=== PATIENT | male | born 1955 | race Caucasian/White ===

== ENCOUNTER 2023-08-22 10:16 | Inpatient (IN) | payer MEDICARE, SELFPAY ==
[2023-08-22] VITALS (42 sets, daily range): BP systolic 65–133; BP diastolic 42–106; PULSE 84–121; RESP 20–43; TEMP 36.6–37; O2SAT 88–96; BMI 51.1; BMI 43.4
--- NOTE | 2023-08-22 10:20 | ECG_ITS ---
APPROVED REPORT Exam: Resting ECG HR:116 bpm ECG Measurements Heart Rate 116 AXES QRSd 113 QRS -85 QT 313 T 76 QTc 382 Conclusion sinus TACHYCARDIA with motion artifact. LOW QRS VOLTAGE IN PRECORDIAL LEADS [QRS DEFLECTION < 1.0 mV IN CHEST LEADS] LEFT ANTERIOR FASCICULAR BLOCK [QRS AXIS <= -45, QR IN I, RS IN II] POSSIBLE ANTERIOR MYOCARDIAL INFARCTION , OF INDETERMINATE AGE [30 ms Q WAVE IN V3/V4, OR R < 0.2 mV IN V4] ABNORMAL ECG Electronically signed by : SHIRLEY GONZALEZ, 08/22/2023 14:46:14
--- NOTE | 2023-08-22 10:22 | XR_ITS ---
FINAL REPORT CLINICAL HISTORY: respiratory distress COMPARISON: None FINDINGS: The heart size is normal. The mediastinum is normal. The lungs are underinflated. There is bibasilar atelectasis. There are small bilateral pleural effusions. There is no pneumothorax. There is no osseous abnormality. IMPRESSION: Bibasilar atelectasis and small bilateral pleural effusions. Reviewed, Interpreted and Dictated by Elliot Strange MD Transcribed by Ann Rogers Authenticated and [facility]
[2023-08-22 10:36] LABS: Alanine Aminotransferase 26 U/L (12-78); Albumin Level 3.3 g/dl (3.5-5.0); Alkaline Phosphatase 63 U/L (38-126); Aspartate Amino Transferase 24 U/L (17-59); Bilirubin,Total 0.8 mg/dl (0.2-1.3); Blood Urea Nitrogen 38 mg/dl (9-20); Calcium 8.6 mg/dl (8.4-10.2); Chloride 80 mmol/L (98-107); Estimated Glomerular Filt Rate 35 ml/min (>60); GFR (African American) 43 ML/MIN (>60); Globulin 3.2 g/dL (1.3-3.2); Glucose 177 mg/dl (74-100); Potassium 3.8 mmoL/L (3.5-5.1); Sodium 132 mmol/L (136-145); Total Protein,Serum 6.5 g/dl (6.3-8.2)
[2023-08-22] MEDS: IPRATROPIUM/ALBUTEROL 3 ML NEB 9 ML IH (10:40)
[2023-08-22 10:41] LABS: C-Reactive Protein 80.2 mg/L (0-4)
[2023-08-22 10:42] LABS: D-Dimer 0.62 ug/mL (0.0-0.5)
[2023-08-22 10:43] LABS: VBG Base Excess 17.8 mmol/L (-2.4-2.3); VBG HCO3 43.6 mmol/L (23-30); VBG Oxygen Saturation 61.8 % (50-70); VBG PH 7.34 mmol/L (7.31-7.41); VBG PO2 35.5 mmol/L (28-40); VBG Total CO2 46.1 mmol/L (23-27)
--- NOTE | 2023-08-22 10:45 | ED_ITS ---
Discharge Plan Disposition Patient Disposition: Admitted Prescriptions Prescriptions: No Action prednisone 10 mg tablet 10 mg PO DAILY Patient Comments: TAKE 1 TABLET BY MOUTH EVERY DAY atorvastatin 20 mg tablet 20 mg PO HS Patient Comments: TAKE 1 TABLET BY MOUTH EVERY DAY AT NIGHT ipratropium-albuterol 0.5 mg-3 mg(2.5 mg base)/3 mL solution for nebulization 3 ml INHALATION Q4HP PRN (Reason: Shortness Of Breath) Patient Comments: INHALE 3 ML EVERY 4 HOURS NEEDED FOR WHEEZE trazodone 50 mg tablet 50 mg PO HSP PRN (Reason: Sleep) Patient Comments: TAKE 1 TABLET BY MOUTH EVERY DAY AT BEDTIME NEEDED FOR SLEEP ondansetron HCl 4 mg tablet 4 mg PO Q6HP PRN (Reason: Nausea And Vomiting) Patient Comments: TAKE 1 TABLET BY MOUTH EVERY 6 HOURS NEEDED FOR NAUSEA metolazone 5 mg tablet 5 mg PO DAILYP PRN (Reason: Swelling) Patient Comments: TAKE 1 TABLET BY MOUTH DAILY NEEDED FOR OTHER (WEIGHT GAIN 5 POUNDS). triamcinolone acetonide 0.1 % cream 1 applic TOPICAL DAILY Patient Comments: APPLY 1 APPLICATION ON THE SKIN DAILY APPLY TO RASH ON CHEST AND BACK furosemide 80 mg tablet 80 mg PO BIDL Patient Comments: TAKE 1 TABLET BY MOUTH TWICE DAILY DIURETIC. levothyroxine 150 mcg tablet 150 mcg PO DAILY Patient Comments: TAKE 1 TABLET BY MOUTH EVERY DAY metoprolol succinate 25 mg tablet extended release 24 hr 25 mg PO BID Patient Comments: TAKE 1 TABLET BY MOUTH TWICE A DAY albuterol sulfate 90 mcg/actuation HFA aerosol inhaler 2 puff INHALATION Q4HP PRN (Reason: Shortness Of Breath Or Wheezing) Patient Comments: INHALE 2 PUFFS BY MOUTH EVERY 4 HOURS NEEDED FOR WHEEZE spironolactone 50 mg tablet 50 mg PO BID Patient Comments: TAKE 1 TABLET BY MOUTH TWICE DAILY DIURETIC. ranolazine 500 mg tablet extended release 12 hr 500 mg PO BID Patient Comments: TAKE 1 TABLET BY MOUTH EVERY 12 HOURS acetylcysteine 600 mg capsule 600 mg PO BID Patient Comments: TAKE 1 CAPSULE BY MOUTH TWICE A DAY potassium chloride 20 mEq tablet extended release 40 meq PO BID Patient Comments: TAKE 2 TABLETS BY MOUTH TWICE A DAY WITH MEALS Trelegy Ellipta 200-62.5-25 mcg blister with device 1 ea INHALATION DAILY Clinical Impressions Clinical Impression: Acute on chronic respiratory failure with hypoxia and hypercapnia, Acute exacerbation of CHF (congestive heart failure), Severe sepsis, Pleural effusion, Leukocytosis, OSMANI (acute kidney injury), AMS (altered mental status) Discharge ED Provider: Savannah Jones General Adult HPI General Chief complaint: Shortness of Breath/Dyspnea Stated complaint: SOA Time Seen by Provider: 08/22/23 10:18 History of Present Illness HPI narrative: This patient is a 68-year-old male with a history of CHF and COPD reported by EMS presenting with concern for respiratory distress. According to EMS, they were called to the patient's home for respiratory difficulties. He has reportedly been sick for a few days. They noted that he was initially hypoxic, tachypneic, and had rales, so they placed him on CPAP. They report that they gave him 5 mg of IV Versed to help tolerate this. He tolerated it well, but then he reportedly broke their CPAP machine. He typically goes to [facility], however since he broke their CPAP machine, they brought him here. Patient arrives critically ill in respiratory distress and does not contribute much to history given acuity of condition. He denies any complaints of pain or otherwise. EMS does not know about his CODE STATUS, and we do not have any contact information to be able to contact family. Given altered mental status and acuity of condition, I do not feel the patient has capacity to make these decisions at this time. Related Data Home Medications Medication Instructions Recorded Confirmed acetylcysteine 600 mg capsule 600 mg PO BID 08/22/23 08/22/23 albuterol sulfate 90 mcg/actuation 2 puff inhalation Q4HP PRN 08/22/23 08/22/23 aerosol inhaler Shortness Of Breath Or Wheezing atorvastatin 20 mg tablet 20 mg PO HS 08/22/23 08/22/23 fluticasone fur. 200 mcg-umeclid 1 ea inhalation DAILY 08/22/23 08/22/23 62.5 mcg-vilant 25 mcg inhalat.powder (Trelegy Ellipta) furosemide 80 mg tablet 80 mg PO BIDL 08/22/23 08/22/23 ipratropium 0.5 mg-albuterol 3 mg 3 ml inhalation Q4HP PRN Shortness 08/22/23 08/22/23 (2.5 mg base)/3 mL nebulization Of Breath soln levothyroxine 150 mcg tablet 150 mcg PO DAILY 08/22/23 08/22/23 metolazone 5 mg tablet 5 mg PO DAILYP PRN Swelling 08/22/23 08/22/23 metoprolol succinate 25 mg 25 mg PO BID 08/22/23 08/22/23 tablet,extended release 24 hr ondansetron HCl 4 mg tablet 4 mg PO Q6HP PRN Nausea And 08/22/23 08/22/23 Vomiting potassium chloride 20 mEq 40 meq PO BID 08/22/23 08/22/23 tablet,extended release prednisone 10 mg tablet 10 mg PO DAILY 08/22/23 08/22/23 ranolazine 500 mg tablet,extended 500 mg PO BID 08/22/23 08/22/23 release,12 hr spironolactone 50 mg tablet 50 mg PO BID 08/22/23 08/22/23 trazodone 50 mg tablet 50 mg PO HSP PRN Sleep 08/22/23 08/22/23 triamcinolone acetonide 0.1 % 1 applic topical DAILY 08/22/23 08/22/23 topical cream Allergies Allergy/AdvReac Type Severity Reaction Status Date / Time No Known Allergies Allergy Verified 08/22/23 10:58 [facility] Disclaimer: The information contained in this section may have been updated after the patient was seen, as this information can be updated by other users. Medical History COPD (chronic obstructive pulmonary disease) Congestive heart failure Social History Smoking Status: Unknown if ever smoked alcohol intake: never current occupational status: retired Travel in the last 8 weeks: None ROS Obtained: Yes unobtainable due to mental status Physical Exam General General appearance: lethargic, in distress and obese Head Head exam: atraumatic and normocephalic Eye Eye exam: Present normal appearance, PERRL and EOMI ENT ENT exam: Present normal oropharynx, mucous membranes dry and normal external ear exam Neck Neck exam: Present normal inspection, full ROM and trachea midline; Absent tenderness Chest Chest inspection: Present normal inspection and symmetric chest wall rise; Absent tenderness Respiratory Respiratory exam: Present respiratory distress, wheezes, accessory muscle use, prolonged expiratory phase and other (Coarse bilateral rhonchi and rales); Absent stridor Cardiovascular Cardiovascular exam: Present normal rhythm and tachycardia Abdominal Exam Abdominal exam: Present soft and distention; Absent tenderness, guarding, rebound or rigidity Extremities Exam Extremities exam: Present full ROM, normal capillary refill and edema (Symmetric bilateral lower extremity edema with chronic skin changes); Absent tenderness Back Exam Back exam: Present normal inspection and full ROM; Absent tenderness Neurological Exam Neurological exam: Present CN II-XII intact; Absent alert, oriented X3 or motor sensory deficit Expanded Neurological Exam Patient oriented to: Present person; Absent place or time Coma scale eye opening: To voice Coma scale motor response: Obeys commands Coma scale verbal response: Confused Coma scale total: 13 Skin Skin exam: Present warm and dry Medical Decision Making Medical Records Medical records reviewed: Yes I reviewed the patient's medical records. Jeremy Inquiry Pt receiving controlled substance: No Vital Signs: 08/22/23 10:16 08/22/23 10:40 08/22/23 10:40 Pulse Rate 120 H 121 H Pulse Rate [Apical] 120 H Respiratory Rate 34 H Blood Pressure Blood Pressure [Left Arm] 118/55 L Blood Pressure Mean [Left Arm] 76 Blood Pressure Source Blood Pressure Source [Left Arm] Automatic Cuff Blood Pressure Position Blood Pressure Position [Left Arm] Sitting 02 Sat by Pulse Oximetry 88 L Oxygen Delivery Method Non-Rebreather Oxygen Flow Rate (LPM) 15 08/22/23 10:54 Pulse Rate 120 H Pulse Rate [Apical] Respiratory Rate 28 H Blood Pressure 120/89 Blood Pressure [Left Arm] Blood Pressure Mean [Left Arm] Blood Pressure Source Automatic Cuff Blood Pressure Source [Left Arm] Blood Pressure Position Sitting Blood Pressure Position [Left Arm] 02 Sat by Pulse Oximetry 95 Oxygen Delivery Method BiPAP Oxygen Flow Rate (LPM) Lab Data Lab results reviewed: Yes I reviewed the patient's lab results. Lab Results 08/22/23 10:18: WBC 54.1 H*, RBC 3.88 L, Hgb 11.0 L, Hct 36.1 L, MCV 93.1, MCH 28.4, MCHC 30.5 L, RDW 15.8, Plt Count 340, MPV 8.7, Neut % (Auto) 93.7 H, Lymph % (Auto) 0.5 L, Sutter % (Auto) 3.2, Eos % (Auto) 0.3, Baso % (Auto) 2.3 H, Neut # (Auto) 50.7 H, Lymph # (Auto) 0.3 L, Sutter # (Auto) 1.7 H, Eos # (Auto) 0.2, Baso # (Auto) 1.3 H, Total Counted 100, Neutrophils % (Manual) 71, Band Neutrophils % 16.0 H, Lymphocytes % (Manual) 2 L, Monocytes % (Manual) 8, Metamyelocytes % 2.0 H, Myelocytes % 1, Platelet Estimate Normal, Hypochromasia 1+, D-Dimer 0.62 H, S odium 132 L, Potassium 3.8, Chloride 80 L, Carbon Dioxide 47 H*, Anion Gap 8.8, BUN 38 H, Creatinine 1.90 H, Estimated GFR 35 L, Est GFR ( Amer) 43 L, G lucose 177 H, Calcium 8.6, Total Bilirubin 0.8, AST 24, ALT 26, Alkaline Phosphatase 63, Troponin I 0.02, C-Reactive Protein 80.2 H, NT-Pro-B Natriuret Pep 1730 H, Total Protein 6.5, Albumin 3.3 L, Globulin 3.2, Albumin/Globulin Ratio 1.0 L, Procalcitonin 6.56 H, TSH 24.40 H, Thyroxine (T4) 2.5 L 08/22/23 10:22: VBG pH 7.34, VBG pCO2 83.0 H, VBG pO2 35.5, VBG HCO3 43.6 H, VBG Total CO2 46.1 H, VBG O2 Saturation 61.8, VBG Base Excess 17.8 H, VBG Lactic Acid 5.2 H 08/22/23 13:24: Specimen Source A-line, O2 % 70% bipap 18/8, ABG pH 7.40, ABG pCO2 61.6 H, ABG pO2 76.4 L, ABG HCO3 37.2 H, ABG Total CO2 39.1 H, ABG O2 Saturation 94, ABG Base Excess 12.4 H, Jamie Test Non applicable, Vent Rate 20 08/22/23 10:18 08/22/23 10:18 Orders (Tests/Meds): ED MEDICATIONS Generic Name Dose Route Start Last Admin Trade Name Freq PRN Reason Stop Dose Admin Heparin Sodium (Porcine) 5,000 unit 08/22/23 14:45 Heparin Sodium 5,000 Unit/Ml Vial SQ 09/21/23 14:44 Q8H KARIN Piperacillin Sod/Tazobactam 50 mls @ 100 mls/hr 08/22/23 11:00 08/22/23 11:41 Sod 3.375 gm/ Sodium Chloride IV 09/01/23 10:59 100 mls/hr Q8H KARIN Administration Norepinephrine/Dextrose 8 mg in 250 mls @ 3.75 mls/hr 08/22/23 12:28 Norepinephrine 8mg/250ml-D5w Premix IV 09/21/23 12:27 .Q24H KARIN Protocol 2 MCG/MIN Azithromycin 500 mg/ Sodium 250 mls @ 250 mls/hr 08/23/23 12:00 Chloride IV 09/02/23 11:59 Q24H KARIN Sodium Chloride 10 ml 08/22/23 14:14 Sodium Chloride 0.9% 10ml Vial IV 09/21/23 14:13 NEEDED PRN to Dilute Lorazepam inj Discontinued Medications Generic Name Dose Route Start Last Admin Trade Name Freq PRN Reason Stop Dose Admin Acetaminophen 1,000 mg 08/22/23 12:02 Acetaminophen 1,000mg/100ml Vial IV 08/22/23 12:03 ONCE ONE Albuterol/Ipratropium 9 ml 08/22/23 10:23 08/22/23 10:40 Ipratropium/Albuterol 3 Ml Neb IH 08/22/23 10:24 9 ml ONCE ONE Administration Azithromycin 500 mg/ Sodium 250 mls @ 250 mls/hr 08/22/23 10:47 08/22/23 12:55 Chloride IV 08/22/23 10:48 250 mls/hr ONCE ONE Administration Vancomycin HCl 2,500 mg/ 250 mls @ 125 mls/hr 08/22/23 11:00 Sodium Chloride IV 08/22/23 12:59 ONCE ONE Lactated Ringer's 500 mls @ 999 mls/hr 08/22/23 11:21 Lactated Ringer's 1000 Ml Bag IV 08/22/23 11:51 .Q31M ONE Lactated Ringer's 1,000 mls @ 999 mls/hr 08/22/23 12:28 08/22/23 12:50 Lactated Ringer's 1000 Ml Bag IV 08/22/23 13:28 999 mls/hr .Q1H1M ONE Administration Lorazepam 1 mg 08/22/23 14:14 08/22/23 14:21 Lorazepam 2mg/Ml Vial IV 08/22/23 14:15 1 mg ONCE ONE Administration Methylprednisolone Sodium Succinate 125 mg 08/22/23 10:53 08/22/23 11:00 Methylprednisolone Sod Succ 125mg Vial IV 08/22/23 10:54 125 mg ONCE ONE Administration Miscellaneous 1 each 08/22/23 11:00 Vancomycin Consult Request NOTAPPLIC 09/21/23 10:59 CONSULT [facility]Y [facility] Morphine Sulfate 2 mg 08/22/23 12:02 08/22/23 12:02 Morphine 2mg/Ml Syringe IV 08/22/23 12:03 2 mg ONCE ONE Administration Morphine Sulfate 2 mg 08/22/23 13:45 08/22/23 13:54 Morphine 4mg/Ml Syringe IV 08/22/23 13:46 2 mg ONCE ONE Administration Ondansetron HCl 4 mg 08/22/23 12:03 Ondansetron 4mg/2ml Vial IV 08/22/23 12:04 ONCE ONE ORDERS Category Date Time Status CT abdomen pelvis wo con Stat Cat Scan 08/22/23 11:[address] chest wo con Stat Cat Scan 08/22/23 11:[address] head/brain wo con Stat Cat Scan 08/22/23 11:54 Completed XR chest portable Stat Exams 08/22/23 10:22 Completed C-Reactive Protein Stat Lab 08/22/23 10:18 Completed Complete Blood Count Auto Diff AMLAB Lab 08/23/23 06:00 Ordered Complete Blood Count Auto Diff Stat Lab 08/22/23 10:18 Completed Comprehensive Metabolic Panel AMLAB Lab 08/23/23 06:00 Ordered Comprehensive Metabolic Panel Stat Lab 08/22/23 10:18 Completed D-Dimer Stat Lab 08/22/23 10:18 Completed Hemoglobin A1C Stat Lab 08/22/23 10:18 Received Lactic Acid Follow Up (RFLX 1) Stat Lab 08/22/23 14:45 Ordered Lipid Panel AMLAB Lab 08/23/23 06:00 Ordered Magnesium AMLAB Lab 08/23/23 06:00 Ordered NT Pro Brain Natriuretic Pep. Stat Lab 08/22/23 10:18 Completed Procalcitonin Stat Lab 08/22/23 10:18 Completed Rapid PCR Covid and Flu A/B Stat Lab 08/22/23 10:22 Ordered T4 (Thyroxine) Stat Lab 08/22/23 10:18 Completed TSH [Thyroid Stimulating Hormone] Stat Lab 08/22/23 10:18 Received Thyroid Stimulating Hormone Stat Lab 08/22/23 10:18 Completed Troponin I Q3H Lab 08/22/23 13:30 Ordered Troponin I Q3H Lab 08/22/23 16:30 Ordered Troponin I Stat Lab 08/22/23 10:18 Completed UA [Urinalysis and Microscopic] Stat Lab 08/22/23 11:17 Ordered Blood Culture Stat Micro 08/22/23 12:43 Received Urine Culture Stat Micro 08/22/23 11:17 Ordered Arterial Blood Gas Stat RT 08/22/23 13:24 Completed Venous Blood Gas Stat RT 08/22/23 10:22 Completed ECG Data Tracing #1: I reviewed this ECG and interpreted as documented below: Sinus tachycardia with a ventricular rate of [address] changes concerning for ischemia. Some motion artifact noted. Left anterior fascicular block noted. ECG initial impression date: 08/22/23 ECG initial impression time: 10:22 Medical Decision Narrative: In summary, this patient is a 68-year-old male presenting to the Emergency Department for evaluation of respiratory distress. Differential diagnoses considered include but are not limited to respiratory failure, COPD exacerbation, CHF exacerbation, pneumonia, sepsis, ACS, PE. Ruling out the most morbid conditions drove assessment. Patient arrives critically ill in respiratory distress with tachypnea and hypoxia on a nonrebreather. He appears grossly volume overloaded with rales and peripheral edema. Patient was placed on BiPAP upon arrival to help with respiratory efforts. He was also given DuoNebs x 3 as well as IV methylprednisolone. At this time based on clinical exam, has concern for infectious etiology versus CHF exacerbation as a cause. His blood pressure is currently normal at 118/89. Workup included CBC, CMP, troponin, TSH, T4, CRP, procalcitonin, VBG, lactic acid, blood cultures, D-dimer, chest x-ray, and EKG. EKG does not demonstrate any acute ischemic change. I independently interpreted x-ray prior to the radiologist read and noted concerns for pulmonary edema with bilateral pleural effusions. Please see their read for final interpretation. Labs were obtained that demonstrated compensated respiratory acidosis, elevated creatinine at 1.9 with unknown baseline elevated BNP at 1730 with unknown baseline, marked leukocytosis, elevated inflammatory markers, elevated lactic acid. Age-adjusted D-dimer is negative. At this time, high concern for sepsis, but sepsis bolus was not administered given the patient appears grossly volume overloaded in the setting of heart failure. He was started on IV vancomycin, Zosyn, and azithromycin. We were able to obtain records from [facility], and patient has history of CHF with an EF of around 55%. He also has a history of atrial fibrillation, CKD with a creatinine around 1.1 at baseline, BPH, prostate cancer, chronic respiratory failure on 2 L nasal cannula at home, BiPAP use at home, hypertension, hyperlipidemia, hypothyroidism, lymphedema, obesity, and chronic medication noncompliance. His last admission which was back in June, he was treated with Diamox for acute decompensated heart failure requiring BiPAP. Patient required frequent reassessments for monitoring of vital signs, as he did become hypotensive during his hospital stay requiring fluid resuscitation with a liter bolus of IV fluids despite his evidence of volume overload. Levophed was ordered but did not require initiation. He also required frequent reassessments for BiPAP monitoring and setting adjustments. He also became more more agitated the more alert that he became after his blood gas and oxygenation started to improve. He was given a total of 4 mg of IV morphine and then later 1 mg of IV Ativan for agitation, as he kept trying to get out of bed and demanding food. I did place an arterial line into the left wrist for hemodynamic monitoring, however there were issues with calibrating the machine. CTs without IV contrast were obtained to further assess the patient's severe septic shock, and patient was found to have a very large pneumonia. Ultimately, I had an interactive discussion with the director clinical applications Dr. Tirado and the hospitalist Dr. Torres. They agreed to admit the patient here for further evaluation and management. He is admitted in stable condition. Procedures Risk/Benefits of Procedure(s) Were Explained: Yes Arterial Line Time Out Performed: Yes Technique Used: direct puncture technique Post-Procedure: line sutured into place and dry sterile dressing placed Patient Tolerated Procedure: well and no complications Complications: none Site: left and radial Critical Care Critical Care Time Critical Care Time: Yes Attestation: On 08/22/23, the high probability of a clinically significant, sudden or life threatening deterioration of the following system(s) required my full and direct attention, intervention and personal management. The time I documented below is in addition to time spent performing reported procedures but includes the following listed in this critical care notation. Total Time Total Critical Care Time: 65
[2023-08-22 10:46] LABS: Lactate Venous 5.2 mmol/L (0.4-2.0)
[2023-08-22 10:48] LABS: NT Pro Brain Natriuretic Pep. 1730 pg/mL (0-125); Troponin I 0.02 ng/ml (0.00-0.034)
--- NOTE | 2023-08-22 10:51 | PC.NURSE ---
MD to defer sepsis bolus d/t pt hx of CHF and pt appearing already fluid overloaded.
--- NOTE | 2023-08-22 10:52 | PC.NURSE ---
RT called during triage of pt for BIPAP and VBG orders. BIPAP placed and pt tolerating well w/ sats in upper 90's.
[2023-08-22 10:53] LABS: T4 (Thyroxine) 2.5 ug/dl (5.53-11.0)
[2023-08-22 11:00] LABS: Anion Gap 8.8 mEq/L (5-15); Basophils # 1.3 K/mm3 (0-0.2); Basophils % 2.3 % (0.1-2.0); Carbon Dioxide 47 mmol/L (22.0-30.0); Eosinophils # 0.2 K/mm3 (0.0-0.4); Eosinophils % 0.3 % (0.1-12.0); Hematocrit 36.1 % (42.0-52.0); Lymphocytes # 0.3 K/mm3 (0.7-4.5); Lymphocytes % 0.5 % (10-50); Mean Corpuscular HGB Conc 30.5 g/dL (31.8-35.4); Mean Corpuscular Hemoglobin 28.4 pg (27.0-31.2); Mean Corpuscular Volume 93.1 fl (80-94); Mean Platelet Volume 8.7 fl (7.4-10.4); Monocytes # 1.7 K/mm3 (0.1-1.0); Monocytes % 3.2 % (1.7-9.3); Neutrophils # 50.7 K/mm3 (1.8-7.8); Neutrophils % 93.7 % (37.0-80.0); Platelet Count 340 K/mm3 (142-424); Red Blood Count 3.88 M/mm3 (4.60-6.20); Red Cell Distribution Width 15.8 % (11.5-17.5)
[2023-08-22] MEDS: METHYLPREDNISOLONE SOD SUCC 125MG VIAL 125 MG IV (11:00)
[2023-08-22 11:01] LABS: White Blood Count 54.1 K/mm3 (4.8-10.8)
[2023-08-22 11:02] LABS: MANUAL DIFFERENTIAL MANUAL DIFFERENTIAL (MANUAL DIFF)
--- NOTE | 2023-08-22 11:08 | PC.NURSE ---
Contacted [facility] for patient records at this time. They are faxing most recent visits. Pt unable to verify allergies, PMH, or medications.
[2023-08-22 11:20] LABS: Procalcitonin 6.56 ng/mL (0.0-2.0)
--- NOTE | 2023-08-22 11:32 | PC.NURSE ---
Pt has been a difficulty stick to obtain blood cultures. Lab notified and will send staff down to attempt.
[2023-08-22] MEDS: PIPERACILLIN/TAZO 3.375 GM in 0.9 % SODIUM CHLORIDE 50 ML IV ×2 (11:41→19:21)
--- NOTE | 2023-08-22 11:54 | CT_ITS ---
FINAL REPORT TECHNIQUE: Axial images through the abdomen and pelvis were performed without contrast. This study was performed with techniques to keep radiation doses as low as reasonably achievable, (ALARA). Individualized dose reduction techniques using automated exposure control or adjustment of mA and/or kV according to the patient's size were employed. CLINICAL HISTORY: AMS, severe sepsis, resp failure COMPARISON: None FINDINGS: Abdomen: The liver parenchyma is homogeneous. The gallbladder is distended. The spleen and pancreas are unremarkable. There is bilateral adrenal hyperplasia. There is a nonobstructing stone in the left collecting system measuring 5 mm. Pelvis: The urinary bladder is decompressed. The appendix is normal. There are multiple radiation seed implants in the prostate. There is no pelvic mass or inflammation. IMPRESSION: Distended gallbladder. Adrenal hyperplasia. Small nonobstructing stone in the left renal collecting system. Reviewed, Interpreted and Dictated by Elliot Strange MD Transcribed by Ann Rogers Authenticated and [facility]
--- NOTE | 2023-08-22 11:54 | CT_ITS ---
FINAL REPORT TECHNIQUE: Axial images were obtained from the lung apex to the mid abdomen by computed tomography. Coronal reformatted images were obtained. This study was performed with techniques to keep radiation doses as low as reasonably achievable, (ALARA). Individualized dose reduction techniques using automated exposure control or adjustment of mA and/or kV according to the patient''s size were employed. CLINICAL HISTORY: AMS, severe sepsis, resp failure COMPARISON: None FINDINGS: There is no axillary adenopathy. There are small scattered mediastinal lymph nodes which are nonspecific and favored to be reactive. Heart size is normal. There is no pericardial or pleural effusion. There is dense consolidation throughout the left lower lobe of the lung. Patchy airspace opacities noted in the right lower lobe of the lung consistent with acute pneumonia or aspiration. IMPRESSION: Acute pneumonia or aspiration right lower lobe of the lung. Dense consolidation left lower lobe. Reviewed, Interpreted and Dictated by Elliot Strange MD Transcribed by Ann Rogers Authenticated and [facility][1]
--- NOTE | 2023-08-22 11:54 | CT_ITS ---
FINAL REPORT TECHNIQUE: Axial CT images were performed through the head. Coronal reformatted images were submitted. This study was performed with techniques to keep radiation doses as low as reasonably achievable (ALARA). Individualized dose reduction techniques using automated exposure control or adjustment of mA and/or kV according to the patient's size were employed. CLINICAL HISTORY: AMS, severe sepsis, resp failure COMPARISON: None FINDINGS: Images are degraded by patient motion. There is moderate atrophy with proportional ventriculomegaly. There is extensive decreased attenuation in the deep white matter bilaterally. There is no evidence of hemorrhage. There is no mass or edema identified. There is no abnormal extra-axial fluid seen. There is abnormal opacity of the mastoid air cells bilaterally consistent with chronic bilateral mastoiditis. There are mild changes of mild bilateral maxillary sinusitis. IMPRESSION: Atrophy and microvascular ischemia. Chronic bilateral mastoiditis and maxillary sinusitis. Reviewed, Interpreted and Dictated by Elliot Strange MD Transcribed by Ann Rogers Authenticated and . [facility]
[2023-08-22] MEDS: MORPHINE 2MG/ML SYRINGE 2 MG IV (12:02)
[2023-08-22 12:19] LABS: Lymphocytes % 2 % (10-50); Monocytes % 8 % (2-9); Myelocytes % 1 (0-1); Neutrophils % 71 % (42-76); Total Cells Counted 100
[2023-08-22 12:34] LABS: Platelet Estimate Normal
[2023-08-22 12:37] LABS: Hypochromasia 1+
[2023-08-22] MEDS: LACTATED RINGERS 1000ML 1,000 ML 999 ML IV (12:50)
[2023-08-22] MEDS: AZITHROMYCIN 500 MG in 0.9 % SODIUM CHLORIDE 250 ML 250 MG IV (12:55)
--- NOTE | 2023-08-22 13:51 | PC.NURSE ---
Pt has an art line so obtaining vitals to get recorded are delayed due to him fighting the CPAP mask due to his breathing
[2023-08-22] MEDS: MORPHINE 4MG/ML SYRINGE 2 MG IV (13:54)
[2023-08-22 14:07] LABS: ABG Base Excess 12.4 mmol/L (-2.4-2.3); ABG HCO3 37.2 mmhg (22.0-26.0); ABG Oxygen Saturation 94 % (90-100); ABG PO2 76.4 mmhg (80-100); ABG TCO2 39.1 mmhg (23-27)
[2023-08-22 14:08] LABS: Oxygen 70% Bipap 18/8 %
[2023-08-22 14:09] LABS: Allen's Test Non Applicable; Vent Rate 20
--- NOTE | 2023-08-22 14:09 | PC.NURSE ---
Pt has been extremely uncooperative with care since arrival to ED. Pt has repeatedly tried removing BIPAP despite multiple attempts to redirect. Pt has requested food and to stand up multiple times despite being told he is NPO and bed rest every time. Difficult to obtain accurate ART reading and IV lines as well which has delayed medications also. MD is aware and orders placed.
[2023-08-22 14:11] LABS: ABG PCO2 61.6 mmhg (35.0-45.0)
[2023-08-22] MEDS: LORazepam 2MG/ML VIAL 1 MG IV (14:21)
--- NOTE | 2023-08-22 14:34 | P.HP_ITS ---
History of Present Illness *Admission Date: 08/22/23 *Reason for visit:: shortness of breath *History of present illness: Mr. Wu is a 68-year-old male who arrived at our ER via EMS. He has a history of CHF and COPD along with chronic respiratory failure on CPAP at home. Presented via EMS to the ER because of respiratory distress. Unable to obtain any history from patient. History from documentation and discussion with significant other (Anamika Bowers). EMS was called to the patient's home because of respiratory difficulties. He reportedly has been sick for a few days. His significant other noted that he was having trouble breathing and was breathing fast. EMS reports that he initially was hypoxic, tachypneic, and had Rales. They placed him on CPAP and gave him Versed to help him tolerate CPAP. He became more confused and broke their CPAP machine. Typically he goes to [facility] but was unable to transport there due to no longer having CPAP for the ride to the hospital. He was therefore brought to [facility] for further management. He arrived in critically ill condition with respiratory distress concerning for severe sepsis. Unable to give any history due to his confusion. Initial presentation concerning for respiratory failure, severe sepsis, pneumonia. Given multiple DuoNebs and IV methylprednisolone. Labs obtained showing normal pH but elevated pCO2. Compensation with metabolic alkalosis on his CMP with bicarb of 47. Elevated BNP. Given his tachypnea, hypoxia, respiratory distress, patient was placed on BiPAP. Pulmonology was consulted to assist with management. White cell count severely elevated at 54,000, initiated on vancomycin, Zosyn, azithromycin. Records were obtained from [facility] show has history of heart failure with preserved ejection fraction, CKD (baseline 1.1), prostate cancer, chronic respiratory failure on 2 to 3 L nasal cannula. BiPAP use at home. Hypertension, hypothyroid, lymphedema, morbid obesity. Patient has history of chronic medication noncompliance. Was admitted 1 month ago and initiated on treatment with Diamox for acute decompensated heart failure requiring BiPAP. It appears from chart review with multiple discussions were had about possible hospice for his heart failure. Unsure of patient's CODE STATUS. Medicine was consulted for admission. I had a conversation with his significant other, girlfriend of 12 years Anamika Bowers. She states he has 4 adult children (3 daughters and 1 son). He is estranged from his family and in the 12 years they have been together she has never met his children and is not aware of him seeing or talking with them. He has a brother whom he has not seen in years. She has no idea of how to contact his family. She has been his surrogate caregiver in the past. She reports that he has previously been DNR at [facility] but we have no documentation at this time. On arrival to the floor, patient's blood pressure became more hypotensive. He was initiated on norepinephrine. Currently tolerating BiPAP. [facility] Disclaimer: The information contained in this section may have been updated after the patient was seen, as this information can be updated by other users. Medical History Pneumonia COPD (chronic obstructive pulmonary disease) Congestive heart failure Social History Smoking Status: Unknown if ever smoked alcohol intake: never current occupational status: retired Travel in the last 8 weeks: None Review of Systems Review of Systems Review of systems:: unable to obtain Meds Home Medications and Allergies Home Medications Medication Instructions Recorded Confirmed Type acetylcysteine 600 mg capsule 600 mg PO BID 08/22/23 08/22/23 History albuterol sulfate 90 mcg/actuation 2 puff inhalation Q4HP PRN 08/22/23 08/22/23 History aerosol inhaler Shortness Of Breath Or Wheezing atorvastatin 20 mg tablet 20 mg PO HS 08/22/23 08/22/23 History fluticasone fur. 200 mcg-umeclid 1 ea inhalation DAILY 08/22/23 08/22/23 History 62.5 mcg-vilant 25 mcg inhalat.powder (Trelegy Ellipta) furosemide 80 mg tablet 80 mg PO BIDL 08/22/23 08/22/23 History ipratropium 0.5 mg-albuterol 3 mg 3 ml inhalation Q4HP PRN Shortness 08/22/23 08/22/23 History (2.5 mg base)/3 mL nebulization Of Breath soln levothyroxine 150 mcg tablet 150 mcg PO DAILY 08/22/23 08/22/23 History metolazone 5 mg tablet 5 mg PO DAILYP PRN Swelling 08/22/23 08/22/23 History metoprolol succinate 25 mg 25 mg PO BID 08/22/23 08/22/23 History tablet,extended release 24 hr ondansetron HCl 4 mg tablet 4 mg PO Q6HP PRN Nausea And 08/22/23 08/22/23 History Vomiting potassium chloride 20 mEq 40 meq PO BID 08/22/23 08/22/23 History tablet,extended release prednisone 10 mg tablet 10 mg PO DAILY 08/22/23 08/22/23 History ranolazine 500 mg tablet,extended 500 mg PO BID 08/22/23 08/22/23 History release,12 hr spironolactone 50 mg tablet 50 mg PO BID 08/22/23 08/22/23 History trazodone 50 mg tablet 50 mg PO HSP PRN Sleep 08/22/23 08/22/23 History triamcinolone acetonide 0.1 % 1 applic topical DAILY 08/22/23 08/22/23 History topical cream New Prescriptions to Start Prescriptions: Allergies Allergy/AdvReac Type Severity Reaction Status Date / Time No Known Allergies Allergy Verified 08/22/23 10:58 Exam Data for Last 24 hours Vital signs and Labs for Last 24 Hours: Pulse Resp BP Pulse Ox O2 Del Method O2 Flow Rate FiO2 120 H 28 H 120/89 95 BiPAP 15 70 08/22/23 10:54 08/22/23 10:54 08/22/23 10:54 08/22/23 10:54 08/22/23 10:54 08/22/23 10:16 08/22/23 12:21 Laboratory Results - last 24 hr 08/22/23 10:18: WBC 54.1 H*, RBC 3.88 L, Hgb 11.0 L, Hct 36.1 L, MCV 93.1, MCH 28.4, MCHC 30.5 L, RDW 15.8, Plt Count 340, MPV 8.7, Neut % (Auto) 93.7 H, Lymph % (Auto) 0.5 L, [place] % (Auto) 3.2, Eos % (Auto) 0.3, Baso % (Auto) 2.3 H, Neut # (Auto) 50.7 H, Lymph # (Auto) 0.3 L, [place] # (Auto) 1.7 H, Eos # (Auto) 0.2, Baso # (Auto) 1.3 H, Total Counted 100, Neutrophils % (Manual) 71, Band Neutrophils % 16.0 H, Lymphocytes % (Manual) 2 L, Monocytes % (Manual) 8, Metamyelocytes % 2.0 H, Myelocytes % 1, Platelet Estimate Normal, Hypochromasia 1+, D-Dimer 0.62 H, Sodium 132 L, Potassium 3.8, Chloride 80 L, Carbon Dioxide 47 H*, Anion Gap 8.8, BUN 38 H, Creatinine 1.90 H, Estimated GFR 35 L, Est GFR ( Amer) 43 L, Glucose 177 H, Calcium 8.6, Total Bilirubin 0.8, AST 24, ALT 26, Alkaline Phosphatase 63, Troponin I 0.02, C-Reactive Protein 80.2 H, NT-Pro-B Natriuret Pep 1730 H, Total Protein 6.5, Albumin 3.3 L, Globulin 3.2, Albumin/Globulin Ratio 1.0 L, Procalcitonin 6.56 H, TSH 24.40 H, Thyroxine (T4) 2.5 L 08/22/23 10:22: VBG pH 7.34, VBG pCO2 83.0 H, VBG pO2 35.5, VBG HCO3 43.6 H, VBG Total CO2 46.1 H, VBG O2 Saturation 61.8, VBG Base Excess 17.8 H, VBG Lactic Acid 5.2 H 08/22/23 13:24: Specimen Source A-line, O2 % 70% bipap 18/8, ABG pH 7.40, ABG pCO2 61.6 H, ABG pO2 76.4 L, ABG HCO3 37.2 H, ABG Total CO2 39.1 H, ABG O2 Saturation 94, ABG Base Excess 12.4 H, Jamie Test Non applicable, Vent Rate 20 I & O for Last 24 hours: Intake & Output 08/19/23 08/20/23 08/21/23 08/22/23 23:59 23:59 23:59 23:59 Weight 152.52 kg Constitutional Constitutional: moderate distress, morbidly obese and chronically ill appearing Comments: GCS 13; E4, V4, M5 *Routine HEENT Exam Head: Present normocephalic, atraumatic and cushingoid faces Eye: Present EOMI ENT: Present mucous membranes moist *Routine Neck Exam Neck: Absent carotid bruit Comments: Significantly enlarged, buffalo hump on back of neck *Routine Respiratory Exam Respiratory: Present accessory muscle use, prolonged expiratory phase, rhonchi, wheezes, crackles, distant breath sounds and diminished air movement *Routine Cardiovascular Exam Cardiovascular: Present tachycardia *Routine Abdominal Exam Abdominal: Present soft and normoactive bowel sounds; Absent distended Comments: Obese *Routine Rectal Exam Rectal:: deferred *Routine Genitalia Exam Genitalia:: normal male Comment:: Excoriations on scrotum *Routine Extremities Exam Extremities: Present edema (2+ edema to thighs, chronic lymphedema in lower extremities with chronic stasis dermatitis.); Absent cyanosis or clubbing *Routine Skin Exam Skin: Present intact *Routine Neurological Exam Neurological: Present altered mental status and moving all extremities Comments: GCS 13, E4, V4, M5 Assessment and Plan *Assessment and plan (1) Septic shock: Status: Acute Category: Medical Code(s): A41.9 - Sepsis, unspecified organism; R65.21 - Severe sepsis with septic shock (2) Acute on chronic respiratory failure with hypoxia and hypercapnia: Status: Acute Category: Medical Code(s): J96.21 - Acute and chronic respiratory failure with hypoxia; J96.22 - Acute and chronic respiratory failure with hypercapnia (3) Pneumonia: Status: Acute Category: Medical Code(s): J18.9 - Pneumonia, unspecified organism (4) Acute exacerbation of CHF (congestive heart failure): Status: Acute Category: Medical Code(s): I50.9 - Heart failure, unspecified (5) OSMANI (acute kidney injury): Status: Acute Category: Medical Code(s): N17.9 - Acute kidney failure, unspecified (6) Acute metabolic encephalopathy: Status: Acute Category: Medical Code(s): G93.41 - Metabolic encephalopathy (7) Pickwickian syndrome: Status: Acute Category: Medical Code(s): E66.2 - Morbid (severe) obesity with alveolar hypoventilation (8) Morbid obesity: Status: Acute Category: Medical Code(s): E66.01 - Morbid (severe) obesity due to excess calories (9) Hypothyroid: Status: Acute Category: Medical Code(s): E03.9 - Hypothyroidism, unspecified (10) Heart failure with preserved ejection fraction: Status: Acute Category: Medical Code(s): I50.30 - Unspecified diastolic (congestive) heart failure Plan Mr. Wu is a morbidly obese 68-year-old male with history of heart failure with preserved ejection fraction, chronic respiratory failure on home BiPAP, chronically on 3 L oxygen, with CKD and recent admission for respiratory failure a month ago to [facility]. He presented via EMS for acute worsening and concern for sepsis with respiratory failure. Workup in the ER concerning for pneumonia, development of septic shock, and respiratory failure. Initiated on BiPAP. Discussed case with ER, request admission for ICU level of care and further management. Medicine agreed to admit. Received broad-spectrum antibiotics in the ER. Cultures obtained. Pulmonology consulted to assist with care including BiPAP management and critical care. Necessitating ICU level of care. Patient's prognosis guarded, critically ill. Problems addressed as follows: Septic shock Acute on chronic hypoxemic respiratory failure with hypercapnia Pickwickian syndrome Pneumonia Mixed respiratory acidosis, metabolic acidosis with concurrent metabolic alkalotic compensation. -Tachypneic on arrival, tachycardic, CT of chest with dense consolidation of the left lower lobe and right lower lobe. Blood gas showing compensated pH with elevated pCO2. -White cell count elevated at 54,000, lactate elevated above 4 -Pulmonology consulted, appreciate their recommendations. Discussed case. Will continue BiPAP therapy for oxygenation. Hold off on intubation given his improvement in blood gas from initial VBG to subsequent ABG. -Continue DuoNebs every 4 hours scheduled. Pulmicort every 12 hours scheduled. -Continue broad-spectrum antibiotics with vancomycin, Zosyn, azithromycin. -Sputum culture pending. Nasal MRSA PCR pending. Respiratory panel negative -Will maintain MAP greater than 65. Initially greater than 60 1:05 liter in the ER. Became hypotensive after arriving to the floor. Initiated on Levophed. Will administer additional 500 cc bolus of IV fluids. -Maintain head of bed elevated between 30 and 45 degrees. -Reported history of chronic steroids, concern for component of adrenal insufficiency. Will continue stress dose hydrocortisone. Received 200 mg IV hydrocortisone x 1, continue 50 mg every 6 hours scheduled -Procalcitonin elevated at 6.6. Will trend daily. -Repeat CBC, CMP, magnesium, Pro-Amish ordered for the morning Hypothyroid: TSH of 24. Will administer 200 mcg IV levothyroxine x 1. Continue 100 mcg daily Diabetes: A1c 6.8. Sliding scale insulin fingersticks every 6 hours given diabetes diagnosis and steroid use as above Heart failure with preserved ejection fraction -Patient's baseline reportedly 55% per documentation reviewed from [facility]. Will repeat echocardiogram. Concern for diastolic dysfunction given obesity and respiratory failure -Holding metoprolol and diuretics in setting of septic shock -Concern for acute exacerbation with BNP of 1700 however in the setting of septic shock and hypotension, will hold on diuresis and instead will administer fluids cautiously Metabolic alkalosis: Continue acetazolamide 250 mg twice daily OSMANI: BUN 38, creatinine 1.9. Baseline appears to be 1.1 per chart review. Repeat CMP ordered for the morning. Monitoring closely, caution with nephrotoxins, renally dosing medications Hypomagnesemia: Magnesium 1.3. Will administer 2 mg IV x 1. Repeat level ordered for the morning. Patient's estrangement from family complicates social situation and decision making. Will attempt to obtain records from [facility] in regard to possible POA, medical surrogate, CODE STATUS. Until family/significant other able to produce documentation otherwise, patient is full code N.p.o. Heparin 5000 units 3 times daily
[2023-08-22 14:45] LABS: Reflex Lactic Add Lactic Reflex
--- NOTE | 2023-08-22 14:51 | [facility]H.PHAINT1 ---
Pharmacy Intervention Comments: MEDICATION RECONCILIATION COMPLETED ON PATIENT USING EXTERNAL FILL HISTORY FROM PHARMACY. -KHARI WOOTEN, LISAD
--- NOTE | 2023-08-22 15:10 | EXP.PULM.CON ---
History of Present Illness History of present illness: 68-year-old male history of COPD, OHS chronic BiPAP therapy and chronic oxygen supplementation at 5 L, combined systolic and diastolic dysfunction, A-fib RVR, chronic noncompliance with his medications leading to multiple readmissions for worsening respiratory distress, recently discharged from [facility] on June 2023 presented to the ER with worsening respiratory distress needing noninvasive ventilator therapy and pulmonary was called for further evaluation and management. [facility] Disclaimer: The information contained in this section may have been updated after the patient was seen, as this information can be updated by other users. Medical History (Updated 08/22/23 @ 15:21 by Lauren Tirado MD) Pneumonia COPD (chronic obstructive pulmonary disease) Congestive heart failure Social History (Updated 08/22/23 @ 14:57 by Savannah Jones DO) Smoking Status: Unknown if ever smoked alcohol intake: never current occupational status: retired Travel in the last 8 weeks: None Review of Systems Review of Systems Review of systems:: unable to obtain Review of systems (narrative): Patient lethargic not responding appropriately to verbal stimuli Pulmonology Exam Inpatient Vital signs and Labs for Last 24 Hours: Temp Pulse Resp BP Pulse Ox O2 Del Method O2 Flow Rate 98.0 F 120 H 28 H 120/89 95 BiPAP 15 08/22/23 14:32 08/22/23 10:54 08/22/23 10:54 08/22/23 10:54 08/22/23 10:54 08/22/23 10:54 08/22/23 10:16 FiO2 70 08/22/23 12:21 Laboratory Results - last 24 hr 08/22/23 10:18: WBC 54.1 H*, RBC 3.88 L, Hgb 11.0 L, Hct 36.1 L, MCV 93.1, MCH 28.4, MCHC 30.5 L, RDW 15.8, Plt Count 340, MPV 8.7, Neut % (Auto) 93.7 H, Lymph % (Auto) 0.5 L, [place] % (Auto) 3.2, Eos % (Auto) 0.3, Baso % (Auto) 2.3 H, Neut # (Auto) 50.7 H, Lymph # (Auto) 0.3 L, [place] # (Auto) 1.7 H, Eos # (Auto) 0.2, Baso # (Auto) 1.3 H, Total Counted 100, Neutrophils % (Manual) 71, Band Neutrophils % 16.0 H, Lymphocytes % (Manual) 2 L, Monocytes % (Manual) 8, Metamyelocytes % 2.0 H, Myelocytes % 1, Platelet Estimate Normal, Hypochromasia 1+, D-Dimer 0.62 H, Sodium 132 L, Potassium 3.8, Chloride 80 L, Carbon Dioxide 47 H*, Anion Gap 8.8, BUN 38 H, Creatinine 1.90 H, Estimated GFR 35 L, Est GFR ( Amer) 43 L, Glucose 177 H, Calcium 8.6, Total Bilirubin 0.8, AST 24, ALT 26, Alkaline Phosphatase 63, Troponin I 0.02, C-Reactive Protein 80.2 H, NT-Pro-B Natriuret Pep 1730 H, Total Protein 6.5, Albumin 3.3 L, Globulin 3.2, Albumin/Globulin Ratio 1.0 L, Procalcitonin 6.56 H, TSH 24.40 H, Thyroxine (T4) 2.5 L 08/22/23 10:22: VBG pH 7.34, VBG pCO2 83.0 H, VBG pO2 35.5, VBG HCO3 43.6 H, VBG Total CO2 46.1 H, VBG O2 Saturation 61.8, VBG Base Excess 17.8 H, VBG Lactic Acid 5.2 H 08/22/23 13:24: Specimen Source A-line, O2 % 70% bipap 18/8, ABG pH 7.40, ABG pCO2 61.6 H, ABG pO2 76.4 L, ABG HCO3 37.2 H, ABG Total CO2 39.1 H, ABG O2 Saturation 94, ABG Base Excess 12.4 H, Jamie Test Non applicable, Vent Rate 20 I & O for Labs for Last 24 Hours: Intake & Output 08/19/23 08/20/23 08/21/23 08/22/23 23:59 23:59 23:59 23:59 Weight 336 lb 4 oz Constitutional: Present severe distress Head: Present normocephalic and atraumatic ENT: Present normal exam, normal oropharynx and mucous membranes moist Neck: Present normal inspection and full ROM Respiratory: Present prolonged expiratory phase, respiratory distress, rhonchi, wheezes, crackles and diminished air movement; Absent able to speak in complete sentences Cardiac: Present S1/S2 and Tachycardia; Absent Regular Rhythm GI: Present soft and distention; Absent tenderness or guarding Skin: Present intact; Absent cyanosis or jaundice Neuro: Absent alert, awake or oriented x 3 Extremities: Present normal inspection; Absent clubbing or cyanosis Psychiatric: Present normal affect and cooperative Meds Home Medications and Allergies Home Medications Medication Instructions Recorded Confirmed Type acetylcysteine 600 mg capsule 600 mg PO BID 08/22/23 08/22/23 History albuterol sulfate 90 mcg/actuation 2 puff inhalation Q4HP PRN 08/22/23 08/22/23 History aerosol inhaler Shortness Of Breath Or Wheezing atorvastatin 20 mg tablet 20 mg PO HS 08/22/23 08/22/23 History fluticasone fur. 200 mcg-umeclid 1 ea inhalation DAILY 08/22/23 08/22/23 History 62.5 mcg-vilant 25 mcg inhalat.powder (Trelegy Ellipta) furosemide 80 mg tablet 80 mg PO BIDL 08/22/23 08/22/23 History ipratropium 0.5 mg-albuterol 3 mg 3 ml inhalation Q4HP PRN Shortness 08/22/23 08/22/23 History (2.5 mg base)/3 mL nebulization Of Breath soln levothyroxine 150 mcg tablet 150 mcg PO DAILY 08/22/23 08/22/23 History metolazone 5 mg tablet 5 mg PO DAILYP PRN Swelling 08/22/23 08/22/23 History metoprolol succinate 25 mg 25 mg PO BID 08/22/23 08/22/23 History tablet,extended release 24 hr ondansetron HCl 4 mg tablet 4 mg PO Q6HP PRN Nausea And 08/22/23 08/22/23 History Vomiting potassium chloride 20 mEq 40 meq PO BID 08/22/23 08/22/23 History tablet,extended release prednisone 10 mg tablet 10 mg PO DAILY 08/22/23 08/22/23 History ranolazine 500 mg tablet,extended 500 mg PO BID 08/22/23 08/22/23 History release,12 hr spironolactone 50 mg tablet 50 mg PO BID 08/22/23 08/22/23 History trazodone 50 mg tablet 50 mg PO HSP PRN Sleep 08/22/23 08/22/23 History triamcinolone acetonide 0.1 % 1 applic topical DAILY 08/22/23 08/22/23 History topical cream New Prescriptions to Start Prescriptions: Allergies Allergy/AdvReac Type Severity Reaction Status Date / Time No Known Allergies Allergy Verified 08/22/23 10:58 Results Laboratory Findings 08/22/23 10:18 08/22/23 10:18 ABG ABG pH 7.40 mmol/L (7.35-7.45) 08/22/23 13:24 ABG pCO2 61.6 mmhg (35.0-45.0) H 08/22/23 13:24 ABG pO2 76.4 mmhg (80-100) L 08/22/23 13:24 ABG O2 Saturation 94 % (90-100) 08/22/23 13:24 PT/INR, D-dimer D-Dimer 0.62 ug/mL (0.0-0.5) H 08/22/23 10:18 Abnormal lab findings: Abnormal Labs 08/22/23 08/22/23 08/22/23 10:18 10:22 13:24 WBC 54.1 H* RBC 3.88 L Hgb 11.0 L Hct 36.1 L MCHC 30.5 L Neut % (Auto) 93.7 H Lymph % (Auto) 0.5 L Baso % (Auto) 2.3 H Neut # (Auto) 50.7 H Lymph # (Auto) 0.3 L Simpson # (Auto) 1.7 H Baso # (Auto) 1.3 H Band Neutrophils % 16.0 H Lymphocytes % (Manual) 2 L Metamyelocytes % 2.0 H D-Dimer 0.62 H ABG pCO2 61.6 H ABG pO2 76.4 L ABG HCO3 37.2 H ABG Total CO2 39.1 H ABG Base Excess 12.4 H VBG pCO2 83.0 H VBG HCO3 43.6 H VBG Total CO2 46.1 H VBG Base Excess 17.8 H VBG Lactic Acid 5.2 H Sodium 132 L Chloride 80 L Carbon Dioxide 47 H* BUN 38 H Creatinine 1.90 H Estimated GFR 35 L Est GFR ( Amer) 43 L Glucose 177 H C-Reactive Protein 80.2 H NT-Pro-B Natriuret Pep 1730 H Albumin 3.3 L Albumin/Globulin Ratio 1.0 L Procalcitonin 6.56 H TSH 24.40 H Thyroxine (T4) 2.5 L Assessment and Plan *Assessment and plan (1) Pleural effusion: Status: Acute Category: Medical Code(s): J90 - Pleural effusion, not elsewhere classified (2) Acute on chronic respiratory failure with hypoxia and hypercapnia: Status: Acute Category: Medical Code(s): J96.21 - Acute and chronic respiratory failure with hypoxia; J96.22 - Acute and chronic respiratory failure with hypercapnia (3) Pneumonia: Status: Acute Category: Medical Code(s): J18.9 - Pneumonia, unspecified organism Plan Patient lethargic not cooperative not responding to verbal commands appropriately. Much of the history is obtained from chart review. 68-year-old male history of COPD, OHS chronic BiPAP therapy and chronic oxygen supplementation at 5 L, combined systolic and diastolic dysfunction, A-fib RVR, chronic noncompliance with his medications leading to multiple readmissions for worsening respiratory distress, recently discharged from [facility] on June 2023 presented to the ER with worsening respiratory distress needing noninvasive ventilator therapy and pulmonary was called for further evaluation and management. He was also treated for influenza pneumonia in April 2023. Afebrile. Significant neutrophilic predominant leukocytosis upon admission hemodynamically unstable needing 1 L LR bolus with improving pressors. It also. Patient has been on long-term prednisone therapy that was discontinued recently in June 2023. CT chest upon admission dense consolidative changes in the left lower lung bruce. Underlying mass cannot be completely ruled out. No significant effusions noted. VBG upon admission showed hypercarbic respiratory failure with normal pH, repeat ABG showed chronic hypercarbia with normal pH. CT head chronic microvascular ischemia chronic sinusitis and mastoiditis. Other significant lab abnormalities including OSMANI and hyponatremia Plan: Continue BiPAP therapy for oxygenation, we will hold off on intubation given improvement in blood gas. Will closely monitor patient's mentation DuoNebs every 4 hours scheduled along with Pulmicort every 12 scheduled Vancomycin and Zosyn pending blood and sputum culture results, nasal MRSA PCR and respiratory viral PCR panel Hydrocortisone 50 every 6 hours MAP at greater than 65 after receiving 1 L LR bolus. Will closely monitor. A-line in place placed by ER physician. Will moitor Recommend elevate head of the bed at 30 to 45 degrees # Thank you for involving pulmonary in this patient care. Will continue to follow.
[2023-08-22 15:31] LABS: Hemoglobin A1C 6.8 % (4.0-6.0)
[2023-08-22] MEDS: HEPARIN SODIUM 5,000 UNIT/ML VIAL 5000 UNIT SQ ×2 (16:10→22:22)
[2023-08-22] MEDS: VANCOMYCIN HCL 2,500 MG in 0.9 % SODIUM CHLORIDE 250 ML 125 MG IV (16:11)
--- NOTE | 2023-08-22 16:45 | PC.NURSE ---
Pt arrived to the floor at this time via stretcher
[2023-08-22 16:53] LABS: Coronavirus 19, PCR Not Detected (NotDetected); Influenza A, PCR Not Detected (NotDetected); Influenza B, PCR Not Detected (NotDetected)
[2023-08-22 17:21] LABS: Troponin I 0.02 ng/ml (0.00-0.034)
[2023-08-22] MEDS: HYDROCORTISONE SOD SUCCINATE 100MG VIAL 200 MG IV (17:23)
[2023-08-22] MEDS: NOREPINEPHRINE BITARTRATE/D5W 8 MG/250 ML PLAST..BAG 15 MG IV (17:32)
[2023-08-22] MEDS: LEVOTHYROXINE SODIUM 100 MCG VIAL 200 MCG IV (18:06)
[2023-08-22] MEDS: IPRATROPIUM/ALBUTEROL 3 ML NEB IH ×2 (18:26→21:20)
[2023-08-22] MEDS: BUDESONIDE 0.5MG/2ML NEB 0.5 MG IH (18:27)
[2023-08-22 19:37] LABS: Reflex Lactic (2 hrs) Add Lactic Reflex
[2023-08-22 19:37] LABS: Adenovirus,PCR Not Detected (NotDetected); Coronavirus 19, PCR Not Detected (NotDetected); Coronavirus 229E Not Detected (NotDetected); Coronavirus NL63 Not Detected (NotDetected); Coronavirus OC43 Not Detected (NotDetected); Coronovirus HKU1,PCR Not Detected (NotDetected); Human Metapneumovirus Not Detected (NotDetected); Influenza A, PCR Not Detected (NotDetected); Influenza AH1, 2009 Not Detected (NotDetected); Influenza AH1, PCR Not Detected (NotDetected); Influenza AH3,PCR Not Detected (NotDetected); Influenza B, PCR Not Detected (NotDetected); Parainfluenza 1, PCR Not Detected (NotDetected); Parainfluenza 2, PCR Not Detected (NotDetected); Parainfluenza 3, PCR Not Detected (NotDetected); Parainfluenza 4, PCR Not Detected (NotDetected); Respiratory Syncytial Virus Not Detected (NotDetected); Rhinovirus/Enterovirus Not Detected (NotDetected)
[2023-08-22 20:24] LABS: Lactic Acid Follow up (RFLX 2) 3.1 mmol/L (0.7-2.1)
[2023-08-22 20:45] LABS: Microscopic, Urine URINE MICROSCOPIC (MICROSCOPIC)
[2023-08-22 20:52] LABS: Appearance,Urine CLEAR (Clear); Bilirubin,Urine Negative (Negative); Blood, Urine 1+ (Negative); Color,Urine YELLOW (Yellow); Glucose,Urine (UA) 1+ (Negative); Ketones,Urine Negative (Negative); Leukocyte Esterase,Urine Negative (Negative); Nitrate,Urine Negative (Negative); PH,Urine 5.5 (5.0-8.5); Protein,Urine 2+ (Negative); Urobilinogen,Urine 0.2 EU/dl (0.2)
--- NOTE | 2023-08-22 21:13 | PC.WOUNDNOTE ---
Scrotal and perineal areas
[2023-08-22] MEDS: LACTATED RINGERS 1000ML 1,000 ML 500 ML IV (21:17)
[2023-08-22 21:18] LABS: Bacteria,Urine Trace /lpf; WBC,Urine Occasional #/hpf (0-3)
[2023-08-22 21:20] LABS: Magnesium 1.3 mg/dl (1.6-2.3)
[2023-08-22] MEDS: MAGNESIUM SULFATE IN WATER 2 GM/50 ML PIGGYBACK IV (21:34)
[2023-08-22] MEDS: HYDROCORTISONE SOD SUCCINATE 100MG VIAL 50 MG IV (22:22)
--- NOTE | 2023-08-22 22:52 | EXP.SEPSISRE ---
[facility] Tissue Perfusion Eval Sepsis Re-Evaluation Performed: Yes Date Performed: 08/22/23 Time Performed: 17:35
--- NOTE | 2023-08-22 23:34 | PC.NURSE ---
Night ENGINEERING PROJECT MANAGER notified that patient's allergies had not been updated. Documenting RN updated per outside records and noted that patient has Penicillin allergy and has Zosyn on JUN. No new orders.
[2023-08-22] MEDS: humaLOG 100 UNITS/ML 3ML VIAL (SSI) SQ (23:40)
[2023-08-23] VITALS (37 sets, daily range): BP systolic 83–120; BP diastolic 44–70; PULSE 62–103; RESP 20–28; TEMP 36.4–36.8; O2SAT 91–100; BMI 43.4; BMI 43.2
[2023-08-23] MEDS: NOREPINEPHRINE BITARTRATE/D5W 8 MG/250 ML PLAST..BAG 26.25 MG IV (00:55)
[2023-08-23 01:04] LABS: POC Glucose,Bedside 222 (70-110)
[2023-08-23] MEDS: PIPERACILLIN/TAZO 3.375 GM in 0.9 % SODIUM CHLORIDE 50 ML IV (02:04)
[2023-08-23] MEDS: IPRATROPIUM/ALBUTEROL 3 ML NEB IH ×6 (02:22→21:37)
[2023-08-23] MEDS: humaLOG 100 UNITS/ML 3ML VIAL (SSI) SQ ×3 (04:19→22:48)
[2023-08-23] MEDS: HYDROCORTISONE SOD SUCCINATE 100MG VIAL 50 MG IV ×4 (04:20→22:47)
[2023-08-23 04:22] LABS: POC Glucose,Bedside 169 (70-110)
[2023-08-23 04:55] LABS: Chloride 84 mmol/L (98-107); Potassium 4.1 mmoL/L (3.5-5.1); Sodium 136 mmol/L (136-145)
[2023-08-23 04:57] LABS: Alanine Aminotransferase 22 U/L (12-78); Alkaline Phosphatase 65 U/L (38-126); Aspartate Amino Transferase 26 U/L (17-59); Bilirubin,Total 0.6 mg/dl (0.2-1.3); Blood Urea Nitrogen 48 mg/dl (9-20); Creatinine Clearance Estimated 36 mL/min (50-200); Estimated Glomerular Filt Rate 31 ml/min (>60); GFR (African American) 38 ML/MIN (>60)
[2023-08-23 04:58] LABS: Albumin Level 3.3 g/dl (3.5-5.0); Albumin/Globulin Ratio 0.9 (1.1-1.8); Calcium 8.5 mg/dl (8.4-10.2); Chol/HDL Ratio 2.5 (1-3.5); Cholesterol 75 mg/dl (140-200); Globulin 3.6 g/dL (1.3-3.2); Glucose 168 mg/dl (74-100); HDL Cholesterol 30 mg/dl (40-60); Magnesium 2.1 mg/dl (1.6-2.3); Total Protein,Serum 6.9 g/dl (6.3-8.2); Triglycerides 114 mg/dl (30-150); VLDL Cholesterol 23 mg/dL (0-40)
[2023-08-23 05:02] LABS: Basophils # 1.1 K/mm3 (0-0.2); Basophils % 1.7 % (0.1-2.0); Eosinophils # 0.1 K/mm3 (0.0-0.4); Eosinophils % 0.2 % (0.1-12.0); Hematocrit 35.8 % (42.0-52.0); Hemoglobin 11.2 g/dL (14.1-18.0); Mean Corpuscular HGB Conc 31.3 g/dL (31.8-35.4); Mean Corpuscular Hemoglobin 28.8 pg (27.0-31.2); Mean Corpuscular Volume 91.8 fl (80-94); Mean Platelet Volume 8.4 fl (7.4-10.4); Monocytes # 1.5 K/mm3 (0.1-1.0); Monocytes % 2.2 % (1.7-9.3); Platelet Count 390 K/mm3 (142-424); Red Cell Distribution Width 15.8 % (11.5-17.5)
[2023-08-23 05:05] LABS: Anion Gap 12.1 mEq/L (5-15); Carbon Dioxide 44 mmol/L (22.0-30.0)
[2023-08-23 05:07] LABS: White Blood Count 67.7 K/mm3 (4.8-10.8)
[2023-08-23 05:09] LABS: MANUAL DIFFERENTIAL MANUAL DIFFERENTIAL (MANUAL DIFF)
[2023-08-23 05:10] LABS: Direct LDL Cholesterol < 30.00 mg/dL (100-129)
[2023-08-23 05:18] LABS: Hypochromasia 1+; Lymphocytes % 3 % (10-50); Monocytes % 3 % (2-9); Myelocytes % 1 (0-1); Neutrophils % 92 % (42-76); Platelet Estimate Normal; Total Cells Counted 100
--- NOTE | 2023-08-23 05:40 | PC.NURSE ---
Care assumed by documenting RN at shift change. Patient with Levophed per titration record, but became hypotensive and titrated per protocol for systolic >90. Attending notified that patient titrated to max per policy and verbal orders obtained for additional fluids-- see MAR. Patient slowly became normotensive and Levophed titrated down per protocol. Patient remained somnolent for most of the shift and remained on stable settings per BiPAP at 18/8, RR 20, FiO2 70%. RN spoke to Digital Associate who advised to keep BiPAP settings the same until his evaluation this AM. See wound care pictures for excoriation and open wounds assessed at the scrotum and perineal areas. 16 fr temp sensing acuña placed for acurate i/o, open wounds, and incontinence. Patient awoke around 0445 requesting to get up to his recliner. He was more awake and coherent with EMV 15. Patient assist x2 to recliner. Remains on his BiPAP, all monitoring devices, and Levophed per MAR. VSS, NAD.
[2023-08-23] MEDS: BUDESONIDE 0.5MG/2ML NEB 0.5 MG IH ×2 (05:43→18:04)
--- NOTE | 2023-08-23 05:57 | PC.NURSE ---
GENERATOR OPERATOR Amy states she changed patient's FiO2 from 70% to 50%. All over settings left the same at 18/8, RR 20
--- NOTE | 2023-08-23 06:00 | CA_ITS ---
APPROVED REPORT EXAM: Comprehensive 2D, Doppler, and color-flow Echocardiogram Clinic Lead: Ayana Lund RDCS Ht: 120 ft 1 in Wt: 329lbs BSA: 23.11 BP: 120/89 mmHg Indications: CHF,RESP FAILURE,COPD,SOA,MORBIB OBESITY LIMITED EXAM M-Mode Dimensions RVDd 3.16 cm (0.9-2.6) LA Diam 4.04 cm (1.9-4.0) LVDd 6.07 cm (3.5-5.7) LVDs 4.44 cm (3.5-5.7) IVSd 1.18 cm (0.6-1.1) PWd 0.94 cm (0.6-1.1) EF (Teich) 51.50% FS 26.90% EDV (Teich) 184.80 mL ESV (Teich) 89.60 mL Left Ventricle The left ventricle is normal size. The left ventricular systolic function is normal. The left ventricular ejection fraction is within the normal range. There is normal left ventricular wall thickness. There is normal LV segmental wall motion. The left ventricular diastolic function is normal. LVEF is 55%. Right Ventricle Right ventricle is mildly dilated. Right ventricle is mildly hypokinetic. Atria The left atrium size is normal. The right atrium size is normal. There is no Doppler evidence of interatrial shunt. Aortic Valve The aortic valve is mildly thickened. There is no aortic valvular stenosis. Trace aortic regurgitation. Mitral Valve The mitral valve is normal in structure. No evidence of mitral valve stenosis. There is no mitral valve regurgitation noted. Tricuspid Valve The tricuspid valve leaflets are thin and pliable. Trace tricuspid regurgitation. There is insufficient TR jet to estimate RVSP. Pulmonic Valve The pulmonary valve is normal in structure. Trace pulmonic regurgitation. Great Vessels The aortic root is normal in size. The ascending aorta is normal in size. IVC is normal in size and collapses >50% with inspiration. Pericardium There is no pericardial effusion. Other Information Study Quality: Fair Conclusion Normal LV systolic function. Mildly dilated RV with mild reduction in RV function. No significant valvular stenosis or regurgitation. Electronically signed by : Tegan Mccallum MD 08/23/2023 09:49:03
[2023-08-23] MEDS: LEVOTHYROXINE SODIUM 100 MCG VIAL IV (06:24)
[2023-08-23] MEDS: HEPARIN SODIUM 5,000 UNIT/ML VIAL 5000 UNIT SQ ×3 (06:24→22:47)
--- NOTE | 2023-08-23 09:05 | EXP.PULM.PN ---
Subjective *Date: 08/23/23 *Time: 10:15 Interval history: No acute respiratory events overnight. Pulmonology Exam Inpatient Vital signs and Labs for Last 24 Hours: Temp Pulse Resp BP Pulse Ox O2 Del Method O2 Flow Rate 97.9 F 82 22 101/55 L 99 BiPAP 15 08/23/23 06:00 08/23/23 06:35 08/23/23 06:35 08/23/23 06:35 08/23/23 06:35 08/23/23 06:35 08/22/23 10:16 FiO2 50 08/23/23 06:35 Laboratory Results - last 24 hr 08/22/23 10:18: WBC 54.1 H*, RBC 3.88 L, Hgb 11.0 L, Hct 36.1 L, MCV 93.1, MCH 28.4, MCHC 30.5 L, RDW 15.8, Plt Count 340, MPV 8.7, Neut % (Auto) 93.7 H, Lymph % (Auto) 0.5 L, [place] % (Auto) 3.2, Eos % (Auto) 0.3, Baso % (Auto) 2.3 H, Neut # (Auto) 50.7 H, Lymph # (Auto) 0.3 L, [place] # (Auto) 1.7 H, Eos # (Auto) 0.2, Baso # (Auto) 1.3 H, Total Counted 100, Neutrophils % (Manual) 71, Band Neutrophils % 16.0 H, Lymphocytes % (Manual) 2 L, Monocytes % (Manual) 8, Metamyelocytes % 2.0 H, Myelocytes % 1, Platelet Estimate Normal, Hypochromasia 1+, D-Dimer 0.62 H, Sodium 132 L, Potassium 3.8, Chloride 80 L, Carbon Dioxide 47 H*, Anion Gap 8.8, BUN 38 H, Creatinine 1.90 H, Estimated GFR 35 L, Est GFR ( Amer) 43 L, Glucose 177 H, Hemoglobin A1c 6.8 H, Calcium 8.6, Total Bilirubin 0.8, AST 24, ALT 26, Alkaline Phosphatase 63, Troponin I 0.02, C-Reactive Protein 80.2 H, NT-Pro-B Natriuret Pep 1730 H, Total Protein 6.5, Albumin 3.3 L, Globulin 3.2, Albumin/Globulin Ratio 1.0 L, Procalcitonin 6.56 H, TSH 24.40 H 08/22/23 10:18: TSH 25.70 H, Thyroxine (T4) 2.5 L 08/22/23 10:22: VBG pH 7.34, VBG pCO2 83.0 H, VBG pO2 35.5, VBG HCO3 43.6 H, VBG Total CO2 46.1 H, VBG O2 Saturation 61.8, VBG Base Excess 17.8 H, VBG Lactic Acid 5.2 H 08/22/23 13:24: Specimen Source A-line, O2 % 70% bipap 18/8, ABG pH 7.40, ABG pCO2 61.6 H, ABG pO2 76.4 L, ABG HCO3 37.2 H, ABG Total CO2 39.1 H, ABG O2 Saturation 94, ABG Base Excess 12.4 H, Jamie Test Non applicable, Vent Rate 20 08/22/23 16:37: Chlamy pneumoniae PCR TNP, Adenovirus (PCR) Not detected, B. pertussis DNA (PCR) TNP, Coronavirus OC43 (PCR) Not detected, Coronavirus HKU1 (PCR) Not detected, Coronavirus 229E (PCR) Not detected, SARS-CoV-2 (PCR) Not detected 08/22/23 16:37: SARS-CoV-2 (PCR) Not detected, Coronavirus NL63 (PCR) Not detected, Human Metapneumovir PCR Not detected, Influenza A (H1) PCR Not detected, Influ A (H1N1/09) PCR Not detected, Influenza A (H3) PCR Not detected, Influenza Type A (PCR) Not detected, Influenza A Untype (PCR) Not detected, Influenza Type B (PCR) Not detected 08/22/23 16:37: Influenza Type B (PCR) Not detected, M. pneumoniae (PCR) TNP, Parainfluenza 1 (PCR) Not detected, Parainfluenza 2 (PCR) Not detected, Parainfluenza 3 (PCR) Not detected, Parainfluenza 4 (PCR) Not detected, RSV (PCR) Not detected, Entero/Rhino (PCR) Not detected 08/22/23 16:38: Troponin I 0.02 08/22/23 17:25: Lactate 4.0 H, Magnesium 1.3 L 08/22/23 19:54: Lactate 3.1 H 08/22/23 20:35: Urine Color Yellow, Urine Appearance Clear, Urine pH 5.5, Ur Specific [place] 1.020, Urine Protein 2+, Urine Glucose (UA) 1+, Urine Ketones Negative, Urine Blood 1+, Urine Nitrate Negative, Urine Bilirubin Negative, Urine Urobilinogen 0.2, Ur Leukocyte Esterase Negative, Urine RBC 5-10, Urine WBC Occasional, Ur Squamous Epith Cells 3-5, Urine Bacteria Trace 08/22/23 21:57: POC Glucose 222 H 08/23/23 04:15: POC Glucose 169 H 08/23/23 04:40: WBC 67.7 H* D, RBC 3.90 L, Hgb 11.2 L, Hct 35.8 L, MCV 91.8, MCH 28.8, MCHC 31.3 L, RDW 15.8, Plt Count 390, MPV 8.4, Neut % (Auto) 96.0 H, Lymph % (Auto) 0.0 L, [place] % (Auto) 2.2, Eos % (Auto) 0.2, Baso % (Auto) 1.7, Neut # (Auto) 65.0 H, Lymph # (Auto) 0.0 L, [place] # (Auto) 1.5 H, Eos # (Auto) 0.1, Baso # (Auto) 1.1 H, Total Counted 100, Neutrophils % (Manual) 92 H, Lymphocytes % (Manual) 3 L, Monocytes % (Manual) 3, Metamyelocytes % 1.0, Myelocytes % 1, Platelet Estimate Normal, Hypochromasia 1+, Sodium 136, Potassium 4.1, Chloride 84 L, Carbon Dioxide 44 H*, Anion Gap 12.1, BUN 48 H D, Creatinine 2.10 H, Estimated Creat Clear 36, Estimated GFR 31 L, Est GFR ( Amer) 38 L, Glucose 168 H, Calcium 8.5, Magnesium 2.1 D, Total Bilirubin 0.6, AST 26, ALT 22, Alkaline Phosphatase 65, Total Protein 6.9, Albumin 3.3 L, Globulin 3.6 H, Albumin/Globulin Ratio 0.9 L, Triglycerides 114, Cholesterol 75 L, LDL Cholesterol Direct < 30.00 L, VLDL Cholesterol 23, HDL Cholesterol 30 L, Cholesterol/HDL Ratio 2.5, Procalcitonin 19.0 H Temp Pulse Resp BP Pulse Ox O2 Del Method O2 Flow Rate 98.0 F 120 H 28 H 120/89 95 BiPAP 15 08/22/23 14:32 08/22/23 10:54 08/22/23 10:54 08/22/23 10:54 08/22/23 10:54 08/22/23 10:54 08/22/23 10:16 FiO2 70 08/22/23 12:21 Laboratory Results - last 24 hr 08/22/23 10:18: WBC 54.1 H*, RBC 3.88 L, Hgb 11.0 L, Hct 36.1 L, MCV 93.1, MCH 28.4, MCHC 30.5 L, RDW 15.8, Plt Count 340, MPV 8.7, Neut % (Auto) 93.7 H, Lymph % (Auto) 0.5 L, [place] % (Auto) 3.2, Eos % (Auto) 0.3, Baso % (Auto) 2.3 H, Neut # (Auto) 50.7 H, Lymph # (Auto) 0.3 L, [place] # (Auto) 1.7 H, Eos # (Auto) 0.2, Baso # (Auto) 1.3 H, Total Counted 100, Neutrophils % (Manual) 71, Band Neutrophils % 16.0 H, Lymphocytes % (Manual) 2 L, Monocytes % (Manual) 8, Metamyelocytes % 2.0 H, Myelocytes % 1, Platelet Estimate Normal, Hypochromasia 1+, D-Dimer 0.62 H, Sodium 132 L, Potassium 3.8, Chloride 80 L, Carbon Dioxide 47 H*, Anion Gap 8.8, BUN 38 H, Creatinine 1.90 H, Estimated GFR 35 L, Est GFR ( Amer) 43 L, Glucose 177 H, Calcium 8.6, Total Bilirubin 0.8, AST 24, ALT 26, Alkaline Phosphatase 63, Troponin I 0.02, C-Reactive Protein 80.2 H, NT-Pro-B Natriuret Pep 1730 H, Total Protein 6.5, Albumin 3.3 L, Globulin 3.2, Albumin/Globulin Ratio 1.0 L, Procalcitonin 6.56 H, TSH 24.40 H, Thyroxine (T4) 2.5 L 08/22/23 10:22: VBG pH 7.34, VBG pCO2 83.0 H, VBG pO2 35.5, VBG HCO3 43.6 H, VBG Total CO2 46.1 H, VBG O2 Saturation 61.8, VBG Base Excess 17.8 H, VBG Lactic Acid 5.2 H 08/22/23 13:24: Specimen Source A-line, O2 % 70% bipap 18/8, ABG pH 7.40, ABG pCO2 61.6 H, ABG pO2 76.4 L, ABG HCO3 37.2 H, ABG Total CO2 39.1 H, ABG O2 Saturation 94, ABG Base Excess 12.4 H, Jamie Test Non applicable, Vent Rate 20 I & O for Labs for Last 24 Hours: Intake & Output 08/20/23 08/21/23 08/22/23 08/23/23 23:59 23:59 23:59 23:59 Intake Total 3279.563 / 3319.563 444.938 / 444.938 Output Total 375 / 575 885 / 885 Balance 2904.563 / 2744.563 -440.062 / -440.062 Weight 329 lb 6 oz 328 lb 0.06 oz Intake & Output 08/19/23 08/20/23 08/21/23 08/22/23 23:59 23:59 23:59 23:59 Weight 336 lb 4 oz Constitutional: Present moderate distress Head: Present normocephalic and atraumatic ENT: Present normal exam, normal oropharynx and mucous membranes moist Neck: Present normal inspection and full ROM Respiratory: Present prolonged expiratory phase, respiratory distress, rhonchi, wheezes, crackles, diminished air movement and able to speak in complete sentences Cardiac: Present S1/S2 and Tachycardia; Absent Regular Rhythm GI: Present soft and distention; Absent tenderness or guarding Skin: Present intact; Absent cyanosis or jaundice Neuro: Present alert, awake and oriented x 3 Extremities: Present normal inspection; Absent clubbing or cyanosis Psychiatric: Present normal affect and cooperative Assessment and Plan *Assessment and plan (1) Pleural effusion: Status: Acute Category: Medical Code(s): J90 - Pleural effusion, not elsewhere classified (2) Acute on chronic respiratory failure with hypoxia and hypercapnia: Status: Acute Category: Medical Code(s): J96.21 - Acute and chronic respiratory failure with hypoxia; J96.22 - Acute and chronic respiratory failure with hypercapnia (3) Pneumonia: Status: Acute Category: Medical Code(s): J18.9 - Pneumonia, unspecified organism Plan 68-year-old male history of COPD, OHS chronic BiPAP therapy and chronic oxygen supplementation at 5 L, combined systolic and diastolic dysfunction, A-fib RVR, chronic noncompliance with his medications leading to multiple readmissions for worsening respiratory distress, recently discharged from [facility] on June 2023 presented to the ER with worsening respiratory distress needing noninvasive ventilator therapy and pulmonary was called for further evaluation and management. He was also treated for influenza pneumonia in April 2023. Afebrile. Significant neutrophilic predominant leukocytosis upon admission hemodynamically unstable needing 1 L LR bolus with improving pressors. It also. Patient has been on long-term prednisone therapy that was discontinued recently in June 2023. CT chest upon admission dense consolidative changes in the left lower lung bruce. Underlying mass cannot be completely ruled out. No significant effusions noted. VBG upon admission showed hypercarbic respiratory failure with normal pH, repeat ABG showed chronic hypercarbia with normal pH. CT head chronic microvascular ischemia chronic sinusitis and mastoiditis. Other significant lab abnormalities including OSMANI and hyponatremia. Interval update: Patient respiratory status sounds are significant improved overnight. He was weaned to nasal cannula this morning tolerating well. Alert and oriented x 3. Continue to receive vancomycin. Allergic to penicillins. Will add meropenem and discontinue ofloxacin. Worsening leukocytosis with absolute visit count at 0. Given worsening leukocytosis with septic shock will add micafungin pending blood culture results Continue to receive vancomycin and cefepime. Receiving stress dose steroids. Worsening leukocytosis white count normal at 67.7, neutrophil predominant. Cultures pending. Also on IV levothyroxine. Comprehensive respiratory viral PCR panel negative Plan: Wean to nasal cannula to maintain O2 saturation goal of 90 to 95%. Follow-up with VBG in 4 hours. Continue NIV therapy at night/while asleep. DuoNebs every 4 hours scheduled along with Pulmicort every 12 scheduled Vancomycin and meropenem along with micafungin pending blood and sputum culture results, nasal MRSA PCR. Hydrocortisone 50 every 6 hours Continue pressor support to maintain a MAP goal of greater than 65. Recommend elevate head of the bed at 30 to 45 degrees # Thank you for involving pulmonary in this patient care. Will continue to follow.
--- NOTE | 2023-08-23 09:07 | XR_ITS ---
FINAL REPORT CLINICAL HISTORY: Hypoxia COMPARISON: CT chest dated 08/22/2023 FINDINGS: A single view of the chest was obtained. The heart is normal in size. The mediastinum is unremarkable. There is consolidation in the left lower lung silhouetting the left hemidiaphragm. There are mild patchy airspace opacities in the medial right lung base. Findings are similar to the previous CT. There is no pleural effusion. There is no pneumothorax. There is no acute osseous abnormality. IMPRESSION: No significant change compared to CT dated 08/22/2023. Reviewed, Interpreted and Dictated by Elliot Strange MD Transcribed by Ashley León Authenticated and [facility]
--- NOTE | 2023-08-23 09:39 | EXP.PHA.CONS ---
Pharmacy Consult Date: 08/23/23 Time: 09:39 Referring provider: DR SHABAZZ Reason for Consult:: VANCOMYCIN DOSING CONSULT Allergies Allergy/AdvReac Type Severity Reaction Status Date / Time penciclovir Allergy Difficulty Verified 08/22/23 23:13 Breathing Penicillins Allergy Hives Verified 08/22/23 23:13 tramadol AdvReac Diarrhea Verified 08/22/23 23:13 Home Medications Medication Instructions Recorded Confirmed Type acetylcysteine 600 mg capsule 600 mg PO BID 08/22/23 08/22/23 History albuterol sulfate 90 mcg/actuation 2 puff inhalation Q4HP PRN 08/22/23 08/22/23 History aerosol inhaler Shortness Of Breath Or Wheezing atorvastatin 20 mg tablet 20 mg PO HS 08/22/23 08/22/23 History fluticasone fur. 200 mcg-umeclid 1 ea inhalation DAILY 08/22/23 08/22/23 History 62.5 mcg-vilant 25 mcg inhalat.powder (Trelegy Ellipta) furosemide 80 mg tablet 80 mg PO BIDL 08/22/23 08/22/23 History ipratropium 0.5 mg-albuterol 3 mg 3 ml inhalation Q4HP PRN Shortness 08/22/23 08/22/23 History (2.5 mg base)/3 mL nebulization Of Breath soln levothyroxine 150 mcg tablet 150 mcg PO DAILY 08/22/23 08/22/23 History metolazone 5 mg tablet 5 mg PO DAILYP PRN Swelling 08/22/23 08/22/23 History metoprolol succinate 25 mg 25 mg PO BID 08/22/23 08/22/23 History tablet,extended release 24 hr ondansetron HCl 4 mg tablet 4 mg PO Q6HP PRN Nausea And 08/22/23 08/22/23 History Vomiting potassium chloride 20 mEq 40 meq PO BID 08/22/23 08/22/23 History tablet,extended release prednisone 10 mg tablet 10 mg PO DAILY 08/22/23 08/22/23 History ranolazine 500 mg tablet,extended 500 mg PO BID 08/22/23 08/22/23 History release,12 hr spironolactone 50 mg tablet 50 mg PO BID 08/22/23 08/22/23 History trazodone 50 mg tablet 50 mg PO HSP PRN Sleep 08/22/23 08/22/23 History triamcinolone acetonide 0.1 % 1 applic topical DAILY 08/22/23 08/22/23 History topical cream New Prescriptions to Start Prescriptions: Height: 1.85 m Weight: 148.78 kg Laboratory Results:: Laboratory Results - last 24 hr 08/22/23 10:18: WBC 54.1 H*, RBC 3.88 L, Hgb 11.0 L, Hct 36.1 L, MCV 93.1, MCH 28.4, MCHC 30.5 L, RDW 15.8, Plt Count 340, MPV 8.7, Neut % (Auto) 93.7 H, Lymph % (Auto) 0.5 L, [place] % (Auto) 3.2, Eos % (Auto) 0.3, Baso % (Auto) 2.3 H, Neut # (Auto) 50.7 H, Lymph # (Auto) 0.3 L, [place] # (Auto) 1.7 H, Eos # (Auto) 0.2, Baso # (Auto) 1.3 H, Total Counted 100, Neutrophils % (Manual) 71, Band Neutrophils % 16.0 H, Lymphocytes % (Manual) 2 L, Monocytes % (Manual) 8, Metamyelocytes % 2.0 H, Myelocytes % 1, Platelet Estimate Normal, Hypochromasia 1+, D-Dimer 0.62 H, Sodium 132 L, Potassium 3.8, Chloride 80 L, Carbon Dioxide 47 H*, Anion Gap 8.8, BUN 38 H, Creatinine 1.90 H, Estimated GFR 35 L, Est GFR ( Amer) 43 L, Glucose 177 H, Hemoglobin A1c 6.8 H, Calcium 8.6, Total Bilirubin 0.8, AST 24, ALT 26, Alkaline Phosphatase 63, Troponin I 0.02, C-Reactive Protein 80.2 H, NT-Pro-B Natriuret Pep 1730 H, Total Protein 6.5, Albumin 3.3 L, Globulin 3.2, Albumin/Globulin Ratio 1.0 L, Procalcitonin 6.56 H, TSH 24.40 H 08/22/23 10:18: TSH 25.70 H, Thyroxine (T4) 2.5 L 08/22/23 10:22: VBG pH 7.34, VBG pCO2 83.0 H, VBG pO2 35.5, VBG HCO3 43.6 H, VBG Total CO2 46.1 H, VBG O2 Saturation 61.8, VBG Base Excess 17.8 H, VBG Lactic Acid 5.2 H 08/22/23 13:24: Specimen Source A-line, O2 % 70% bipap 18/8, ABG pH 7.40, ABG pCO2 61.6 H, ABG pO2 76.4 L, ABG HCO3 37.2 H, ABG Total CO2 39.1 H, ABG O2 Saturation 94, ABG Base Excess 12.4 H, Jamie Test Non applicable, Vent Rate 20 08/22/23 16:37: Chlamy pneumoniae PCR TNP, Adenovirus (PCR) Not detected, B. pertussis DNA (PCR) TNP, Coronavirus OC43 (PCR) Not detected, Coronavirus HKU1 (PCR) Not detected, Coronavirus 229E (PCR) Not detected, SARS-CoV-2 (PCR) Not detected 08/22/23 16:37: SARS-CoV-2 (PCR) Not detected, Coronavirus NL63 (PCR) Not detected, Human Metapneumovir PCR Not detected, Influenza A (H1) PCR Not detected, Influ A (H1N1/09) PCR Not detected, Influenza A (H3) PCR Not detected, Influenza Type A (PCR) Not detected, Influenza A Untype (PCR) Not detected, Influenza Type B (PCR) Not detected 08/22/23 16:37: Influenza Type B (PCR) Not detected, M. pneumoniae (PCR) TNP, Parainfluenza 1 (PCR) Not detected, Parainfluenza 2 (PCR) Not detected, Parainfluenza 3 (PCR) Not detected, Parainfluenza 4 (PCR) Not detected, RSV (PCR) Not detected, Entero/Rhino (PCR) Not detected 08/22/23 16:38: Troponin I 0.02 08/22/23 17:25: Lactate 4.0 H, Magnesium 1.3 L 08/22/23 19:54: Lactate 3.1 H 08/22/23 20:35: Urine Color Yellow, Urine Appearance Clear, Urine pH 5.5, Ur Specific [place] 1.020, Urine Protein 2+, Urine Glucose (UA) 1+, Urine Ketones Negative, Urine Blood 1+, Urine Nitrate Negative, Urine Bilirubin Negative, Urine Urobilinogen 0.2, Ur Leukocyte Esterase Negative, Urine RBC 5-10, Urine WBC Occasional, Ur Squamous Epith Cells 3-5, Urine Bacteria Trace 08/22/23 21:57: POC Glucose 222 H 08/23/23 04:15: POC Glucose 169 H 08/23/23 04:40: WBC 67.7 H* D, RBC 3.90 L, Hgb 11.2 L, Hct 35.8 L, MCV 91.8, MCH 28.8, MCHC 31.3 L, RDW 15.8, Plt Count 390, MPV 8.4, Neut % (Auto) 96.0 H, Lymph % (Auto) 0.0 L, [place] % (Auto) 2.2, Eos % (Auto) 0.2, Baso % (Auto) 1.7, Neut # (Auto) 65.0 H, Lymph # (Auto) 0.0 L, [place] # (Auto) 1.5 H, Eos # (Auto) 0.1, Baso # (Auto) 1.1 H, Total Counted 100, Neutrophils % (Manual) 92 H, Lymphocytes % (Manual) 3 L, Monocytes % (Manual) 3, Metamyelocytes % 1.0, Myelocytes % 1, Platelet Estimate Normal, Hypochromasia 1+, Sodium 136, Potassium 4.1, Chloride 84 L, Carbon Dioxide 44 H*, Anion Gap 12.1, BUN 48 H D, Creatinine 2.10 H, Estimated Creat Clear 36, Estimated GFR 31 L, Est GFR ( Amer) 38 L, Glucose 168 H, Calcium 8.5, Magnesium 2.1 D, Total Bilirubin 0.6, AST 26, ALT 22, Alkaline Phosphatase 65, Total Protein 6.9, Albumin 3.3 L, Globulin 3.6 H, Albumin/Globulin Ratio 0.9 L, Triglycerides 114, Cholesterol 75 L, LDL Cholesterol Direct < 30.00 L, VLDL Cholesterol 23, HDL Cholesterol 30 L, Cholesterol/HDL Ratio 2.5, Procalcitonin 19.0 H Medical History: Medical History (Updated 08/22/23 @ 23:24 by Kenan Guevara RN) DEMETRIA (obstructive sleep apnea) On home oxygen therapy Tortuous aorta Aortic calcification Reduced ejection fraction concurrent with and due to acute on chronic heart failure History of gastrectomy Cataract (lens) fragments in eye following cataract surgery, bilateral Lymphedema Hyperlipidemia Hiatal hernia Chronic respiratory failure with hypoxia Prostate cancer BPH (benign prostatic hyperplasia) Cor pulmonale HTN (hypertension) Diabetes mellitus Atrial fibrillation CKD stage 3 secondary to diabetes Pneumonia COPD (chronic obstructive pulmonary disease) Congestive heart failure Assessment and Plan Assessment and plan all Dx Assessment and Plan for all problems:: Pharmacokinetic dosing service Objective: Age: 68 yo Serum creatinine: 2.1 mg/dL Height: 72.8 Inches Weight (kg): 148.78 Diagnosis: PNEUMONIA Assessment: IBW (kg): 79.44 Dosing wt(kg): 148.78 Estimated Creatinine clearance (ml/min): 50.3 CRCL method: Cockcroft and Gault using adjusted body weight Drug selected: Vancomycin Vd (liters): 104.1 (factor used: 0.7 L/kg) Petr (hr-1): 0.046 Half life (hrs): 15.07 CLvanco=?? 4.789 L/hr Recommended dose: 2500 mg Interval: 24 hrs Infusion time (hrs): 2.0 Predicted peak (mcg/mL): 34.3 Predicted trough (mcg/mL): 12.47 Total body weight is being used for vancomycin dosing. Recommendations: Give Vancomycin 2500 mg q 24 hrs with an expected Cpeak of 34.3 mcg/ml and an expected Ctrough of 12.47 mcg/ml AUC 0-24 /JAMIN Data: JAMIN 0.5 mcg/mL:?? AUC/JAMIN:? 1044.1 JAMIN 1.0 mcg/mL:?? AUC/JAMIN:? 522.0 --------- JAMIN 1.5 mcg/mL:?? AUC/JAMIN:? 348.0 JAMIN 2.0 mcg/mL:?? AUC/JAMIN:? 261.0 Thank you for the consult
[2023-08-23] MEDS: MEROPENEM 1 GM in 0.9 % SODIUM CHLORIDE 100 ML IV ×2 (10:55→21:02)
[2023-08-23] MEDS: acetaZOLAMIDE 250 MG TABLET PO ×2 (10:55→21:02)
[2023-08-23] MEDS: NOREPINEPHRINE BITARTRATE/D5W 8 MG/250 ML PLAST..BAG 18.75 MG IV (11:20)
[2023-08-23] MEDS: MICAFUNGIN SODIUM 100 MG in 0.9 % SODIUM CHLORIDE 100 ML IV (12:01)
[2023-08-23 12:13] LABS: Lactate Venous 2.9 mmol/L (0.4-2.0); VBG Base Excess 17.2 mmol/L (-2.4-2.3); VBG HCO3 42.3 mmol/L (23-30); VBG PCO2 72.4 mmol/L (35-51); VBG PH 7.38 mmol/L (7.31-7.41); VBG PO2 52.3 mmol/L (28-40); VBG Total CO2 44.5 mmol/L (23-27)
--- NOTE | 2023-08-23 12:19 | PC.NURSE ---
[address] Torres to readdress pt code status as he is a/o x 4 at this time. conversation witnessed with Kathy morin RN. pt, pt grand daughter and pt s/o Anamika Desai present in room at this time as well. pt and family indicated to both RN's that he DOES want CPR, Defibrillation, intubation and ventilation. pt states that he does not want to remain on ventilator intermediate frame tender.
[2023-08-23 12:40] LABS: POC Glucose,Bedside 144 (70-110)
--- NOTE | 2023-08-23 13:58 | HMH.PTEV ---
Physical Therapy Evaluation Rehab PT IP Evaluation Start: 08/23/23 12:56 Freq: ONCE Status: Active Protocol: Document 08/23/23 13:40 [facility] (Rec: 08/23/23 13:58 PHOCIRA [id number]) Subjective/History History History This is the initial evlaution Rohan Wu, 68 yowm, who presents to [facility] from home with SOA. The patient was brought via EMS with complaints of respiratory distress and is on CPAP at home. He wears 2-3 L of Nasal Cannula at home. The patient's PMH is significant for Pneumonia COPD (chronic obstructive pulmonary disease) Congestive heart failure Subjective Subjective The patient is up in the chair upon arrival with family present. He reports that he lives in a house with his girlfriend. He is fully independent with all ADLs, showering and dressing. He also reports that he typically uses a walker for ambulation. New diagnosis of cancer in past 12 No months? Rehab PT IP Eval Objective Appearance Patient Behavior Appropriate,Patient Baseline Patient Orientation Person,Place,Time,Birthday Difficulty following instructions none Speech Pattern Clear,Patient Baseline Ambulation Patient Able to Ambulate No Balance Ability to Arise Able, uses arms to help Sitting Balance Steady, safe Standing Balance Unsteady Dynamic Sitting Balance Ability Fair Dynamic Standing Balance Ability Poor Transfers Sit to Stand Bed Transfer Ability Maximum x 2 (75% assist) Rehab PT IP prob,goals,plan Problems Date of Evaluation: 08/23/23 PT IP Problems Bed Mobility,Transfers,Gait, Balance,Self care,Safety Rehab Potential Rehab Potential Fair Equipment Needs Assistive Devices Rolling / Wheeled Walker Plan PT Intervention Plan Bed Mobility,Transfers,Gait, Balance,Self care,Safety, Therapeutic Exercise PT Plan Frequency Daily Duration LOS Discharge Goals Bed Transfer Ability Moderate x 1 (50% assist) Sit to Stand Chair Transfer Ability Moderate x 1 (50% assist) Ambulation Assistive Device Rolling Walker Ambulation Distance (feet) 10 Discharge Plan PT Discharge Plan Patient presents for initial evaluation and presents below baseline for functional mobility and transfers. Skilled PT is indicated during the patient's stay to promote a return to his prior level of function. The patient is most appropriate for placement for further rehab, upon discharge from the hospital. Eval Complexity Eval Charge Codes 05044 - High Complexity PHYSICIAN CERTIFICATION: I certify the specified therapy services for Rohan Bryce are required, authorized, and reviewed every 30 days.
--- NOTE | 2023-08-23 13:59 | HMH.OTEV ---
OT Inpatient Evaluation Rehab OT IP Evaluation Start: 08/23/23 12:56 Freq: ONCE Status: Active Protocol: Document 08/23/23 13:52 [facility] (Rec: 08/23/23 13:58 [facility] [id number]) Rehab OT IP Assessment Subjective History Pt oriented x 3 on arrival. Pt agreeable to engage in therapy evaluation. Pt admitted on 08/22/23 due to SOA . History and Physical: Mr. Wu is a 68-year-old male who arrived at our ER via EMS. He has a history of CHF and COPD along with chronic respiratory failure on CPAP at home. Presented via EMS to the ER because of respiratory distress. Unable to obtain any history from patient. History from documentation and discussion with significant other (Anamika Bowers). EMS was called to the patient's home because of respiratory difficulties. He reportedly has been sick for a few days. His significant other noted that he was having trouble breathing and was breathing fast. EMS reports that he initially was hypoxic, tachypneic, and had Rales. They placed him on CPAP and gave him Versed to help him tolerate CPAP. He became more confused and broke their CPAP machine. Typically he goes to [facility] but was unable to transport there due to no longer having CPAP for the ride to the hospital. He was therefore brought to [facility] for further management. He arrived in critically ill condition with respiratory distress concerning for severe sepsis. Unable to give any history due to his confusion. Subjective I lived with my girlfriend. Prior to being in the hosptial , pt lived at home with his girlfriend. Pt claims normally he is independent with all ADLs. He does use a walker at times during functional transfers. He is dependent on family for completion of all IADLs. He also has oxygen at home. Objective Patient Orientation Person,Place,Birthday Right Upper Extremity Gross ROM Min Limitation <25% Left Upper Extremity Gross ROM Min Limitation <25% Shoulder ROM Limitations Muscle Weakness Elbow ROM Limitations Muscle Weakness Wrist Limitations of Range of Motion Muscle Weakness Transfer Training Sit/Stand Transfer Assist Level Maximum x 2 (75% assist) Rehab OT IP prob,goals,plan Problems Date of Evaluation: 08/23/23 OT IP Problems Bed Mobility,Transfers,Balance ,Self care,Safety Rehab Potential Rehab Potential Good Equipment Needs Assistive Devices Rolling / Wheeled Walker Plan OT intervention Plan Bed Mobility,Transfers,Balance ,Self care,Safety,Therapeutic Exercise OT Plan Frequency Daily Duration LOS Discharge Goals Bed Mobility Ability Assistance x1 Sit to Stand Chair Transfer Ability Moderate x 2 (50% assist), Maximum x 1 (75% assist) Chair Transfer Ability Moderate x 2 (50% assist), Maximum x 1 (75% assist) Chair Transfer Technique Sit to/from Ambulatory Chair Transfer Assistive Devices Rolling Walker Feeding Ability Assist with Tray Set Up Lower Body Dressing Ability Maximum Assistance Upper Body Dressing Ability Minimal Assistance Bathing Ability Maximum Assistance Performing Toilet Hygiene Ability Maximum Assistance Overall Commode/Toilet Transfer Ability Moderate Assistance Commode/Toilet Transfer Technique Sit to/from Ambulatory Commode/Toilet Transfer Assistive Grab Bars Devices Oral Care Assist Standby Assistance Decrease in Endurance Yes Discharge Plan OT Discharge Plan Pt will continue to be seen for OT services while at [facility]. Pt would benefit most from short term rehab at SNF following hospital stay. Continued skilled therapy is important in order for patient to improve strength, safety, endurance, ADL independence, and functional transfers to reach PLOF. Eval Complexity Eval Charge Codes 20114 - Moderate Complexity PHYSICIAN CERTIFICATION: I certify the specified therapy services for Rohan Wu are required, authorized, and reviewed every 30 days.
--- NOTE | 2023-08-23 14:46 | SW/DCPLANNER ---
Addendum entered by [facility] 09/03/23 13:53: Per Marielos w/ [facility] this patient has been approved and will admit to their facility over the weekend. Addendum entered by Arti Blair RN 08/29/23 07:42: Per [facility], patient actually does not have [place] benefits for SNF. Apparently he lives in [place], but gave a [place] address because he is there most of the time over the last couple of years. He and his S/O decided that he would just return home as he is apparently at baseline. Patient discharged home. Addendum entered by Arti Blair RN 08/28/23 12:33: Patient has an auth for [facility] and plan is for discharge to there today. P # to call report is [phone] and F # to send clinical is [phone]. Addendum entered by [facility] 08/27/23 14:50: Britt w/ [facility] is able to accept this patient and is willing to start precert. will update patient and his significant other. Addendum entered by [facility] 08/27/23 13:18: Patient information has also been faxed to [facility]. Addendum entered by [facility] 08/27/23 12:46: Per patient's insurance he has been denied acute rehab level of care: Dr Torres to complete peer to peer. Addendum entered by [facility] 08/27/23 11:14: CHONG has been left w/ Annmarie at [facility] regarding precert: [phone]. Addendum entered by [facility] 08/26/23 09:51: Annmarie / [facility] will start precert on this patient this AM. Patient is agreeable to placement at [facility]. Addendum entered by [facility] 08/26/23 07:25: [facility] is interested in patient and would like updates faxed this AM. I will continue to follow up w/ MD luigi and [facility]. Discharge date is unknown at this time. Addendum entered by [facility] 08/23/23 15:28: Patient information has also been faxed to [facility]. VM has been left w/ the following facilities [facility], [facility] and [facility]. [facility] is unable to accept and [facility] is not in network w/ patient's insurance. Original Note: I spoke w/ this patient and his significant other regarding plans once medically stable for discharge. PT/OT evaluated patient and recommended SNF level of care. Patient requested that information be faxed to [facility] OR [facility] (no preference). Patient information has been faxed to the following facilities: [facility], [facility] ([facility]), [facility] ([facility]), [facility] ([facility]) and [facility] ([facility]). I will continue to follow up w/ facilities, MD and patient. Discharge date is unknown at this time.
--- NOTE | 2023-08-23 16:05 | ECG_ITS ---
APPROVED REPORT Exam: Resting ECG HR:88 bpm ECG Measurements Heart Rate 88 AXES AR 147 P -48 QRSd 109 QRS -61 QT 348 T 87 QTc 394 Conclusion SINUS RHYTHM WITH OCCASIONAL VENTRICULAR PREMATURE COMPLEXES LOW QRS VOLTAGE [QRS DEFLECTION < 0.5/1.0 mV IN LIMB/CHEST LEADS] POSSIBLE ANTERIOR MYOCARDIAL INFARCTION , PROBABLY OLD [30 ms Q WAVE IN V3/V4, OR R < 0.2 mV IN V4] INFERIOR MYOCARDIAL INFARCTION , OF INDETERMINATE AGE [40+ ms Q WAVE AND/OR ST/T ABNORMALITY IN II/aVF] ABNORMAL ECG UNCONFIRMED REPORT Electronically signed by : SANDI MATTA, 08/25/2023 01:15:35
[2023-08-23 16:13] LABS: Reflex Lactic Add Lactic Reflex
[2023-08-23] MEDS: NITROGLYCERIN 0.4MG SL TABLET 0.400000000000000022 MG SL (16:30)
[2023-08-23] MEDS: VANCOMYCIN HCL 2,500 MG in 0.9 % SODIUM CHLORIDE 250 ML 125 MG IV (16:37)
[2023-08-23 16:52] LABS: POC Glucose,Bedside 211 (70-110)
[2023-08-23 16:53] LABS: Troponin I 0.01 ng/ml (0.00-0.034)
--- NOTE | 2023-08-23 16:57 | EXP.ACUTE.PN ---
Subjective *Date: 08/23/23 *Time: 18:14 Interval history: Improved overnight. Able to converse with patient today. Alert and oriented x 3. Family at bedside. Discussed case and goals of care. Denies nausea or vomiting. Wanting to eat. Had episode of chest pain later in the morning. No bowel movement yet. Family states he is looking better than when he came in yesterday but is not quite back to baseline. Medical Exam Vital signs and Labs for Last 24 Hours: Vital Signs Temp Pulse Pulse Resp BP BP Pulse Ox 08/23/23 16:00 90 08/23/23 15:00 08/23/23 15:00 96 H 20 98/52 L 94 L 08/23/23 14:00 96 H 20 96/53 L 99 08/23/23 13:45 94 H 08/23/23 13:45 90 08/23/23 13:39 08/23/23 13:00 88 22 86/49 L 92 L 08/23/23 12:36 86 96 08/23/23 12:00 95 H 08/23/23 12:00 97.7 F 08/23/23 12:00 90 22 101/60 L 94 L 08/23/23 11:36 08/23/23 11:00 85 22 99/58 L 97 08/23/23 10:14 73 08/23/23 10:14 75 08/23/23 09:55 95 H 20 104/56 L 100 08/23/23 09:44 08/23/23 09:00 97.7 F 83 22 83/44 L 97 08/23/23 08:10 86 96 08/23/23 08:00 82 22 86/51 L 97 08/23/23 08:00 97.7 F 08/23/23 08:00 90 08/23/23 06:35 82 22 101/55 L 99 08/23/23 06:10 73 22 93/57 L 98 08/23/23 06:00 97.9 F 73 22 86/47 L 98 08/23/23 05:43 101 H 08/23/23 05:43 103 H 08/23/23 05:43 08/23/23 05:00 97.5 F L 80 24 100/62 L 98 08/23/23 04:00 90 08/23/23 04:00 83 20 102/60 L 100 08/23/23 03:52 78 100 08/23/23 03:00 81 24 95/67 L 96 08/23/23 02:22 85 08/23/23 02:22 08/23/23 02:00 08/23/23 02:00 97.9 F 87 20 111/70 100 08/23/23 01:00 80 20 95/64 L 100 08/23/23 01:00 08/23/23 00:00 80 08/23/23 00:00 79 08/23/23 00:00 87 24 110/67 94 L 08/22/23 23:00 08/22/23 23:00 98.2 F 87 22 120/67 90 L 08/22/23 22:25 08/22/23 22:00 88 20 110/66 94 L 08/22/23 21:45 93 H 23 107/62 L 91 L 08/22/23 21:30 98.6 F 94 H 22 114/61 93 L 08/22/23 21:20 90 08/22/23 21:15 89 26 H 133/60 90 L 08/22/23 21:00 08/22/23 21:00 94 H 22 101/69 L 95 08/22/23 20:35 91 H 22 132/70 96 08/22/23 20:00 100 H 08/22/23 19:58 120 H 26 H 124/58 L 92 L 08/22/23 19:51 96 H 23 88/60 L 94 L 08/22/23 19:38 90 24 88/56 L 88 L 08/22/23 19:35 84 08/22/23 19:33 86 22 87/62 L 88 L 08/22/23 19:30 91 H 24 76/54 L 89 L 08/22/23 19:24 90 22 83/58 L 93 L 08/22/23 19:15 91 H 22 83/52 L 92 L 08/22/23 19:00 97.8 F 91 H 24 100/46 L 95 08/22/23 18:48 92 H 24 108/51 L 95 08/22/23 18:46 08/22/23 18:45 93 H 08/22/23 18:30 91 H 08/22/23 18:29 08/22/23 18:00 93 H 26 H 84/49 L 95 08/22/23 17:12 98.4 F 08/22/23 17:00 08/22/23 17:00 08/22/23 17:00 99 H 36 H 100/57 L 94 L 08/22/23 17:00 O2 Del Method O2 Flow Rate FiO2 08/23/23 16:00 08/23/23 15:00 Nasal Cannula 4 08/23/23 15:00 Nasal Cannula 4 08/23/23 14:00 Nasal Cannula 4 08/23/23 13:45 08/23/23 13:45 08/23/23 13:39 Nasal Cannula 4 08/23/23 13:00 Nasal Cannula 4 08/23/23 12:36 Nasal Cannula 4 08/23/23 12:00 08/23/23 12:00 08/23/23 12:00 Nasal Cannula 4 08/23/23 11:36 Nasal Cannula 4 08/23/23 11:00 Nasal Cannula 5 08/23/23 10:14 08/23/23 10:14 08/23/23 09:55 Nasal Cannula 5 08/23/23 09:44 Nasal Cannula 5 08/23/23 09:00 BiPAP 50 08/23/23 08:10 BiPAP 50 08/23/23 08:00 BiPAP 50 08/23/23 08:00 08/23/23 08:00 08/23/23 06:35 BiPAP 50 08/23/23 06:10 BiPAP 50 08/23/23 06:00 BiPAP 50 08/23/23 05:43 08/23/23 05:43 08/23/23 05:43 50 08/23/23 05:00 BiPAP 70 08/23/23 04:00 08/23/23 04:00 BiPAP 70 08/23/23 03:52 BiPAP 70 08/23/23 03:00 BiPAP 70 08/23/23 02:22 08/23/23 02:22 70 08/23/23 02:00 BiPAP 08/23/23 02:00 BiPAP 70 08/23/23 01:00 BiPAP 70 08/23/23 01:00 BiPAP 08/23/23 00:00 08/23/23 00:00 BiPAP 70 08/23/23 00:00 BiPAP 40 08/22/23 23:00 BiPAP 08/22/23 23:00 BiPAP 70 08/22/23 22:25 70 08/22/23 22:00 BiPAP 70 08/22/23 21:45 BiPAP 70 08/22/23 21:30 BiPAP 70 08/22/23 21:20 08/22/23 21:15 BiPAP 70 08/22/23 21:00 BiPAP 08/22/23 21:00 BiPAP 70 08/22/23 20:35 BiPAP 70 08/22/23 20:00 08/22/23 19:58 BiPAP 70 08/22/23 19:51 BiPAP 80 08/22/23 19:38 BiPAP 80 08/22/23 19:35 BiPAP 70 08/22/23 19:33 BiPAP 80 08/22/23 19:30 BiPAP 70 08/22/23 19:24 BiPAP 70 08/22/23 19:15 BiPAP 70 08/22/23 19:00 BiPAP 70 08/22/23 18:48 BiPAP 70 08/22/23 18:46 BiPAP 08/22/23 18:45 08/22/23 18:30 08/22/23 18:29 70 08/22/23 18:00 BiPAP 08/22/23 17:12 08/22/23 17:00 BiPAP 70 08/22/23 17:00 BiPAP 08/22/23 17:00 BiPAP 08/22/23 17:00 BiPAP Intake and Output 08/23/23 08/23/23 08/23/23 07:59 15:59 23:59 Intake Total 444.938 / 1333.438 888.500 / 1333.438 Output Total 885 / 1285 400 / 1285 Balance -440.062 / 48.438 488.500 / 48.438 Intake: Intake, Oral Amount 100 / 635 535 / 635 Intake, Total IV Amount 344.938 / 698.438 353.500 / 698.438 Meropenem 1 gm In 0.9 % Sodium 100 / 100 Chloride 100 ml @ 100 mls/hr IV Q12H [facility] Rx#:[id number] Micafungin Sodium 100 mg In 0.9 100 / 100 % Sodium Chloride 100 ml @ 100 mls/hr IV Q24H [facility] Rx#: [id number] Norepinephrine Bitartrate/D5w 8 164 / 164 mg In 250 ml @ 2 MCG/MIN 3.75 mls/hr IV .Q24H [facility] Rx#: [id number] Piperacillin/Tazo 3.375 gm In 0 50 / 50 .9 % Sodium Chloride 50 ml @ 100 mls/hr IV Q8H [facility] Rx#: [id number] Output: Output, Urine Amount 400 / 400 Output, Urine Amount (Catheter) 885 / 885 [place] 885 / 885 Other: Number of Voids 0 Number of Unmeasured Voids 0 Weight 148.78 kg 148 kg Patient Weight 08/23/23 23:59 Weight 148 kg Laboratory Results - last 24 hr 08/22/23 16:37: Chlamy pneumoniae PCR TNP, Adenovirus (PCR) Not detected, B. pertussis DNA (PCR) TNP, Coronavirus OC43 (PCR) Not detected, Coronavirus HKU1 (PCR) Not detected, Coronavirus 229E (PCR) Not detected, SARS-CoV-2 (PCR) Not detected 08/22/23 16:37: SARS-CoV-2 (PCR) Not detected, Coronavirus NL63 (PCR) Not detected, Human Metapneumovir PCR Not detected, Influenza A (H1) PCR Not detected, Influ A (H1N1/09) PCR Not detected, Influenza A (H3) PCR Not detected, Influenza Type A (PCR) Not detected, Influenza A Untype (PCR) Not detected, Influenza Type B (PCR) Not detected 08/22/23 16:37: Influenza Type B (PCR) Not detected, M. pneumoniae (PCR) TNP, Parainfluenza 1 (PCR) Not detected, Parainfluenza 2 (PCR) Not detected, Parainfluenza 3 (PCR) Not detected, Parainfluenza 4 (PCR) Not detected, RSV (PCR) Not detected, Entero/Rhino (PCR) Not detected 08/22/23 16:38: Troponin I 0.02 08/22/23 17:25: Lactate 4.0 H, Magnesium 1.3 L 08/22/23 19:54: Lactate 3.1 H 08/22/23 20:35: Urine Color Yellow, Urine Appearance Clear, Urine pH 5.5, Ur Specific [place] 1.020, Urine Protein 2+, Urine Glucose (UA) 1+, Urine Ketones Negative, Urine Blood 1+, Urine Nitrate Negative, Urine Bilirubin Negative, Urine Urobilinogen 0.2, Ur Leukocyte Esterase Negative, Urine RBC 5-10, Urine WBC Occasional, Ur Squamous Epith Cells 3-5, Urine Bacteria Trace 08/22/23 21:57: POC Glucose 222 H 08/23/23 04:15: POC Glucose 169 H 08/23/23 04:40: WBC 67.7 H* D, RBC 3.90 L, Hgb 11.2 L, Hct 35.8 L, MCV 91.8, MCH 28.8, MCHC 31.3 L, RDW 15.8, Plt Count 390, MPV 8.4, Neut % (Auto) 96.0 H, Lymph % (Auto) 0.0 L, [place] % (Auto) 2.2, Eos % (Auto) 0.2, Baso % (Auto) 1.7, Neut # (Auto) 65.0 H, Lymph # (Auto) 0.0 L, [place] # (Auto) 1.5 H, Eos # (Auto) 0.1, Baso # (Auto) 1.1 H, Total Counted 100, Neutrophils % (Manual) 92 H, Lymphocytes % (Manual) 3 L, Monocytes % (Manual) 3, Metamyelocytes % 1.0, Myelocytes % 1, Platelet Estimate Normal, Hypochromasia 1+, Sodium 136, Potassium 4.1, Chloride 84 L, Carbon Dioxide 44 H*, Anion Gap 12.1, BUN 48 H D, Creatinine 2.10 H, Estimated Creat Clear 36, Estimated GFR 31 L, Est GFR ( Amer) 38 L, Glucose 168 H, Calcium 8.5, Magnesium 2.1 D, Total Bilirubin 0.6, AST 26, ALT 22, Alkaline Phosphatase 65, Total Protein 6.9, Albumin 3.3 L, Globulin 3.6 H, Albumin/Globulin Ratio 0.9 L, Triglycerides 114, Cholesterol 75 L, LDL Cholesterol Direct < 30.00 L, VLDL Cholesterol 23, HDL Cholesterol 30 L, Cholesterol/HDL Ratio 2.5, Procalcitonin 19.0 H 08/23/23 11:43: VBG pH 7.38, VBG pCO2 72.4 H, VBG pO2 52.3 H, VBG HCO3 42.3 H, VBG Total CO2 44.5 H, VBG O2 Saturation 86.0 H, VBG Base Excess 17.2 H, VBG Lactic Acid 2.9 H 08/23/23 12:27: POC Glucose 144 H 08/23/23 16:15: Troponin I 0.01 08/23/23 16:42: POC Glucose 211 H I & O for Labs for Last 24 Hours: Intake & Output 08/20/23 08/21/23 08/22/23 08/23/23 23:59 23:59 23:59 23:59 Intake Total 3279.563 / 3319.563 1333.438 / 1333.438 Output Total 375 / 575 1285 / 1285 Balance 2904.563 / 2744.563 48.438 / 48.438 Weight 149.402 kg 148 kg Constitutional: Present mild distress, morbidly obese, chronically ill appearing and cooperative Head: Present atraumatic and normocephalic ENT: Present normal exam Comment:: Cushingoid face, buffalo hump, prominent neck Comment:: No lymphadenopathy, prominent neck. Unable to assess landmarks due to obesity Respiratory: Present accessory muscle use, prolonged expiratory phase, rhonchi, crackles, distant breath sounds and diminished air movement; Absent wheezes Cardiac: Present Reg Rate and Rhythm GI: Present soft and normal bowel sounds; Absent distention or tenderness Extremities: Present normal inspection and full ROM; Absent tenderness Comment:: Chronic lymphedema, chronic stasis dermatitis Skin: Present intact; Absent erythema Neuro: Present Grossly Intact, alert, awake, oriented x 3 and moves all extremities Assessment and Plan *Assessment and plan (1) Septic shock: Status: Acute Category: Medical Code(s): A41.9 - Sepsis, unspecified organism; R65.21 - Severe sepsis with septic shock (2) Acute on chronic respiratory failure with hypoxia and hypercapnia: Status: Acute Category: Medical Code(s): J96.21 - Acute and chronic respiratory failure with hypoxia; J96.22 - Acute and chronic respiratory failure with hypercapnia (3) Pneumonia: Status: Acute Category: Medical Code(s): J18.9 - Pneumonia, unspecified organism (4) Acute exacerbation of CHF (congestive heart failure): Status: Acute Category: Medical Code(s): I50.9 - Heart failure, unspecified (5) OSMANI (acute kidney injury): Status: Acute Category: Medical Code(s): N17.9 - Acute kidney failure, unspecified (6) Acute metabolic encephalopathy: Status: Acute Category: Medical Code(s): G93.41 - Metabolic encephalopathy (7) Pickwickian syndrome: Status: Acute Category: Medical Code(s): E66.2 - Morbid (severe) obesity with alveolar hypoventilation (8) Morbid obesity: Status: Acute Category: Medical Code(s): E66.01 - Morbid (severe) obesity due to excess calories (9) Hypothyroid: Status: Acute Category: Medical Code(s): E03.9 - Hypothyroidism, unspecified (10) Heart failure with preserved ejection fraction: Status: Acute Category: Medical Code(s): I50.30 - Unspecified diastolic (congestive) heart failure Plan Mr. Wu is a morbidly obese 68-year-old male with history of heart failure with preserved ejection fraction, chronic respiratory failure on home BiPAP, chronically on 3 L oxygen, with CKD and recent admission for respiratory failure a month ago to [facility]. He presented via EMS for acute worsening and concern for sepsis with respiratory failure. Workup in the ER concerning for pneumonia, development of septic shock, and respiratory failure. Initiated on BiPAP. Discussed case with ER, request admission for ICU level of care and further management. Medicine agreed to admit. Received broad-spectrum antibiotics in the ER. Cultures obtained. Pulmonology consulted to assist with care including BiPAP management and critical care. Showing improvement overnight. Weaned to room air this morning. De-escalate to stepdown level of care. More alert and oriented. Family at bedside. Long discussion about goals of care, condition, treatment plan. Continues to require inpatient management. Problems addressed as follows: Septic shock Acute on chronic hypoxemic respiratory failure with hypercapnia Pickwickian syndrome Pneumonia Mixed respiratory acidosis, metabolic acidosis with concurrent metabolic alkalotic compensation. -Discussed case with pulmonology this morning. Will continue to wean oxygen. Currently on nasal cannula, goal sats 90 to 95%. Will continue BiPAP therapy at night and while asleep. -White cell count increased to 67,000. Lactate is normalized. Repeat CBC ordered for the morning -Peripheral smear pending. HIV ordered given lymphopenia -Continue DuoNebs every 4 hours scheduled. Pulmicort every 12 hours scheduled. -Continue broad-spectrum antibiotics with vancomycin, transition to meropenem given penicillin allergy. Will add micafungin in the setting of lymphopenia and possible immune deficiency. -Sputum culture pending. Nasal MRSA PCR pending. Respiratory panel negative -Will maintain MAP greater than 65. Continues to require Levophed. Weaning as tolerated. -Maintain head of bed elevated between 30 and 45 degrees. -Reported history of chronic steroids, concern for component of adrenal insufficiency. Will continue stress dose hydrocortisone 50 mg every 6 hours scheduled -Procalcitonin elevated at 6.6 on admission. Increased to 19 this morning. Repeat level ordered for the morning. OSMANI Electrolytes stable with potassium 4.1, magnesium 2.1. Bump in creatinine with OSMANI, BUN 48, creatinine 2.1. Baseline appears to be 1.1. Repeat BMP ordered for the evening. CBC ordered for the morning. Magnesium ordered for the morning. Hypothyroid: TSH of 24. IV levothyroxine 100 mcg daily Diabetes: A1c 6.8. Sliding scale insulin fingersticks every 6 hours given diabetes diagnosis and steroid use as above Heart failure with preserved ejection fraction -Patient's baseline reportedly 55% per documentation reviewed from [facility]. -Echocardiogram obtained showing preserved ejection fraction, shows diastolic dysfunction. EKG shows old ND's. Had some chest pain today. Serial troponins remain normal, EKG compared to admission EKG stable. Responding to nitroglycerin. Continue sublingual nitroglycerin as needed. Will consult cardiology if develops bump in troponins. -Holding metoprolol and diuretics in setting of septic shock -Concern for acute exacerbation with BNP of 1700 however in the setting of septic shock and hypotension, will hold on diuresis and instead will administer fluids cautiously Metabolic alkalosis: Continue acetazolamide 250 mg twice daily OSMANI: BUN 38, creatinine 1.9. Baseline appears to be 1.1 per chart review. Repeat CMP ordered for the morning. Monitoring closely, caution with nephrotoxins, renally dosing medications Medical surrogate is his significant other Anamika Bowers. Patient provided advanced directives/living will. Goals of care discussion today, patient is full code. He would be a very difficult intubation as well as would need transfer for likely tracheostomy and would have low likelihood of coming off of a vent if necessitated intubation. Discussed this with patient. He still wants to be full code. States he has got a lot of fight left in him Full code Diabetic diet Heparin 5000 units 3 times daily Working with therapy, recommend placement
[2023-08-23 17:06] LABS: Lactic Acid Follow Up (RFLX 1) 1.4 mmol/L (0.7-2.1)
--- NOTE | 2023-08-23 17:31 | PC.NURSE ---
during the first part of the shift pt appeared very disgruntled and disagreeable with staff. pt was unable to retain information as to why he was on bipap, why he was unable to have food and drink. pt was able to be transitioned off of bipap to 5lpm. pt tolerated well. after [id number] pt was able to have diet order and eat. after being able to eat, pt was no long disagreeable/upset with staff. pt has been up to the chair this shift. pt was able to be weaned to 3 lpm nc and is tolerating. pt has acuña cath in place r/t stage 2-3 wounds in perineal area. acuña is draining clear yellow urine, some sediment is noted. pt is a/o x 4.
--- NOTE | 2023-08-23 18:35 | PC.NURSE ---
1630 pt received nitroglycerin tablet for pain 12/06 1640 pt reports pain is now /10
[2023-08-23 18:38] LABS: Chloride 82 mmol/L (98-107); Sodium 135 mmol/L (136-145)
[2023-08-23 18:39] LABS: Potassium 3.5 mmoL/L (3.5-5.1)
[2023-08-23 18:42] LABS: Blood Urea Nitrogen 49 mg/dl (9-20); Calcium 8.4 mg/dl (8.4-10.2); Creatinine Clearance Estimated 36 mL/min (50-200); Estimated Glomerular Filt Rate 31 ml/min (>60); GFR (African American) 38 ML/MIN (>60); Glucose 189 mg/dl (74-100)
[2023-08-23 18:58] LABS: Anion Gap 13.5 mEq/L (5-15); Carbon Dioxide 43 mmol/L (22.0-30.0)
[2023-08-23 20:00] LABS: Troponin I < 0.01 ng/ml (0.00-0.034)
[2023-08-23 23:44] LABS: POC Glucose,Bedside 168 (70-110)
[2023-08-24] VITALS (39 sets, daily range): BP systolic 92–130; BP diastolic 50–83; PULSE 70–113; RESP 18–24; TEMP 36.2–36.6; O2SAT 90–100; BMI 43.2
[2023-08-24] MEDS: NOREPINEPHRINE BITARTRATE/D5W 8 MG/250 ML PLAST..BAG 15 MG IV (00:31)
[2023-08-24] MEDS: IPRATROPIUM/ALBUTEROL 3 ML NEB IH ×6 (01:57→23:17)
--- NOTE | 2023-08-24 05:09 | PC.NURSE ---
Patient has had a decent night. Patient has been up in the chair all night, refused to lay in the bed. Patient complained all night of burning in his groin due to his excoriation. Patient was readjusted multiple times in the chair, powder was applied, cream was applied. Finally a Vaseline gauze was applied and the patient has not complained since. Patient has worn the bipap off and on tonight, but has been awake most of the night. Patient has had a very thick congested cough. Patient was given a yonker to help with the excretions and that has helped tremendously he stated. Patient remains AxO and is still on a Levo drip. See MAR for titration through the night. No other issue were noted. Patient did get a partial bath. Patient front side was washed, but patient refused to have his backside washed.
[2023-08-24] MEDS: BUDESONIDE 0.5MG/2ML NEB 0.5 MG IH ×2 (05:24→18:17)
[2023-08-24 05:43] LABS: POC Glucose,Bedside 143 (70-110)
[2023-08-24] MEDS: HYDROCORTISONE SOD SUCCINATE 100MG VIAL 50 MG IV ×4 (05:57→22:12)
[2023-08-24] MEDS: LEVOTHYROXINE SODIUM 100 MCG VIAL IV (06:00)
[2023-08-24] MEDS: HEPARIN SODIUM 5,000 UNIT/ML VIAL 5000 UNIT SQ ×3 (06:19→22:11)
[2023-08-24 07:11] LABS: MANUAL DIFFERENTIAL MANUAL DIFFERENTIAL (MANUAL DIFF)
[2023-08-24 07:15] LABS: Basophils % 0.1 % (0.1-2.0); Hematocrit 33.5 % (42.0-52.0); Hemoglobin 10.2 g/dL (14.1-18.0); Lymphocytes # 1.1 K/mm3 (0.7-4.5); Lymphocytes % 2.8 % (10-50); Mean Corpuscular HGB Conc 30.4 g/dL (31.8-35.4); Mean Corpuscular Hemoglobin 28.3 pg (27.0-31.2); Mean Corpuscular Volume 93.3 fl (80-94); Mean Platelet Volume 8.8 fl (7.4-10.4); Monocytes # 0.8 K/mm3 (0.1-1.0); Neutrophils # 36.1 K/mm3 (1.8-7.8); Neutrophils % 95.1 % (37.0-80.0); Platelet Count 314 K/mm3 (142-424); Red Blood Count 3.59 M/mm3 (4.60-6.20); Red Cell Distribution Width 15.8 % (11.5-17.5)
[2023-08-24 07:18] LABS: Chloride 83 mmol/L (98-107); Sodium 133 mmol/L (136-145)
[2023-08-24 07:19] LABS: Potassium 3.4 mmoL/L (3.5-5.1)
[2023-08-24 07:21] LABS: Blood Urea Nitrogen 45 mg/dl (9-20); Creatinine Clearance Estimated 43 mL/min (50-200); Estimated Glomerular Filt Rate 38 ml/min (>60); GFR (African American) 45 ML/MIN (>60)
[2023-08-24 07:22] LABS: Calcium 8.6 mg/dl (8.4-10.2); Glucose 181 mg/dl (74-100)
[2023-08-24 07:31] LABS: Anion Gap 7.4 mEq/L (5-15); Carbon Dioxide 46 mmol/L (22.0-30.0)
[2023-08-24 07:38] LABS: Magnesium 2.4 mg/dl (1.6-2.3)
[2023-08-24 07:41] LABS: HIV Screen 4th Generation wRfx Non Reactive (Non Reactive)
--- NOTE | 2023-08-24 08:07 | P.PN_ITS ---
Subjective *Date: 08/24/23 *Time: 12:54 Interval history: Showing some clinical permit today. Tolerated BiPAP overnight. On 3 L nasal cannula this morning. Afebrile overnight. Tolerating weaning of Levophed. No nausea or vomiting. No chest pain. Medical Exam Vital signs and Labs for Last 24 Hours: Vital Signs Temp Pulse Pulse Resp BP Pulse Ox O2 Del Method 08/24/23 07:33 97.9 F 08/24/23 07:27 93 L Nasal Cannula 08/24/23 06:00 75 23 118/83 93 L Nasal Cannula 08/24/23 05:25 77 08/24/23 05:25 86 08/24/23 05:25 100 Nasal Cannula 08/24/23 05:00 79 21 100/54 L 98 Nasal Cannula 08/24/23 05:00 Nasal Cannula 08/24/23 04:00 80 08/24/23 04:00 97.6 F 83 24 120/63 93 L Nasal Cannula 08/24/23 04:00 Nasal Cannula 08/24/23 03:00 87 22 118/65 92 L Nasal Cannula 08/24/23 03:00 Nasal Cannula 08/24/23 02:00 81 24 102/59 L 100 BiPAP 08/24/23 01:57 72 08/24/23 01:55 08/24/23 01:00 87 24 114/63 93 L BiPAP 08/24/23 01:00 BiPAP 08/24/23 00:00 70 08/24/23 00:00 BiPAP 08/24/23 00:00 97.1 F L 71 24 111/62 93 L BiPAP 08/23/23 23:00 97.9 F 82 24 120/64 91 L Nasal Cannula 08/23/23 23:00 Nasal Cannula 08/23/23 22:00 82 24 114/63 99 Nasal Cannula 08/23/23 21:50 08/23/23 21:37 83 08/23/23 21:00 91 H 24 99/48 L 95 Nasal Cannula 08/23/23 21:00 Nasal Cannula 08/23/23 20:00 90 08/23/23 20:00 98.2 F 88 24 104/49 L 96 Nasal Cannula 08/23/23 20:00 BiPAP 08/23/23 19:00 86 20 105/54 L 94 L Nasal Cannula 08/23/23 18:50 BiPAP 08/23/23 18:31 BiPAP 08/23/23 18:25 08/23/23 18:20 70 20 114/58 L 98 Nasal Cannula 08/23/23 18:05 96 Nasal Cannula 08/23/23 18:04 88 08/23/23 17:00 89 20 101/52 L 98 Nasal Cannula 08/23/23 17:00 Nasal Cannula 08/23/23 16:00 97.8 F 08/23/23 16:00 93 H 96 Nasal Cannula 08/23/23 16:00 62 20 103/63 L 96 Nasal Cannula 08/23/23 16:00 90 08/23/23 15:00 Nasal Cannula 08/23/23 15:00 96 H 20 98/52 L 94 L Nasal Cannula 08/23/23 14:00 96 H 20 96/53 L 99 Nasal Cannula 08/23/23 13:45 94 H 08/23/23 13:45 90 08/23/23 13:39 Nasal Cannula 08/23/23 13:00 88 22 86/49 L 92 L Nasal Cannula 08/23/23 12:36 86 96 Nasal Cannula 08/23/23 12:00 95 H 08/23/23 12:00 97.7 F 08/23/23 12:00 90 22 101/60 L 94 L Nasal Cannula 08/23/23 11:36 Nasal Cannula 08/23/23 11:00 85 22 99/58 L 97 Nasal Cannula 08/23/23 10:14 73 08/23/23 10:14 75 08/23/23 09:55 95 H 20 104/56 L 100 Nasal Cannula 08/23/23 09:44 Nasal Cannula 08/23/23 09:00 97.7 F 83 22 83/44 L 97 BiPAP 08/23/23 08:10 86 96 BiPAP O2 Flow Rate FiO2 08/24/23 07:33 08/24/23 07:27 3 08/24/23 06:00 3 08/24/23 05:25 08/24/23 05:25 08/24/23 05:25 4 08/24/23 05:00 4 08/24/23 05:00 4 08/24/23 04:00 08/24/23 04:00 4 08/24/23 04:00 4 08/24/23 03:00 3 08/24/23 03:00 3 08/24/23 02:00 50 08/24/23 01:57 08/24/23 01:55 50 08/24/23 01:00 08/24/23 01:00 08/24/23 00:00 08/24/23 00:00 50 08/24/23 00:00 08/23/23 23:00 3 08/23/23 23:00 3 08/23/23 22:00 3 08/23/23 21:50 50 08/23/23 21:37 08/23/23 21:00 3 08/23/23 21:00 3 08/23/23 20:00 08/23/23 20:00 3 08/23/23 20:00 08/23/23 19:00 3 08/23/23 18:50 08/23/23 18:31 50 08/23/23 18:25 50 08/23/23 18:20 4 08/23/23 18:05 3 08/23/23 18:04 08/23/23 17:00 3 08/23/23 17:00 3 08/23/23 16:00 08/23/23 16:00 3 08/23/23 16:00 3 08/23/23 16:00 08/23/23 15:00 4 08/23/23 15:00 4 08/23/23 14:00 4 08/23/23 13:45 08/23/23 13:45 08/23/23 13:39 4 08/23/23 13:00 4 08/23/23 12:36 4 08/23/23 12:00 08/23/23 12:00 08/23/23 12:00 4 08/23/23 11:36 4 08/23/23 11:00 5 08/23/23 10:14 08/23/23 10:14 08/23/23 09:55 5 08/23/23 09:44 5 08/23/23 09:00 50 08/23/23 08:10 50 Intake and Output 08/23/23 08/24/23 08/24/23 23:59 07:59 15:59 Intake Total 1455.287 / 2788.725 931.764 / 931.764 Output Total 1825 / 3110 750 / 750 Balance -369.713 / -321.275 181.764 / 181.764 Intake: Intake, Oral Amount 920 / 1555 840 / 840 Intake, Total IV Amount 535.287 / 1233.725 91.764 / 91.764 Meropenem 1 gm In 0.9 % Sodium 100 / 200 Chloride 100 ml @ 100 mls/hr IV Q12H KARIN Rx#:[id number] Vancomycin HCl 2,500 mg In 0.9 273 / 273 % Sodium Chloride 250 ml @ 125 mls/hr IV Q24H KARIN Rx#:[id number] Output: Output, Urine Amount 425 / 825 0 / 0 Output, Urine Amount (Catheter) 1400 / 2285 750 / 750 Kennedy 1400 / 2285 750 / 750 Other: Number of Unmeasured Voids 0 0 Weight 148 kg Patient Weight 08/24/23 23:59 Weight 148 kg Laboratory Results - last 24 hr 08/23/23 04:40: HIV 1&2 Ag/Ab, 4th Gen Non reactive 08/23/23 11:43: VBG pH 7.38, VBG pCO2 72.4 H, VBG pO2 52.3 H, VBG HCO3 42.3 H, VBG Total CO2 44.5 H, VBG O2 Saturation 86.0 H, VBG Base Excess 17.2 H, VBG Lactic Acid 2.9 H 08/23/23 12:27: POC Glucose 144 H 08/23/23 16:15: Sodium 135 L, Potassium 3.5, Chloride 82 L, Carbon Dioxide 43 H* , Anion Gap 13.5, BUN 49 H, Creatinine 2.10 H, Estimated Creat Clear 36, Estimated GFR 31 L, Est GFR ( Amer) 38 L, Glucose 189 H, Calcium 8.4, Troponin I 0.01 08/23/23 16:42: POC Glucose 211 H 08/23/23 16:50: Lactate 1.4 08/23/23 19:30: Troponin I < 0.01 08/23/23 22:45: POC Glucose 168 H 08/24/23 05:36: POC Glucose 143 H 08/24/23 06:34: WBC 38.0 H* D, RBC 3.59 L, Hgb 10.2 L, Hct 33.5 L, MCV 93.3, MCH 28.3, MCHC 30.4 L, RDW 15.8, Plt Count 314, MPV 8.8, Neut % (Auto) 95.1 H, Lymph % (Auto) 2.8 L, [place] % (Auto) 2.0, Eos % (Auto) 0.0 L, Baso % (Auto) 0.1, Neut # (Auto) 36.1 H, Lymph # (Auto) 1.1, [place] # (Auto) 0.8, Eos # (Auto) 0.0, Baso # (Auto) 0.0, Sodium 133 L, Potassium 3.4 L, Chloride 83 L, Carbon Dioxide 46 H*, Anion Gap 7.4, BUN 45 H, Creatinine 1.80 H, Estimated Creat Clear 43, Estimated GFR 38 L, Est GFR ( Amer) 45 L, Glucose 181 H, Calcium 8.6, Magnesium 2.4 H D I & O for Labs for Last 24 Hours: Intake & Output 08/21/23 08/22/23 08/23/23 08/24/23 23:59 23:59 23:59 23:59 Intake Total 3279.563 / 3319.563 2788.725 / 2788.725 931.764 / 931.764 Output Total 375 / 575 3110 / 3110 750 / 750 Balance 2904.563 / 2744.563 -321.275 / -321.275 181.764 / 181.764 Weight 149.402 kg 148 kg 148 kg Constitutional: Present mild distress, morbidly obese, chronically ill appearing and cooperative Head: Present atraumatic and normocephalic ENT: Present normal exam Comment:: Cushingoid face, buffalo hump, prominent neck Comment:: No lymphadenopathy, prominent neck. Unable to assess landmarks due to obesity Respiratory: Present accessory muscle use, prolonged expiratory phase, rhonchi, crackles, distant breath sounds and diminished air movement; Absent wheezes Cardiac: Present Reg Rate and Rhythm GI: Present soft and normal bowel sounds; Absent distention or tenderness Extremities: Present normal inspection, full ROM and edema (2+ tense edema in lower extremities); Absent tenderness Comment:: Chronic lymphedema, chronic stasis dermatitis Skin: Present intact; Absent erythema Neuro: Present Grossly Intact, alert, awake, oriented x 3 and moves all extremities Assessment and Plan *Assessment and plan (1) Septic shock: Status: Acute Category: Medical Code(s): A41.9 - Sepsis, unspecified organism; R65.21 - Severe sepsis with septic shock (2) Acute on chronic respiratory failure with hypoxia and hypercapnia: Status: Acute Category: Medical Code(s): J96.21 - Acute and chronic respiratory failure with hypoxia; J96.22 - Acute and chronic respiratory failure with hypercapnia (3) Pneumonia: Status: Acute Category: Medical Code(s): J18.9 - Pneumonia, unspecified organism (4) Acute exacerbation of CHF (congestive heart failure): Status: Acute Category: Medical Code(s): I50.9 - Heart failure, unspecified (5) OMSANI (acute kidney injury): Status: Acute Category: Medical Code(s): N17.9 - Acute kidney failure, unspecified (6) Acute metabolic encephalopathy: Status: Acute Category: Medical Code(s): G93.41 - Metabolic encephalopathy (7) Pickwickian syndrome: Status: Acute Category: Medical Code(s): E66.2 - Morbid (severe) obesity with alveolar hypoventilation (8) Morbid obesity: Status: Acute Category: Medical Code(s): E66.01 - Morbid (severe) obesity due to excess calories (9) Hypothyroid: Status: Acute Category: Medical Code(s): E03.9 - Hypothyroidism, unspecified (10) Heart failure with preserved ejection fraction: Status: Acute Category: Medical Code(s): I50.30 - Unspecified diastolic (congestive) heart failure Plan Mr. Wu is a morbidly obese 68-year-old male with history of heart failure with preserved ejection fraction, chronic respiratory failure on home BiPAP, chronically on 3 L oxygen, with CKD and recent admission for respiratory failure a month ago to [place]. He presented via EMS for acute worsening and concern for sepsis with respiratory failure. Workup in the ER concerning for pneumonia, development of septic shock, and respiratory failure. Initiated on BiPAP. Discussed case with ER, request admission for ICU level of care and further management. Medicine agreed to admit. Received broad-spectrum antibiotics in the ER. Cultures obtained. Pulmonology consulted to assist with care including BiPAP management and critical care. Continues to show gradual improvement daily. Tolerating 3 L nasal cannula during the day. BiPAP at night. White cell count coming down, 38,000 today. Continues to require stepdown level of care. Problems addressed as follows: Septic shock Acute on chronic hypoxemic respiratory failure with hypercapnia Pickwickian syndrome Pneumonia Mixed respiratory acidosis, metabolic acidosis with concurrent metabolic al kalotic compensation. -Discussed case with pulmonology this morning. Will continue to wean oxygen. Currently on nasal cannula, goal sats 90 to 95%. Will continue BiPAP therapy at night and while asleep. -White cell count decreased to 38,000. Repeat CBC, CMP, magnesium ordered for the morning. -HIV negative -Peripheral smear pending -Continue DuoNebs every 4 hours scheduled. Pulmicort every 12 hours scheduled. -Continue broad-spectrum antibiotics with vancomycin, meropenem, micafungin in the setting of lymphopenia -Sputum culture pending. Nasal MRSA PCR pending. Respiratory panel negative -Will maintain MAP greater than 65. Continues to require Levophed. Weaning as tolerated. Anticipate weaning off today. -Maintain head of bed elevated between 30 and 45 degrees. -Reported history of chronic steroids, concern for component of adrenal insufficiency. Will continue stress dose hydrocortisone 50 mg every 6 hours scheduled -Procalcitonin elevated at 6.6 on admission. Increased to 19, repeat level ordered for the morning. OSMANI Potassium 3.4, magnesium 2.4. Replace potassium orally today. Kidney function improving, BUN 45, creatinine 1.8. Baseline 1.1 from chart review. Hypothyroid: TSH of 24 on admission. IV levothyroxine 100 mcg daily, will consider transitioning to oral in the next day or 2 Diabetes: A1c 6.8. Sliding scale insulin fingersticks every 6 hours given diabetes diagnosis and steroid use as above Heart failure with preserved ejection fraction -Patient's baseline reportedly 55% per documentation reviewed from [place]. -Echocardiogram obtained showing preserved ejection fraction, shows diastolic dysfunction. EKG shows old W[place]'s. Had some chest pain today. Serial troponins remain normal, EKG compared to admission EKG stable. Responding to nitroglycerin. Continue sublingual nitroglycerin as needed. Will consult cardiology if develops bump in troponins. -Holding metoprolol and diuretics in setting of septic shock -Concern for acute exacerbation with BNP of 1700 however in the setting of septic shock and hypotension, will hold on diuresis and instead will administer fluids cautiously Metabolic alkalosis: Continue acetazolamide 250 mg twice daily Medical surrogate is his significant other Anamika Bowers. Patient provided advanced directives/living will. Goals of care discussion today, patient is full code. He would be a very difficult intubation as well as would need transfer for likely tracheostomy and would have low likelihood of coming off of a vent if necessitated intubation. Discussed this with patient. He still wants to be full code. States he has got a lot of fight left in him Full code Diabetic diet Heparin 5000 units 3 times daily Working with therapy, recommend placement
[2023-08-24] MEDS: POTASSIUM CHLORIDE 20MEQ TAB 20 MEQ PO ×2 (08:23→20:35)
[2023-08-24] MEDS: acetaZOLAMIDE 250 MG TABLET PO ×2 (08:23→20:35)
[2023-08-24 09:09] LABS: Lymphocytes % 4 % (10-50); Monocytes % 5 % (2-9); Neutrophils % 90 % (42-76); Total Cells Counted 100
[2023-08-24 09:10] LABS: Hypochromasia 1+; Platelet Estimate Normal
[2023-08-24] MEDS: MEROPENEM 1 GM in 0.9 % SODIUM CHLORIDE 100 ML IV ×2 (11:19→22:10)
[2023-08-24] MEDS: POLYETHYLENE GLYCOL 3350 17 GM PACKET PO (11:20)
[2023-08-24] MEDS: humaLOG 100 UNITS/ML 3ML VIAL (SSI) SQ ×3 (11:35→22:17)
[2023-08-24 11:55] LABS: POC Glucose,Bedside 248 (70-110)
[2023-08-24] MEDS: MICAFUNGIN SODIUM 100 MG in 0.9 % SODIUM CHLORIDE 100 ML IV (13:06)
[2023-08-24] MEDS: VANCOMYCIN HCL 2,500 MG in 0.9 % SODIUM CHLORIDE 250 ML 125 MG IV (16:04)
[2023-08-24] MEDS: METFORMIN 500MG TABLET 500 MG PO (16:58)
[2023-08-24 17:26] LABS: POC Glucose,Bedside 182 (70-110)
--- NOTE | 2023-08-24 18:09 | PC.NURSE ---
1755 pt notified RN of chest pain 10/10 sharp and intermittent. pt bp 116/68 no change noted on tele monitor. pt has nitro sublingual tablet on and order entered for ekg per protocol. [address] torres. states to admin nitro and obtain ekg. no additional orders per 1800 bp112/70 1800 while obtaining nitro from [facility], pt was able to go to sleep. upon reentering room and waking pt up, pt states that his pain has eased up. (2/10 pain) pt advised he had a nitro tablet that was to be administered. pt stated that he did not want the nitro at this time. notified Dr Torres pt refuses nitro. states ok to hold nitro but still obtain ekg.
--- NOTE | 2023-08-24 18:13 | ECG_ITS ---
APPROVED REPORT Exam: Resting ECG HR:66 bpm ECG Measurements Heart Rate 66 AXES PA 164 P 113 QRSd 142 QRS -61 QT 446 T 56 QTc 459 Conclusion SINUS RHYTHM WITH MARKED SINUS ARRHYTHMIA LEFT AXIS DEVIATION [QRS AXIS < -30] LEFT BUNDLE BRANCH BLOCK [120+ ms QRS DURATION, 80+ ms Q/S IN V1/V2, 85+ ms R IN I/aVL/V5/V6] ABNORMAL ECG UNCONFIRMED REPORT Electronically signed by : Francisco Baptiste MD 08/25/2023 08:06:40
[2023-08-24] MEDS: SENNOSIDES 8.6MG/DOCUSATE 50MG TABLET 1 TAB PO (20:35)
[2023-08-24] MEDS: TAMSULOSIN 0.4MG CAPSULE 0.400000000000000022 MG PO (20:35)
[2023-08-24 22:26] LABS: POC Glucose,Bedside 197 (70-110)
[2023-08-25] VITALS (25 sets, daily range): BP systolic 80–105; BP diastolic 35–74; PULSE 64–85; RESP 16–24; TEMP 36.5–36.9; O2SAT 92–100; BMI 43.2
[2023-08-25] MEDS: IPRATROPIUM/ALBUTEROL 3 ML NEB IH ×6 (01:35→21:40)
[2023-08-25] MEDS: PANTOPRAZOLE 40MG TABLET 40 MG PO ×2 (02:22→20:26)
[2023-08-25] MEDS: CALCIUM CARBONATE 500MG CHEWTAB 1000 MG PO (02:22)
--- NOTE | 2023-08-25 05:09 | PC.NURSE ---
Patient has had a decent night. Patient has been able to sleep more tonight than previous shifts. Patient was able to do a full shower and patient was very happy to be able to do that. Patient did complain once of chest pain. extension work director was notified see provider notification for that. See orders. Patient said the pain is now more in the stomach region. Patient did state it had been a week since his last BM. Patient is still passing gas but abdomen is distended and firm. Patient stated he drinks tomato juice at home to help him go. Patient did drink a V8 to see if that would help so far patient has been unable to have a BM but did get top the bedside to try. Patient states that is where he thinks his chest pain is coming from that it is not Cardiac related. EKG was done and placed in the chart. No changes noted on EKG. PAtient has tolerated the bipap off and on through the night and will wear it when he sleeps and takes it off himself when he is awake.
[2023-08-25] MEDS: humaLOG 100 UNITS/ML 3ML VIAL (SSI) SQ ×3 (05:53→20:26)
[2023-08-25] MEDS: HYDROCORTISONE SOD SUCCINATE 100MG VIAL 50 MG IV ×4 (05:53→22:02)
[2023-08-25] MEDS: HEPARIN SODIUM 5,000 UNIT/ML VIAL 5000 UNIT SQ ×3 (05:53→21:58)
[2023-08-25 05:55] LABS: POC Glucose,Bedside 170 (70-110)
[2023-08-25] MEDS: BUDESONIDE 0.5MG/2ML NEB 0.5 MG IH ×2 (06:35→18:07)
[2023-08-25] MEDS: LEVOTHYROXINE SODIUM 100 MCG VIAL IV (06:38)
[2023-08-25] MEDS: METFORMIN 500MG TABLET 500 MG PO ×2 (06:38→16:51)
--- NOTE | 2023-08-25 07:50 | P.PN_ITS ---
Subjective *Date: 08/25/23 *Time: 11:36 Interval history: Patient continues to have copious thick sputum. Afebrile overnight. Tolerating BiPAP. On 3 L nasal cannula during the day. In bedside chair. Tolerating p.o. intake. Got a shower and states he feels better. No nausea or vomiting. Denies significant chest pain. Did have a brief episode yesterday afternoon and the day before that resolved spontaneously. No changes on telemetry or elevation in troponins. Family at bedside and updated of plan. Medical Exam Vital signs and Labs for Last 24 Hours: Vital Signs Temp Pulse Pulse Resp BP Pulse Ox O2 Del Method 08/25/23 07:40 97.7 F 08/25/23 07:31 95 Nasal Cannula 08/25/23 06:57 Nasal Cannula 08/25/23 06:36 85 08/25/23 06:36 80 08/25/23 06:36 96 Nasal Cannula 08/25/23 06:00 79 24 101/68 L 94 L Nasal Cannula 08/25/23 05:00 BiPAP 08/25/23 04:00 80 08/25/23 04:00 81 20 99/64 L 96 Nasal Cannula 08/25/23 03:55 Nasal Cannula 08/25/23 03:00 Nasal Cannula 08/25/23 02:03 83 08/25/23 02:02 83 08/25/23 02:00 78 24 95/67 L 99 BiPAP 08/25/23 01:00 Nasal Cannula 08/25/23 00:00 80 08/25/23 00:00 75 24 85/59 L 98 BiPAP 08/24/23 23:18 80 08/24/23 23:17 87 08/24/23 23:00 BiPAP 08/24/23 22:00 70 21 92/58 L 100 BiPAP 08/24/23 21:00 Nasal Cannula 08/24/23 20:00 70 08/24/23 20:00 Nasal Cannula 08/24/23 20:00 78 21 102/61 L 94 L Nasal Cannula 08/24/23 19:57 08/24/23 19:56 70 08/24/23 19:56 83 08/24/23 19:00 BiPAP 08/24/23 18:00 80 22 112/70 100 BiPAP 08/24/23 17:54 71 20 116/68 99 BiPAP 08/24/23 17:51 97 BiPAP 08/24/23 17:30 72 20 130/67 97 BiPAP 08/24/23 17:10 Nasal Cannula 08/24/23 16:40 79 99 BiPAP 08/24/23 16:00 81 08/24/23 16:00 97.5 F L 08/24/23 15:00 BiPAP 08/24/23 15:00 82 18 125/75 100 BiPAP 08/24/23 14:30 97.3 F L 81 20 114/61 98 BiPAP 08/24/23 14:21 08/24/23 14:21 90 L Nasal Cannula 08/24/23 14:05 85 20 08/24/23 14:01 85 08/24/23 14:01 74 08/24/23 14:01 90 L Nasal Cannula 08/24/23 14:00 75 19 103/50 L 98 Nasal Cannula 08/24/23 13:17 Nasal Cannula 08/24/23 13:00 80 20 104/64 L 96 Nasal Cannula 08/24/23 12:27 81 97 Nasal Cannula 08/24/23 12:00 80 08/24/23 12:00 97.5 F L 08/24/23 12:00 86 20 120/66 96 Nasal Cannula 08/24/23 11:42 Nasal Cannula 08/24/23 11:00 83 20 106/64 L 95 Nasal Cannula 08/24/23 10:15 78 08/24/23 10:15 82 08/24/23 10:15 99 Nasal Cannula 08/24/23 10:00 78 21 94/59 L 97 Nasal Cannula 08/24/23 09:25 83 24 99/60 L 93 L Nasal Cannula 08/24/23 09:17 Nasal Cannula 08/24/23 08:15 85 95 Nasal Cannula 08/24/23 08:00 113 H 08/24/23 08:00 78 20 113/58 L 96 Nasal Cannula O2 Flow Rate FiO2 08/25/23 07:40 08/25/23 07:31 3 08/25/23 06:57 3 08/25/23 06:36 08/25/23 06:36 08/25/23 06:36 3 08/25/23 06:00 3 08/25/23 05:00 08/25/23 04:00 08/25/23 04:00 3 08/25/23 03:55 3 08/25/23 03:00 3 08/25/23 02:03 08/25/23 02:02 08/25/23 02:00 08/25/23 01:00 3 08/25/23 00:00 08/25/23 00:00 50 08/24/23 23:18 08/24/23 23:17 08/24/23 23:00 08/24/23 22:00 08/24/23 21:00 3 08/24/23 20:00 08/24/23 20:00 3 08/24/23 20:00 3 08/24/23 19:57 50 08/24/23 19:56 08/24/23 19:56 08/24/23 19:00 08/24/23 18:00 50 08/24/23 17:54 50 08/24/23 17:51 50 08/24/23 17:30 50 08/24/23 17:10 3 08/24/23 16:40 50 08/24/23 16:00 08/24/23 16:00 08/24/23 15:00 08/24/23 15:00 50 08/24/23 14:30 50 08/24/23 14:21 50 08/24/23 14:21 3 08/24/23 14:05 08/24/23 14:01 08/24/23 14:01 08/24/23 14:01 3 08/24/23 14:00 3 08/24/23 13:17 3 08/24/23 13:00 3 08/24/23 12:27 4 08/24/23 12:00 08/24/23 12:00 08/24/23 12:00 3 08/24/23 11:42 3 08/24/23 11:00 3 08/24/23 10:15 08/24/23 10:15 08/24/23 10:15 3 08/24/23 10:00 3 08/24/23 09:25 3 08/24/23 09:17 3 08/24/23 08:15 3 08/24/23 08:00 08/24/23 08:00 3 Intake and Output 08/24/23 08/24/23 08/25/23 15:59 23:59 07:59 Intake Total 976.750 / 2839.514 831 / 2839.514 940 / 940 Output Total 1000 / 2750 600 / 2750 1045 / 1045 Balance -23.250 / 89.514 231 / 89.514 -105 / -105 Intake: Intake, Oral Amount 775 / 2255 640 / 2255 840 / 840 Intake, Total IV Amount 201.750 / 584.514 191 / 584.514 100 / 100 Meropenem 1 gm In 0.9 % Sodium 94 / 194 100 / 100 Chloride 100 ml @ 100 mls/hr IV Q12H [facility] Rx#:[id number] Micafungin Sodium 100 mg In 0.9 68 / 87 19 / 87 % Sodium Chloride 100 ml @ 100 mls/hr IV Q24H [facility] Rx#: [id number] Vancomycin HCl 2,500 mg In 0.9 172 / 172 % Sodium Chloride 250 ml @ 125 mls/hr IV Q24H [facility] Rx#:[id number] Output: Output, Urine Amount 1000 / 1200 200 / 1200 0 / 0 Output, Urine Amount (Catheter) 400 / 1550 1045 / 1045 Kennedy 400 / 1550 1045 / 1045 Other: Number of Unmeasured Voids 0 0 0 Weight 148 kg Patient Weight 08/25/23 23:59 Weight 148 kg Laboratory Results - last 24 hr 08/24/23 06:34: Total Counted 100, Neutrophils % (Manual) 90 H, Band Neutrophils % 1.0, Lymphocytes % (Manual) 4 L, Monocytes % (Manual) 5, Platelet Estimate Normal, Hypochromasia 1+ 08/24/23 11:21: POC Glucose 248 H 08/24/23 16:54: POC Glucose 182 H 08/24/23 22:03: POC Glucose 197 H 08/25/23 05:48: POC Glucose 170 H I & O for Labs for Last 24 Hours: Intake & Output 08/22/23 08/23/23 08/24/23 08/25/23 23:59 23:59 23:59 23:59 Intake Total 3279.563 / 3319.563 2788.725 / 2788.725 2739.514 / 2839.514 940 / 940 Output Total 375 / 575 3110 / 3110 2350 / 2750 1045 / 1045 Balance 2904.563 / 2744.563 -321.275 / -321.275 389.514 / 89.514 -105 / -105 Weight 149.402 kg 148 kg 148 kg 148 kg Microbiology Reports for the Last 24 Hours: Microbiology 08/22/23 12:43 Blood Blood Culture - Preliminary 08/22/23 12:40 Blood Blood Culture - Preliminary 08/22/23 18:40 Nose - Nasal MRSA Culture - Final Constitutional: Present mild distress, morbidly obese, chronically ill appearing and cooperative Head: Present atraumatic and normocephalic ENT: Present normal exam Comment:: Cushingoid face, buffalo hump, prominent neck Comment:: prominent neck. Unable to assess landmarks due to obesity Respiratory: Present accessory muscle use, prolonged expiratory phase, rhonchi, crackles (Left lung field throughout), distant breath sounds and diminished air movement; Absent wheezes Cardiac: Present Reg Rate and Rhythm GI: Present soft and normal bowel sounds; Absent distention or tenderness Extremities: Present normal inspection, full ROM and edema (2+ tense edema in lower extremities); Absent tenderness Comment:: Chronic lymphedema, chronic stasis dermatitis Skin: Present intact; Absent erythema Neuro: Present Grossly Intact, alert, awake, oriented x 3 and moves all extremities Assessment and Plan *Assessment and plan (1) Septic shock: Status: Acute Category: Medical Code(s): A41.9 - Sepsis, unspecified organism; R65.21 - Severe sepsis with septic shock (2) Acute on chronic respiratory failure with hypoxia and hypercapnia: Status: Acute Category: Medical Code(s): J96.21 - Acute and chronic respiratory failure with hypoxia; J96.22 - Acute and chronic respiratory failure with hypercapnia (3) Pneumonia: Status: Acute Category: Medical Code(s): J18.9 - Pneumonia, unspecified organism (4) Acute exacerbation of CHF (congestive heart failure): Status: Acute Category: Medical Code(s): I50.9 - Heart failure, unspecified (5) OSMANI (acute kidney injury): Status: Acute Category: Medical Code(s): N17.9 - Acute kidney failure, unspecified (6) Acute metabolic encephalopathy: Status: Acute Category: Medical Code(s): G93.41 - Metabolic encephalopathy (7) Pickwickian syndrome: Status: Acute Category: Medical Code(s): E66.2 - Morbid (severe) obesity with alveolar hypoventilation (8) Morbid obesity: Status: Acute Category: Medical Code(s): E66.01 - Morbid (severe) obesity due to excess calories (9) Hypothyroid: Status: Acute Category: Medical Code(s): E03.9 - Hypothyroidism, unspecified (10) Heart failure with preserved ejection fraction: Status: Acute Category: Medical Code(s): I50.30 - Unspecified diastolic (congestive) heart failure Plan Mr. Wu is a morbidly obese 68-year-old male with history of heart failure with preserved ejection fraction, chronic respiratory failure on home BiPAP, chronically on 3 L oxygen, with CKD and recent admission for respiratory failure a month ago to [facility]. He presented via EMS for acute worsening and concern for sepsis with respiratory failure. Workup in the ER concerning for pneumonia, development of septic shock, and respiratory failure. Initiated on BiPAP. Discussed case with ER, request admission for ICU level of care and further management. Medicine agreed to admit. Received broad-spectrum antibiotics in the ER. Cultures obtained. Pulmonology consulted to assist with care including BiPAP management and critical care. Continues to show gradual improvement daily. Tolerating 3 L nasal cannula during the day. BiPAP at night. White cell count coming down, 21,000 today. Continues to require inpatient management. Problems addressed as follows: Septic shock, resolved Acute on chronic hypoxemic respiratory failure with hypercapnia Pickwickian syndrome Pneumonia Mixed respiratory acidosis, metabolic acidosis with concurrent metabolic alkalotic compensation. -continue to wean oxygen. Currently on nasal cannula, goal sats 90 to 95%. Will continue BiPAP therapy at night and while asleep. -White cell count decreased to 21k, Repeat CBC, CMP, magnesium ordered for the morning. -HIV negative; Peripheral smear pending -Continue DuoNebs every 4 hours scheduled. Pulmicort every 12 hours scheduled. -Continue broad-spectrum antibiotics with vancomycin, meropenem, micafungin in the setting of lymphopenia -MRSA swab positive. Sputum culture pending. -Off Levophed in the past 24 hours. -Reported history of chronic steroids, concern for component of adrenal insu fficiency. Will continue stress dose hydrocortisone 50 mg every 6 hours scheduled -Procalcitonin elevated at 6.6 on admission, increased to 19 yesterday, down to 5 today. Suggestive of response of infection to antibiotics. OSMANI Potassium 3.8, magnesium 2.6. Continue potassium repletion 20 mEq twice daily Kidney function improving, BUN 43, creatinine 1.5. baseline 1.1 from chart review. Hypothyroid: TSH of 24 on admission. Transition to oral levothyroxine today, 175 mcg daily Diabetes: A1c 6.8. Sliding scale insulin fingersticks every 6 hours given diabetes diagnosis and steroid use as above Heart failure with preserved ejection fraction -Patient's baseline reportedly 55% per documentation reviewed from [facility]. -Echocardiogram obtained showing preserved ejection fraction, shows diastolic dysfunction. EKG shows old MO's -Intermittent chest pain. Troponins remain negative. Differential includes ACS, pleuritic pain, GERD. Given self resolution and normal troponins, will hold on further cardiac workup at this time. Would benefit from outpatient cardiology follow-up. -Holding metoprolol and diuretics in setting of septic shock -Concern for acute exacerbation with BNP of 1700 however in the setting of septic shock and hypotension, will hold on diuresis until blood pressure consistently stable for 36 to 48 hours. Metabolic alkalosis: Continue acetazolamide 250 mg twice daily Medical surrogate is his significant other Anamika Bowers. Full code Diabetic diet Heparin 5000 units 3 times daily Working with therapy
[2023-08-25 07:56] LABS: MANUAL DIFFERENTIAL MANUAL DIFFERENTIAL (MANUAL DIFF)
[2023-08-25 08:01] LABS: Basophils % 0.1 % (0.1-2.0); Hematocrit 34.5 % (42.0-52.0); Hemoglobin 10.4 g/dL (14.1-18.0); Lymphocytes # 1.2 K/mm3 (0.7-4.5); Lymphocytes % 5.7 % (10-50); Mean Corpuscular HGB Conc 30.1 g/dL (31.8-35.4); Mean Corpuscular Hemoglobin 28.1 pg (27.0-31.2); Mean Corpuscular Volume 93.3 fl (80-94); Mean Platelet Volume 9.4 fl (7.4-10.4); Monocytes # 0.7 K/mm3 (0.1-1.0); Monocytes % 3.1 % (1.7-9.3); Neutrophils # 19.8 K/mm3 (1.8-7.8); Neutrophils % 91.1 % (37.0-80.0); Platelet Count 305 K/mm3 (142-424); Red Blood Count 3.69 M/mm3 (4.60-6.20); Red Cell Distribution Width 15.8 % (11.5-17.5); White Blood Count 21.7 K/mm3 (4.8-10.8)
[2023-08-25 08:05] LABS: Chloride 91 mmol/L (98-107); Potassium 3.8 mmoL/L (3.5-5.1); Sodium 137 mmol/L (136-145)
[2023-08-25 08:08] LABS: Alanine Aminotransferase 21 U/L (12-78); Albumin Level 3.1 g/dl (3.5-5.0); Albumin/Globulin Ratio 0.9 (1.1-1.8); Alkaline Phosphatase 76 U/L (38-126); Aspartate Amino Transferase 24 U/L (17-59); Bilirubin,Total 0.3 mg/dl (0.2-1.3); Blood Urea Nitrogen 43 mg/dl (9-20); Calcium 9.1 mg/dl (8.4-10.2); Creatinine Clearance Estimated 51 mL/min (50-200); Estimated Glomerular Filt Rate 46 ml/min (>60); GFR (African American) 56 ML/MIN (>60); Globulin 3.6 g/dL (1.3-3.2); Glucose 145 mg/dl (74-100); Total Protein,Serum 6.7 g/dl (6.3-8.2)
[2023-08-25 08:09] LABS: Magnesium 2.6 mg/dl (1.6-2.3)
[2023-08-25 08:17] LABS: Anion Gap 7.8 mEq/L (5-15); Carbon Dioxide 42 mmol/L (22.0-30.0)
[2023-08-25 08:32] LABS: Procalcitonin 5.06 ng/mL (0.0-2.0)
[2023-08-25] MEDS: POTASSIUM CHLORIDE 20MEQ TAB 20 MEQ PO ×2 (09:10→20:26)
[2023-08-25] MEDS: MEROPENEM 1 GM in 0.9 % SODIUM CHLORIDE 100 ML IV ×2 (09:10→21:58)
[2023-08-25] MEDS: SENNOSIDES 8.6MG/DOCUSATE 50MG TABLET 1 TAB PO ×2 (09:10→20:26)
[2023-08-25] MEDS: acetaZOLAMIDE 250 MG TABLET PO ×2 (09:10→20:25)
[2023-08-25 09:47] LABS: Hypochromasia 1+; Lymphocytes % 4 % (10-50); Monocytes % 1 % (2-9); Neutrophils % 95 % (42-76); Platelet Estimate Normal; Total Cells Counted 100
[2023-08-25 12:03] LABS: POC Glucose,Bedside 143 (70-110)
[2023-08-25] MEDS: MICAFUNGIN SODIUM 100 MG in 0.9 % SODIUM CHLORIDE 100 ML IV (13:15)
[2023-08-25] MEDS: CALCIUM CARBONATE 500MG CHEWTAB 500 MG PO (14:06)
[2023-08-25 14:20] LABS: Peripheral Smear Review Scanned Result
--- NOTE | 2023-08-25 14:33 | PC.NURSE ---
pt back on bipap at this time per pt request.
[2023-08-25 16:02] LABS: Vancomycin,Trough 17.2 ug/mL (5.0-10.0)
--- NOTE | 2023-08-25 16:02 | PC.NURSE ---
Addendum entered by Shante Patrick RN 08/25/23 17:12: pt was able to void per urinal and had a period of incontinence as well. pt has been difficult to understand r/t slurred speech that pt states he has had since he had his stroke several years ago. Original Note: pt has been up to the chair the enitre shift thus far. pt is a/o x 4, pt is noted to periodically speak roughly to staff throughout the weekend. pt will ask to have bipap in place periodically throughout the day if he feels he may take a nap. pt is compliant with bipap usage. pt lungs are dimnished t/o with expiratory rhonchi noted and occasional wheezes. pt bowel sounds are active in all quads. pt states his last bm was approx wed. pt has received medications to assist with BM. pt has open areas to backs of thighs near perineal area. pt has had barrier cream and powder applied to area, pt will ask staff to help him stand periodcially to alleviate pain in buttock. pt has pillow placed under bottom as well. pt is currently on bipap, but when awake he is stable on 3lpm. pt acuña catheter was removed at approx 1040. pt has not voided at this time. will bladder scan and notify md if pt has not voided by approx 1800.
[2023-08-25] MEDS: PHA TO NURSING INSTRUCTION 1 EACH NOTAPPLIC (16:20)
[2023-08-25] MEDS: VANCOMYCIN HCL 2,500 MG in 0.9 % SODIUM CHLORIDE 250 ML 125 MG IV (16:50)
[2023-08-25 17:14] LABS: POC Glucose,Bedside 214 (70-110)
[2023-08-25] MEDS: TAMSULOSIN 0.4MG CAPSULE 0.400000000000000022 MG PO (20:25)
[2023-08-25 20:35] LABS: POC Glucose,Bedside 210 (70-110)
[2023-08-25 22:16] LABS: Vancomycin,Peak 37.5 ug/ml (11-39)
[2023-08-26] VITALS (10 sets, daily range): BP systolic 103–145; BP diastolic 62–84; PULSE 70–88; RESP 18–29; TEMP 36.4–37.1; O2SAT 92–99; BMI 43.2
[2023-08-26] MEDS: IPRATROPIUM/ALBUTEROL 3 ML NEB IH ×3 (01:30→09:12)
--- NOTE | 2023-08-26 05:20 | PC.NURSE ---
The patient did not have a good night this shift. Patient was extremely aggravated and restless. Patient has expressed multiple times that he needs to have a BM but when encouraged to get up to the bedside the patient stated he just wants to think about it. RN has encouraged prune juice to help, but patient stated that doesnt help only tomato juice. Patient did get another shower tonight. Patient has a large incontinent void once and got cleaned up. Patient remains on 3LNC when off the Bipap. Patient wounds (see photos), were very painful this shift. Patient expressed concern that they were bleeding so much. RN dressed the wounds with Vaseline gauze and a Meplex was applied to protect the area and hopefully decrease the burning sensation and bleeding.
[2023-08-26] MEDS: HEPARIN SODIUM 5,000 UNIT/ML VIAL 5000 UNIT SQ ×3 (05:46→21:46)
[2023-08-26] MEDS: humaLOG 100 UNITS/ML 3ML VIAL (SSI) SQ ×3 (05:46→16:39)
[2023-08-26] MEDS: HYDROCORTISONE SOD SUCCINATE 100MG VIAL 50 MG IV ×2 (05:46→10:37)
[2023-08-26 06:03] LABS: POC Glucose,Bedside 153 (70-110)
[2023-08-26 06:09] LABS: MANUAL DIFFERENTIAL MANUAL DIFFERENTIAL (MANUAL DIFF)
[2023-08-26] MEDS: METFORMIN 500MG TABLET 500 MG PO ×2 (06:30→17:22)
[2023-08-26] MEDS: LEVOTHYROXINE 175MCG (0.175MG) TAB 175 MCG PO (06:30)
[2023-08-26] MEDS: BUDESONIDE 0.5MG/2ML NEB 0.5 MG IH (06:34)
[2023-08-26 06:41] LABS: Basophils % 0.2 % (0.1-2.0); Eosinophils # 0.1 K/mm3 (0.0-0.4); Eosinophils % 0.3 % (0.1-12.0); Hematocrit 34.9 % (42.0-52.0); Hemoglobin 10.4 g/dL (14.1-18.0); Lymphocytes # 1.5 K/mm3 (0.7-4.5); Lymphocytes % 8.9 % (10-50); Mean Corpuscular HGB Conc 29.7 g/dL (31.8-35.4); Mean Corpuscular Hemoglobin 27.5 pg (27.0-31.2); Mean Corpuscular Volume 92.8 fl (80-94); Mean Platelet Volume 8.5 fl (7.4-10.4); Monocytes # 0.5 K/mm3 (0.1-1.0); Monocytes % 3.2 % (1.7-9.3); Neutrophils # 14.7 K/mm3 (1.8-7.8); Neutrophils % 87.4 % (37.0-80.0); Platelet Count 272 K/mm3 (142-424); Red Blood Count 3.76 M/mm3 (4.60-6.20); Red Cell Distribution Width 16.1 % (11.5-17.5); White Blood Count 16.8 K/mm3 (4.8-10.8)
[2023-08-26 06:44] LABS: Chloride 96 mmol/L (98-107); Potassium 4.2 mmoL/L (3.5-5.1); Sodium 137 mmol/L (136-145)
[2023-08-26 06:46] LABS: Alanine Aminotransferase 21 U/L (12-78); Aspartate Amino Transferase 25 U/L (17-59); Blood Urea Nitrogen 36 mg/dl (9-20); Creatinine Clearance Estimated 59 mL/min (50-200); Estimated Glomerular Filt Rate 55 ml/min (>60); GFR (African American) 66 ML/MIN (>60)
[2023-08-26 06:47] LABS: Albumin Level 3.1 g/dl (3.5-5.0); Albumin/Globulin Ratio 0.9 (1.1-1.8); Alkaline Phosphatase 74 U/L (38-126); Bilirubin,Total 0.3 mg/dl (0.2-1.3); Calcium 9.4 mg/dl (8.4-10.2); Globulin 3.5 g/dL (1.3-3.2); Glucose 153 mg/dl (74-100); Magnesium 2.3 mg/dl (1.6-2.3); Total Protein,Serum 6.6 g/dl (6.3-8.2)
[2023-08-26 06:53] LABS: Anion Gap 7.2 mEq/L (5-15); Carbon Dioxide 38 mmol/L (22.0-30.0)
[2023-08-26 07:33] LABS: Lymphocytes % 11 % (10-50); Monocytes % 1 % (2-9); Neutrophils % 82 % (42-76); Total Cells Counted 100
[2023-08-26 07:38] LABS: Anisocytosis 1+; Basophilic Stippling 1+; Platelet Estimate Normal
[2023-08-26 07:41] LABS: Hypochromasia 1+; Target Cells 1+
[2023-08-26 07:42] LABS: Macrocytosis 1+; Poikilocytosis 1+
[2023-08-26 07:45] LABS: Spherocytes 1+
--- NOTE | 2023-08-26 08:10 | EXP.PHA.PN ---
Subjective *Date: 08/26/23 *Time: 08:10 Medical Exam Vital signs and Labs for Last 24 Hours: Vital Signs Temp Pulse Pulse Resp BP Pulse Ox O2 Del Method 08/26/23 06:50 Nasal Cannula 08/26/23 06:30 88 08/26/23 06:30 76 08/26/23 06:30 08/26/23 05:00 BiPAP 08/26/23 04:00 75 08/26/23 04:00 97.7 F 83 18 109/80 L 92 L Nasal Cannula 08/26/23 03:00 Nasal Cannula 08/26/23 02:15 75 08/26/23 02:14 76 08/26/23 01:00 Nasal Cannula 08/26/23 00:00 98 BiPAP 08/26/23 00:00 76 08/26/23 00:00 97.5 F L 76 22 103/69 L 98 BiPAP 08/25/23 23:55 08/25/23 23:00 BiPAP 08/25/23 22:15 75 08/25/23 22:00 77 08/25/23 21:00 Nasal Cannula 08/25/23 20:00 Nasal Cannula 08/25/23 20:00 81 08/25/23 20:00 98.5 F 84 16 103/72 L 100 Nasal Cannula 08/25/23 19:18 77 08/25/23 19:18 75 08/25/23 19:17 Nasal Cannula, CPAP 08/25/23 18:44 Nasal Cannula 08/25/23 17:16 Nasal Cannula 08/25/23 16:00 64 08/25/23 16:00 100 BiPAP 08/25/23 15:46 98.3 F 85 20 94/74 L 98 BiPAP 08/25/23 15:35 BiPAP 08/25/23 14:19 76 08/25/23 14:19 72 08/25/23 14:19 97 Nasal Cannula 08/25/23 13:04 Nasal Cannula 08/25/23 12:09 82 08/25/23 11:34 Nasal Cannula 08/25/23 11:17 98.3 F 08/25/23 11:00 79 18 105/70 L 96 Nasal Cannula 08/25/23 10:22 71 08/25/23 10:22 72 08/25/23 10:22 95 Nasal Cannula 08/25/23 10:00 78 20 95/65 L 92 L Nasal Cannula 08/25/23 09:20 Nasal Cannula 08/25/23 09:06 76 20 96/35 L 97 Nasal Cannula O2 Flow Rate FiO2 08/26/23 06:50 3 08/26/23 06:30 08/26/23 06:30 08/26/23 06:30 50 08/26/23 05:00 08/26/23 04:00 08/26/23 04:00 08/26/23 03:00 3 08/26/23 02:15 08/26/23 02:14 08/26/23 01:00 3 08/26/23 00:00 50 08/26/23 00:00 08/26/23 00:00 08/25/23 23:55 50 08/25/23 23:00 08/25/23 22:15 08/25/23 22:00 08/25/23 21:00 3 08/25/23 20:00 3 08/25/23 20:00 08/25/23 20:00 3 08/25/23 19:18 08/25/23 19:18 08/25/23 19:17 3 08/25/23 18:44 3 08/25/23 17:16 3 08/25/23 16:00 08/25/23 16:00 50 08/25/23 15:46 08/25/23 15:35 08/25/23 14:19 08/25/23 14:19 08/25/23 14:19 3 08/25/23 13:04 3 08/25/23 12:09 08/25/23 11:34 3 08/25/23 11:17 08/25/23 11:00 3 08/25/23 10:22 08/25/23 10:22 08/25/23 10:22 3 08/25/23 10:00 3 08/25/23 09:20 3 08/25/23 09:06 3 Intake and Output 08/25/23 08/26/23 08/26/23 23:59 07:59 15:59 Intake Total 360 / 2310 450 / 450 Output Total 150 / 1745 350 / 350 Balance 210 / 565 100 / 100 Intake: Intake, Oral Amount 360 / 1660 100 / 100 Intake, Total IV Amount 350 / 350 Meropenem 1 gm In 0.9 % Sodium 100 / 100 Chloride 100 ml @ 100 mls/hr IV Q12H [facility] Rx#:[id number] Vancomycin HCl 2,500 mg In 0.9 250 / 250 % Sodium Chloride 250 ml @ 125 mls/hr IV Q24H [facility] Rx#:[id number] Output: Output, Urine Amount 150 / 700 350 / 350 Other: Number of Unmeasured Voids 0 1 Weight 148 kg Patient Weight 08/26/23 23:59 Weight 148 kg Laboratory Results - last 24 hr 08/25/23 07:30: WBC 21.7 H* D, RBC 3.69 L, Hgb 10.4 L, Hct 34.5 L, MCV 93.3, MCH 28.1, MCHC 30.1 L, RDW 15.8, Plt Count 305, MPV 9.4, Neut % (Auto) 91.1 H, Lymph % (Auto) 5.7 L, [place] % (Auto) 3.1, Eos % (Auto) 0.0 L, Baso % (Auto) 0.1, Neut # (Auto) 19.8 H, Lymph # (Auto) 1.2, [place] # (Auto) 0.7, Eos # (Auto) 0.0, Baso # (Auto) 0.0, Total Counted 100, Neutrophils % (Manual) 95 H, Lymphocytes % (Manual) 4 L, Monocytes % (Manual) 1 L, Platelet Estimate Normal, Hypochromasia 1+, Sodium 137, Potassium 3.8, Chloride 91 L, Carbon Dioxide 42 H*, Anion Gap 7.8, BUN 43 H, Creatinine 1.50 H, Estimated Creat Clear 51, Estimated GFR 46 L, Est GFR ( Amer) 56 L D, Glucose 145 H, Calcium 9.1, Magnesium 2.6 H, Total Bilirubin 0.3, AST 24, ALT 21, Alkaline Phosphatase 76, Total Protein 6.7, Albumin 3.1 L, Globulin 3.6 H, Albumin/Globulin Ratio 0.9 L, Procalcitonin 5.06 H 08/25/23 11:55: POC Glucose 143 H 08/25/23 15:08: Vancomycin Trough 17.2 H 08/25/23 16:48: POC Glucose 214 H 08/25/23 20:20: POC Glucose 210 H 08/25/23 21:20: Vancomycin Peak 37.5 04/29/24 05:44: POC Glucose 153 H 08/26/23 05:45: WBC 16.8 H, RBC 3.76 L, Hgb 10.4 L, Hct 34.9 L, MCV 92.8, MCH 27.5, MCHC 29.7 L, RDW 16.1, Plt Count 272, MPV 8.5, Neut % (Auto) 87.4 H, Lymph % (Auto) 8.9 L, [place] % (Auto) 3.2, Eos % (Auto) 0.3, Baso % (Auto) 0.2, Neut # (Auto) 14.7 H, Lymph # (Auto) 1.5, [place] # (Auto) 0.5, Eos # (Auto) 0.1, Baso # (Auto) 0.0, Total Counted 100, Neutrophils % (Manual) 82 H, Band Neutrophils % 6.0, Lymphocytes % (Manual) 11, Monocytes % (Manual) 1 L, Platelet Estimate Normal, Hypochromasia 1+, Poikilocytosis 1+, Basophilic Stippling 1+, Anisocytosis 1+, Macrocytosis 1+, Spherocytes 1+, Target Cells 1+, Sodium 137, Potassium 4.2, Chloride 96 L, Carbon Dioxide 38 H, Anion Gap 7.2, BUN 36 H, Creatinine 1.30 H, Estimated Creat Clear 59, Estimated GFR 55 L, Est GFR ( Amer) 66, Glucose 153 H, Calcium 9.4, Magnesium 2.3 D, Total Bilirubin 0.3, AST 25, ALT 21, Alkaline Phosphatase 74, Total Protein 6.6, Albumin 3.1 L, Globulin 3.5 H, Albumin/Globulin Ratio 0.9 L I & O for Labs for Last 24 Hours: Intake & Output 08/23/23 08/24/23 08/25/23 08/26/23 23:59 23:59 23:59 23:59 Intake Total 2788.725 / 2788.725 2739.514 / 2839.514 1860 / 2310 450 / 450 Output Total 3110 / 3110 2350 / 2750 1745 / 1745 350 / 350 Balance -321.275 / -321.275 389.514 / 89.514 115 / 565 100 / 100 Weight 148 kg 148 kg 148 kg 148 kg Microbiology Reports for the Last 24 Hours: Microbiology 08/22/23 20:35 Urine,Catheterized Urine Culture - Final 08/22/23 12:43 Blood Blood Culture - Preliminary 08/22/23 12:40 Blood Blood Culture - Preliminary 08/22/23 18:40 Nose - Nasal MRSA Culture - Final The patient's infection will respond to the chosen ABx?: Yes (SPUTUM CX PENDING, URINE/BLOOD CX NO GROWTH, AFEBRILE OVER 24 HR) Is the patient receiving the right drug, dose, and route?: Yes Could a more targeted ABx be ordered?: No
--- NOTE | 2023-08-26 08:51 | EXP.PHA.CONS ---
Pharmacy Consult Date: 08/26/23 Time: 08:52 Referring provider: DR. DRAPER Reason for Consult:: VANCOMYCIN LEVELS Allergies Allergy/AdvReac Type Severity Reaction Status Date / Time penciclovir Allergy Difficulty Verified 08/22/23 23:13 Breathing Penicillins Allergy Hives Verified 08/22/23 23:13 tramadol AdvReac Diarrhea Verified 08/22/23 23:13 Home Medications Medication Instructions Recorded Confirmed Type acetylcysteine 600 mg capsule 600 mg PO BID 08/22/23 08/22/23 History albuterol sulfate 90 mcg/actuation 2 puff inhalation Q4HP PRN 08/22/23 08/22/23 History aerosol inhaler Shortness Of Breath Or Wheezing atorvastatin 20 mg tablet 20 mg PO HS 08/22/23 08/22/23 History fluticasone fur. 200 mcg-umeclid 1 ea inhalation DAILY 08/22/23 08/22/23 History 62.5 mcg-vilant 25 mcg inhalat.powder (Trelegy Ellipta) furosemide 80 mg tablet 80 mg PO BIDL 08/22/23 08/22/23 History ipratropium 0.5 mg-albuterol 3 mg 3 ml inhalation Q4HP PRN Shortness 08/22/23 08/22/23 History (2.5 mg base)/3 mL nebulization Of Breath soln levothyroxine 150 mcg tablet 150 mcg PO DAILY 08/22/23 08/22/23 History metolazone 5 mg tablet 5 mg PO DAILYP PRN Swelling 08/22/23 08/22/23 History metoprolol succinate 25 mg 25 mg PO BID 08/22/23 08/22/23 History tablet,extended release 24 hr ondansetron HCl 4 mg tablet 4 mg PO Q6HP PRN Nausea And 08/22/23 08/22/23 History Vomiting potassium chloride 20 mEq 40 meq PO BID 08/22/23 08/22/23 History tablet,extended release prednisone 10 mg tablet 10 mg PO DAILY 08/22/23 08/22/23 History ranolazine 500 mg tablet,extended 500 mg PO BID 08/22/23 08/22/23 History release,12 hr spironolactone 50 mg tablet 50 mg PO BID 08/22/23 08/22/23 History trazodone 50 mg tablet 50 mg PO HSP PRN Sleep 08/22/23 08/22/23 History triamcinolone acetonide 0.1 % 1 applic topical DAILY 08/22/23 08/22/23 History topical cream New Prescriptions to Start Prescriptions: Height: 1.85 m Weight: 148 kg Laboratory Results:: Laboratory Results - last 24 hr 08/25/23 07:30: Total Counted 100, Neutrophils % (Manual) 95 H, Lymphocytes % (Manual) 4 L, Monocytes % (Manual) 1 L, Platelet Estimate Normal, Hypochromasia 1+ 08/25/23 11:55: POC Glucose 143 H 08/25/23 15:08: Vancomycin Trough 17.2 H 08/25/23 16:48: POC Glucose 214 H 08/25/23 20:20: POC Glucose 210 H 08/25/23 21:20: Vancomycin Peak 37.5 08/26/23 05:44: POC Glucose 153 H 08/26/23 05:45: WBC 16.8 H, RBC 3.76 L, Hgb 10.4 L, Hct 34.9 L, MCV 92.8, MCH 27.5, MCHC 29.7 L, RDW 16.1, Plt Count 272, MPV 8.5, Neut % (Auto) 87.4 H, Lymph % (Auto) 8.9 L, [place] % (Auto) 3.2, Eos % (Auto) 0.3, Baso % (Auto) 0.2, Neut # (Auto) 14.7 H, Lymph # (Auto) 1.5, [place] # (Auto) 0.5, Eos # (Auto) 0.1, Baso # (Auto) 0.0, Total Counted 100, Neutrophils % (Manual) 82 H, Band Neutrophils % 6.0, Lymphocytes % (Manual) 11, Monocytes % (Manual) 1 L, Platelet Estimate Normal, Hypochromasia 1+, Poikilocytosis 1+, Basophilic Stippling 1+, Anisocytosis 1+, Macrocytosis 1+, Spherocytes 1+, Target Cells 1+, Sodium 137, Potassium 4.2, Chloride 96 L, Carbon Dioxide 38 H, Anion Gap 7.2, BUN 36 H, Creatinine 1.30 H, Estimated Creat Clear 59, Estimated GFR 55 L, Est GFR ( Amer) 66, Glucose 153 H, Calcium 9.4, Magnesium 2.3 D, Total Bilirubin 0.3, AST 25, ALT 21, Alkaline Phosphatase 74, Total Protein 6.6, Albumin 3.1 L, Globulin 3.5 H, Albumin/Globulin Ratio 0.9 L Medical History: Medical History (Updated 08/22/23 @ 23:24 by Kenan Guevara RN) DEMETRIA (obstructive sleep apnea) On home oxygen therapy Tortuous aorta Aortic calcification Reduced ejection fraction concurrent with and due to acute on chronic heart failure History of gastrectomy Cataract (lens) fragments in eye following cataract surgery, bilateral Lymphedema Hyperlipidemia Hiatal hernia Chronic respiratory failure with hypoxia Prostate cancer BPH (benign prostatic hyperplasia) Cor pulmonale HTN (hypertension) Diabetes mellitus Atrial fibrillation CKD stage 3 secondary to diabetes Pneumonia COPD (chronic obstructive pulmonary disease) Congestive heart failure Assessment and Plan Assessment and plan all Dx Assessment and Plan for all problems:: PATIENT'S VANCOMYCIN PEAK AND TROUGH LEVELS WERE 37.5 MCG/ML AND 17.2 MCG/ML, RESPECTIVELY. RECOMMEND CONTINUING WITH VANCOMYCIN 2500 MG Q24H AT THIS TIME.
[2023-08-26] MEDS: acetaZOLAMIDE 250 MG TABLET PO ×2 (08:59→20:38)
[2023-08-26] MEDS: POTASSIUM CHLORIDE 20MEQ TAB 20 MEQ PO ×2 (08:59→20:38)
[2023-08-26] MEDS: SENNOSIDES 8.6MG/DOCUSATE 50MG TABLET 1 TAB PO ×2 (08:59→20:37)
[2023-08-26] MEDS: MEROPENEM 1 GM in 0.9 % SODIUM CHLORIDE 100 ML IV ×2 (08:59→21:45)
--- NOTE | 2023-08-26 09:25 | P.PN_ITS ---
Subjective *Date: 08/26/23 *Time: 13:27 Interval history: No acute respiratory events overnight. Patient denies any new complaints. Concerned that his new NIV is not working. Will follow with a compliance report. Pulmonology Exam Inpatient Vital signs and Labs for Last 24 Hours: Temp Pulse Resp BP Pulse Ox O2 Del Method O2 Flow Rate 97.8 F 86 20 94/56 L 94 L Nasal Cannula 3 08/26/23 08:00 08/26/23 09:13 08/26/23 08:00 08/26/23 08:00 08/26/23 08:00 08/26/23 08:00 08/26/23 06:50 FiO2 50 08/26/23 06:30 Laboratory Results - last 24 hr 08/25/23 07:30: Total Counted 100, Neutrophils % (Manual) 95 H, Lymphocytes % (Manual) 4 L, Monocytes % (Manual) 1 L, Platelet Estimate Normal, Hypochromasia 1+ 08/25/23 11:55: POC Glucose 143 H 08/25/23 15:08: Vancomycin Trough 17.2 H 08/25/23 16:48: POC Glucose 214 H 08/25/23 20:20: POC Glucose 210 H 08/25/23 21:20: Vancomycin Peak 37.5 08/26/23 05:44: POC Glucose 153 H 08/26/23 05:45: WBC 16.8 H, RBC 3.76 L, Hgb 10.4 L, Hct 34.9 L, MCV 92.8, MCH 27.5, MCHC 29.7 L, RDW 16.1, Plt Count 272, MPV 8.5, Neut % (Auto) 87.4 H, Lymph % (Auto) 8.9 L, [place] % (Auto) 3.2, Eos % (Auto) 0.3, Baso % (Auto) 0.2, Neut # (Auto) 14.7 H, Lymph # (Auto) 1.5, [place] # (Auto) 0.5, Eos # (Auto) 0.1, Baso # (Auto) 0.0, Total Counted 100, Neutrophils % (Manual) 82 H, Band Neutrophils % 6.0, Lymphocytes % (Manual) 11, Monocytes % (Manual) 1 L, Platelet Estimate Normal, Hypochromasia 1+, Poikilocytosis 1+, Basophilic Stippling 1+, Anisocytosis 1+, Macrocytosis 1+, Spherocytes 1+, Target Cells 1+, Sodium 137, Potassium 4.2, Chloride 96 L, Carbon Dioxide 38 H, Anion Gap 7.2, BUN 36 H, Creatinine 1.30 H, Estimated Creat Clear 59, Estimated GFR 55 L, Est GFR ( Amer) 66, Glucose 153 H, Calcium 9.4, Magnesium 2.3 D, Total Bilirubin 0.3, AST 25, ALT 21, Alkaline Phosphatase 74, Total Protein 6.6, Albumin 3.1 L, Globulin 3.5 H, Albumin/Globulin Ratio 0.9 L Temp Pulse Resp BP Pulse Ox O2 Del Method O2 Flow Rate 98.0 F 120 H 28 H 120/89 95 BiPAP 15 08/22/23 14:32 08/22/23 10:54 08/22/23 10:54 08/22/23 10:54 08/22/23 10:54 08/22/23 10:54 08/22/23 10:16 FiO2 70 08/22/23 12:21 Laboratory Results - last 24 hr 08/22/23 10:18: WBC 54.1 H*, RBC 3.88 L, Hgb 11.0 L, Hct 36.1 L, MCV 93.1, MCH 28.4, MCHC 30.5 L, RDW 15.8, Plt Count 340, MPV 8.7, Neut % (Auto) 93.7 H, Lymph % (Auto) 0.5 L, [place] % (Auto) 3.2, Eos % (Auto) 0.3, Baso % (Auto) 2.3 H, Neut # (Auto) 50.7 H, Lymph # (Auto) 0.3 L, [place] # (Auto) 1.7 H, Eos # (Auto) 0.2, Baso # (Auto) 1.3 H, Total Counted 100, Neutrophils % (Manual) 71, Band Neutrophils % 16.0 H, Lymphocytes % (Manual) 2 L, Monocytes % (Manual) 8, Metamyelocytes % 2.0 H, Myelocytes % 1, Platelet Estimate Normal, Hypochromasia 1+, D-Dimer 0.62 H, Sodium 132 L, Potassium 3.8, Chloride 80 L, Carbon Dioxide 47 H*, Anion Gap 8.8, BUN 38 H, Creatinine 1.90 H, Estimated GFR 35 L, Est GFR ( Amer) 43 L, Glucose 177 H, Calcium 8.6, Total Bilirubin 0.8, AST 24, ALT 26, Alkaline Phosphatase 63, Troponin I 0.02, C-Reactive Protein 80.2 H, NT-Pro-B Natriuret Pep 1730 H, Total Protein 6.5, Albumin 3.3 L, Globulin 3.2, Albumin/Globulin Ratio 1.0 L, Procalcitonin 6.56 H, TSH 24.40 H, Thyroxine (T4) 2.5 L 08/22/23 10:22: VBG pH 7.34, VBG pCO2 83.0 H, VBG pO2 35.5, VBG HCO3 43.6 H, VBG Total CO2 46.1 H, VBG O2 Saturation 61.8, VBG Base Excess 17.8 H, VBG Lactic Acid 5.2 H 08/22/23 13:24: Specimen Source A-line, O2 % 70% bipap 18/8, ABG pH 7.40, ABG pCO2 61.6 H, ABG pO2 76.4 L, ABG HCO3 37.2 H, ABG Total CO2 39.1 H, ABG O2 Saturation 94, ABG Base Excess 12.4 H, Jamie Test Non applicable, Vent Rate 20 I & O for Labs for Last 24 Hours: Intake & Output 08/23/23 08/24/23 08/25/23 08/26/23 23:59 23:59 23:59 23:59 Intake Total 2788.725 / 2788.725 2739.514 / 2839.514 1860 / 2310 810 / 810 Output Total 3110 / 3110 2350 / 2750 1745 / 1745 350 / 350 Balance -321.275 / -321.275 389.514 / 89.514 115 / 565 460 / 460 Weight 326 lb 4.546 oz 326 lb 4.546 oz 326 lb 4.546 oz 326 lb 4.546 oz Intake & Output 08/19/23 08/20/23 08/21/23 08/22/23 23:59 23:59 23:59 23:59 Weight 336 lb 4 oz Microbiology Reports for the Last 24 Hours: Microbiology 08/22/23 20:35 Urine,Catheterized Urine Culture - Final 08/22/23 12:43 Blood Blood Culture - Preliminary 08/22/23 12:40 Blood Blood Culture - Preliminary 08/22/23 18:40 Nose - Nasal MRSA Culture - Final Constitutional: Present moderate distress Head: Present normocephalic and atraumatic ENT: Present normal exam, normal oropharynx and mucous membranes moist Neck: Present normal inspection and full ROM Respiratory: Present prolonged expiratory phase, respiratory distress, rhonchi, diminished air movement and able to speak in complete sentences; Absent wheezes Cardiac: Present S1/S2 and Tachycardia; Absent Regular Rhythm GI: Present soft and distention; Absent tenderness or guarding Skin: Present intact; Absent cyanosis or jaundice Neuro: Present alert, awake and oriented x 3 Extremities: Present normal inspection; Absent clubbing or cyanosis Psychiatric: Present normal affect and cooperative Assessment and Plan *Assessment and plan (1) Pleural effusion: Status: Acute Category: Medical Code(s): J90 - Pleural effusion, not elsewhere classified (2) Acute on chronic respiratory failure with hypoxia and hypercapnia: Status: Acute Category: Medical Code(s): J96.21 - Acute and chronic respiratory failure with hypoxia; J96.22 - Acute and chronic respiratory failure with hypercapnia (3) Pneumonia: Status: Acute Category: Medical Code(s): J18.9 - Pneumonia, unspecified organism Plan 68-year-old male history of COPD, OHS chronic BiPAP therapy and chronic oxygen supplementation at 5 L, combined systolic and diastolic dysfunction, A-fib RVR, chronic noncompliance with his medications leading to multiple readmissions for worsening respiratory distress, recently discharged from [facility] on June 2023 presented to the ER with worsening respiratory distress needing noninvasive ventilator therapy and pulmonary was called for further evaluation and management. He was also treated for influenza pneumonia in April 2023. Afebrile. Significant neutrophilic predominant leukocytosis upon admission hemodynamically unstable needing 1 L LR bolus with improving pressors. It also. Patient has been on long-term prednisone therapy that was discontinued recently in June 2023. CT chest upon admission dense consolidative changes in the left lower lung bruce. Underlying mass cannot be completely ruled out. No significant effusions noted. VBG upon admission showed hypercarbic respiratory failure with normal pH, repeat ABG showed chronic hypercarbia with normal pH. CT head chronic microvascular ischemia chronic sinusitis and mastoiditis. Other significant lab abnormalities including OSMANI and hyponatremia. Comprehensive respiratory viral PCR panel negative Interval update: No acute respiratory events over the weekend. Tolerating nasal cannula during the daytime and noninvasive ventilator therapy at night. Continue to receive vancomycin meropenem and micafungin pending culture results. Improving leukocytosis. Preliminary blood cultures no growth 24 hours. Sputum cultures pending. Nasal MRSA PCR positive Off pressors. Chest x-ray from this morning concerning worsening right airspace disease. No significant change in left airspace disease Plan: Flutter valve and incentive spirometry. Continue nasal cannula to maintain O2 saturation goal of 90 to 95%. Continue NIV therapy at current settings while asleep and at night. Recommend obtaining his NIV compliance report from [employer] from [place]. Trelegy 100 inhaler along with DuoNebs every 6 hours on as-needed basis Discontinue micafungin. Continue vancomycin and meropenem pending sputum culture results Discontinue hydrocortisone # Thank you for involving pulmonary in this patient care. Will continue to follow.
--- NOTE | 2023-08-26 09:26 | XR_ITS ---
FINAL REPORT CLINICAL HISTORY: PNM COMPARISON: 08/23/2023 FINDINGS: There is a worsening density in the right lung base suspicious for pneumonia with pleural effusion. There is partial improvement in the left lower lobe opacity. There is no evidence of pneumothorax. Mediastinum is unremarkable. Heart size is mildly enlarged. IMPRESSION: Worsening right lung disease. Improved left lower lobe density. Reviewed, Interpreted and Dictated by Dewayne Oscar MD Transcribed by Ann Rogers Authenticated and [facility]
[2023-08-26] MEDS: POLYETHYLENE GLYCOL 3350 17 GM PACKET PO (10:38)
[2023-08-26 11:03] LABS: POC Glucose,Bedside 157 (70-110)
[2023-08-26] MEDS: MICAFUNGIN SODIUM 100 MG in 0.9 % SODIUM CHLORIDE 100 ML IV (11:12)
--- NOTE | 2023-08-26 13:23 | PC.NURSE ---
Spoke with [facility]ae [phone] about obtaining information from pt's CPAP machine. They stated that pt did not register the machine so it will be more difficult to obtain information. They will fax [facility] the info.
[2023-08-26] MEDS: VANCOMYCIN HCL 2,500 MG in 0.9 % SODIUM CHLORIDE 250 ML 125 MG IV (15:28)
[2023-08-26 16:28] LABS: POC Glucose,Bedside 166 (70-110)
--- NOTE | 2023-08-26 17:18 | EXP.PN ---
Subjective *Date: 08/26/23 *Time: 17:18 Interval history: patient is seen at [facility], he is sitting in chair, he says he is feeling better today, denied SOB, CP Exam Data for Last 24 hours Vital signs and Labs for Last 24 Hours: Temp Pulse Resp BP Pulse Ox O2 Del Method O2 Flow Rate 98.0 F 80 20 107/84 L 97 BiPAP 3 08/26/23 16:00 08/26/23 16:00 08/26/23 16:00 08/26/23 16:00 08/26/23 16:00 08/26/23 16:00 08/26/23 14:41 FiO2 50 08/26/23 06:30 Laboratory Results - last 24 hr 08/25/23 20:20: POC Glucose 210 H 08/25/23 21:20: Vancomycin Peak 37.5 08/26/23 05:44: POC Glucose 153 H 08/26/23 05:45: WBC 16.8 H, RBC 3.76 L, Hgb 10.4 L, Hct 34.9 L, MCV 92.8, MCH 27.5, MCHC 29.7 L, RDW 16.1, Plt Count 272, MPV 8.5, Neut % (Auto) 87.4 H, Lymph % (Auto) 8.9 L, [place] % (Auto) 3.2, Eos % (Auto) 0.3, Baso % (Auto) 0.2, Neut # (Auto) 14.7 H, Lymph # (Auto) 1.5, [place] # (Auto) 0.5, Eos # (Auto) 0.1, Baso # (Auto) 0.0, Total Counted 100, Neutrophils % (Manual) 82 H, Band Neutrophils % 6.0, Lymphocytes % (Manual) 11, Monocytes % (Manual) 1 L, Platelet Estimate Normal, Hypochromasia 1+, Poikilocytosis 1+, Basophilic Stippling 1+, Anisocytosis 1+, Macrocytosis 1+, Spherocytes 1+, Target Cells 1+, Sodium 137, Potassium 4.2, Chloride 96 L, Carbon Dioxide 38 H, Anion Gap 7.2, BUN 36 H, Creatinine 1.30 H, Estimated Creat Clear 59, Estimated GFR 55 L, Est GFR ( Amer) 66, Glucose 153 H, Calcium 9.4, Magnesium 2.3 D, Total Bilirubin 0.3, AST 25, ALT 21, Alkaline Phosphatase 74, Total Protein 6.6, Albumin 3.1 L, Globulin 3.5 H, Albumin/Globulin Ratio 0.9 L 08/26/23 10:56: POC Glucose 157 H 08/26/23 16:21: POC Glucose 166 H I & O for Last 24 hours: Intake & Output 08/23/23 08/24/23 08/25/23 08/26/23 23:59 23:59 23:59 23:59 Intake Total 2788.725 / 2788.725 2739.514 / 2839.514 1860 / 2310 1170 / 1170 Output Total 3110 / 3110 2350 / 2750 1745 / 1745 1025 / 1025 Balance -321.275 / -321.275 389.514 / 89.514 115 / 565 145 / 145 Weight 148 kg 148 kg 148 kg 148 kg Microbiology Reports for the Last 24 Hours: Microbiology 08/24/23 14:00 Sputum - Expectorated Sputum Gram Stain - Final 08/22/23 12:43 Blood Blood Culture - Preliminary 08/22/23 12:40 Blood Blood Culture - Preliminary Constitutional Constitutional: no acute distress *Routine HEENT Exam Head: Present normocephalic Eye: Present EOMI and PERRL ENT: Present mucous membranes moist *Routine Neck Exam Neck: Present supple; Absent lymphadenopathy *Routine Respiratory Exam Respiratory: Present decreased breath sounds and distant breath sounds *Routine Cardiovascular Exam Cardiovascular: Present RRR *Routine Abdominal Exam Abdominal: Present soft and normoactive bowel sounds; Absent tenderness *Routine Extremities Exam Extremities: Absent cyanosis, clubbing or edema *Routine Skin Exam Skin: Present warm; Absent rash *Routine Neurological Exam Neurological: Present alert and oriented X3 Assessment and Plan *Assessment and plan (1) Septic shock: Status: Acute Category: Medical Code(s): A41.9 - Sepsis, unspecified organism; R65.21 - Severe sepsis with septic shock (2) Acute on chronic respiratory failure with hypoxia and hypercapnia: Status: Acute Category: Medical Code(s): J96.21 - Acute and chronic respiratory failure with hypoxia; J96.22 - Acute and chronic respiratory failure with hypercapnia (3) Pneumonia: Status: Acute Category: Medical Code(s): J18.9 - Pneumonia, unspecified organism (4) Acute exacerbation of CHF (congestive heart failure): Status: Acute Category: Medical Code(s): I50.9 - Heart failure, unspecified (5) OSMANI (acute kidney injury): Status: Acute Category: Medical Code(s): N17.9 - Acute kidney failure, unspecified (6) Acute metabolic encephalopathy: Status: Acute Category: Medical Code(s): G93.41 - Metabolic encephalopathy (7) Pickwickian syndrome: Status: Acute Category: Medical Code(s): E66.2 - Morbid (severe) obesity with alveolar hypoventilation (8) Morbid obesity: Status: Acute Category: Medical Code(s): E66.01 - Morbid (severe) obesity due to excess calories (9) Hypothyroid: Status: Acute Category: Medical Code(s): E03.9 - Hypothyroidism, unspecified (10) Heart failure with preserved ejection fraction: Status: Acute Category: Medical Code(s): I50.30 - Unspecified diastolic (congestive) heart failure Plan Mr. Wu is a morbidly obese 68-year-old male with history of heart failure with preserved ejection fraction, chronic respiratory failure on home BiPAP, chronically on 3 L oxygen, with CKD and recent admission for respiratory failure a month ago to [place]. He presented via EMS for acute worsening and concern for sepsis with respiratory failure. Workup in the ER concerning for pneumonia, development of septic shock, and respiratory failure. Initiated on BiPAP. Discussed case with ER, request admission for ICU level of care and further management. Medicine agreed to admit. Received broad-spectrum antibiotics in the ER. Cultures obtained. Pulmonology consulted to assist with care including BiPAP management and critical care. Continues to show gradual improvement daily. Tolerating 3 L nasal cannula during the day. BiPAP at night. White cell count coming down, 21,000 today. Continues to require inpatient management. Problems addressed as follows: Septic shock, resolved Acute on chronic hypoxemic respiratory failure with hypercapnia - improving Pickwickian syndrome Pneumonia Mixed respiratory acidosis, metabolic acidosis with concurrent metabolic alkalotic compensation. -continue to wean oxygen. - Currently on nasal cannula, goal sats 90 to 95%. - Will continue BiPAP therapy at night and while asleep. -White cell count decreased to 21k, Repeat CBC, CMP, magnesium ordered for the morning. -HIV negative; Peripheral smear pending -Continue DuoNebs every 4 hours scheduled. Pulmicort every 12 hours scheduled. -Continue broad-spectrum antibiotics with vancomycin, meropenem only, DC steroids per pulmonology -MRSA swab positive. -Sputum culture pending. -Off Levophed in the past 24 hours. -Reported history of chronic steroids, concern for component of adrenal insufficiency. -Will continue stress dose hydrocortisone 50 mg every 6 hours scheduled OSMANI - Cr has improved, monitor, down to 1.3 today Hypothyroid: TSH of 24 on admission. Transition to oral levothyroxine today, 175 mcg daily Diabetes: A1c 6.8. Sliding scale insulin fingersticks every 6 hours given diabetes diagnosis and steroid use as above Heart failure with preserved ejection fraction -Patient's baseline reportedly 55% per documentation reviewed from [place]. -Echocardiogram obtained showing preserved ejection fraction, shows diastolic dysfunction. EKG shows old NM's -Intermittent chest pain. Troponins remain negative. Differential includes ACS, pleuritic pain, GERD. Given self resolution and normal troponins, will hold on further cardiac workup at this time. Would benefit from outpatient cardiology follow-up. -Holding metoprolol and diuretics in setting of septic shock -Concern for acute exacerbation with BNP of 1700 however in the setting of septic shock and hypotension, will hold on diuresis until blood pressure consistently stable for 36 to 48 hours. Metabolic alkalosis: Continue acetazolamide 250 mg twice daily Medical surrogate is his significant other Anamika Bowers. Full code Diabetic diet Heparin 5000 units 3 times daily Working with therapy, likely [facility] 1-2 days, await final pulmonary recommendations for BIPAP settings at [facility]
--- NOTE | 2023-08-26 17:57 | PC.NURSE ---
Patient A&OX4 during shift. Perianal wounds draining blood and covered with abd pads. Wound consult entered per Dr Mejia. Patient on 3L NC when not on bipap. Patient continued to stay agitated throughout the shift. Patient was requested to wear home CPAP tonight per Dr Tirado and ABGs be drawn in the AM. Patient agreed to drink Miralax this AM, though still no BM.
[2023-08-26] MEDS: PANTOPRAZOLE 40MG TABLET 40 MG PO (20:38)
[2023-08-26] MEDS: TAMSULOSIN 0.4MG CAPSULE 0.400000000000000022 MG PO (20:38)
[2023-08-26 20:42] LABS: POC Glucose,Bedside 125 (70-110)
[2023-08-27] VITALS (12 sets, daily range): BP systolic 95–117; BP diastolic 57–64; PULSE 67–83; RESP 18–36; TEMP 36.7–37.1; O2SAT 89–99; BMI 43.4
[2023-08-27 01:13] LABS: ABG Base Excess 7.4 mmol/L (-2.4-2.3); ABG HCO3 33.7 mmhg (22.0-26.0); ABG Oxygen Saturation 97 % (90-100); ABG PH 7.31 mmol/L (7.35-7.45); ABG PO2 99.1 mmhg (80-100); ABG TCO2 35.8 mmhg (23-27)
[2023-08-27 01:18] LABS: ABG PCO2 69.1 mmhg (35.0-45.0); Allen's Test Y; Source Right Radial
[2023-08-27 05:28] LABS: POC Glucose,Bedside 112 (70-110)
--- NOTE | 2023-08-27 05:43 | PC.NURSE ---
Once the patient was switched to our bipap machine the patient had a much better night. The patient did not tolerate his home bipap at all. Patient stated he couldn't breath and that it was not working. Patient was restless and agitated that it wasn't working. RN encouraged the patient to wear it but ultimately it was decided to switch to our bipap machine after an ABG was draw. Patient has tolerated our bipap machine a lot better and has been able to rest more. Patient did lay in the bed some and patient slept well. Patient did refuse a shower last night stated he didnt want too. Patient has remained AxO.
[2023-08-27] MEDS: FLUTICASONE/UMECLIDIN/VILANTER 100/62.5/25MCG INHALER 1 PUFF IH (06:21)
[2023-08-27 06:23] LABS: Basophils # 0.1 K/mm3 (0-0.2); Basophils % 0.4 % (0.1-2.0); Eosinophils # 0.2 K/mm3 (0.0-0.4); Eosinophils % 1.2 % (0.1-12.0); Hematocrit 35.8 % (42.0-52.0); Hemoglobin 10.7 g/dL (14.1-18.0); Lymphocytes # 1.6 K/mm3 (0.7-4.5); Lymphocytes % 10.8 % (10-50); Mean Corpuscular HGB Conc 29.9 g/dL (31.8-35.4); Mean Corpuscular Hemoglobin 27.7 pg (27.0-31.2); Mean Corpuscular Volume 92.7 fl (80-94); Mean Platelet Volume 9.1 fl (7.4-10.4); Monocytes % 6.7 % (1.7-9.3); Neutrophils # 12.1 K/mm3 (1.8-7.8); Platelet Count 288 K/mm3 (142-424); Red Blood Count 3.86 M/mm3 (4.60-6.20)
[2023-08-27] MEDS: IPRATROPIUM/ALBUTEROL 3 ML NEB IH ×2 (06:23→11:23)
[2023-08-27 06:25] LABS: MANUAL DIFFERENTIAL MANUAL DIFFERENTIAL (MANUAL DIFF)
[2023-08-27] MEDS: HEPARIN SODIUM 5,000 UNIT/ML VIAL 5000 UNIT SQ ×3 (06:30→22:06)
[2023-08-27] MEDS: METFORMIN 500MG TABLET 500 MG PO (06:30)
[2023-08-27] MEDS: LEVOTHYROXINE 175MCG (0.175MG) TAB 175 MCG PO (06:30)
[2023-08-27 06:32] LABS: Chloride 97 mmol/L (98-107)
[2023-08-27 06:33] LABS: Sodium 138 mmol/L (136-145)
[2023-08-27 06:35] LABS: Alanine Aminotransferase 17 U/L (12-78); Alkaline Phosphatase 72 U/L (38-126); Aspartate Amino Transferase 20 U/L (17-59); Bilirubin,Total 0.3 mg/dl (0.2-1.3); Blood Urea Nitrogen 28 mg/dl (9-20); Creatinine Clearance Estimated 64 mL/min (50-200); Estimated Glomerular Filt Rate 60 ml/min (>60); GFR (African American) 73 ML/MIN (>60)
[2023-08-27 06:36] LABS: Albumin/Globulin Ratio 0.9 (1.1-1.8); Calcium 9.6 mg/dl (8.4-10.2); Globulin 3.3 g/dL (1.3-3.2); Glucose 114 mg/dl (74-100); Total Protein,Serum 6.3 g/dl (6.3-8.2)
[2023-08-27 06:42] LABS: Carbon Dioxide 38 mmol/L (22.0-30.0)
[2023-08-27 07:33] LABS: Eosinophils % 3 % (0-3); Lymphocytes % 15 % (10-50); Monocytes % 2 % (2-9); Neutrophils % 80 % (42-76); Platelet Estimate Normal; RBC Morphology Normal; Total Cells Counted 100
[2023-08-27] MEDS: acetaZOLAMIDE 250 MG TABLET PO ×2 (08:44→22:08)
[2023-08-27] MEDS: SODIUM PHOS/BIPHOSPHATE FLEET 133ML ENEMA 133 ML RC (08:44)
[2023-08-27] MEDS: FUROSEMIDE 40MG/4ML VIAL 80 MG IV (08:44)
[2023-08-27] MEDS: SENNOSIDES 8.6MG/DOCUSATE 50MG TABLET 1 TAB PO ×2 (08:45→22:08)
[2023-08-27] MEDS: POTASSIUM CHLORIDE 20MEQ TAB 20 MEQ PO ×2 (08:45→22:08)
[2023-08-27] MEDS: HYDROCORTISONE 2.5% CREAM 28GM TUBE 30 GM TP (09:55)
[2023-08-27] MEDS: LIDOCAINE/PRILOCAINE 5GM TUBE 5 GM TP (09:56)
[2023-08-27] MEDS: MUPIROCIN 2% OINTMENT 22GM TUBE 22 GM TP (09:56)
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
--- NOTE | 2023-08-27 10:36 | HMH.PTWOUND ---
Rehab Inpt Wound Evaluation Rehab IP Wound Evaluation Start: 08/26/23 14:57 Freq: ONCE Status: Active Protocol: Document 08/27/23 10:30 MARINA (Rec: 08/27/23 10:36 PHOCIRA [id number]) Rehab PT Wound Assessment Subjective Subjective This is the initial evlaution Rohan Wu, 68 yowm, who presents to [facility] from home with SOA. The patient was brought via EMS with complaints of respiratory distress and is on CPAP at home. He wears 2-3 L of Nasal Cannula at home. The patient's PMH is significant for Pneumonia COPD (chronic obstructive pulmonary disease) Congestive heart failure He presents with wounds to his srotum and inner thigh upon admission. Wound Left Medial Groin Wound Type Likely MASD Is This a Chronic Wound Yes Wound Length (cm) 5.0 Wound Width (cm) 3.5 Wound Depth (cm) 0.1 Wound Bed Appearance Beefy Red Percentage Granulated (%) 100 Wound Margins Description Well Defined Surrounding Tissue Appearance [place] Wound Drainage Description Sanguineous Drainage Amount Small Comment petroleum based barrier cream and ABD pad Dressing Change Patient Tolerance Tolerated Well Plan/Recommendation Comment Wounds appear healthy and are made worse by pt skin sticking to the bed sheets and chucks with sanguineous drainage. No particular dressing is best preactice at this point, but attempting to mainatain a moist environment without dressing being too attached to his skin is likely to aid healing. Pharmacy is planning to compound a topical cream medication that should aid healing. Eval Complexity Eval Charge Codes 61995 - High Complexity PHYSICIAN CERTIFICATION: I certify the specified therapy services for Rohan Wu are required, authorized, and reviewed every 30 days.
[2023-08-27] MEDS: MEROPENEM 1 GM in 0.9 % SODIUM CHLORIDE 100 ML IV ×2 (10:47→22:08)
[2023-08-27 11:02] LABS: POC Glucose,Bedside 125 (70-110)
[2023-08-27] MEDS: LINEZOLID 600 MG/300 ML IV.SOLN 300 MG IV ×2 (11:59→23:31)
--- NOTE | 2023-08-27 12:47 | P.PN_ITS ---
Subjective *Date: 08/27/23 *Time: 15:56 Interval history: Tried to wear his home BiPAP last night. Wore it off and on for 5 hours but was intolerant of it. Does not feel it gives him the same pressure or volume as the inpatient device. On 3 L nasal cannula when not on the BiPAP. Seeing improvement in labs. Tolerating p.o. intake. Still has not had a bowel movement. Discussed at length the need for an enema today, patient is agreeable. Denies chest pain, fever, nausea or vomiting. Cough still productive. Medical Exam Vital signs and Labs for Last 24 Hours: Vital Signs Temp Pulse Pulse Resp BP Pulse Ox O2 Del Method 08/27/23 12:00 98.8 F 78 20 95/64 L 99 Nasal Cannula 08/27/23 11:20 74 08/27/23 11:20 75 08/27/23 11:20 98 Nasal Cannula 08/27/23 11:00 Nasal Cannula 08/27/23 08:00 BiPAP 08/27/23 08:00 70 08/27/23 08:00 98.0 F 78 24 98/62 L 98 Nasal Cannula 08/27/23 07:25 Nasal Cannula 08/27/23 07:23 Nasal Cannula 08/27/23 06:56 BiPAP 08/27/23 06:21 78 08/27/23 06:21 67 08/27/23 05:00 BiPAP 08/27/23 04:00 98.6 F 72 28 H 98/62 L 96 BiPAP 08/27/23 04:00 76 08/27/23 03:00 BiPAP 08/27/23 01:55 08/27/23 01:00 BiPAP 08/27/23 00:00 98.6 F 79 36 H 98/62 L 95 BiPAP 08/26/23 23:00 BiPAP 08/26/23 21:00 BiPAP 08/26/23 20:00 80 08/26/23 20:00 BiPAP 08/26/23 20:00 98.7 F 82 24 145/69 H 99 BiPAP 08/26/23 18:38 BiPAP 08/26/23 17:00 Nasal Cannula 08/26/23 16:00 70 08/26/23 16:00 98.0 F 80 20 107/84 L 97 BiPAP 08/26/23 14:41 Nasal Cannula 08/26/23 12:53 Nasal Cannula O2 Flow Rate FiO2 08/27/23 12:00 5 08/27/23 11:20 08/27/23 11:20 08/27/23 11:20 4 08/27/23 11:00 3 08/27/23 08:00 08/27/23 08:00 08/27/23 08:00 3 08/27/23 07:25 3 08/27/23 07:23 3 08/27/23 06:56 08/27/23 06:21 08/27/23 06:21 08/27/23 05:00 08/27/23 04:00 08/27/23 04:00 08/27/23 03:00 08/27/23 01:55 50 08/27/23 01:00 08/27/23 00:00 08/26/23 23:00 08/26/23 21:00 08/26/23 20:00 08/26/23 20:00 08/26/23 20:00 08/26/23 18:38 08/26/23 17:00 3 08/26/23 16:00 08/26/23 16:00 08/26/23 14:41 3 08/26/23 12:53 3 Intake and Output 08/26/23 08/27/23 08/27/23 23:59 07:59 15:59 Intake Total 900 / 2320 250 / 520 270 / 520 Output Total 450 / 1825 350 / 2225 1875 / 2225 Balance 450 / 495 -100 / -1705 -1605 / -1705 Intake: Intake, Oral Amount 900 / 1870 150 / 420 270 / 420 Intake, Total IV Amount 100 / 100 Meropenem 1 gm In 0.9 % Sodium 100 / 100 Chloride 100 ml @ 100 mls/hr IV Q12H [facility] Rx#:[id number] Output: Output, Urine Amount 450 / 1825 350 / 2225 1875 / 2225 Other: Number of Voids 1 Number of Unmeasured Voids 1 0 Weight 148.6 kg Patient Weight 08/27/23 23:59 Weight 148.6 kg Laboratory Results - last 24 hr 08/26/23 16:21: POC Glucose 166 H 08/26/23 20:33: POC Glucose 125 H 08/27/23 00:51: Specimen Source Right radial, O2 % Home bipap, ABG pH 7.31 L, ABG pCO2 69.1 H, ABG pO2 99.1, ABG HCO3 33.7 H, ABG Total CO2 35.8 H, ABG O2 Saturation 97, ABG Base Excess 7.4 H, Jamie Test Y 08/27/23 05:21: WBC 15.0 H, RBC 3.86 L, Hgb 10.7 L, Hct 35.8 L, MCV 92.7, MCH 27.7, MCHC 29.9 L, RDW 16.0, Plt Count 288, MPV 9.1, Neut % (Auto) 81.0 H, Lymph % (Auto) 10.8, [place] % (Auto) 6.7, Eos % (Auto) 1.2, Baso % (Auto) 0.4, Neut # (Auto) 12.1 H, Lymph # (Auto) 1.6, [place] # (Auto) 1.0, Eos # (Auto) 0.2, Baso # (Auto) 0.1, Total Counted 100, Neutrophils % (Manual) 80 H, Lymphocytes % (Manual) 15, Monocytes % (Manual) 2, Eosinophils % (Manual) 3, Platelet Estimate Normal, RBC Morphology Normal, Sodium 138, Potassium 4.0, Chloride 97 L, Carbon Dioxide 38 H, Anion Gap 7.0, BUN 28 H, Creatinine 1.20, Estimated Creat Clear 64, Estimated GFR 60, Est GFR ( Amer) 73, Glucose 114 H D, POC Glucose 112 H, Calcium 9.6, Magnesium 2.0 D, Total Bilirubin 0.3, AST 20, ALT 17, Alkaline Phosphatase 72, Total Protein 6.3, Albumin 3.0 L, Globulin 3.3 H, Albumin/Globulin Ratio 0.9 L 08/27/23 10:50: POC Glucose 125 H I & O for Labs for Last 24 Hours: Intake & Output 08/24/23 08/25/23 08/26/23 08/27/23 23:59 23:59 23:59 23:59 Intake Total 2739.514 / 2839.514 1860 / 2310 2070 / 2320 520 / 520 Output Total 2350 / 2750 1745 / 1745 1475 / 1825 2225 / 2225 Balance 389.514 / 89.514 115 / 565 595 / 495 -1705 / -1705 Weight 148 kg 148 kg 148 kg 148.6 kg Microbiology Reports for the Last 24 Hours: Microbiology 08/24/23 14:00 Sputum - Expectorated Sputum Gram Stain - Final 08/24/23 14:00 Sputum - Expectorated Sputum Sputum Culture - Preliminary 08/22/23 12:43 Blood Blood Culture - Preliminary 08/22/23 12:40 Blood Blood Culture - Preliminary Constitutional: Present no acute distress, morbidly obese, chronically ill guera earing and cooperative Head: Present atraumatic and normocephalic ENT: Present normal exam Comment:: Cushingoid face, buffalo hump, prominent neck Comment:: prominent neck. Unable to assess landmarks due to obesity Respiratory: Present prolonged expiratory phase, rhonchi, crackles (Left lung field, intervally improving), distant breath sounds and diminished air movement; Absent wheezes Cardiac: Present Reg Rate and Rhythm GI: Present soft, distention and normal bowel sounds; Absent tenderness Extremities: Present normal inspection, full ROM and edema (2+ tense edema in lower extremities to thighs); Absent tenderness Comment:: Chronic lymphedema, chronic stasis dermatitis Skin: Present intact; Absent erythema Neuro: Present Grossly Intact, alert, awake, oriented x 3 and moves all extremities Assessment and Plan *Assessment and plan (1) Acute on chronic respiratory failure with hypoxia and hypercapnia: Status: Acute Category: Medical Code(s): J96.21 - Acute and chronic respiratory failure with hypoxia; J96.22 - Acute and chronic respiratory failure with hypercapnia (2) Pneumonia: Status: Acute Category: Medical Code(s): J18.9 - Pneumonia, unspecified organism (3) Septic shock: Status: Acute Category: Medical Code(s): A41.9 - Sepsis, unspecified organism; R65.21 - Severe sepsis with septic shock (4) Acute exacerbation of CHF (congestive heart failure): Status: Acute Category: Medical Code(s): I50.9 - Heart failure, unspecified (5) OSMANI (acute kidney injury): Status: Acute Category: Medical Code(s): N17.9 - Acute kidney failure, unspecified (6) Acute metabolic encephalopathy: Status: Acute Category: Medical Code(s): G93.41 - Metabolic encephalopathy (7) Pickwickian syndrome: Status: Acute Category: Medical Code(s): E66.2 - Morbid (severe) obesity with alveolar hypoventilation (8) Morbid obesity: Status: Acute Category: Medical Code(s): E66.01 - Morbid (severe) obesity due to excess calories (9) Hypothyroid: Status: Acute Category: Medical Code(s): E03.9 - Hypothyroidism, unspecified (10) Heart failure with preserved ejection fraction: Status: Acute Category: Medical Code(s): I50.30 - Unspecified diastolic (congestive) heart failure Plan Mr. Wu is a morbidly obese 68-year-old male with history of heart failure with preserved ejection fraction, chronic respiratory failure on home BiPAP, chronically on 3 L oxygen, with CKD and recent admission for respiratory failure a month ago to [facility]. He presented via EMS for acute worsening and concern for sepsis with respiratory failure. Workup in the ER concerning for pneumonia, development of septic shock, and respiratory failure. Initiated on BiPAP. Discussed case with ER, request admission for ICU level of care and further management. Medicine agreed to admit. Received broad-spectrum antibiotics in the ER. Cultures obtained. Pulmonology consulted to assist with care including BiPAP management and critical care. Continues to show gradual improvement daily. Tolerating 3 L nasal cannula during the day. BiPAP at night. White cell count 15 K today. Awaiting placement for rehab. Continues to require inpatient management. Problems addressed as follows: Septic shock, resolved Acute on chronic hypoxemic respiratory failure with hypercapnia - improving Pickwickian syndrome Pneumonia Mixed respiratory acidosis, metabolic acidosis with concurrent metabolic alkalotic compensation. -continue to wean oxygen. Goal saturation greater 90%. Currently on 3 L. -Discussed case with pulmonology. Making adjustments to BiPAP. Still significant residual AHI on compliance report from home use. Increasing settings to 10-24 for his bilevel support. -Continue bilevel support at night or while asleep. -White cell count decreased to 15k, Repeat CBC, CMP, magnesium ordered for the morning. -Continue DuoNebs every 4 hours scheduled. Pulmicort every 12 hours scheduled. -Continue broad-spectrum antibiotics with vancomycin x 10 days, meropenem x7d -MRSA swab positive. -Sputum culture pending. -Will continue stress dose hydrocortisone 50 mg every 6 hours scheduled OSMANI -resolved. Creatinine appears at baseline. BUN 28, creatinine 1.2. Hypothyroid: TSH of 24 on admission. Continue oral levothyroxine at increased dose of 175 mcg daily Diabetes: A1c 6.8. Sliding scale insulin fingersticks every 6 hours given diabetes diagnosis and steroid use as above Heart failure with preserved ejection fraction -Patient's baseline reportedly 55% per documentation reviewed from [facility]. -Echocardiogram obtained showing preserved ejection fraction, shows diastolic dysfunction. EKG shows old HI's - Would benefit from outpatient cardiology follow-up. -Holding metoprolol in setting of septic shock -Resume diuretic today, Lasix 40 mg IV daily. -Concern for acute exacerbation with BNP of 1700 Metabolic alkalosis: Continue acetazolamide 250 mg twice daily Medical surrogate is his significant other Anamika Bowers. Full code Diabetic diet Heparin 5000 units 3 times daily Working with therapy, likely DC 1-2 days, await final pulmonary recommendations for BIPAP settings at DC
[2023-08-27] MEDS: POLYETHYLENE GLYCOL 3350 17 GM PACKET PO (14:40)
[2023-08-27 16:31] LABS: POC Glucose,Bedside 120 (70-110)
[2023-08-27] MEDS: ONDANSETRON 4MG/2ML VIAL 4 MG IV (17:00)
--- NOTE | 2023-08-27 17:09 | PC.NURSE ---
PT IS SITTING UP IN THE CHAIR. ALERT AND ORIENTED X4. EATING AND DRINKING WELL. PT HAS BEEN REQUESTED TO WEAR BIPAP FREQUENTLY T/O THE SHIFT. PT REFUSED TO WAIT A COUPLE OF HOURS AFTER EATING AND DRINKING TO WEAR BIPAP B/C HE STATES I CAN'T BREATH W/O IT . PT HAS BEEN EDUCATED ON THE RISK OF ASPIRATION. BEFORE DINNER PT COMPLAINED OF NAUSEA. NOTIFIED . NIKKI ORDERED. AFTER NIKKI PT STATED HE DID NOT WANT TO EAT DINNER HE JUST WANTED TO PUT THE BIPAP BACK ON AND GO BACK TO SLEEP. THIS MORNING PT WAS COMPLAINING THAT THE OPEN AREAS ON HIS BOTTOM WERE BURNING. STAFF WAS ABLE TO PERSUADE PT TO GET IN BED TO LET US HELP WITH REPOSITIONING. PT TOLERATED LAYING IN BED FOR SEVERAL HOURS THIS MORNING AND TOLERATED FLEETS ENEMA. PT WAS POSITIONED WITH PILLOWS PLACED BETWEEN LEGS AND MOISTURE BARRIER AND ABD PADS HAVE BEEN APPLIED TO WOUNDS. LUNG SOUNDS DIMINISHED WITH SCATTERED RHONCHI. ABDOMEN SOFT/NON TENDER WITH ACTIVE BOWEL SOUNDS. PASSING FLATUS. 2 + PITTING EDEMA NOTED TO BLE. VOIDED WELL. NEW IV ACCESS NOTED TO RIGHT WRIST. VSS. WHEN PT IS NOT WEARING BIPAP O2 SATURATION HAS MAINTAINED 91-95% ON 3 L NC. WILL CONTINUE TO MONITOR.
[2023-08-27] MEDS: MELATONIN 5MG TABLET 10 MG PO (22:07)
[2023-08-27] MEDS: TAMSULOSIN 0.4MG CAPSULE 0.400000000000000022 MG PO (22:08)
[2023-08-27] MEDS: PANTOPRAZOLE 40MG TABLET 40 MG PO (22:08)
[2023-08-27] MEDS: ATORVASTATIN 20MG TABLET 20 MG PO (22:08)
[2023-08-27 23:13] LABS: POC Glucose,Bedside 142 (70-110)
[2023-08-28] VITALS (7 sets, daily range): BP systolic 103–118; BP diastolic 49–78; PULSE 62–80; RESP 19–26; TEMP 36.2–36.9; O2SAT 95–98; BMI 46.2
--- NOTE | 2023-08-28 00:34 | PC.NURSE ---
VERY DIFFICULT PATIENT. POOR ATTITUDE . A/O X 4. MUMBLING SPEECH. LUNGS DIMINISHED WITH SOME EXPIRATORY WHEEZES. HR DISTANT IRREGULAR. WAS UP IN CHAIR WITH 02 AT 3LNC UNTIL 2300 WHEN ASSISTED TO BED AND BIPAP ON. WILL NOT LEAVE TELEMETRY LEADS ON. 2 PLUS EDEMA BLEs. CONTACT PRECAUTIONS + MRSA.
--- NOTE | 2023-08-28 01:09 | PC.NURSE ---
PATIENT REPORTS HE CANT BREATH. GOT UP OOB TO CHAIR AND HAD TAKEN HIS BIPAP OFF. INSTRUCTED PATIENT TO LEAVE HIS OXYGEN ON WEATHER IT BE BIPAP OR NASAL CANULA OR HIS SATURATION WOULD DROP AND HIS SOA WOULD RETURN. PATIENT REPLIED , I'M NOT GOING TO ARGUE WITH YOU.
[2023-08-28] MEDS: IPRATROPIUM/ALBUTEROL 3 ML NEB IH ×2 (01:27→06:17)
[2023-08-28] MEDS: LORazepam 2MG/ML VIAL 1 MG IV (01:35)
--- NOTE | 2023-08-28 01:48 | PC.NURSE ---
PATIENT C/O SOA AND ANXIETY. 02 SAT 98% ON BIPAP. R.T. NOTIFIED AND GAVE NEB TREATMENT. MIAH Kendall NP NOTIFIED RE PATIENTS REQUEST FOR SOMETHING FOR ANXIETY. LORAZEPAM 1 MG IV ORDERED AND ADMINISTERED AT 0135. ASSISTED BACK TO BED 2 ASSIST. ONCE IN BED TOOK 3 ASSIST TO MOVE HIM UP.
--- NOTE | 2023-08-28 02:19 | PC.NURSE ---
RESTING QUIETLY AT THIS TIME. BIPAP IN USE. HOB ELEVATED 40 DEGREES.
--- NOTE | 2023-08-28 04:34 | PC.NURSE ---
RECEIVED VERBAL REPORT FROM CARLOS MATAMOROS AT [id number] 08/27/23.
[2023-08-28 06:05] LABS: POC Glucose,Bedside 119 (70-110)
[2023-08-28] MEDS: FLUTICASONE/UMECLIDIN/VILANTER 100/62.5/25MCG INHALER 1 PUFF IH (06:17)
[2023-08-28] MEDS: LEVOTHYROXINE 175MCG (0.175MG) TAB 175 MCG PO (06:38)
[2023-08-28] MEDS: HEPARIN SODIUM 5,000 UNIT/ML VIAL 5000 UNIT SQ (06:38)
[2023-08-28 06:39] LABS: Basophils # 0.1 K/mm3 (0-0.2); Basophils % 0.5 % (0.1-2.0); Eosinophils # 0.4 K/mm3 (0.0-0.4); Eosinophils % 2.2 % (0.1-12.0); Hematocrit 33.4 % (42.0-52.0); Hemoglobin 10.1 g/dL (14.1-18.0); Mean Corpuscular HGB Conc 30.1 g/dL (31.8-35.4); Mean Corpuscular Hemoglobin 27.9 pg (27.0-31.2); Mean Corpuscular Volume 92.6 fl (80-94); Mean Platelet Volume 9.5 fl (7.4-10.4); Monocytes # 1.1 K/mm3 (0.1-1.0); Monocytes % 6.5 % (1.7-9.3); Neutrophils # 12.8 K/mm3 (1.8-7.8); Neutrophils % 78.7 % (37.0-80.0); Platelet Count 286 K/mm3 (142-424); Red Blood Count 3.61 M/mm3 (4.60-6.20); Red Cell Distribution Width 16.4 % (11.5-17.5); White Blood Count 16.3 K/mm3 (4.8-10.8)
[2023-08-28 06:41] LABS: Alanine Aminotransferase 14 U/L (12-78); Albumin Level 2.8 g/dl (3.5-5.0); Albumin/Globulin Ratio 0.9 (1.1-1.8); Alkaline Phosphatase 67 U/L (38-126); Aspartate Amino Transferase 18 U/L (17-59); Bilirubin,Total 0.3 mg/dl (0.2-1.3); Blood Urea Nitrogen 25 mg/dl (9-20); Chloride 98 mmol/L (98-107); Creatinine Clearance Estimated 70 mL/min (50-200); Estimated Glomerular Filt Rate 66 ml/min (>60); GFR (African American) 80 ML/MIN (>60); Globulin 3.1 g/dL (1.3-3.2); Glucose 112 mg/dl (74-100); Magnesium 1.9 mg/dl (1.6-2.3); Potassium 3.9 mmoL/L (3.5-5.1); Sodium 138 mmol/L (136-145); Total Protein,Serum 5.9 g/dl (6.3-8.2)
[2023-08-28 06:43] LABS: MANUAL DIFFERENTIAL MANUAL DIFFERENTIAL (MANUAL DIFF)
[2023-08-28 06:49] LABS: Anion Gap 7.9 mEq/L (5-15); Carbon Dioxide 36 mmol/L (22.0-30.0)
[2023-08-28 09:30] LABS: Eosinophils % 2 % (0-3); Lymphocytes % 9 % (10-50); Monocytes % 16 % (2-9); Myelocytes % 1 (0-1); Neutrophils % 72 % (42-76); Nucleated Red Blood Cells 1; Total Cells Counted 100
--- NOTE | 2023-08-28 09:30 | XR_ITS ---
PROCEDURE INFORMATION: Exam: XR Chest Exam date and time: 08/28/2023 10:51 AM Age: 68 years old Clinical indication: Cough and shortness of breath; Additional info: Pnm TECHNIQUE: Imaging protocol: Radiologic exam of the chest. Views: 1 view. COMPARISON: CR XR CHEST PORTABLE 08/26/2023 11:22 AM FINDINGS: Lungs: Bibasilar consolidations are unchanged. Pleural spaces: Bilateral pleural effusions are unchanged. Heart/Mediastinum: No abnormalities. No cardiomegaly. No pulmonary vascular congestion. Bones/joints: No fractures or bone lesions. IMPRESSION: No change in bilateral pleural effusions and bibasilar consolidations.
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
[2023-08-28 09:38] LABS: Anisocytosis 1+; Macrocytosis 1+; Platelet Estimate Normal; Polychromasia 1+
[2023-08-28 09:46] LABS: Spherocytes 1+
[2023-08-28] MEDS: MEROPENEM 1 GM in 0.9 % SODIUM CHLORIDE 100 ML IV (09:58)
[2023-08-28] MEDS: acetaZOLAMIDE 250 MG TABLET PO (09:59)
[2023-08-28] MEDS: POTASSIUM CHLORIDE 20MEQ TAB 20 MEQ PO (09:59)
[2023-08-28] MEDS: METFORMIN 500MG TABLET 500 MG PO (09:59)
[2023-08-28] MEDS: SENNOSIDES 8.6MG/DOCUSATE 50MG TABLET 1 TAB PO (09:59)
[2023-08-28 10:11] LABS: Lactate Venous 1.1 mmol/L (0.4-2.0); VBG Base Excess 12.9 mmol/L (-2.4-2.3); VBG HCO3 37.6 mmol/L (23-30); VBG Oxygen Saturation 96.8 % (50-70); VBG PCO2 61.1 mmol/L (35-51); VBG PH 7.41 mmol/L (7.31-7.41); VBG Total CO2 39.5 mmol/L (23-27)
[2023-08-28 11:18] LABS: POC Glucose,Bedside 128 (70-110)
[2023-08-28] MEDS: LINEZOLID 600 MG/300 ML IV.SOLN 300 MG IV (11:21)
--- NOTE | 2023-08-28 14:55 | PC.NURSE ---
pt has decided that he wants to be discharged home and significant other is in the room and is okay with pt going home. pt states they have some extra help at home and pt feels he can continue to rehab himself at home. pt has portable oxygen to transport home and significant other stated her son is at home and will be able to help get pt out of the vehicle. pt had a total bath and clean dressings applied to open wounds before discharge.
--- NOTE | 2023-08-28 15:00 | PC.NURSE ---
Pt discharge disposition was changed from long-term to home. Script for Zyvox was sent to [facility]. [facility] contacted and script was cancelled. [facility] [place]. zyvox 600mg po q12h x 7 days
[2023-08-28] MEDS: LINEZOLID 600 MG TABLET PO (15:38)
--- NOTE | 2023-08-28 15:55 | EXP.DC.SUM ---
General Admission date:: 08/22/23 Discharge date: 08/28/23 HPI HPI HPI: Mr. Wu is a 68-year-old male who arrived at our ER via EMS. He has a history of CHF and COPD along with chronic respiratory failure on CPAP at home. Presented via EMS to the ER because of respiratory distress. Unable to obtain any history from patient. History from documentation and discussion with significant other (Anamika Bowers). EMS was called to the patient's home because of respiratory difficulties. He reportedly has been sick for a few days. His significant other noted that he was having trouble breathing and was breathing fast. EMS reports that he initially was hypoxic, tachypneic, and had Rales. They placed him on CPAP and gave him Versed to help him tolerate CPAP. He became more confused and broke their CPAP machine. Typically he goes to [facility] but was unable to transport there due to no longer having CPAP for the ride to the hospital. He was therefore brought to [facility] for further management. He arrived in critically ill condition with respiratory distress concerning for severe sepsis. Unable to give any history due to his confusion. Initial presentation concerning for respiratory failure, severe sepsis, pneumonia. Given multiple DuoNebs and IV methylprednisolone. Labs obtained showing normal pH but elevated pCO2. Compensation with metabolic alkalosis on his CMP with bicarb of 47. Elevated BNP. Given his tachypnea, hypoxia, respiratory distress, patient was placed on BiPAP. Pulmonology was consulted to assist with management. White cell count severely elevated at 54,000, initiated on vancomycin, Zosyn, azithromycin. Records were obtained from [facility] show has history of heart failure with preserved ejection fraction, CKD (baseline 1.1), prostate cancer, chronic respiratory failure on 2 to 3 L nasal cannula. BiPAP use at home. Hypertension, hypothyroid, lymphedema, morbid obesity. Patient has history of chronic medication noncompliance. Was admitted 1 month ago and initiated on treatment with Diamox for acute decompensated heart failure requiring BiPAP. It appears from chart review with multiple discussions were had about possible hospice for his heart failure. Unsure of patient's CODE STATUS. Medicine was consulted for admission. I had a conversation with his significant other, girlfriend of 12 years Anamika Bowers. She states he has 4 adult children (3 daughters and 1 son). He is estranged from his family and in the 12 years they have been together she has never met his children and is not aware of him seeing or talking with them. He has a brother whom he has not seen in years. She has no idea of how to contact his family. She has been his surrogate caregiver in the past. She reports that he has previously been DNR at [facility] but we have no documentation at this time. On arrival to the floor, patient's blood pressure became more hypotensive. He was initiated on norepinephrine. Currently tolerating BiPAP. Hospital Course Hospital Course Hospital Course: Mr. Wu is a morbidly obese 68-year-old male with history of heart failure with preserved ejection fraction, chronic respiratory failure on home BiPAP, chronically on 3 L oxygen, with CKD and recent admission for respiratory failure a month ago to [facility]. He presented via EMS for acute worsening and concern for sepsis with respiratory failure. Workup in the ER concerning for pneumonia, development of septic shock, and respiratory failure. Initiated on BiPAP. Discussed case with ER, request admission for ICU level of care and further management. Medicine agreed to admit. Received broad-spectrum antibiotics in the ER. Cultures obtained. Pulmonology consulted to assist with care including BiPAP management and critical care. Continues to show gradual improvement daily. Tolerating 3 L nasal cannula during the day. BiPAP at night. White cell count 15 K today. Awaiting placement for rehab. Continues to require inpatient management. Problems addressed as follows: Septic shock, resolved Acute on chronic hypoxemic respiratory failure with hypercapnia - improving Pickwickian syndrome Pneumonia Mixed respiratory acidosis, metabolic acidosis with concurrent metabolic alkalotic compensation. DC on Zyvox for 10days course, and follow up with pulmonary, patient declined to go to NH, he says he is not interested in NH placement, he has Home BIPAP setup and would use it, f/u with pulmonary as OP, pulmonary ok to dc OSMANI -resolved. Patient was seen and evaluated at the bedside on the day of discharge. Patient wishes to be discharged. All patient questions were answered and patient was given time to ask questions. Patient was discharged in stable condition. Patient understands that she can return to ER in case of any sudden changes in health. Total time spent on DC - 38 mins Exam Data for Last 24 hours Vital signs and Labs for Last 24 Hours: Temp Pulse Resp BP Pulse Ox O2 Del Method O2 Flow Rate 97.9 F 74 26 H 111/66 95 Nasal Cannula 3 08/28/23 12:00 08/28/23 12:00 08/28/23 12:00 08/28/23 12:00 08/28/23 12:00 08/28/23 15:00 08/28/23 15:00 FiO2 35 08/28/23 06:17 Laboratory Results - last 24 hr 08/27/23 16:20: POC Glucose 120 H 08/27/23 21:59: POC Glucose 142 H 08/28/23 05:43: WBC 16.3 H, RBC 3.61 L, Hgb 10.1 L, Hct 33.4 L, MCV 92.6, MCH 27.9, MCHC 30.1 L, RDW 16.4, Plt Count 286, MPV 9.5, Neut % (Auto) 78.7, Lymph % (Auto) 12.0, [place] % (Auto) 6.5, Eos % (Auto) 2.2, Baso % (Auto) 0.5, Neut # (Auto) 12.8 H, Lymph # (Auto) 2.0, [place] # (Auto) 1.1 H, Eos # (Auto) 0.4, Baso # (Auto) 0.1, Total Counted 100, Neutrophils % (Manual) 72, Lymphocytes % (Manual) 9 L, Monocytes % (Manual) 16 H, Eosinophils % (Manual) 2, Myelocytes % 1, Nucleated RBCs 1, Platelet Estimate Normal, Polychromasia 1+, Anisocytosis 1+, Macrocytosis 1+, Spherocytes 1+, Sodium 138, Potassium 3.9, Chloride 98, Carbon Dioxide 36 H, Anion Gap 7.9, BUN 25 H, Creatinine 1.10, Estimated Creat Clear 70, Estimated GFR 66, Est GFR ( Amer) 80, Glucose 112 H, Calcium 9.0, Magnesium 1.9, Total Bilirubin 0.3, AST 18, ALT 14, Alkaline Phosphatase 67, Total Protein 5.9 L, Albumin 2.8 L, Globulin 3.1, Albumin/Globulin Ratio 0.9 L 08/28/23 05:58: POC Glucose 119 H 08/28/23 09:52: VBG pH 7.41, VBG pCO2 61.1 H, VBG pO2 88.0 H, VBG HCO3 37.6 H, VBG Total CO2 39.5 H, VBG O2 Saturation 96.8 H, VBG Base Excess 12.9 H, VBG Lactic Acid 1.1 08/28/23 11:11: POC Glucose 128 H I & O for Last 24 hours: Intake & Output 08/25/23 08/26/23 08/27/23 08/28/23 23:59 23:59 23:59 23:59 Intake Total 1860 / 2310 2070 / 2320 1270 / 1670 1120 / 1120 Output Total 1745 / 1745 1475 / 1825 3175 / 3325 800 / 800 Balance 115 / 565 595 / 495 -1905 / -1655 320 / 320 Weight 148 kg 148 kg 148.6 kg 158.168 kg Microbiology Reports for the Last 24 Hours: Microbiology 08/24/23 14:00 Sputum - Expectorated Sputum Gram Stain - Final 08/24/23 14:00 Sputum - Expectorated Sputum Sputum Culture - Final Constitutional Constitutional: no acute distress *Routine HEENT Exam Head: Present normocephalic Eye: Present EOMI and PERRL ENT: Present mucous membranes moist *Routine Neck Exam Neck: Present supple; Absent lymphadenopathy *Routine Respiratory Exam Respiratory: Present distant breath sounds *Routine Cardiovascular Exam Cardiovascular: Present RRR *Routine Abdominal Exam Abdominal: Present soft and normoactive bowel sounds; Absent tenderness *Routine Extremities Exam Extremities: Absent cyanosis, clubbing or edema *Routine Skin Exam Skin: Present warm; Absent rash *Routine Neurological Exam Neurological: Present alert and oriented X3 Results Data Completed and Pending Labs on day of discharge: Labs from last 24 hours 08/28/23 08/28/23 08/28/23 11:11 09:52 05:58 WBC RBC Hgb Hct MCV MCH MCHC RDW Plt Count MPV Neut % (Auto) Lymph % (Auto) [place] % (Auto) Eos % (Auto) Baso % (Auto) Neut # (Auto) Lymph # (Auto) [place] # (Auto) Eos # (Auto) Baso # (Auto) Total Counted Neutrophils % (Manual) Lymphocytes % (Manual) Monocytes % (Manual) Eosinophils % (Manual) Myelocytes % Nucleated RBCs Platelet Estimate Polychromasia Anisocytosis Macrocytosis Spherocytes VBG pH 7.41 VBG pCO2 61.1 H VBG pO2 88.0 H VBG HCO3 37.6 H VBG Total CO2 39.5 H VBG O2 Saturation 96.8 H VBG Base Excess 12.9 H VBG Lactic Acid 1.1 Sodium Potassium Chloride Carbon Dioxide Anion Gap BUN Creatinine Estimated Creat Clear Estimated GFR Est GFR ( Amer) Glucose POC Glucose 128 H 119 H Calcium Magnesium Total Bilirubin AST ALT Alkaline Phosphatase Total Protein Albumin Globulin Albumin/Globulin Ratio 08/28/23 08/27/23 08/27/23 05:43 21:59 16:20 WBC 16.3 H RBC 3.61 L Hgb 10.1 L Hct 33.4 L MCV 92.6 MCH 27.9 MCHC 30.1 L RDW 16.4 Plt Count 286 MPV 9.5 Neut % (Auto) 78.7 Lymph % (Auto) 12.0 [place] % (Auto) 6.5 Eos % (Auto) 2.2 Baso % (Auto) 0.5 Neut # (Auto) 12.8 H Lymph # (Auto) 2.0 [place] # (Auto) 1.1 H Eos # (Auto) 0.4 Baso # (Auto) 0.1 Total Counted 100 Neutrophils % (Manual) 72 Lymphocytes % (Manual) 9 L Monocytes % (Manual) 16 H Eosinophils % (Manual) 2 Myelocytes % 1 Nucleated RBCs 1 Platelet Estimate Normal Polychromasia 1+ Anisocytosis 1+ Macrocytosis 1+ Spherocytes 1+ VBG pH VBG pCO2 VBG pO2 VBG HCO3 VBG Total CO2 VBG O2 Saturation VBG Base Excess VBG Lactic Acid Sodium 138 Potassium 3.9 Chloride 98 Carbon Dioxide 36 H Anion Gap 7.9 BUN 25 H Creatinine 1.10 Estimated Creat Clear 70 Estimated GFR 66 Est GFR ( Amer) 80 Glucose 112 H POC Glucose 142 H 120 H Calcium 9.0 Magnesium 1.9 Total Bilirubin 0.3 AST 18 ALT 14 Alkaline Phosphatase 67 Total Protein 5.9 L Albumin 2.8 L Globulin 3.1 Albumin/Globulin Ratio 0.9 L Preliminary micro results at discharge 08/22/23 12:43 Blood Culture - Preliminary Blood 08/22/23 12:40 Blood Culture - Preliminary Blood DS: Diagnosis Discharge Diagnosis (1) Pleural effusion: Status: Acute Code(s): J90 - Pleural effusion, not elsewhere classified (2) Acute on chronic respiratory failure with hypoxia and hypercapnia: Status: Acute Code(s): J96.21 - Acute and chronic respiratory failure with hypoxia; J96.22 - Acute and chronic respiratory failure with hypercapnia (3) Pneumonia: Status: Acute Code(s): J18.9 - Pneumonia, unspecified organism Meds Home Medications and Allergies Home Medications Medication Instructions Recorded Confirmed Type acetylcysteine 600 mg capsule 600 mg PO BID 08/22/23 08/22/23 History albuterol sulfate 90 mcg/actuation 2 puff inhalation Q4HP PRN 08/22/23 08/22/23 History aerosol inhaler Shortness Of Breath Or Wheezing atorvastatin 20 mg tablet 20 mg PO HS 08/22/23 08/22/23 History fluticasone fur. 200 mcg-umeclid 1 ea inhalation DAILY 08/22/23 08/22/23 History 62.5 mcg-vilant 25 mcg inhalat.powder (Trelegy Ellipta) furosemide 80 mg tablet 80 mg PO BIDL 08/22/23 08/22/23 History ipratropium 0.5 mg-albuterol 3 mg 3 ml inhalation Q4HP PRN Shortness 08/22/23 08/22/23 History (2.5 mg base)/3 mL nebulization Of Breath soln levothyroxine 150 mcg tablet 150 mcg PO DAILY 08/22/23 08/22/23 History metolazone 5 mg tablet 5 mg PO DAILYP PRN Swelling 08/22/23 08/22/23 History metoprolol succinate 25 mg 25 mg PO BID 08/22/23 08/22/23 History tablet,extended release 24 hr ondansetron HCl 4 mg tablet 4 mg PO Q6HP PRN Nausea And 08/22/23 08/22/23 History Vomiting potassium chloride 20 mEq 40 meq PO BID 08/22/23 08/22/23 History tablet,extended release prednisone 10 mg tablet 10 mg PO DAILY 08/22/23 08/22/23 History ranolazine 500 mg tablet,extended 500 mg PO BID 08/22/23 08/22/23 History release,12 hr spironolactone 50 mg tablet 50 mg PO BID 08/22/23 08/22/23 History trazodone 50 mg tablet 50 mg PO HSP PRN Sleep 08/22/23 08/22/23 History triamcinolone acetonide 0.1 % 1 applic topical DAILY 08/22/23 08/22/23 History topical cream linezolid 600 mg tablet (Zyvox) 600 mg PO Q12H 10 days #20 tabs 08/28/23 Rx linezolid 600 mg tablet (Zyvox) 600 mg PO Q12H 7 days #14 tabs 08/28/23 Rx New Prescriptions to Start Prescriptions: meryzolid [Zyvox] Kadeem Mejia linezolid [Zyvox] Kadeem Mejia Allergies Allergy/AdvReac Type Severity Reaction Status Date / Time penciclovir Allergy Difficulty Verified 08/22/23 23:13 Breathing Penicillins Allergy Hives Verified 08/22/23 23:13 tramadol AdvReac Diarrhea Verified 08/22/23 23:13 Discharge Plan Disposition Patient Disposition: Home, Self-Care Condition: Good Discharge Order Discharge Orders: Discharge Order (Routine); Ordered 08/28/23 Ordered By: Kadeem Mejia Follow up Plan Follow up with: Lauren Tirado MD [Physician] - 09/05/23 1:00 pm Prescriptions/Medication Reconciliation: New linezolid [Zyvox] 600 mg tablet 600 mg PO Q12H 7 Days Qty: 14 0RF linezolid [Zyvox] 600 mg tablet 600 mg PO Q12H 10 Days Qty: 20 0RF Continued prednisone 10 mg tablet 10 mg PO DAILY Patient Comments: TAKE 1 TABLET BY MOUTH EVERY DAY atorvastatin 20 mg tablet 20 mg PO HS Patient Comments: TAKE 1 TABLET BY MOUTH EVERY DAY AT NIGHT ipratropium-albuterol 0.5 mg-3 mg(2.5 mg base)/3 mL solution for nebulization 3 ml INHALATION Q4HP PRN (Reason: Shortness Of Breath) Patient Comments: INHALE 3 ML EVERY 4 HOURS NEEDED FOR WHEEZE trazodone 50 mg tablet 50 mg PO HSP PRN (Reason: Sleep) Patient Comments: TAKE 1 TABLET BY MOUTH EVERY DAY AT BEDTIME NEEDED FOR SLEEP ondansetron HCl 4 mg tablet 4 mg PO Q6HP PRN (Reason: Nausea And Vomiting) Patient Comments: TAKE 1 TABLET BY MOUTH EVERY 6 HOURS NEEDED FOR NAUSEA metolazone 5 mg tablet 5 mg PO DAILYP PRN (Reason: Swelling) Patient Comments: TAKE 1 TABLET BY MOUTH DAILY NEEDED FOR OTHER (WEIGHT GAIN 5 POUNDS). triamcinolone acetonide 0.1 % cream 1 applic TOPICAL DAILY Patient Comments: APPLY 1 APPLICATION ON THE SKIN DAILY APPLY TO RASH ON CHEST AND BACK furosemide 80 mg tablet 80 mg PO BIDL Patient Comments: TAKE 1 TABLET BY MOUTH TWICE DAILY DIURETIC. levothyroxine 150 mcg tablet 150 mcg PO DAILY Patient Comments: TAKE 1 TABLET BY MOUTH EVERY DAY metoprolol succinate 25 mg tablet extended release 24 hr 25 mg PO BID Patient Comments: TAKE 1 TABLET BY MOUTH TWICE A DAY albuterol sulfate 90 mcg/actuation HFA aerosol inhaler 2 puff INHALATION Q4HP PRN (Reason: Shortness Of Breath Or Wheezing) Patient Comments: INHALE 2 PUFFS BY MOUTH EVERY 4 HOURS NEEDED FOR WHEEZE spironolactone 50 mg tablet 50 mg PO BID Patient Comments: TAKE 1 TABLET BY MOUTH TWICE DAILY DIURETIC. ranolazine 500 mg tablet extended release 12 hr 500 mg PO BID Patient Comments: TAKE 1 TABLET BY MOUTH EVERY 12 HOURS acetylcysteine 600 mg capsule 600 mg PO BID Patient Comments: TAKE 1 CAPSULE BY MOUTH TWICE A DAY potassium chloride 20 mEq tablet extended release 40 meq PO BID Patient Comments: TAKE 2 TABLETS BY MOUTH TWICE A DAY WITH MEALS Trelegy Ellipta 200-62.5-25 mcg blister with device 1 ea INHALATION DAILY Problem Reconciliation Problems Reviewed?: Yes Patient Discharge Instructions ACTIVITY: Ambulate as tolerated DIET: continue same diet Patient Instructions: Getting to the Heart of a Healthy Diet: Protein-Rich Foods, Methicillin-Resistant Staph Infection, Carbohydrate-Counting Diet, DI for Heart Failure, DI for Chronic Obstructive Pulmonary Disease, DI for Methicillin-Resistant Staph Infection (MRSA), Catheter-associated Urinary Tract Infection Providers Primary Care Provider: Provider,Referral Admit Provider: Danielito Torres Attending Provider: Danielito Torres
--- NOTE | 2023-08-30 09:49 | CARE MANAGER ---
Unable to reach patient via phone to discuss recent discharge. Call attempted X 2 and no VM available.
== END 2023-08-28 15:58 | disposition home or self-care (01) | DRG 871 ==
LOC: ER 14:42 → 2ND 16:09
PROVIDERS: Internal Medicine Pulmonary Disease; Admitting Provider Internal Medicine Adolescent Medicine; Emergency Provider Emergency Medicine; Visit Provider Internal Medicine Adolescent Medicine
DX: A41.9 Sepsis, unspecified organism (principal); G93.41 Metabolic encephalopathy; J18.9 Pneumonia, unspecified organism; J96.21 Acute and chronic respiratory failure with hypoxia; J96.22 Acute and chronic respiratory failure with hypercapnia; R65.21 Severe sepsis with septic shock; J90 Pleural effusion, not elsewhere classified; E66.2 Morbid (severe) obesity with alveolar hypoventilation; Z68.42 Body mass index [BMI] 45.0-49.9, adult; E87.29 Other acidosis; N17.9 Acute kidney failure, unspecified; I50.32 Chronic diastolic (congestive) heart failure; I13.0 Hypertensive heart and chronic kidney disease with heart failure and stage 1 through stage 4 chronic kidney disease, or unspecified chronic kidney disease; Z99.81 Dependence on supplemental oxygen; N18.9 Chronic kidney disease, unspecified; Z91.148 Patient's other noncompliance with medication regimen for other reason; I48.91 Unspecified atrial fibrillation
CPT/HCPCS: 36415; 70450; 71045; 71250; 74176; 80048; 80053; 80061; 80202; 81001; 82803; 82962; 83036; 83605; 83735; 83880; 84145; 84436; 84443; 84484; 85007; 85014; 85018; 85025; 85048; 85049; 85378; 86140; 86703; 87040; 87070; 87081; 87086; 87205; 87632; 87635; 87636; 93005; 93306; 94640; 94660; 94667; 94761; 97110; 97163; 97166; 97530; 99291; G0432; J0456; J2020; J2185; J2405; J2543; J3370; J3475

== ENCOUNTER 2023-09-19 08:37 | Emergency (ER) | payer MEDICARE, SELFPAY ==
[2023-09-19] VITALS (15 sets, daily range): BP systolic 87–116; BP diastolic 46–67; PULSE 68–91; RESP 12–26; TEMP 36.7–36.8; O2SAT 91–100; BMI 42.2
--- NOTE | 2023-09-19 08:42 | ECG_ITS ---
APPROVED REPORT Exam: Resting ECG HR:88 bpm ECG Measurements Heart Rate 88 AXES WI 171 P 105 QRSd 141 QRS -71 QT 399 T 69 QTc 445 Conclusion SINUS RHYTHM WITH left axis deviation Left bundle branch block Electronically signed by : DENISE DYER, 09/19/2023 15:48:37
--- NOTE | 2023-09-19 08:47 | XR_ITS ---
FINAL REPORT TECHNIQUE: Single view chest CLINICAL HISTORY: soa, productive cough, R insp wheexing FINDINGS: A single view of the chest was obtained. The heart is mildly enlarged. There are patchy bibasilar airspace infiltrates, right greater than left with small to moderate pleural effusions. There is no pneumothorax. Osseous structures are unremarkable. IMPRESSION: Findings consistent with acute pneumonia. Reviewed, Interpreted and Dictated by Elliot Strange MD Transcribed by Mera Grossman Authenticated and [facility]
--- NOTE | 2023-09-19 08:54 | PC.NURSE ---
RT notified of VBG order
[2023-09-19 09:00] LABS: Lactate Venous 2.7 mmol/L (0.4-2.0); VBG HCO3 54.7 mmol/L (23-30); VBG Oxygen Saturation 84.4 % (50-70); VBG PH 7.46 mmol/L (7.31-7.41); VBG PO2 45.1 mmol/L (28-40); VBG Total CO2 57.1 mmol/L (23-27)
[2023-09-19 09:00] LABS: Basophils # 0.1 K/mm3 (0-0.2); Eosinophils # 0.4 K/mm3 (0.0-0.4); Eosinophils % 4.3 % (0.1-12.0); Hematocrit 32.3 % (42.0-52.0); Lymphocytes # 0.7 K/mm3 (0.7-4.5); Lymphocytes % 7.9 % (10-50); Mean Corpuscular Hemoglobin 27.4 pg (27.0-31.2); Mean Corpuscular Volume 88.2 fl (80-94); Mean Platelet Volume 8.7 fl (7.4-10.4); Monocytes # 0.4 K/mm3 (0.1-1.0); Monocytes % 4.8 % (1.7-9.3); Neutrophils # 7.4 K/mm3 (1.8-7.8); Neutrophils % 82.1 % (37.0-80.0); Platelet Count 295 K/mm3 (142-424); Red Blood Count 3.67 M/mm3 (4.60-6.20); Red Cell Distribution Width 16.9 % (11.5-17.5)
--- NOTE | 2023-09-19 09:00 | ED_ITS ---
Discharge Plan Disposition Patient Disposition: Xfer Short-Term Hosp Chief Complaint: Shortness of Breath/Dyspnea Prescriptions Prescriptions: No Action prednisone 10 mg tablet 10 mg PO DAILY Patient Comments: TAKE 1 TABLET BY MOUTH EVERY DAY atorvastatin 20 mg tablet 20 mg PO HS Patient Comments: TAKE 1 TABLET BY MOUTH EVERY DAY AT NIGHT ipratropium-albuterol 0.5 mg-3 mg(2.5 mg base)/3 mL solution for nebulization 3 ml INHALATION Q4HP PRN (Reason: Shortness Of Breath) Patient Comments: INHALE 3 ML EVERY 4 HOURS NEEDED FOR WHEEZE trazodone 50 mg tablet 50 mg PO HSP PRN (Reason: Sleep) Patient Comments: TAKE 1 TABLET BY MOUTH EVERY DAY AT BEDTIME NEEDED FOR SLEEP ondansetron HCl 4 mg tablet 4 mg PO Q6HP PRN (Reason: Nausea And Vomiting) Patient Comments: TAKE 1 TABLET BY MOUTH EVERY 6 HOURS NEEDED FOR NAUSEA metolazone 5 mg tablet 5 mg PO DAILYP PRN (Reason: Swelling) Patient Comments: TAKE 1 TABLET BY MOUTH DAILY NEEDED FOR OTHER (WEIGHT GAIN 5 POUNDS). triamcinolone acetonide 0.1 % cream 1 applic TOPICAL DAILY Patient Comments: APPLY 1 APPLICATION ON THE SKIN DAILY APPLY TO RASH ON CHEST AND BACK furosemide 80 mg tablet 80 mg PO BIDL Patient Comments: TAKE 1 TABLET BY MOUTH TWICE DAILY DIURETIC. levothyroxine 150 mcg tablet 150 mcg PO DAILY Patient Comments: TAKE 1 TABLET BY MOUTH EVERY DAY metoprolol succinate 25 mg tablet extended release 24 hr 25 mg PO BID Patient Comments: TAKE 1 TABLET BY MOUTH TWICE A DAY albuterol sulfate 90 mcg/actuation HFA aerosol inhaler 2 puff INHALATION Q4HP PRN (Reason: Shortness Of Breath Or Wheezing) Patient Comments: INHALE 2 PUFFS BY MOUTH EVERY 4 HOURS NEEDED FOR WHEEZE spironolactone 50 mg tablet 50 mg PO BID Patient Comments: TAKE 1 TABLET BY MOUTH TWICE DAILY DIURETIC. ranolazine 500 mg tablet extended release 12 hr 500 mg PO BID Patient Comments: TAKE 1 TABLET BY MOUTH EVERY 12 HOURS acetylcysteine 600 mg capsule 600 mg PO BID Patient Comments: TAKE 1 CAPSULE BY MOUTH TWICE A DAY potassium chloride 20 mEq tablet extended release 40 meq PO BID Patient Comments: TAKE 2 TABLETS BY MOUTH TWICE A DAY WITH MEALS Trelegy Ellipta 200-62.5-25 mcg blister with device 1 ea INHALATION DAILY linezolid [Zyvox] 600 mg tablet 600 mg PO Q12H 7 Days Qty: 14 0RF linezolid [Zyvox] 600 mg tablet 600 mg PO Q12H 10 Days Qty: 20 0RF Referrals Follow up/Referrals: Provider,Referral, MD [Primary Care Provider] - See instructions Clinical Impressions Clinical Impression: Pneumonia, Acute on chronic respiratory failure with hypoxia and hypercapnia, Metabolic alkalosis, Acute on chronic respiratory acidosis, Acute exacerbation of chronic obstructive pulmonary disease Discharge ED Provider: Abisai Bojorquez HPI General Chief Complaint: Shortness of Breath/Dyspnea Stated Complaint: SOA Time Seen by Provider: 09/19/23 08:46 History of Present Illness HPI narrative: Please note that above description of symptoms, in this electronic medical record under categorization of recalled from ER triage doctor by RN are reflective of an initial nursing assessment, however, is not reflective of my full history and physical exam that was personally taken and clarified. Consequentially, this preceding description of symptoms, which may include the patient's categorized chief complaint in the EMR, do not reflect my personal clinical impression, and the ultimate description of history of present illness and patient stated complaints should be deferred to this section of the note. Unless stated otherwise or congruent with this section of the note, additional signs, symptoms, or incongruence should be interpreted as inaccurate with my clinical impression. Related Data Home Medications Medication Instructions Recorded Confirmed acetylcysteine 600 mg capsule 600 mg PO BID 08/22/23 08/22/23 albuterol sulfate 90 mcg/actuation 2 puff inhalation Q4HP PRN 08/22/23 08/22/23 aerosol inhaler Shortness Of Breath Or Wheezing atorvastatin 20 mg tablet 20 mg PO HS 08/22/23 08/22/23 fluticasone fur. 200 mcg-umeclid 1 ea inhalation DAILY 08/22/23 08/22/23 62.5 mcg-vilant 25 mcg inhalat.powder (Trelegy Ellipta) furosemide 80 mg tablet 80 mg PO BIDL 08/22/23 08/22/23 ipratropium 0.5 mg-albuterol 3 mg 3 ml inhalation Q4HP PRN Shortness 08/22/23 08/22/23 (2.5 mg base)/3 mL nebulization Of Breath soln levothyroxine 150 mcg tablet 150 mcg PO DAILY 08/22/23 08/22/23 metolazone 5 mg tablet 5 mg PO DAILYP PRN Swelling 08/22/23 08/22/23 metoprolol succinate 25 mg 25 mg PO BID 08/22/23 08/22/23 tablet,extended release 24 hr ondansetron HCl 4 mg tablet 4 mg PO Q6HP PRN Nausea And 08/22/23 08/22/23 Vomiting potassium chloride 20 mEq 40 meq PO BID 08/22/23 08/22/23 tablet,extended release prednisone 10 mg tablet 10 mg PO DAILY 08/22/23 08/22/23 ranolazine 500 mg tablet,extended 500 mg PO BID 08/22/23 08/22/23 release,12 hr spironolactone 50 mg tablet 50 mg PO BID 08/22/23 08/22/23 trazodone 50 mg tablet 50 mg PO HSP PRN Sleep 08/22/23 08/22/23 triamcinolone acetonide 0.1 % 1 applic topical DAILY 08/22/23 08/22/23 topical cream Previous Rx's Medication Instructions Recorded linezolid 600 mg tablet (Zyvox) 600 mg PO Q12H 10 days #20 tabs 08/28/23 linezolid 600 mg tablet (Zyvox) 600 mg PO Q12H 7 days #14 tabs 08/28/23 Allergies Allergy/AdvReac Type Severity Reaction Status Date / Time penciclovir Allergy Difficulty Verified 08/22/23 23:13 Breathing Penicillins Allergy Hives Verified 08/22/23 23:13 tramadol AdvReac Diarrhea Verified 08/22/23 23:13 [facility] PFS Disclaimer: The information contained in this section may have been updated after the patient was seen, as this information can be updated by other users. Medical History (Updated 09/19/23 @ 11:22 by Abisai Bojorquez MD) DEMETRIA (obstructive sleep apnea) On home oxygen therapy Tortuous aorta Aortic calcification Reduced ejection fraction concurrent with and due to acute on chronic heart failure History of gastrectomy Cataract (lens) fragments in eye following cataract surgery, bilateral Lymphedema Hyperlipidemia Hiatal hernia Chronic respiratory failure with hypoxia Prostate cancer BPH (benign prostatic hyperplasia) Cor pulmonale HTN (hypertension) Diabetes mellitus Atrial fibrillation CKD stage 3 secondary to diabetes Pneumonia COPD (chronic obstructive pulmonary disease) Congestive heart failure Surgical History (Updated 08/22/23 @ 23:20 by Kenan Guevara RN) Hx of tonsillectomy H/O hernia repair Family History (Updated 08/22/23 @ 23:21 by Kenan Guevara RN) Other Family history of arthritis Family history of cancer Family history of diabetes mellitus type II Family history of heart disease Family history of hypertension Social History (Updated 08/22/23 @ 23:22 by Kenan Guevara RN) Smoking Status: Never smoker alcohol intake: never current occupational status: retired and disabled Travel in the last 8 weeks: None household members: significant other ROS Obtained: Yes All systems reviewed & no additional complaints except as documented Physical Exam General General appearance: alert, in no apparent distress, anxious and obese Neck Neck exam: Present trachea midline and other (No obvious JVD) Chest Chest inspection: Present normal inspection and symmetric chest wall rise Respiratory Respiratory exam: Present wheezes (Bilateral expiratory wheezes, anterior right greater than anywhere else); Absent normal lung sounds bilaterally, respiratory distress, stridor, accessory muscle use or prolonged expiratory phase Cardiovascular Cardiovascular exam: Present regular rate and normal rhythm Extremities Exam Extremities exam: Present edema (Bilateral lower extremity, minimal pitting, but chronic skin changes) Neurological Exam Neurological exam: Present alert, oriented X3 and CN II-XII intact Skin Skin exam: Present warm and dry; Absent cyanosis, diaphoresis or pallor HEART Score HEART Score HEART Score assessment performed?: Yes HEART Score: 4 Procedures Limited Ultrasound Indication:: Limited EFAST ultrasound Indication: Shortness of breath Views: Limited cardiac, limited thoracic Interpretation: Bilateral thoracic cavities: No effusion, bilateral lung sliding, no B-lines Limited cardiac: Subxiphoid and apical 4, no evidence of effusion, right heart strain Impression: No evidence of CHF or pneumothorax. No obvious right heart strain. Images were saved to permanent archive The study was technically adequate CPT 10939-42 (limited cardiac) 39697-11 (chest) This study was performed by me, and I personally interpreted all images/videos. Based on my clinical judgement, these images were adequate and did not necessitate further imaging. Critical Care Critical Care Time Critical Care Time: Yes (resp) Attestation: On 09/19/23, the high probability of a clinically significant, sudden or life threatening deterioration of the following system(s) required my full and direct attention, intervention and personal management. The time I documented below is in addition to time spent performing reported procedures but includes the following listed in this critical care notation. Total Time Total Critical Care Time: 120 Medical Decision Making Medical Records Medical records reviewed: Yes I reviewed the patient's medical records. Jeremy Inquiry Pt receiving controlled substance: No Jeremy was queried for this patient: No Vital Signs Vital Signs: 09/19/23 08:47 09/19/23 08:49 09/19/23 08:56 Temperature 98.3 F Temperature Source Oral Pulse Rate 87 87 Pulse Rate [Left Radial] 91 H Respiratory Rate 20 20 25 H Blood Pressure 87/67 L 101/46 L Blood Pressure [Right Arm] 101/46 L Blood Pressure Mean 71 64 Blood Pressure Mean [Right Arm] 64 02 Sat by Pulse Oximetry 99 99 92 L Oxygen Delivery Method Nasal Cannula Oxygen Flow Rate (LPM) 5 09/19/23 09:00 09/19/23 09:31 09/19/23 10:00 Temperature Temperature Source Pulse Rate 87 78 83 Pulse Rate [Left Radial] Respiratory Rate 20 20 20 Blood Pressure 113/58 L 91/57 L 101/50 L Blood Pressure [Right Arm] Blood Pressure Mean 65 72 67 Blood Pressure Mean [Right Arm] 02 Sat by Pulse Oximetry 99 91 L 91 L Oxygen Delivery Method Oxygen Flow Rate (LPM) 09/19/23 10:30 Temperature Temperature Source Pulse Rate 83 Pulse Rate [Left Radial] Respiratory Rate 17 Blood Pressure 113/62 Blood Pressure [Right Arm] Blood Pressure Mean 70 Blood Pressure Mean [Right Arm] 02 Sat by Pulse Oximetry 91 L Oxygen Delivery Method Oxygen Flow Rate (LPM) Lab Data Labs: Lab Results 09/19/23 08:45: WBC 9.0, RBC 3.67 L, Hgb 10.0 L, Hct 32.3 L, MCV 88.2, MCH 27.4, MCHC 31.0 L, RDW 16.9, Plt Count 295, MPV 8.7, Neut % (Auto) 82.1 H, Lymph % (Auto) 7.9 L, [place] % (Auto) 4.8, Eos % (Auto) 4.3, Baso % (Auto) 1.0, Neut # (Auto) 7.4, Lymph # (Auto) 0.7, [place] # (Auto) 0.4, Eos # (Auto) 0.4, Baso # (Auto) 0.1, Sodium 129 L, Potassium 2.9 L*, Chloride 67 L, Carbon Dioxide 58 H*, Anion Gap 6.9, BUN 22 H, Creatinine 1.00, Estimated GFR 74, Est GFR ( Amer) 90, Glucose 140 H, Lactate 1.5, Calcium 9.5, Total Bilirubin 0.6, AST 25, ALT 17, Alkaline Phosphatase 75, Troponin I 0.01, NT-Pro-B Natriuret Pep 762 H, Total Protein 6.7, Albumin 3.4 L, Globulin 3.3 H, Albumin/Globulin Ratio 1.0 L, Procalcitonin 0.265 09/19/23 08:54: VBG pH 7.46 H, VBG pCO2 78.0 H, VBG pO2 45.1 H, VBG HCO3 54.7 H, VBG Total CO2 57.1 H, VBG O2 Saturation 84.4 H, VBG Base Excess 31.0 H, VBG Lactic Acid 2.7 H 09/19/23 08:59: SARS-CoV-2 (PCR) Not detected, Influenza A Untype (PCR) Not detected, Influenza Type B (PCR) Not detected 09/19/23 08:45 09/19/23 08:45 Response Orders (Tests/Meds): ED MEDICATIONS Generic Name Dose Route Start Last Admin Trade Name Freq PRN Reason Stop Dose Admin Potassium Chloride/Water 100 mls @ 50 mls/hr 09/19/23 09:40 09/19/23 09:51 Potassium Chloride 20meq/100ml Ivpb IV 09/19/23 13:39 50 mls/hr Q2H KARIN Administration Sodium Chloride 2,400 mls @ 1,200 mls/hr 09/19/23 10:05 09/19/23 10:10 Sod Chlor 0.9% 1000ml Bag 30 ml/kg infuse over 2 hr (2400 ml) 09/19/23 12:04 1,200 mls/hr IV Administration .Q2H ONE Discontinued Medications Generic Name Dose Route Start Last Admin Trade Name Freq PRN Reason Stop Dose Admin Albuterol/Ipratropium 6 ml 09/19/23 08:47 09/19/23 09:01 Ipratropium/Albuterol 3 Ml Neb IH 09/19/23 08:48 6 ml ONCE ONE Administration Ceftriaxone Sodium 2 gm/ 100 mls @ 200 mls/hr 09/19/23 09:07 09/19/23 09:21 Sodium Chloride IV 09/19/23 09:36 200 mls/hr ONCE ONE Administration Azithromycin 500 mg/ Sodium 250 mls @ 250 mls/hr 09/19/23 09:18 09/19/23 09:52 Chloride IV 09/19/23 09:19 250 mls/hr ONCE ONE Administration Ondansetron HCl 4 mg 09/19/23 10:04 09/19/23 10:08 Ondansetron 4mg/2ml Vial IV 09/19/23 10:05 4 mg ONCE ONE Administration ORDERS Category Date Time Status POCUS Point of Care (ER Only) Stat Exams 09/19/23 08:47 Completed XR chest portable Stat Exams 09/19/23 08:47 Taken Complete Blood Count Auto Diff Stat Lab 09/19/23 08:45 Completed Comprehensive Metabolic Panel Stat Lab 09/19/23 08:45 Completed Lactic Acid Stat Lab 09/19/23 08:45 Completed NT Pro Brain Natriuretic Pep. Stat Lab 09/19/23 08:45 Completed Procalcitonin Stat Lab 09/19/23 08:45 Completed Rapid PCR Covid and Flu A/B Stat Lab 09/19/23 08:59 Completed Troponin I Q3H Lab 09/19/23 12:00 Ordered Troponin I Q3H Lab 09/19/23 15:00 Ordered Troponin I Stat Lab 09/19/23 08:45 Completed VBG [Venous Blood Gas] Stat RT 09/19/23 08:54 Completed MDM Narrative Medical Decision Narrative: 68-year-old male history of hypertension, hyperlipidemia, COPD 2 L nasal cannula at home, A-fib CKD with baseline creatinine 1.1, hypothyroidism, atrial fibrillation presenting with shortness of breath. Patient states that his shortness of breath started 3 to 4 days prior to this visit. Has been progressively worsening. Patient states that he developed a cough 2 or 3 days prior, initially clear, now green and copious sputum. No fevers or chills, nausea or vomiting. Having more difficulty sleeping due to shortness of breath, but sleeps in a recliner, so unable to comment on PND or orthopnea. EMS was contacted today. On arrival, patient in the 70s on 2 L nasal cannula, placed on nonrebreather, given 2 DuoNebs, 125/Medrol, brought to the emergency department. On arrival, patient states he feels terrible, but a little better than he did when EMS arrived. Denies chest pain, worsening lower extremity swelling, decreased urine output, abdominal pain, sick contacts, or any other concerns. History was obtained via conversation with patient and EMS. On arrival, patient hemodynamically stable, alert, oriented x4, appropriate, GCS 15, moving all extremities spontaneously, pupils equal and reactive to light. Full physical exam performed and significant for not in any acute distress as compared to report from EMS. Patient is on nonrebreather on arrival saturating about 98%. Patient has inspiratory wheezes bilaterally, anterior/inferior right-sided breath sounds with more significant wheezes and rales. Patient afebrile 93, but other vital signs concerning for systolic blood pressure 101, diastolic 46, pulse 91, respiratory rate 25. 92% on room air with worsening tachypnea, patient placed on 6 L nasal cannula respiratory rate 25. BiPAP ordered after bedside ultrasound performed. Differential includes COPD exacerbation, CHF exacerbation, pneumonia, pneumothorax, PE, medication noncompliance, acute fluid retention, among others Patient was given DuoNeb x 2 for symptomatic management and correction of underlying abnormalities. Solu-Medrol given in route, 125 mg. Also given azithromycin and ceftriaxone. Workup independently interpreted and significant for no leukocytosis, but neutrophilic predominance. Patient appears to have mixed metabolic alkalosis and respiratory acidosis on VBG with pH 7.46, CO2 elevated at 78, HCO3 54.7, lactic acid 2.7. Patient's CMP with hyponatremia 129, hypokalemia 2.9, hypochloremia 67, no anion gap with normal kidney function. LFTs within normal limits. Troponin negative, BNP only mildly elevated at 760. Procalcitonin negative at 0.2 ng/mL. COVID/flu negative. Chest x-ray with concern for right lower lobe developing airspace disease with small pleural effusion. Read pending at time of transfer. Independent interpretation of EKG shows sinus rhythm 88 beats a minute with no ST or T wave changes concerning for acute ischemia. Appears to be significant respiratory variation versus sinus arrhythmia. Left axis deviation with left bundle branch block. Patient placed on continuous cardiac monitoring and continuous pulse ox with initial blood pressure 87/67, heart rate 98 beats a minute, saturation 90% on room air, but breathing 30 times a minute. Placed on 6 L nasal cannula prior to BiPAP with improvement in respiratory rate to 25. Heart score 4. On reevaluation, patient resting comfortably on BiPAP without complaints. Hospital medicine here was contacted and case was discussed at length. Given patient's history of clinical decompensation needing intubation, ventilation, and pulmonary/critical care, and our folder hand not currently available, transfer was requested. [facility] was contacted and case was discussed at length, graciously excepted transfer for acute on chronic hypoxemic and hypercapnic respiratory failure, pneumonia, metabolic alkalosis with respiratory acidosis. Because patient high risk for clinical decompensation if discharged, deemed appropriate for transfer and inpatient admission. Results were relayed to patient who voiced understanding and patient was agreeable to transfer, inpatient admission, and management. Patient was graciously accepted and transferred to [facility] for further definitive management, under Dr. Guiod. [employer] Project Manager disclaimer Much of this encounter note is an electronic bead stringer spoken language to printed text. Electronic bead stringer of the spoken language may permit errors. Although I have reviewed the note, some errors may still exist.
[2023-09-19] MEDS: IPRATROPIUM/ALBUTEROL 3 ML NEB 6 ML IH (09:01)
[2023-09-19 09:04] LABS: Coronavirus 19, PCR Not Detected (NotDetected); Influenza A, PCR Not Detected (NotDetected); Influenza B, PCR Not Detected (NotDetected)
[2023-09-19 09:07] LABS: Alanine Aminotransferase 17 U/L (12-78); Albumin Level 3.4 g/dl (3.5-5.0); Alkaline Phosphatase 75 U/L (38-126); Aspartate Amino Transferase 25 U/L (17-59); Bilirubin,Total 0.6 mg/dl (0.2-1.3); Blood Urea Nitrogen 22 mg/dl (9-20); Calcium 9.5 mg/dl (8.4-10.2); Estimated Glomerular Filt Rate 74 ml/min (>60); GFR (African American) 90 ML/MIN (>60); Globulin 3.3 g/dL (1.3-3.2); Glucose 140 mg/dl (74-100); Sodium 129 mmol/L (136-145); Total Protein,Serum 6.7 g/dl (6.3-8.2)
[2023-09-19 09:08] LABS: Lactic Acid 1.5 mmol/L (0.7-2.1)
[2023-09-19 09:12] LABS: Potassium 2.9 mmoL/L (3.5-5.1)
--- NOTE | 2023-09-19 09:12 | PC.NURSE ---
critical K+ 2.9 received from bertram in lab. pt name and r/v, dr peguero notified
--- NOTE | 2023-09-19 09:14 | PC.NURSE ---
RESPIRATORY, SHANE NOTIFIED OF BI-PAP ORDER
[2023-09-19 09:15] LABS: Chloride 67 mmol/L (98-107)
--- NOTE | 2023-09-19 09:15 | PC.NURSE ---
CRITICAL CHLORIDE 67, RECEIVED FROM KIESHA IN LAB. PT NAME AND , R/V. DR DYER NOTIFIED
[2023-09-19 09:19] LABS: NT Pro Brain Natriuretic Pep. 762 pg/mL (0-125)
--- NOTE | 2023-09-19 09:20 | PC.NURSE ---
RESPIRATORY AT BEDSIDE, PT PLACED ON BI-PAP
[2023-09-19] MEDS: CEFTRIAXONE SODIUM 2 GM in 0.9 % SODIUM CHLORIDE 100 ML IV (09:21)
[2023-09-19 09:24] LABS: Procalcitonin 0.265 ng/mL (0.0-2.0)
[2023-09-19] MEDS: KCl 20mEq/100ml 100 ML 50 MEQ IV ×2 (09:51→12:13)
[2023-09-19] MEDS: AZITHROMYCIN 500 MG in 0.9 % SODIUM CHLORIDE 250 ML 250 MG IV (09:52)
[2023-09-19 09:57] LABS: Troponin I 0.01 ng/ml (0.00-0.034)
[2023-09-19 10:00] LABS: Anion Gap 6.9 mEq/L (5-15); Carbon Dioxide 58 mmol/L (22.0-30.0)
--- NOTE | 2023-09-19 10:00 | PC.NURSE ---
CRITICAL CO2 58 RECEIVED FROM KIESHA IN LAB. PT NAME AND R/V
[2023-09-19] MEDS: ONDANSETRON 4MG/2ML VIAL 4 MG IV (10:08)
[2023-09-19] MEDS: 0.9 % SODIUM CHLORIDE 1000ML 2,400 ML 1200 ML IV (10:10)
--- NOTE | 2023-09-19 10:24 | PC.NURSE ---
DR DYER SPEAKING WITH DR DRAPER FOR ADMISSION. DR DRAPER WILL CALL BACK
--- NOTE | 2023-09-19 10:33 | PC.NURSE ---
DR DYER SPEAKING WITH DR DRAPER FOR ADMISSION
--- NOTE | 2023-09-19 10:41 | PC.NURSE ---
hospitalist declined admission r/t absent pulmonary coverage. pt to be transferred
--- NOTE | 2023-09-19 10:47 | PC.NURSE ---
Called [facility] for Dr Bojorquez about this pt to see about getting them transferred for Hypoxic Resp Failure, Metabolic Alkalosis, and Resp Acidosis.. [facility] advised they would call back because they didnt have any immediate beds.
--- NOTE | 2023-09-19 11:00 | PC.NURSE ---
face sheet faxed to [facility]
--- NOTE | 2023-09-19 11:04 | PC.NURSE ---
Dr. Bojorquez speaking with Dr. Ramsay at [facility] about possible transfer
--- NOTE | 2023-09-19 11:11 | PC.NURSE ---
Pt accepted by Dr. Guido at [facility]. Waiting for call back about bed assignment
[2023-09-19] MEDS: diazePAM 10MG/2ML SYRINGE IV (11:20)
--- NOTE | 2023-09-19 11:39 | PC.NURSE ---
DR DYER AT BEDSIDE TO UPDATE PT
--- NOTE | 2023-09-19 11:55 | PC.NURSE ---
PT ASSISTED TO RECLINER FOR COMFORT, CALL LIGHT WITHIN REACH
--- NOTE | 2023-09-19 11:59 | SW/DCPLANNER ---
I called and spoke w/ Christel at [facility]: patient discharged from Hospice services this AM.
[2023-09-19 13:01] LABS: Reflex Lactic Add Lactic Reflex
[2023-09-19 13:38] LABS: Lactic Acid Follow Up (RFLX 1) 0.9 mmol/L (0.7-2.1)
--- NOTE | 2023-09-19 14:38 | PC.NURSE ---
Called [facility] to advise the that this pt was ready to be transferred
== END 2023-09-19 15:18 | disposition short-term general hospital (02) ==
PROVIDERS: Emergency Provider Emergency Medicine
DX: J96.21 Acute and chronic respiratory failure with hypoxia (principal); J96.02 Acute respiratory failure with hypercapnia; E87.29 Other acidosis; J18.9 Pneumonia, unspecified organism; J44.1 Chronic obstructive pulmonary disease with (acute) exacerbation; E87.6 Hypokalemia; E87.1 Hypo-osmolality and hyponatremia; I44.7 Left bundle-branch block, unspecified; E11.22 Type 2 diabetes mellitus with diabetic chronic kidney disease; N18.30 Chronic kidney disease, stage 3 unspecified; E78.5 Hyperlipidemia, unspecified; I11.0 Hypertensive heart disease with heart failure; I50.33 Acute on chronic diastolic (congestive) heart failure; E03.9 Hypothyroidism, unspecified
CPT/HCPCS: 36415; 71045; 80053; 82803; 83605; 83880; 84145; 84484; 85025; 87636; 93005; 96365; 96366; 96367; 96375; 99291; J0456; J0696; J2405

== ENCOUNTER 2024-01-12 22:14 | Inpatient (IN) | payer MEDICARE, SELFPAY ==
[2024-01-12 22:14] VITALS: BP 126/78; PULSE 87; RESP 22; TEMP 37.1; O2SAT 95; BMI 46.7; BMI 46.9
--- NOTE | 2024-01-12 22:17 | ED_ITS ---
Discharge Plan Disposition Patient Disposition: Admitted Clinical Impressions Clinical Impression: Morbid obesity, Leukocytosis, Volume overload, Bleeding per rectum Heart failure Qualifiers: Heart failure chronicity: acute on chronic Discharge ED Provider: Michoacano Ortiz HPI <QING Coronel - Last Filed: 01/12/24 23:16> General Chief Complaint: Shortness of Breath/Dyspnea Stated Complaint: SOA Time Seen by Provider: 01/12/24 22:16 History of Present Illness HPI narrative: Patient presenting for evaluation of initially swelling . Patient has a history of morbid obesity with a BMI of 46, history of CHF, history of oxygen dependent COPD, pickwickian syndrome, hypothyroidism, history of pleural effusions. Patient reports that he was initially placed in hospice by his primary care physician approximately 6 months ago however patient refused that and since then has been rehab in myself . He gets visits from a home care agency although I am unsure as to what level services a provide. Patient however states that he has been having significant swelling and shortness of breath over the last week particularly in his scrotum and penis. Patient reports that he is up 50 pounds from his reported dry weight of 301. He denies fever chills hemoptysis hematochezia melena nausea vomiting diarrhea. Patient states that he gets up walks cooks for himself normally and has been for the last 6 months. Related Data Home Medications ?Medication ?Instructions ?Recorded ?Confirmed acetylcysteine 600 mg capsule 600 mg PO BID 08/22/23 08/22/23 albuterol sulfate 90 mcg/actuation 2 puff inhalation Q4HP PRN 08/22/23 08/22/23 aerosol inhaler Shortness Of Breath Or Wheezing atorvastatin 20 mg tablet 20 mg PO HS 08/22/23 08/22/23 fluticasone fur. 200 mcg-umeclid 1 ea inhalation DAILY 08/22/23 08/22/23 62.5 mcg-vilant 25 mcg inhalat.powder (Trelegy Ellipta) furosemide 80 mg tablet 80 mg PO BIDL 08/22/23 08/22/23 ipratropium 0.5 mg-albuterol 3 mg 3 ml inhalation Q4HP PRN Shortness 08/22/23 08/22/23 (2.5 mg base)/3 mL nebulization Of Breath soln levothyroxine 150 mcg tablet 150 mcg PO DAILY 08/22/23 08/22/23 metolazone 5 mg tablet 5 mg PO DAILYP PRN Swelling 08/22/23 08/22/23 metoprolol succinate 25 mg 25 mg PO BID 08/22/23 08/22/23 tablet,extended release 24 hr ondansetron HCl 4 mg tablet 4 mg PO Q6HP PRN Nausea And 08/22/23 08/22/23 Vomiting potassium chloride 20 mEq 40 meq PO BID 08/22/23 08/22/23 tablet,extended release prednisone 10 mg tablet 10 mg PO DAILY 08/22/23 08/22/23 ranolazine 500 mg tablet,extended 500 mg PO BID 08/22/23 08/22/23 release,12 hr spironolactone 50 mg tablet 50 mg PO BID 08/22/23 08/22/23 trazodone 50 mg tablet 50 mg PO HSP PRN Sleep 08/22/23 08/22/23 triamcinolone acetonide 0.1 % 1 applic topical DAILY 08/22/23 08/22/23 topical cream Previous Rx's ?Medication ?Instructions ?Recorded linezolid 600 mg tablet (Zyvox) 600 mg PO Q12H 10 days #20 tabs 08/28/23 linezolid 600 mg tablet (Zyvox) 600 mg PO Q12H 7 days #14 tabs 08/28/23 Allergies Allergy/AdvReac Type Severity Reaction Status Date / Time penciclovir Allergy Difficulty Verified 08/22/23 23:13 Breathing Penicillins Allergy Hives Verified 08/22/23 23:13 tramadol AdvReac Diarrhea Verified 08/22/23 23:13 [facility] <QING Coronel - Last Filed: 01/12/24 23:16> [facility] Disclaimer: The information contained in this section may have been updated after the patient was seen, as this information can be updated by other users. Medical History (Updated 01/13/24 @ 00:48 by Michoacano Ortiz MD) DEMETRIA (obstructive sleep apnea) On home oxygen therapy Tortuous aorta Aortic calcification Reduced ejection fraction concurrent with and due to acute on chronic heart failure History of gastrectomy Cataract (lens) fragments in eye following cataract surgery, bilateral Lymphedema Hyperlipidemia Hiatal hernia Chronic respiratory failure with hypoxia Prostate cancer BPH (benign prostatic hyperplasia) Cor pulmonale HTN (hypertension) Diabetes mellitus Atrial fibrillation CKD stage 3 secondary to diabetes Pneumonia COPD (chronic obstructive pulmonary disease) Congestive heart failure Surgical History (Updated 08/22/23 @ 23:20 by Kenan Guevara, RN) Hx of tonsillectomy H/O hernia repair Family History (Updated 08/22/23 @ 23:21 by Kenan Guevara, RN) Other Family history of arthritis Family history of cancer Family history of diabetes mellitus type II Family history of heart disease Family history of hypertension Social History (Updated 08/22/23 @ 23:22 by Kenan Guevara, RN) Smoking Status: Current some day smoker alcohol intake: never current occupational status: retired and disabled Travel in the last 8 weeks: None household members: significant other <QING Coronel - Last Filed: 01/12/24 23:16> ROS Obtained: Yes Systems reviewed as appropriate & no additional complaints except as documented Physical Exam <QING Coronel - Last Filed: 01/12/24 23:16> General General appearance: alert and in no apparent distress Respiratory Respiratory exam: Present normal lung sounds bilaterally and accessory muscle use Cardiovascular Cardiovascular exam: Present regular rate Neurological Exam Neurological exam: Present alert and oriented X3 HEART Score <QING Coronel - Last Filed: 01/12/24 23:16> HEART Score HEART Score assessment performed?: No Critical Care <QING Coronel - Last Filed: 01/12/24 23:16> Critical Care Time Critical Care Time: No <Michoacano Ortiz MD - Last Filed: 01/13/24 01:55> Critical Care Time Critical Care Time: Yes Attestation: On 01/12/24, the high probability of a clinically significant, sudden or life threatening deterioration of the following system(s) cardiac, pulmonary required my full and direct attention, intervention and personal management. The time I documented below is in addition to time spent performing reported procedures but includes the following listed in this critical care notation. Total Time Total Critical Care Time: 35 Medical Decision Making <QING Coronel - Last Filed: 01/12/24 23:16> Medical Records Medical records reviewed: Yes I reviewed the patient's medical records. Jeremy Inquiry Pt receiving controlled substance: No Vital Signs Vital Signs: 01/12/24 22:14 01/12/24 22:20 01/12/24 23:20 Temperature 98.8 F Temperature Source Oral Pulse Rate 88 86 Pulse Rate [Right] 87 Respiratory Rate 22 Blood Pressure Blood Pressure [Right Arm] 126/78 Blood Pressure Mean [Right Arm] 94 Blood Pressure Source [Right Arm] Automatic Cuff 02 Sat by Pulse Oximetry 95 Oxygen Delivery Method Nasal Cannula Oxygen Flow Rate (LPM) 5 01/13/24 01:05 Temperature 98.4 F Temperature Source Axillary Pulse Rate 97 H Pulse Rate [Right] Respiratory Rate 22 Blood Pressure 143/61 H Blood Pressure [Right Arm] Blood Pressure Mean [Right Arm] Blood Pressure Source [Right Arm] 02 Sat by Pulse Oximetry Oxygen Delivery Method CPAP Oxygen Flow Rate (LPM) Lab Data Lab results reviewed: Yes I reviewed the patient's lab results. Labs: Lab Results 01/12/24 22:26: VBG pH 7.37, VBG pCO2 74.7 H, VBG pO2 31.5, VBG HCO3 42.5 H, VBG Total CO2 44.8 H, VBG O2 Saturation 57.9, VBG Base Excess 17.3 H, VBG Lactic Acid 3.3 H 01/12/24 23:36: WBC 28.4 H*, RBC 4.21 L, Hgb 10.2 L, Hct 35.5 L, MCV 84.4, MCH 24.1 L, MCHC 28.6 L, RDW 17.2, Plt Count 274, MPV 8.6, Neut % (Auto) 91.0 H, L ymph % (Auto) 3.4 L, [place] % (Auto) 4.7, Eos % (Auto) 0.6, Baso % (Auto) 0.3, N eut # (Auto) 25.9 H, Lymph # (Auto) 1.0, [place] # (Auto) 1.4 H, Eos # (Auto) 0.2, Baso # (Auto) 0.1, Total Counted 100, Neutrophils % (Manual) 87 H, Lymphocytes % (Manual) 8 L, Monocytes % (Manual) 5, Platelet Estimate Normal, Hypochromasia 2+, Stomatocytes 2+, Sodium 132 L, Potassium 3.4 L, Chloride 85 L, Carbon Dioxide 44 H*, Anion Gap 10.4, BUN 22 H, Creatinine 1.10, Estimated Creat Clear 70, Estimated GFR 66, Est GFR ( Amer) 80, Glucose 135 H, Calcium 8.1 L, Magnesium 1.8, Total Bilirubin 0.6, AST 18, ALT 17, Alkaline Phosphatase 85, N T-Pro-B Natriuret Pep 1260 H, Total Protein 6.5, Albumin 3.3 L, Globulin 3.2, A lbumin/Globulin Ratio 1.0 L 01/12/24 23:36 01/12/24 23:36 Response Orders (Tests/Meds): ED MEDICATIONS Generic Name Dose Route Start Last Admin Trade Name Freq PRN Reason Stop Dose Admin Acetaminophen 650 mg 01/13/24 01:21 01/13/24 01:53 Acetaminophen 325mg Tab PO 02/12/24 01:20 650 mg Q4HP PRN Administration Fever or Mild Pain (1-3) Albuterol/Ipratropium 3 ml 01/13/24 06:00 Ipratropium/Albuterol 3 Ml Neb IH 02/12/24 05:59 Q6RT KARIN Heparin Sodium (Porcine) 5,000 unit 01/13/24 01:45 Heparin Sodium 5,000 Unit/Ml Vial SQ 02/12/24 01:44 BID KARIN Bumetanide 10 mg/ Sodium 100 mls @ 5 mls/hr 01/12/24 22:46 01/12/24 23:01 Chloride IV 02/11/24 22:45 5 mls/hr .Q20H KARIN Administration Sodium Chloride 1,000 mls @ 50 mls/hr 01/13/24 01:30 Sod Chlor 0.9% 1000ml Bag IV 02/12/24 01:29 .Q20H KARIN Ceftriaxone Sodium 2 gm/ 100 mls @ 200 mls/hr 01/13/24 01:30 Sodium Chloride IV 01/23/24 01:29 Q24H KARIN Azithromycin 500 mg/ Sodium 250 mls @ 250 mls/hr 01/13/24 01:30 Chloride IV 01/23/24 01:29 Q24H KARIN Ibuprofen 400 mg 01/13/24 01:21 Ibuprofen 400 Mg Tablet PO 02/12/24 01:20 Q6HP PRN Mild Pain (1-3) Ondansetron HCl 4 mg 01/13/24 01:21 Ondansetron 4mg/2ml Vial IV 02/12/24 01:20 Q8HP PRN Nausea Pantoprazole Sodium 40 mg 01/13/24 09:00 Pantoprazole 40mg Tablet PO 02/12/24 08:59 DAILY [facility] Potassium Chloride 20 meq 01/13/24 01:45 Potassium Chloride 20meq Tab PO 02/12/24 01:44 BID [facility] Sodium Chloride 3 ml 01/12/24 22:30 Sodium Chloride 3% 15ml [facility] 02/11/24 22:29 ONCE PRN INDUCE SPUTUM [employer]LECTION Sodium Chloride 10 ml 01/13/24 01:21 Sodium Chloride 0.9% 10ml Flush Syringe IV 02/12/24 01:20 NEEDED PRN Maintain IV Site Discontinued Medications Generic Name Dose Route Start Last Admin Trade Name Freq PRN Reason Stop Dose Admin Albuterol/Ipratropium 3 ml 01/12/24 22:25 01/12/24 23:09 Ipratropium/Albuterol 3 Ml [facility] 01/12/24 22:26 3 ml ONCE ONE Administration Bumetanide 2 mg 01/12/24 23:38 01/12/24 23:53 Bumetanide 1mg/4ml Vial IV 01/12/24 23:39 2 mg ONCE ONE Administration Enoxaparin Sodium 40 mg 01/13/24 09:00 Enoxaparin 40mg/0.4ml Syringe SQ 02/12/24 08:59 DAILY [facility] ORDERS Category Date Time Status XR chest portable Stat Exams 01/12/24 22:30 Completed BNP [NT Pro Brain Natriuretic Pep.] Stat Lab 01/12/24 23:36 Completed CBC w/Auto Diff [Complete Blood Count Auto Diff] Stat Lab 01/12/24 23:36 Completed CMP [Comprehensive Metabolic Panel] Stat Lab 01/12/24 23:36 Completed Magnesium Stat Lab 01/12/24 23:36 Completed Sputum Culture & Gram Stain Stat Micro 01/12/24 22:50 Results VBG [Venous Blood Gas] Stat RT 01/12/24 22:26 Completed MDM Narrative Medical Decision Narrative: In summary patient is a 68-year-old male who presents to the emergency department for evaluation of swelling and shortness of breath patient is hemodynamically stable upon arrival, afebrile. Physical exam is remarkable for morbid obesity especially around the central abdomen, taut tense lymphedema in the bilateral lower extremities, lymphedema of the scrotum and penis, coarse wet cough with diminished breath sounds at the bases however patient has normal sinus rhythm on the monitor and is satting above 90% on 2 L by nasal cannula.. Differential diagnosis includes CHF exacerbation versus pneumonia versus electrolyte abnormality etc. Initial workup will be conducted with hematologic labs plain film chest x-ray twelve-lead EKG. Initial interventions include Bumex drip. Initial workup pending at the time of handoff to Dr. Ortiz at 2300 hrs. <Michoacano Ortiz MD - Last Filed: 01/13/24 01:55> Vital Signs Vital Signs: 01/12/24 22:14 01/12/24 22:20 01/12/24 23:20 Temperature 98.8 F Temperature Source Oral Pulse Rate 88 86 Pulse Rate [Right] 87 Respiratory Rate 22 Blood Pressure Blood Pressure [Right Arm] 126/78 Blood Pressure Mean [Right Arm] 94 Blood Pressure Source [Right Arm] Automatic Cuff 02 Sat by Pulse Oximetry 95 Oxygen Delivery Method Nasal Cannula Oxygen Flow Rate (LPM) 5 01/13/24 01:05 Temperature 98.4 F Temperature Source Axillary Pulse Rate 97 H Pulse Rate [Right] Respiratory Rate 22 Blood Pressure 143/61 H Blood Pressure [Right Arm] Blood Pressure Mean [Right Arm] Blood Pressure Source [Right Arm] 02 Sat by Pulse Oximetry Oxygen Delivery Method CPAP Oxygen Flow Rate (LPM) Lab Data Labs: Lab Results 01/12/24 22:26: VBG pH 7.37, VBG pCO2 74.7 H, VBG pO2 31.5, VBG HCO3 42.5 H, VBG Total CO2 44.8 H, VBG O2 Saturation 57.9, VBG Base Excess 17.3 H, VBG Lactic Acid 3.3 H 01/12/24 23:36: WBC 28.4 H*, RBC 4.21 L, Hgb 10.2 L, Hct 35.5 L, MCV 84.4, MCH 24.1 L, MCHC 28.6 L, RDW 17.2, Plt Count 274, MPV 8.6, Neut % (Auto) 91.0 H, L ymph % (Auto) 3.4 L, [place] % (Auto) 4.7, Eos % (Auto) 0.6, Baso % (Auto) 0.3, N eut # (Auto) 25.9 H, Lymph # (Auto) 1.0, [place] # (Auto) 1.4 H, Eos # (Auto) 0.2, Baso # (Auto) 0.1, Total Counted 100, Neutrophils % (Manual) 87 H, Lymphocytes % (Manual) 8 L, Monocytes % (Manual) 5, Platelet Estimate Normal, Hypochromasia 2+, Stomatocytes 2+, Sodium 132 L, Potassium 3.4 L, Chloride 85 L, Carbon Dioxide 44 H*, Anion Gap 10.4, BUN 22 H, Creatinine 1.10, Estimated Creat Clear 70, Estimated GFR 66, Est GFR ( Amer) 80, Glucose 135 H, Calcium 8.1 L, Magnesium 1.8, Total Bilirubin 0.6, AST 18, ALT 17, Alkaline Phosphatase 85, N T-Pro-B Natriuret Pep 1260 H, Total Protein 6.5, Albumin 3.3 L, Globulin 3.2, A lbumin/Globulin Ratio 1.0 L Response Orders (Tests/Meds): ED MEDICATIONS Generic Name Dose Route Start Last Admin Trade Name Freq PRN Reason Stop Dose Admin Acetaminophen 650 mg 01/13/24 01:21 01/13/24 01:53 Acetaminophen 325mg Tab PO 02/12/24 01:20 650 mg Q4HP PRN Administration Fever or Mild Pain (1-3) Albuterol/Ipratropium 3 ml 01/13/24 06:00 Ipratropium/Albuterol 3 Ml Neb IH 02/12/24 05:59 Q6RT KARIN Heparin Sodium (Porcine) 5,000 unit 01/13/24 01:45 Heparin Sodium 5,000 Unit/Ml Vial SQ 02/12/24 01:44 BID KARIN Bumetanide 10 mg/ Sodium 100 mls @ 5 mls/hr 01/12/24 22:46 01/12/24 23:01 Chloride IV 02/11/24 22:45 5 mls/hr .Q20H KARIN Administration Sodium Chloride 1,000 mls @ 50 mls/hr 01/13/24 01:30 Sod Chlor 0.9% 1000ml Bag IV 02/12/24 01:29 .Q20H KARIN Ceftriaxone Sodium 2 gm/ 100 mls @ 200 mls/hr 01/13/24 01:30 Sodium Chloride IV 01/23/24 01:29 Q24H KARIN Azithromycin 500 mg/ Sodium 250 mls @ 250 mls/hr 01/13/24 01:30 Chloride IV 01/23/24 01:29 Q24H KARIN Ibuprofen 400 mg 01/13/24 01:21 Ibuprofen 400 Mg Tablet PO 02/12/24 01:20 Q6HP PRN Mild Pain (1-3) Ondansetron HCl 4 mg 01/13/24 01:21 Ondansetron 4mg/2ml Vial IV 02/12/24 01:20 Q8HP PRN Nausea Pantoprazole Sodium 40 mg 01/13/24 09:00 Pantoprazole 40mg Tablet PO 02/12/24 08:59 DAILY [facility] Potassium Chloride 20 meq 01/13/24 01:45 Potassium Chloride 20meq Tab PO 02/12/24 01:44 BID [facility] Sodium Chloride 3 ml 01/12/24 22:30 Sodium Chloride 3% 15ml [facility] 02/11/24 22:29 ONCE PRN INDUCE SPUTUM COLLECTION Sodium Chloride 10 ml 01/13/24 01:21 Sodium Chloride 0.9% 10ml Flush Syringe IV 02/12/24 01:20 NEEDED PRN Maintain IV Site Discontinued Medications Generic Name Dose Route Start Last Admin Trade Name Freq PRN Reason Stop Dose Admin Albuterol/Ipratropium 3 ml 01/12/24 22:25 01/12/24 23:09 Ipratropium/Albuterol 3 Ml [facility] 01/12/24 22:26 3 ml ONCE ONE Administration Bumetanide 2 mg 01/12/24 23:38 01/12/24 23:53 Bumetanide 1mg/4ml Vial IV 01/12/24 23:39 2 mg ONCE ONE Administration Enoxaparin Sodium 40 mg 01/13/24 09:00 Enoxaparin 40mg/0.4ml Syringe SQ 02/12/24 08:59 DAILY [facility] ORDERS Category Date Time Status XR chest portable Stat Exams 01/12/24 22:30 Completed BNP [NT Pro Brain Natriuretic Pep.] Stat Lab 01/12/24 23:36 Completed CBC w/Auto Diff [Complete Blood Count Auto Diff] Stat Lab 01/12/24 23:36 Completed CMP [Comprehensive Metabolic Panel] Stat Lab 01/12/24 23:36 Completed Magnesium Stat Lab 01/12/24 23:36 Completed Sputum Culture & Gram Stain Stat Micro 01/12/24 22:50 Results VBG [Venous Blood Gas] Stat RT 01/12/24 22:26 Completed MDM Narrative Medical Decision Narrative: In summary patient is a 68-year-old male who presents to the emergency department for evaluation of swelling and shortness of breath patient is hemodynamically stable upon arrival, afebrile. Physical exam is remarkable for morbid obesity especially around the central abdomen, taut tense lymphedema in the bilateral lower extremities, lymphedema of the scrotum and penis, coarse wet cough with diminished breath sounds at the bases however patient has normal sinus rhythm on the monitor and is satting above 90% on 2 L by nasal cannula.. Differential diagnosis includes CHF exacerbation versus pneumonia versus electrolyte abnormality etc. Initial workup will be conducted with hematologic labs plain film chest x-ray twelve-lead EKG. Initial interventions include Bumex drip. Initial workup pending at the time of handoff to Dr. Ortiz at 2300 hrs. Angel LEMOS: I assumed care of the patient at the time of handoff from the prior provider. On reassessment patient remains hemodynamically stable. I also performed a physical exam because the patient reported chronic blood per rectum. On exam he does have a small amount of dark red blood from the rectum. Placed on home CPAP. He was given a 2 mg Bumex bolus in addition to the Bumex drip. Patient is SIRS positive. However, there is no obvious infectious source and patient is markedly volume overloaded. Given this, no IV fluids were given. Laboratory results interpreted by me, significant for chronic CO2 retention, mild electrolyte derangements, mildly elevated BUN, significantly elevated leukocytosis with white count of 28.4. Hemoglobin stable from prior. On chart review, patient has had marked elevations of white blood cell counts in the past, earlier this year had a WBC of 67. Imaging interpreted by me and shows low lung volumes with small to moderate bilateral pleural effusions. Interactive discussion was had with the hospitalist on-call for admission for heart failure and volume overload. I was consulted by the VINNIE, and we discussed the complexity of the problems being addressed. I approved the treatment and management plan for this patient?s care in the Emergency Department, thus performing a substantive portion of the medical decision making. Michoacano Ortiz MD
[2024-01-12 22:20] VITALS: PULSE 88
--- NOTE | 2024-01-12 22:30 | XR_ITS ---
PROCEDURE INFORMATION: Exam: XR Chest Exam date and time: 01/12/2024 10:50 PM Age: 68 years old Clinical indication: Shortness of breath; Additional info: Swelling, shortness of breath TECHNIQUE: Imaging protocol: Radiologic exam of the chest. Views: 1 view. COMPARISON: CR XR CHEST PORTABLE 09/19/2023 8:51 AM FINDINGS: Lungs: There is central pulmonary vascular congestion. There is mild prominence of the perihilar lung markings which could be related to crowding. Pleural spaces: There are moderate bilateral pleural effusions. Heart/Mediastinum: Stable cardiac and mediastinal contours. Bones/joints: No evidence of acute osseous abnormalities within the visualized portions of the thoracic spine and ribs. Osseous structures appear appropriate for patient age. Other findings: The examination is limited by under penetration. There is a low level of inspiration. IMPRESSION: 1. There are moderate bilateral pleural effusions. 2. There is central pulmonary vascular congestion.
[2024-01-12] MEDS: BUMETANIDE 10 MG in 0.9 % SODIUM CHLORIDE 60 ML 5 MG IV (23:01)
[2024-01-12] MEDS: IPRATROPIUM/ALBUTEROL 3 ML NEB IH (23:09)
[2024-01-12 23:20] VITALS: PULSE 86
[2024-01-12 23:49] LABS: VBG Base Excess 17.3 mmol/L (-2.4-2.3); VBG HCO3 42.5 mmol/L (23-30); VBG Oxygen Saturation 57.9 % (50-70); VBG PCO2 74.7 mmol/L (35-51); VBG PH 7.37 mmol/L (7.31-7.41); VBG PO2 31.5 mmol/L (28-40); VBG Total CO2 44.8 mmol/L (23-27)
[2024-01-12] MEDS: BUMETANIDE 1MG/4ML VIAL 2 MG IV (23:53)
[2024-01-13] VITALS (18 sets, daily range): BP systolic 71–147; BP diastolic 48–77; PULSE 63–128; RESP 18–31; TEMP 36.6–38.1; O2SAT 91–99; BMI 47.0
[2024-01-13] LABS: Albumin Level 3.3 g/dl (3.5-5.0); Chloride 85 mmol/L (98-107)
[2024-01-13 00:01] LABS: Basophils # 0.1 K/mm3 (0-0.2); Basophils % 0.3 % (0.1-2.0); Eosinophils # 0.2 K/mm3 (0.0-0.4); Eosinophils % 0.6 % (0.1-12.0); Hematocrit 35.5 % (42.0-52.0); Hemoglobin 10.2 g/dL (14.1-18.0); Lymphocytes % 3.4 % (10-50); Mean Corpuscular HGB Conc 28.6 g/dL (31.8-35.4); Mean Corpuscular Hemoglobin 24.1 pg (27.0-31.2); Mean Corpuscular Volume 84.4 fl (80-94); Mean Platelet Volume 8.6 fl (7.4-10.4); Monocytes # 1.4 K/mm3 (0.1-1.0); Monocytes % 4.7 % (1.7-9.3); Neutrophils # 25.9 K/mm3 (1.8-7.8); Platelet Count 274 K/mm3 (142-424); Potassium 3.4 mmoL/L (3.5-5.1); Red Blood Count 4.21 M/mm3 (4.60-6.20); Red Cell Distribution Width 17.2 % (11.5-17.5); Sodium 132 mmol/L (136-145); White Blood Count 28.4 K/mm3 (4.8-10.8)
[2024-01-13 00:03] LABS: Alanine Aminotransferase 17 U/L (12-78); Alkaline Phosphatase 85 U/L (38-126); Aspartate Amino Transferase 18 U/L (17-59); Bilirubin,Total 0.6 mg/dl (0.2-1.3); Blood Urea Nitrogen 22 mg/dl (9-20); Creatinine Clearance Estimated 70 mL/min (50-200); Estimated Glomerular Filt Rate 66 ml/min (>60); GFR (African American) 80 ML/MIN (>60); MANUAL DIFFERENTIAL MANUAL DIFFERENTIAL (MANUAL DIFF)
[2024-01-13 00:04] LABS: Calcium 8.1 mg/dl (8.4-10.2); Globulin 3.2 g/dL (1.3-3.2); Glucose 135 mg/dl (74-100); Magnesium 1.8 mg/dl (1.6-2.3); Total Protein,Serum 6.5 g/dl (6.3-8.2)
[2024-01-13 00:05] LABS: Anion Gap 10.4 mEq/L (5-15)
[2024-01-13 00:08] LABS: Lactate Venous 3.3 mmol/L (0.4-2.0)
[2024-01-13 00:19] LABS: NT Pro Brain Natriuretic Pep. 1260 pg/mL (0-125)
[2024-01-13 00:54] LABS: Carbon Dioxide 44 mmol/L (22.0-30.0)
[2024-01-13 01:27] LABS: Lymphocytes % 8 % (10-50); Monocytes % 5 % (2-9); Neutrophils % 87 % (42-76); Total Cells Counted 100
[2024-01-13 01:31] LABS: Hypochromasia 2+; Platelet Estimate Normal; Stomatocytes 2+
--- NOTE | 2024-01-13 01:31 | PC.NURSE ---
Patient arrived to floor via stretcher from ED at 01:23.
--- NOTE | 2024-01-13 01:39 | EXP.HP ---
History of Present Illness *Admission Date: 01/13/24 *Reason for visit:: 50 pound weight gain morbid obesity, edema, shortness of, *History of present illness: Mr. Wu is a 68-year-old male who arrived at our ER via EMS. He has a history of HFpEF and COPD along with chronic respiratory failure on CPAP at home, pickwickian syndrome, morbid obesity. Presented via EMS to the ER because of respiratory distress. Reports concern for swelling. Patient reports having been referred to hospice 6 months ago by his primary care however he has refused and states he has been doing well and stayed at the hospital for the past 6 m he has been having increased swelling and shortness of breath over the past week. States his legs have gotten more swollen and he said swelling up into his groin and lower abdomen. He is up approximately 50 pounds from his dry weight of 300 pounds. [place] any fever, chill, chest pain. Does report a productive cough for the past week. No vomiting or diarrhea. Does report he has been having some blood in his stool however and this is chronic for him. Able to perform basic ADLs at home. Medicine consulted for admission due to increased oxygen requirement and concern for CHF exacerbation along with volume overload. Chest imaging showing significant edema and effusions. White count elevated at 29,000. Elevated bicarb of 47 showing chronic CO2 retention. On evaluation, patient is frustrated with goals of care discussion. Does not want to talk about intubation. States he does not want to be on a ventilator however. Tolerating 5 L nasal cannula oxygen. Initiated on Bumex drip. [facility] Disclaimer: The information contained in this section may have been updated after the patient was seen, as this information can be updated by other users. Medical History (Updated 01/13/24 @ 13:33 by Amy Beckham APRN) Lower extremity edema Shortness of Breath Acute heart failure with preserved ejection fraction (HFpEF) DEMETRIA (obstructive sleep apnea) On home oxygen therapy Tortuous aorta Aortic calcification Reduced ejection fraction concurrent with and due to acute on chronic heart failure History of gastrectomy Cataract (lens) fragments in eye following cataract surgery, bilateral Lymphedema Hyperlipidemia Hiatal hernia Chronic respiratory failure with hypoxia Prostate cancer BPH (benign prostatic hyperplasia) Cor pulmonale HTN (hypertension) Diabetes mellitus Atrial fibrillation CKD stage 3 secondary to diabetes Pneumonia COPD (chronic obstructive pulmonary disease) Congestive heart failure Surgical History Hx of tonsillectomy H/O hernia repair Family History Other Family history of arthritis Family history of cancer Family history of diabetes mellitus type II Family history of heart disease Family history of hypertension Social History Smoking Status: Current some day smoker alcohol intake: never current occupational status: retired and disabled Travel in the last 8 weeks: None household members: significant other Review of Systems Review of Systems Review of systems:: pertinent systems reviewed and negative unless documented below Review of systems (narrative): Patient is alert oriented talks well examined him on a stretcher bariatric bed in ER room 5 Constitutional Constitutional: Reports as per HPI, Reports lethargy and Reports weight gain Comments: Patient gave a history that he has gained about 50 pounds.. Hard to follow with some of the history but he states he thinks the home health nurse cut back his diuretic. He was admitted in August of this year for similar circumstance. It was suggested that he think about hospice, but declined that and just wanted to rehab at home. States he still lives with his . That he is a smoker but has only been consuming 2 cigarettes a day. While in the emergency room he told me he is beginning to feel cold asking for new or extra blankets. Patient is on CPAP at this time Eyes Eyes: Reports as per HPI ENT Ears, Nose, Mouth, and Throat: Reports as per HPI *Cardiovascular Cardiovascular: Reports as per HPI Comments: Denies chest pain *Respiratory Comments: Patient reports his breathing is about normal for him no significant changes *Gastrointestinal Gastrointestinal: Reports as per HPI Comments: Patient noted that he had blood in his stool for an extended period of time. This was noted and H&H is stable on labs this was checked by the ER physician there was some black tarry stool Patient states though that he has been constipated, that he has not had a decent bowel movement in quite some time *Genitourinary Genitourinary: Reports as per HPI Comments: On exam found the patient with a Kennedy catheter and it was because his perineal area is so edematous he would be unable to use a urinal *Musculoskeletal Musculoskeletal: Reports as per HPI Comments: Did not stand the patient does move his legs and arms well, he reported no problems or injuries to his limbs Integumentary/Breasts Skin/Breast: Reports as per HPI *Neurologic Neurologic: Reports as per HPI Psychiatric Psychiatric: Reports as per HPI Endocrine Endocrine: Reports as per HPI Comments: Stated he felt cold. Extra blanket was given Hematologic/Lymphatic Hematologic/Lymphatic: Reports as per HPI Allergic/Immunologic Allergic/Immunologic: Reports as per HPI Meds Home Medications and Allergies Home Medications ?Medication ?Instructions ?Recorded ?Confirmed ?Type albuterol sulfate 90 mcg/actuation 2 puff inhalation Q4HP PRN 08/22/23 01/13/24 History aerosol inhaler Shortness Of Breath Or Wheezing atorvastatin 20 mg tablet 20 mg PO HS 08/22/23 01/13/24 History fluticasone fur. 200 mcg-umeclid 1 ea inhalation DAILY 08/22/23 01/13/24 History 62.5 mcg-vilant 25 mcg inhalat.powder (Trelegy Ellipta) furosemide 80 mg tablet 80 mg PO BIDL 08/22/23 01/13/24 History ipratropium 0.5 mg-albuterol 3 mg 3 ml inhalation QID 08/22/23 01/13/24 History (2.5 mg base)/3 mL nebulization soln levothyroxine 150 mcg tablet 150 mcg PO DAILY 08/22/23 01/13/24 History metolazone 5 mg tablet 5 mg PO DAILYP PRN Swelling 08/22/23 01/13/24 History ondansetron HCl 4 mg tablet 4 mg PO Q6HP PRN Nausea And 08/22/23 01/13/24 History Vomiting ranolazine 500 mg tablet,extended 500 mg PO BID 08/22/23 01/13/24 History release,12 hr tamsulosin 0.4 mg capsule 0.4 mg PO AM 01/13/24 01/13/24 History New Prescriptions to Start Prescriptions: Allergies Allergy/AdvReac Type Severity Reaction Status Date / Time penciclovir Allergy Difficulty Verified 08/22/23 23:13 Breathing Penicillins Allergy Hives Verified 08/22/23 23:13 tramadol AdvReac Diarrhea Verified 08/22/23 23:13 Exam Data for Last 24 hours Vital signs and Labs for Last 24 Hours: Temp Pulse Resp BP Pulse Ox O2 Del Method O2 Flow Rate 98.4 F 97 H 22 143/61 H 95 CPAP 5 01/13/24 01:05 01/13/24 01:05 01/13/24 01:05 01/13/24 01:05 01/12/24 22:14 01/13/24 01:01/12/24 22:14 Laboratory Results - last 24 hr 01/12/24 22:26: VBG pH 7.37, VBG pCO2 74.7 H, VBG pO2 31.5, VBG HCO3 42.5 H, VBG Total CO2 44.8 H, VBG O2 Saturation 57.9, VBG Base Excess 17.3 H, VBG Lactic Acid 3.3 H 01/12/24 23:36: WBC 28.4 H*, RBC 4.21 L, Hgb 10.2 L, Hct 35.5 L, MCV 84.4, MCH 24.1 L, MCHC 28.6 L, RDW 17.2, Plt Count 274, MPV 8.6, Neut % (Auto) 91.0 H, Lymph % (Auto) 3.4 L, [place] % (Auto) 4.7, Eos % (Auto) 0.6, Baso % (Auto) 0.3, Neut # (Auto) 25.9 H, Lymph # (Auto) 1.0, [place] # (Auto) 1.4 H, Eos # (Auto) 0.2, Baso # (Auto) 0.1, Total Counted 100, Neutrophils % (Manual) 87 H, Lymphocytes % (Manual) 8 L, Monocytes % (Manual) 5, Platelet Estimate Normal, Hypochromasia 2+, Stomatocytes 2+, Sodium 132 L, Potassium 3.4 L, Chloride 85 L, Carbon Dioxide 44 H*, Anion Gap 10.4, BUN 22 H, Creatinine 1.10, Estimated Creat Clear 70, Estimated GFR 66, Est GFR ( Amer) 80, Glucose 135 H, Calcium 8.1 L, Magnesium 1.8, Total Bilirubin 0.6, AST 18, ALT 17, Alkaline Phosphatase 85, NT-Pro-B Natriuret Pep 1260 H, Total Protein 6.5, Albumin 3.3 L, Globulin 3.2, Albumin/Globulin Ratio 1.0 L I & O for Last 24 hours: Intake & Output 01/10/24 01/11/24 01/12/24 01/13/24 23:59 23:59 23:59 23:59 Output Total 850 / 850 Balance -850 / -850 Weight 160.5 kg Microbiology Reports for the Last 24 Hours: Microbiology 01/12/24 22:50 Sputum - Expectorated Sputum Gram Stain - Final Radiology Reports for the Last 24 Hours: Chest x-ray bilateral pleural effusions Constitutional Constitutional: mild distress Comments: The patient is on a bariatric bed brought up from the emergency room., Finding be a difficult IV insertion, patient was not willing to stay in his bed due to discomfort in his back and buttocks and wanted to get into the lounge to. He noted that he sleeps in a lounge chair at home, while moving him and his IV came out. Nursing aware and will attempt to restart may need ultrasound guided to do. *Routine HEENT Exam Head: Present normocephalic and atraumatic Eye: Present EOMI and PERRL ENT: Present mucous membranes moist *Routine Neck Exam Neck: Present supple and full ROM Routine Chest/Breast/Axilla Exam Comments: No tenderness found, no rashes for *Routine Respiratory Exam Respiratory: Present accessory muscle use, decreased breath sounds, respiratory distress and diminished air movement Comments: Patient is breathing greater than 26 times a minute is now on O2 nasal, he tells me this is basically normal for him and he uses anywhere from 2 to 4 L at home. Stated he prefers being in the chair and he does sit in a lounge chair to sleep. Lung sounds are diminished throughout slight rhonchi heard or low wheeze. Hard to evaluate due to the rapid rate and the shallow breathing. Patient has CPAP in the room but wanted to stay on nasal cannula for right now *Routine Cardiovascular Exam Cardiovascular: Present other Comments: Heart tones are hard to evaluate with his respiratory rate, cannot clearly hear S1-S2 sound, and also due to the patient's habitus his chest is quite large. Chest x-ray reviewed showed bilateral pleural edema. With significant +3 anasarca to the JAIMEE area and penile area, both legs extremely large with anasarca redness dry scaly skin on them and edema to both feet. Mouth is moist but the skin turgor actually on his arms is quite loose. *Routine Abdominal Exam Abdominal: Present soft, normoactive bowel sounds and obese Comments: Patient is morbidly obese, and he noted he had not had a bowel movement about 5 days, there was blood on the rectal exam per the ER physician before coming upstairs, asked the patient about this and he says it kind of comes and goes. *Routine Rectal Exam Rectal:: deferred Comments:: Per ER physician some black tarry stool was found *Routine Genitalia Exam Genitalia:: deferred Comment:: Patient has a Kennedy catheter due to the significant edema of his JAIMEE area and penis. Skin is red but there is no breakdown *Routine Extremities Exam Extremities: Present edema (3+ to thighs), full ROM and vascular access Comments: ,Vascular assess access in the arms is extremely nursing has tried several times may need ultrasound-guided. Noted that he does have some chronic edema to the knee Of the right knee he said he had slid out of his chair a week ago. And there was a slight bit of bruising to the medial lower thigh of the left leg, bilateral calves extremely edematous red dry scaly skin present but no skin breakdown or weeping found feet are both edematous. Routine Back/Spine/Pelvis Exam Back/Spine: Present full ROM Pelvis: Present buttock tenderness Comments: Patient was in bariatric bed but said he could not tolerate that, we put a recliner beside him we were able to help him stand he did hold his own weight he was able to turn by himself and then plopped down into the chair he did not lower himself. He says he feels better now sitting up. *Routine Skin Exam Skin: Present intact, dry and pallor Comments: Anasarca to both lower extremities and perineal area *Routine Neurological Exam Neurological: Present alert, oriented X3, CN II-XII intact and normal tone Comments: Patient was able to stand pivot himself turn get into the chair out of bed there is no deficit noted to 1 side or the other no signs of weakness and his speech is clear. , Routine Psychiatric Exam Psychiatric: Present normal thought process Comments: The patient is in charge of himself, I wanted to talk to him about his CODE STATUS. Patient did not want to hear that at all, and stated is that all you guys ever talk about is a ventilator. So despite my best efforts to have the patient understand the protocol of letting us know what his wishes were his wish was not to talk about it. And for that reason I will leave the gentleman is a full code. Nurses were in the room to witness the conversation. The patient has indicated to me that he can take care of most things by himself. Additional Findings:: Per labs white count is elevated, mild temperature, but the patient is stable standing up talking he was chilled in the ER no longer chilling on the floor. And despite his rapid respiration his speech is clear. H&P: Result Impressions 1. COPD exacerbation, chronic hypoxia and oxygen dependence 2. Congestive heart failure with anasarca, mostly to the JAIMEE area and lower extremities may also be related to the fact he spends most of his time sitting in a chair with his legs down, 3. Rectal bleeding, but normal H&H 4. Elevated white count, not uncommon has had that in the past on other exams 5. Slight elevation in temperature with chills 6. Mild hyperkalemia 7. Mental status is alert and orient, but is not open for discussion on several subjects about his health, he will shut the healthcare provider down when he does not want to hear about Imaging and Cardiology Chest x-ray: Additional comments: Bilateral pleural effusion, enlarged left ventricle, and lungs that appear to be small for the man his size. Assessment and Plan *Assessment and plan (1) Acute on chronic respiratory failure with hypoxia and hypercapnia: Status: Acute Category: Medical Code(s): J96.21 - Acute and chronic respiratory failure with hypoxia; J96.22 - Acute and chronic respiratory failure with hypercapnia (2) Acute exacerbation of CHF (congestive heart failure): Status: Acute Category: Medical Code(s): I50.9 - Heart failure, unspecified (3) Pleural effusion, bilateral: Status: Acute Category: Medical Code(s): J90 - Pleural effusion, not elsewhere classified (4) Volume overload: Status: Acute Category: Medical Code(s): E87.70 - Fluid overload, unspecified (5) Bleeding per rectum: Status: Acute Category: Medical Code(s): K62.5 - Hemorrhage of anus and rectum (6) Leukocytosis: Status: Acute Category: Medical Code(s): D72.829 - Elevated white blood cell count, unspecified (7) Morbid obesity: Status: Acute Category: Medical Code(s): E66.01 - Morbid (severe) obesity due to excess calories (8) Heart failure: Status: Acute Qualifiers: Heart failure chronicity: acute on chronic Category: Medical Code(s): I50.9 - Heart failure, unspecified (9) Acute exacerbation of chronic obstructive pulmonary disease: Status: Acute Category: Medical Code(s): J44.1 - Chronic obstructive pulmonary disease with (acute) exacerbation (10) Acute on chronic respiratory acidosis: Status: Acute Category: Medical Code(s): J96.02 - Acute respiratory failure with hypercapnia; J96.12 - Chronic respiratory failure with hypercapnia (11) Morbid obesity: Status: Acute Category: Medical Code(s): E66.01 - Morbid (severe) obesity due to excess calories (12) Pickwickian syndrome: Status: Acute Category: Medical Code(s): E66.2 - Morbid (severe) obesity with alveolar hypoventilation Plan 68-year-old male with chronic heart failure with preserved ejection fraction, chronic respiratory failure, pickwickian syndrome, obesity, COPD. Medicine was consulted for admission due to severe volume overload, patient up 50 pounds. Discussed case with ER physician, request admission for diuresis, treatment respiratory failure, and medical optimization. Medicine agreed to admit for further management. Initiated on Bumex drip. Patient responding well, down to 1.3 L since admission. Necessitating inpatient admission. Problems addressed as follows: Pneumonia causing exacerbation of COPD Acute on chronic heart failure with preserved ejection fraction - patient is noted to having a high white count of 29 and also a mild temperature but does not appear to be septic. - So septic protocol will not be initiated as far as fluid replacement.. This is due to the anasarca that is present the bilateral pleural effusion and the respiratory distress. Will continue with pulmonary toileting DuoNeb, may need to add back steroids tomorrow, but wanted to hold them for the moment to put antibiotics in, treat an underlying infection possible UTI gastric infection or a pneumonia that I have not been able to confirm on chest x-ray, plan on using nasal cannula as needed adjusting to keep O2 saturations 93% or greater, uses CPAP which she does tolerate well as needed, and continue IV Bumex to try to pull some more fluid off of him. This was determined that his respiratory and cardiovascular status took priority over potentially treating for any steps. Patient will be closely monitored and adjust treatment as needed if situation changes Rectal bleeding, with constipation has not had bowel movement in 5 days. Will check for coagulations continue to check H&H making sure that his hemoglobin does not drop. But at present time would not be a good procedure candidate to look for source of bleed. Plan to try to stabilize the patient and address that before discharge. Mild hypokalemia, will add p.o. potassium as needed, try to adjust electrolytes depending upon success of diuresis. Patient was able to eliminate 850 cc was emptied from the Kennedy upon arrival to the room. the patient does not want to discuss anything that would do or relate to longevity or care. So we will leave the patient as a full code at this point in time. Noting in his past history that he also had been talked about hospice he does not want to hear anything about that. I do feel that on a percentage of basis there is a very good chance that the patient will worsen if not now but in the near future and will require intubation. Patient has home health but hard to get a true story from him as to what is truly factual about how he is taken his medicine, and what home health is doing for him will add in a case management to evaluate treatment at home. To try to get his medication adjusted that we can get him on a regime that will work best for him and stay consistent. History of fall with slight edema to knee Bursa , no signs of any fracture or dislocation, this injury appears to be a week or more old, and patient is able to stand and pivot himself from bed to chair But will add in physical therapy and Occupational Therapy to come and see him. And we will see if he would be compliant to any suggestions they make, the patient's body habitus is the point that for him to be able to walk more than 10 yards would be quite an effort. Rounded on patient after nurse practitioner. Personally examined and interviewed patient. Agree with exam findings and care plan as documented. Resume BiPAP with settings of 20/8 while patient is asleep. This is what he wears at home, not CPAP. Continue antibiotics with vancomycin, ceftriaxone, azithromycin. Showing response to Bumex diuresis. Continue drip today. Kidney function remained stable on morning labs BUN 20, creatinine 1.1. Electrolytes acceptable with potassium 3.5, magnesium 1.8. Home medications resumed for hypothyroid with levothyroxine 150 mg daily, hyperlipidemia with Lipitor 20 mg nightly, and tamsulosin 0.4 mg daily for BPH. Patient's condition tenuous. In regard to bloody stools, patient has prominent hemorrhoids. Hemoglobin remained stable at 10.4. Will monitor for any changes on serial labs. CBC, CMP, magnesium ordered for the morning.
[2024-01-13] MEDS: ACETAMINOPHEN 325MG TAB 650 MG PO ×2 (01:53→09:13)
[2024-01-13] MEDS: HEPARIN SODIUM 5,000 UNIT/ML VIAL 5000 UNIT SQ ×3 (02:01→20:56)
[2024-01-13] MEDS: POTASSIUM CHLORIDE 20MEQ TAB 20 MEQ PO ×3 (02:02→20:56)
[2024-01-13] MEDS: ONDANSETRON 4MG/2ML VIAL 4 MG IV (02:02)
[2024-01-13 02:18] LABS: Free Thyroxine Index 3.1 ug/dL (5.93-13.13); T4 (Thyroxine) 5.6 ug/dl (5.53-11.0); Triiodothryronine (T3) Uptake 55 % (23.5-40.5)
[2024-01-13 02:32] LABS: Thyroid Stimulating Hormone 2.54 uIU/mL (0.465-4.68)
[2024-01-13 02:47] LABS: Microscopic, Urine URINE MICROSCOPIC (MICROSCOPIC)
[2024-01-13 02:48] LABS: Appearance,Urine CLEAR (Clear); Bilirubin,Urine Negative (Negative); Blood, Urine Negative (Negative); Color,Urine YELLOW (Yellow); Glucose,Urine (UA) Negative (Negative); Ketones,Urine Negative (Negative); Leukocyte Esterase,Urine Negative (Negative); Nitrate,Urine Negative (Negative); Protein,Urine Negative (Negative); Urobilinogen,Urine 0.2 EU/dl (0.2)
[2024-01-13] MEDS: 0.9 % SODIUM CHLORIDE 1000ML 1,000 ML 50 ML IV (02:52)
[2024-01-13] MEDS: AZITHROMYCIN 500 MG in 0.9 % SODIUM CHLORIDE 250 ML 250 MG IV (02:53)
[2024-01-13 03:04] LABS: Squamous Epithelial Cell,Urine Occasional #/hpf (0-5)
[2024-01-13] MEDS: CEFTRIAXONE SODIUM 2 GM in 0.9 % SODIUM CHLORIDE 100 ML IV (04:04)
[2024-01-13 04:07] LABS: Reflex Lactic Add Lactic Reflex
[2024-01-13 05:16] LABS: Basophils # 0.2 K/mm3 (0-0.2); Basophils % 0.6 % (0.1-2.0); Eosinophils # 0.3 K/mm3 (0.0-0.4); Eosinophils % 0.9 % (0.1-12.0); Hematocrit 36.5 % (42.0-52.0); Hemoglobin 10.4 g/dL (14.1-18.0); Lymphocytes # 0.7 K/mm3 (0.7-4.5); Lymphocytes % 2.4 % (10-50); Mean Corpuscular HGB Conc 28.5 g/dL (31.8-35.4); Mean Corpuscular Hemoglobin 23.7 pg (27.0-31.2); Mean Platelet Volume 8.5 fl (7.4-10.4); Monocytes # 1.5 K/mm3 (0.1-1.0); Neutrophils # 26.8 K/mm3 (1.8-7.8); Platelet Count 301 K/mm3 (142-424); Red Cell Distribution Width 17.3 % (11.5-17.5); White Blood Count 29.5 K/mm3 (4.8-10.8)
[2024-01-13 05:18] LABS: Albumin Level 3.1 g/dl (3.5-5.0); Chloride 87 mmol/L (98-107); Sodium 133 mmol/L (136-145)
[2024-01-13 05:19] LABS: Potassium 3.5 mmoL/L (3.5-5.1)
[2024-01-13 05:21] LABS: Alanine Aminotransferase 14 U/L (12-78); Alkaline Phosphatase 87 U/L (38-126); Aspartate Amino Transferase 15 U/L (17-59); Bilirubin,Total 0.6 mg/dl (0.2-1.3); Blood Urea Nitrogen 20 mg/dl (9-20); Creatinine Clearance Estimated 70 mL/min (50-200); Estimated Glomerular Filt Rate 66 ml/min (>60); GFR (African American) 80 ML/MIN (>60)
[2024-01-13 05:22] LABS: Globulin 3.2 g/dL (1.3-3.2); Glucose 159 mg/dl (74-100); Magnesium 1.7 mg/dl (1.6-2.3); Total Protein,Serum 6.3 g/dl (6.3-8.2)
[2024-01-13 05:32] LABS: Anion Gap 2.5 mEq/L (5-15); Carbon Dioxide 47 mmol/L (22.0-30.0)
[2024-01-13 05:33] LABS: Troponin I 0.02 ng/ml (0.00-0.034)
[2024-01-13 05:45] LABS: Adenovirus,PCR Not Detected (NotDetected); Bordetella Pertussis Not Detected (NotDetected); Chlamydophila Pneumoniae, PCR Not Detected (NotDetected); Coronavirus 19, PCR Not Detected (NotDetected); Coronavirus 229E Not Detected (NotDetected); Coronavirus NL63 Not Detected (NotDetected); Coronavirus OC43 Not Detected (NotDetected); Coronovirus HKU1,PCR Not Detected (NotDetected); Human Metapneumovirus Not Detected (NotDetected); Influenza A, PCR Not Detected (NotDetected); Influenza AH1, 2009 Not Detected (NotDetected); Influenza AH1, PCR Not Detected (NotDetected); Influenza AH3,PCR Not Detected (NotDetected); Influenza B, PCR Not Detected (NotDetected); Mycoplasma Pneumoniae, PCR Not Detected (NotDetected); Parainfluenza 1, PCR Not Detected (NotDetected); Parainfluenza 2, PCR Not Detected (NotDetected); Parainfluenza 3, PCR Not Detected (NotDetected); Parainfluenza 4, PCR Not Detected (NotDetected); Respiratory Syncytial Virus Not Detected (NotDetected); Rhinovirus/Enterovirus Not Detected (NotDetected)
--- NOTE | 2024-01-13 06:23 | EXP.EVENT.NO ---
Check up on patient's status.. Sepsis protocol, still holding that at the present time the patient is asleep with the CPAP on sitting up in the chair, heart rate is in the 90s blood pressure is 117, systolic And heart rate is in the low 90s. Patient's skin is pink and he is appears to be in no distress I did not awaken him. Still feel at this point in time that did not give any fluids per sepsis protocol related to the pleural effusion and that the respiratory status was the immediate concern. Have gone ahead and ordered a first dose of vancomycin and then put in a pharmacy consult for adjusting to a 350 pound patient. Has already received the other 2 antibiotics by IV Output has been 850 in the ER 500. 500 since being on the flooR . Patient has been able to drink some, and has received approximately 400 cc from the different IVs. But is stable at the present time and do not feel comfortable meeting sepsis protocol of giving 2 L of fluid with this respiratory status.
[2024-01-13] MEDS: IPRATROPIUM/ALBUTEROL 3 ML NEB IH ×3 (06:25→18:05)
[2024-01-13] MEDS: VANCOMYCIN CONSULT REQUEST 1 EACH NOTAPPLIC (06:53)
[2024-01-13 06:59] LABS: POC Glucose,Bedside 179 (70-110)
[2024-01-13] MEDS: VANCOMYCIN HCL 2,000 MG in 0.9 % SODIUM CHLORIDE 250 ML 125 MG IV ×2 (06:59→18:41)
--- NOTE | 2024-01-13 08:24 | P.CONPHA_ITS ---
Pharmacy Consult Date: 01/13/24 Time: 08:24 Referring provider: LEONARDO TYLER Reason for Consult:: SEPSIS Allergies Allergy/AdvReac Type Severity Reaction Status Date / Time penciclovir Allergy Difficulty Verified 08/22/23 23:13 Breathing Penicillins Allergy Hives Verified 08/22/23 23:13 tramadol AdvReac Diarrhea Verified 08/22/23 23:13 Home Medications ?Medication ?Instructions ?Recorded ?Confirmed ?Type acetylcysteine 600 mg capsule 600 mg PO BID 08/22/23 08/22/23 History albuterol sulfate 90 mcg/actuation 2 puff inhalation Q4HP PRN 08/22/23 08/22/23 History aerosol inhaler Shortness Of Breath Or Wheezing atorvastatin 20 mg tablet 20 mg PO HS 08/22/23 08/22/23 History fluticasone fur. 200 mcg-umeclid 1 ea inhalation DAILY 08/22/23 08/22/23 History 62.5 mcg-vilant 25 mcg inhalat.powder (Trelegy Ellipta) furosemide 80 mg tablet 80 mg PO BIDL 08/22/23 08/22/23 History ipratropium 0.5 mg-albuterol 3 mg 3 ml inhalation Q4HP PRN Shortness 08/22/23 08/22/23 History (2.5 mg base)/3 mL nebulization Of Breath soln levothyroxine 150 mcg tablet 150 mcg PO DAILY 08/22/23 08/22/23 History metolazone 5 mg tablet 5 mg PO DAILYP PRN Swelling 08/22/23 08/22/23 History metoprolol succinate 25 mg 25 mg PO BID 08/22/23 08/22/23 History tablet,extended release 24 hr ondansetron HCl 4 mg tablet 4 mg PO Q6HP PRN Nausea And 08/22/23 08/22/23 History Vomiting potassium chloride 20 mEq 40 meq PO BID 08/22/23 08/22/23 History tablet,extended release prednisone 10 mg tablet 10 mg PO DAILY 08/22/23 08/22/23 History ranolazine 500 mg tablet,extended 500 mg PO BID 08/22/23 08/22/23 History release,12 hr spironolactone 50 mg tablet 50 mg PO BID 08/22/23 08/22/23 History trazodone 50 mg tablet 50 mg PO HSP PRN Sleep 08/22/23 08/22/23 History triamcinolone acetonide 0.1 % 1 applic topical DAILY 08/22/23 08/22/23 History topical cream linezolid 600 mg tablet (Zyvox) 600 mg PO Q12H 10 days #20 tabs 08/28/23 Rx linezolid 600 mg tablet (Zyvox) 600 mg PO Q12H 7 days #14 tabs 08/28/23 Rx New Prescriptions to Start Prescriptions: Height: 1.85 m Weight: 160.8 kg Laboratory Results:: Laboratory Results - last 24 hr 01/12/24 22:26: VBG pH 7.37, VBG pCO2 74.7 H, VBG pO2 31.5, VBG HCO3 42.5 H, VBG Total CO2 44.8 H, VBG O2 Saturation 57.9, VBG Base Excess 17.3 H, VBG Lactic Acid 3.3 H 01/12/24 23:36: WBC 28.4 H*, RBC 4.21 L, Hgb 10.2 L, Hct 35.5 L, MCV 84.4, MCH 24.1 L, MCHC 28.6 L, RDW 17.2, Plt Count 274, MPV 8.6, Neut % (Auto) 91.0 H, Lymph % (Auto) 3.4 L, [place] % (Auto) 4.7, Eos % (Auto) 0.6, Baso % (Auto) 0.3, Neut # (Auto) 25.9 H, Lymph # (Auto) 1.0, [place] # (Auto) 1.4 H, Eos # (Auto) 0.2, Baso # (Auto) 0.1, Total Counted 100, Neutrophils % (Manual) 87 H, Lymphocytes % (Manual) 8 L, Monocytes % (Manual) 5, Platelet Estimate Normal, Hypochromasia 2+, Stomatocytes 2+, Sodium 132 L, Potassium 3.4 L, Chloride 85 L, Carbon Dioxide 44 H*, Anion Gap 10.4, BUN 22 H, Creatinine 1.10, Estimated Creat Clear 70, Estimated GFR 66, Est GFR ( Amer) 80, Glucose 135 H, Calcium 8.1 L, Magnesium 1.8, Total Bilirubin 0.6, AST 18, ALT 17, Alkaline Phosphatase 85, NT-Pro-B Natriuret Pep 1260 H, Total Protein 6.5, Albumin 3.3 L, Globulin 3.2, Albumin/Globulin Ratio 1.0 L 01/12/24 23:56: Urine Color Yellow, Urine Appearance Clear, Urine pH 7.0, Ur Specific [place] 1.010, Urine Protein Negative, Urine Glucose (UA) Negative, Urine Ketones Negative, Urine Blood Negative, Urine Nitrate Negative, Urine Bilirubin Negative, Urine Urobilinogen 0.2, Ur Leukocyte Esterase Negative, Ur ine RBC None, Urine WBC None, Ur Squamous Epith Cells Occasional, Urine Bacteria None 01/13/24 01:45: TSH 2.54, Free T4 Index 3.1 L, Thyroxine (T4) 5.6, T3 Uptake 55 H 01/13/24 05:01: WBC 29.5 H*, RBC 4.40 L, Hgb 10.4 L, Hct 36.5 L, MCV 83.0, MCH 23.7 L, MCHC 28.5 L, RDW 17.3, Plt Count 301, MPV 8.5, Neut % (Auto) 91.0 H, Lymph % (Auto) 2.4 L, [place] % (Auto) 5.0, Eos % (Auto) 0.9, Baso % (Auto) 0.6, Neut # (Auto) 26.8 H, Lymph # (Auto) 0.7, [place] # (Auto) 1.5 H, Eos # (Auto) 0.3, Baso # (Auto) 0.2, Sodium 133 L, Potassium 3.5, Chloride 87 L, Carbon Dioxide 47 H*, Anion Gap 2.5 L, BUN 20, Creatinine 1.10, Estimated Creat Clear 70, Estimated GFR 66, Est GFR ( Amer) 80, Glucose 159 H, Lactate 1.0, Calcium 8.0 L, Magnesium 1.7, Total Bilirubin 0.6, AST 15 L, ALT 14, Alkaline Phosphatase 87, Troponin I 0.02, Total Protein 6.3, Albumin 3.1 L, Globulin 3.2, Albumin/Globulin Ratio 1.0 L 01/13/24 05:40: Chlamy pneumoniae PCR Not detected, Adenovirus (PCR) Not detected, B. pertussis DNA (PCR) Not detected, Coronavirus OC43 (PCR) Not dete cted, Coronavirus HKU1 (PCR) Not detected, Coronavirus 229E (PCR) Not detected, SARS-CoV-2 (PCR) Not detected, Coronavirus NL63 (PCR) Not detected, Human Metapneumovir PCR Not detected, Influenza A (H1) PCR Not detected, Influ A (H1N1/09) PCR Not detected, Influenza A (H3) PCR Not detected, Influenza Type A (PCR) Not detected, Influenza Type B (PCR) Not detected, M. pneumoniae (PCR) Not detected, Parainfluenza 1 (PCR) Not detected, Parainfluenza 2 (PCR) Not detected, Parainfluenza 3 (PCR) Not detected, Parainfluenza 4 (PCR) Not detected, RSV (PCR) Not detected, Entero/Rhino (PCR) Not detected 01/13/24 06:52: POC Glucose 179 H Medical History: Medical History (Updated 01/13/24 @ 02:51 by Ahsan Gee APRN) DEMETRIA (obstructive sleep apnea) On home oxygen therapy Tortuous aorta Aortic calcification Reduced ejection fraction concurrent with and due to acute on chronic heart failure History of gastrectomy Cataract (lens) fragments in eye following cataract surgery, bilateral Lymphedema Hyperlipidemia Hiatal hernia Chronic respiratory failure with hypoxia Prostate cancer BPH (benign prostatic hyperplasia) Cor pulmonale HTN (hypertension) Diabetes mellitus Atrial fibrillation CKD stage 3 secondary to diabetes Pneumonia COPD (chronic obstructive pulmonary disease) Congestive heart failure Assessment and Plan Assessment and plan all Dx Assessment and Plan for all problems:: Pharmacokinetic dosing service Objective: Age: 68 yo Serum creatinine: 1.1 mg/dL Height: 72.8 Inches Weight (kg): 160.8 Diagnosis: SEPSIS Assessment: IBW (kg): 79.44 Dosing wt(kg): 112.0 Estimated Creatinine clearance (ml/min): 100.4 CRCL method: Cockcroft and Gault using adjusted body weight Drug selected: Vancomycin Vd (liters): 78.4 (factor used: 0.7 L/kg) Petr (hr-1): 0.088 Half life (hrs): 7.88 CLvanco=?? 6.899 L/hr Recommended dose: 2000 mg Interval: 12 hrs Infusion time (hrs): 2.0 Predicted peak (mcg/mL): 35.9 Predicted trough (mcg/mL): 14.89 Adjusted body weight was selected for vancomycin dosing. To switch back, select the total body weight option above. Recommendations: Give Vancomycin 2000 mg q 12 hrs with an expected Cpeak of 35.9 mcg/ml and an expected Ctrough of 14.89 mcg/ml AUC 0-24 /JAMIN Data: JAMIN 0.5 mcg/mL:?? AUC/JAMIN:? 1159.6 JAMIN 1.0 mcg/mL:?? AUC/JAMIN:? 579.8 --------- JAMIN 1.5 mcg/mL:?? AUC/JAMIN:? 386.5 JAMIN 2.0 mcg/mL:?? AUC/JAMIN:? 289.9 Thank you for the consult
[2024-01-13] MEDS: PANTOPRAZOLE 40MG TABLET 40 MG PO (09:03)
[2024-01-13] MEDS: MILK OF MAGNESIA 30ML UDC 30 ML PO (09:03)
--- NOTE | 2024-01-13 09:50 | PC.NURSE ---
med rec completed using external pharmacy.
[2024-01-13 11:06] LABS: POC Glucose,Bedside 139 (70-110)
--- NOTE | 2024-01-13 11:25 | [facility]H.PHAINT1 ---
Pharmacy Intervention Comments: MEDICATION RECONCILIATION COMPLETED ON PATIENT USING EXTERNAL FILL HISTORY FROM PHARMACY. -KHARI WOOTEN, LISAD
--- NOTE | 2024-01-13 12:54 | CA_ITS ---
APPROVED REPORT EXAM: Limited 2D Echocardiogram Assessment Analyst: Christel Low RVT Ht: 6 ft 0 in Wt: 354lbs BSA: 2.72 BP: 143/61 mmHg Indications: CHF,A-FIB,DEMETRIA,HOME 02,DM,COPD,HTN,HLD,PICKWICKIAN SYNDROME VERY LIMITED STUDY-PT IS UPRIGHT IN RECLINER,PT TOLD TECH TO STOP EXAM HE WAS FINISHED 2D Dimensions IVSd 1.93 cm M: 0.6-1.2 LVEF (Visual) 57.70 % PWd 1.23 cm M: 0.6 - 1.2 LVDd 5.17 cm M: 4.2 - 5.9 LVDs 3.59 cm M: 2.5 - 4.0 Left Atrium 3.93 cm M: 3.0 - 4.0 LVOT 2.05 cm (M/F) 1.5-2.5 M-Mode Dimensions LVDd 5.17 cm (3.5-5.7) Ao Diam 3.34 cm (2.0-3.7) LVDs 3.59 cm (3.5-5.7) IVSd 1.93 cm (0.6-1.1) PWd 1.23 cm (0.6-1.1) FS 30.60% Other Information Study Quality: Technically Difficult Conclusion This is a limited TTE to evaluate for LVEF. Limited windows were obtained. Technically difficult study due to poor acoustic windows and pulmonary disease. The left ventricle is grossly normal in size. There is increased LV wall thickness. There is normal global LV systolic function. Regional wall motion cannot be estimated due to technically difficult study. LVEF is 60%. The right ventricle is not very well-visualized, but grossly appears at least mildly dilated with at least mild reduction in RV function. Electronically signed by : Tegan Mccallum MD 01/13/2024 20:16:07
--- NOTE | 2024-01-13 13:28 | P.CONCA_ITS ---
History of Present Illness History of Present Illness Consult date: 01/13/24 Requesting physician: Danielito Torres Consult reason: shortness of breath Chief complaint: SOA, edema History of present illness: This is a 68-year-old gentleman who presented to the emergency department with complaints of shortness of breath, lower extremity edema and a 50 pound weight gain. He has a past medical history of HFpEF, COPD, chronic respiratory failure and morbid obesity. The patient states that he has been short of breath for approximately 1 week with worsening lower extremity edema. He states that his symptoms got severe and he decided to call EMS because of how swollen his legs are and the weight gain. He denies any chest pain or pressure. He denies any fever, chills, nausea, vomiting, diarrhea. He does have associated PND and orthopnea with his shortness of breath. He denies a cough. The patient has been having per rectum noted as well. [facility] Disclaimer: The information contained in this section may have been updated after the patient was seen, as this information can be updated by other users. Medical History (Updated 01/13/24 @ 13:33 by Amy Beckham APRN) Lower extremity edema Shortness of Breath Acute heart failure with preserved ejection fraction (HFpEF) DEMETRIA (obstructive sleep apnea) On home oxygen therapy Tortuous aorta Aortic calcification Reduced ejection fraction concurrent with and due to acute on chronic heart failure History of gastrectomy Cataract (lens) fragments in eye following cataract surgery, bilateral Lymphedema Hyperlipidemia Hiatal hernia Chronic respiratory failure with hypoxia Prostate cancer BPH (benign prostatic hyperplasia) Cor pulmonale HTN (hypertension) Diabetes mellitus Atrial fibrillation CKD stage 3 secondary to diabetes Pneumonia COPD (chronic obstructive pulmonary disease) Congestive heart failure Surgical History Hx of tonsillectomy H/O hernia repair Family History Other Family history of arthritis Family history of cancer Family history of diabetes mellitus type II Family history of heart disease Family history of hypertension Social History Smoking Status: Current some day smoker alcohol intake: never current occupational status: retired and disabled Travel in the last 8 weeks: None household members: significant other Review of Systems Review of Systems Review of systems:: pertinent systems reviewed and negative unless documented below Constitutional Constitutional: Reports system reviewed and no additional complaints, except as documented, Reports fatigue and Reports lethargy Eyes Eyes: Reports system reviewed and no additional complaints, except as documented ENT Ears, Nose, Mouth, and Throat: Reports system reviewed and no additional complaints, except as documented *Cardiovascular Cardiovascular: Reports system reviewed and no additional complaints, except as documented, Denies chest pain, Reports dyspnea, Reports dyspnea on exertion, Reports edema, Reports leg edema, Reports orthopnea, Reports paroxysmal nocturnal dyspnea and Reports pedal edema *Respiratory Respiratory: Reports system reviewed and no additional complaints, except as documented, Reports chest congestion, Reports dyspnea and Reports dyspnea on exertion *Gastrointestinal Gastrointestinal: Reports system reviewed and no additional complaints, except as documented *Genitourinary Genitourinary: Reports system reviewed and no additional complaints, except as documented *Musculoskeletal Musculoskeletal: Reports system reviewed and no additional complaints, except as documented Integumentary/Breasts Skin/Breast: Reports system reviewed and no additional complaints, except as documented *Neurologic Neurologic: Reports system reviewed and no additional complaints, except as documented and Reports as per HPI Psychiatric Psychiatric: Reports system reviewed and no additional complaints, except as documented Endocrine Endocrine: Reports system reviewed and no additional complaints, except as documented and Reports fatigue Hematologic/Lymphatic Hematologic/Lymphatic: Reports system reviewed and no additional complaints, except as documented Allergic/Immunologic Allergic/Immunologic: Reports system reviewed and no additional complaints, except as documented Exam Data for Last 24 hours Vital signs and Labs for Last 24 Hours: Temp Pulse Resp BP Pulse Ox O2 Del Method O2 Flow Rate 98.8 F 93 H 18 95/61 L 97 Nasal Cannula 5 01/13/24 11:25 01/13/24 12:00 01/13/24 11:25 01/13/24 11:25 01/13/24 11:25 01/13/24 13:00 01/13/24 13:00 FiO2 40 01/13/24 06:25 Laboratory Results - last 24 hr 01/12/24 22:26: VBG pH 7.37, VBG pCO2 74.7 H, VBG pO2 31.5, VBG HCO3 42.5 H, VBG Total CO2 44.8 H, VBG O2 Saturation 57.9, VBG Base Excess 17.3 H, VBG Lactic Acid 3.3 H 01/12/24 23:36: WBC 28.4 H*, RBC 4.21 L, Hgb 10.2 L, Hct 35.5 L, MCV 84.4, MCH 24.1 L, MCHC 28.6 L, RDW 17.2, Plt Count 274, MPV 8.6, Neut % (Auto) 91.0 H, Lymph % (Auto) 3.4 L, [place] % (Auto) 4.7, Eos % (Auto) 0.6, Baso % (Auto) 0.3, Neut # (Auto) 25.9 H, Lymph # (Auto) 1.0, [place] # (Auto) 1.4 H, Eos # (Auto) 0.2, Baso # (Auto) 0.1, Total Counted 100, Neutrophils % (Manual) 87 H, Lymphocytes % (Manual) 8 L, Monocytes % (Manual) 5, Platelet Estimate Normal, Hypochromasia 2+, Stomatocytes 2+, Sodium 132 L, Potassium 3.4 L, Chloride 85 L, Carbon Dioxide 44 H*, Anion Gap 10.4, BUN 22 H, Creatinine 1.10, Estimated Creat Clear 70, Estimated GFR 66, Est GFR ( Amer) 80, Glucose 135 H, Calcium 8.1 L, Magnesium 1.8, Total Bilirubin 0.6, AST 18, ALT 17, Alkaline Phosphatase 85, NT-Pro-B Natriuret Pep 1260 H, Total Protein 6.5, Albumin 3.3 L, Globulin 3.2, Albumin/Globulin Ratio 1.0 L 01/12/24 23:56: Urine Color Yellow, Urine Appearance Clear, Urine pH 7.0, Ur Specific [place] 1.010, Urine Protein Negative, Urine Glucose (UA) Negative, Urine Ketones Negative, Urine Blood Negative, Urine Nitrate Negative, Urine Bilirubin Negative, Urine Urobilinogen 0.2, Ur Leukocyte Esterase Negative, Urine RBC None, Urine WBC None, Ur Squamous Epith Cells Occasional, Urine Bacteria None 01/13/24 01:45: TSH 2.54, Free T4 Index 3.1 L, Thyroxine (T4) 5.6, T3 Uptake 55 H 01/13/24 05:01: WBC 29.5 H*, RBC 4.40 L, Hgb 10.4 L, Hct 36.5 L, MCV 83.0, MCH 23.7 L, MCHC 28.5 L, RDW 17.3, Plt Count 301, MPV 8.5, Neut % (Auto) 91.0 H, Lymph % (Auto) 2.4 L, [place] % (Auto) 5.0, Eos % (Auto) 0.9, Baso % (Auto) 0.6, Neut # (Auto) 26.8 H, Lymph # (Auto) 0.7, [place] # (Auto) 1.5 H, Eos # (Auto) 0.3, Baso # (Auto) 0.2, Sodium 133 L, Potassium 3.5, Chloride 87 L, Carbon Dioxide 47 H*, Anion Gap 2.5 L, BUN 20, Creatinine 1.10, Estimated Creat Clear 70, Estimated GFR 66, Est GFR ( Amer) 80, Glucose 159 H, Lactate 1.0, Calcium 8.0 L, Magnesium 1.7, Total Bilirubin 0.6, AST 15 L, ALT 14, Alkaline Phosphatase 87, Troponin I 0.02, Total Protein 6.3, Albumin 3.1 L, Globulin 3.2, Albumin/Globulin Ratio 1.0 L 01/13/24 05:40: Chlamy pneumoniae PCR Not detected, Adenovirus (PCR) Not detected, B. pertussis DNA (PCR) Not detected, Coronavirus OC43 (PCR) Not detected, Coronavirus HKU1 (PCR) Not detected, Coronavirus 229E (PCR) Not detected, SARS-CoV-2 (PCR) Not detected, Coronavirus NL63 (PCR) Not detected, Human Metapneumovir PCR Not detected, Influenza A (H1) PCR Not detected, Influ A (H1N1/09) PCR Not detected, Influenza A (H3) PCR Not detected, Influenza Type A (PCR) Not detected, Influenza Type B (PCR) Not detected, M. pneumoniae (PCR) Not detected, Parainfluenza 1 (PCR) Not detected, Parainfluenza 2 (PCR) Not detected, Parainfluenza 3 (PCR) Not detected, Parainfluenza 4 (PCR) Not detected, RSV (PCR) Not detected, Entero/Rhino (PCR) Not detected 01/13/24 06:52: POC Glucose 179 H 01/13/24 10:59: POC Glucose 139 H I & O for Last 24 hours: Intake & Output 01/10/24 01/11/24 01/12/24 01/13/24 23:59 23:59 23:59 23:59 Intake Total 510 / 510 Output Total 2150 / 2150 Balance -1640 / -1640 Weight 353 lb 13.471 oz 354 lb 8.053 oz Microbiology Reports for the Last 24 Hours: Microbiology 01/12/24 22:50 Sputum - Expectorated Sputum Gram Stain - Final Constitutional Constitutional: no acute distress and morbidly obese *Routine HEENT Exam Head: Present normocephalic and atraumatic ENT: Present mucous membranes moist *Routine Neck Exam Neck: Present supple, full ROM and normal carotid upstroke; Absent JVD, carotid bruit or lymphadenopathy *Routine Respiratory Exam Respiratory: Present CTA bilaterally, normal respiratory effort, able to speak in complete sentences and symmetric chest movement *Routine Cardiovascular Exam Cardiovascular: Present RRR, Normal S1 and Normal S2; Absent murmur or gallop *Routine Abdominal Exam Abdominal: Present soft and normoactive bowel sounds; Absent tenderness, disten ded or organomegaly *Routine Extremities Exam Extremities: Present edema (Gross bilateral lower extremity edema), full ROM, pulses intact and normal capillary refill; Absent cyanosis or clubbing *Routine Skin Exam Skin: Present intact and warm; Absent erythema *Routine Neurological Exam Neurological: Present alert, oriented X3 and CN II-XII intact; Absent sensory deficit or motor deficit Routine Psychiatric Exam Psychiatric: Present normal affect Meds Home Medications and Allergies Home Medications ?Medication ?Instructions ?Recorded ?Confirmed ?Type albuterol sulfate 90 mcg/actuation 2 puff inhalation Q4HP PRN 08/22/23 01/13/24 History aerosol inhaler Shortness Of Breath Or Wheezing atorvastatin 20 mg tablet 20 mg PO HS 08/22/23 01/13/24 History fluticasone fur. 200 mcg-umeclid 1 ea inhalation DAILY 08/22/23 01/13/24 History 62.5 mcg-vilant 25 mcg inhalat.powder (Trelegy Ellipta) furosemide 80 mg tablet 80 mg PO BIDL 08/22/23 01/13/24 History ipratropium 0.5 mg-albuterol 3 mg 3 ml inhalation QID 08/22/23 01/13/24 History (2.5 mg base)/3 mL nebulization soln levothyroxine 150 mcg tablet 150 mcg PO DAILY 08/22/23 01/13/24 History metolazone 5 mg tablet 5 mg PO DAILYP PRN Swelling 08/22/23 01/13/24 History ondansetron HCl 4 mg tablet 4 mg PO Q6HP PRN Nausea And 08/22/23 01/13/24 History Vomiting ranolazine 500 mg tablet,extended 500 mg PO BID 08/22/23 01/13/24 History release,12 hr tamsulosin 0.4 mg capsule 0.4 mg PO AM 01/13/24 01/13/24 History New Prescriptions to Start Prescriptions: Allergies Allergy/AdvReac Type Severity Reaction Status Date / Time penciclovir Allergy Difficulty Verified 08/22/23 23:13 Breathing Penicillins Allergy Hives Verified 08/22/23 23:13 tramadol AdvReac Diarrhea Verified 08/22/23 23:13 Assessment and Plan *Assessment and plan (1) Acute heart failure with preserved ejection fraction (HFpEF): Status: Acute Category: Medical Code(s): I50.31 - Acute diastolic (congestive) heart failure (2) Shortness of Breath: Status: Acute Category: Medical Code(s): R06.02 - Shortness of breath (3) Lower extremity edema: Status: Acute Category: Medical Code(s): R60.0 - Localized edema (4) Pleural effusion, bilateral: Status: Acute Category: Medical Code(s): J90 - Pleural effusion, not elsewhere classified (5) Bleeding per rectum: Status: Acute Category: Medical Code(s): K62.5 - Hemorrhage of anus and rectum (6) Morbid obesity: Status: Acute Category: Medical Code(s): E66.01 - Morbid (severe) obesity due to excess calories (7) Acute exacerbation of chronic obstructive pulmonary disease: Status: Acute Category: Medical Code(s): J44.1 - Chronic obstructive pulmonary disease with (acute) exacerbation Plan Plan: 1. Patient was admitted to the hospital with acute HFpEF. He has been diuresed with a Bumex drip. The patient is still fluid overloaded at this time. Continue Bumex drip. Consider increasing his Bumex drip to 1 mg/hr if he does not have a bump in his renal function tomorrow. 2. Will obtain an echocardiogram to evaluate his LV function. 3. He denies any chest pain or pressure. No plans for invasive evaluation at this time. Consider ischemic workup on an outpatient basis once he is discharged from the hospital. 4. Stop IV fluids. 5. His blood pressure is on the low side. Once his blood pressure has improved consider starting low-dose beta-chicho and HOLLIE/ARB for HFpEF. 6. Once he is euvolemic consider starting Jardiance or Farxiga for HFpEF. 7. His LDL goal is less than 100. His LDL was less than 30 in July 2023. 8. Further recommendations will be made pending the patient's response to treatment and the results of his echocardiogram today. Thank you for the opportunity to help dissipate in the care of this patient. All recommendations and orders are per Dr. Mccallum.
--- NOTE | 2024-01-13 13:50 | PC.NURSE ---
pt and pt's c/o suspected hemorrhoids. hospitalist made aware of pt and c/o. no new orders at this time.
--- NOTE | 2024-01-13 17:03 | PC.NURSE ---
pt has requested to wear c-pap majority of shift. pt has remained in chair this shift and would like to sleep in chair per pt. pt got up to bed earlier in shift with x2 assistance and walker. pt had visible blood coming from rectal area. hospitalist made aware and did not seem too concerned. pt has seemed to be irritated with care. when not wearing cpap, pt requests he be on 5Lnc. no new orders at this time . call light within reach.
[2024-01-13 17:08] LABS: POC Glucose,Bedside 137 (70-110)
[2024-01-13] MEDS: BUMETANIDE 10 MG in 0.9 % SODIUM CHLORIDE 60 ML 5 MG IV (18:41)
[2024-01-13] MEDS: RANOLAZINE 500MG ER TABLET 500 MG PO (20:56)
[2024-01-13] MEDS: ATORVASTATIN 20MG TABLET 20 MG PO (20:56)
[2024-01-13 22:00] LABS: POC Glucose,Bedside 221 (70-110)
[2024-01-14] VITALS (13 sets, daily range): BP systolic 90–123; BP diastolic 46–78; PULSE 70–91; RESP 18–29; TEMP 36.6–37.8; O2SAT 91–100; BMI 47.0
[2024-01-14] MEDS: IPRATROPIUM/ALBUTEROL 3 ML NEB IH ×5 (00:07→23:39)
[2024-01-14] MEDS: CEFTRIAXONE SODIUM 2 GM in 0.9 % SODIUM CHLORIDE 100 ML IV (01:09)
[2024-01-14] MEDS: AZITHROMYCIN 500 MG in 0.9 % SODIUM CHLORIDE 250 ML 250 MG IV (01:48)
[2024-01-14] MEDS: ACETAMINOPHEN 325MG TAB 650 MG PO (01:50)
--- NOTE | 2024-01-14 04:13 | PC.NURSE ---
68 yo male pt remains A/O X 3. VS have been WNL for pt this shift. He complained of discomfort to his scrotum and was medicated with tylenol per MAR which he reports as effective. He has slept a lot this shift but refused to lie in bed, sleeping in chair. Pt was advised lying in the bed would relieve some pressure on his buttocks and scrotum but he continues to refuse. Pt has used CPAP most of shift but would alternate with 5 liters of 02 per nc for short periods and tolerated well. FSBS was 221 at 2100. He continues to have a foul bloody drainage from rectum. He requires assist of 2 to standing positions. Antibiotics given per order.
[2024-01-14] MEDS: TAMSULOSIN 0.4MG CAPSULE 0.4 MG PO ×2 (06:30→20:10)
[2024-01-14] MEDS: VANCOMYCIN HCL 2,000 MG in 0.9 % SODIUM CHLORIDE 250 ML 125 MG IV ×2 (06:31→20:10)
[2024-01-14 06:46] LABS: POC Glucose,Bedside 201 (70-110)
[2024-01-14 07:18] LABS: Basophils # 0.1 K/mm3 (0-0.2); Basophils % 0.3 % (0.1-2.0); Eosinophils # 0.4 K/mm3 (0.0-0.4); Hematocrit 35.9 % (42.0-52.0); Hemoglobin 10.2 g/dL (14.1-18.0); Lymphocytes # 1.2 K/mm3 (0.7-4.5); Lymphocytes % 5.9 % (10-50); Mean Corpuscular HGB Conc 28.4 g/dL (31.8-35.4); Mean Corpuscular Hemoglobin 24.4 pg (27.0-31.2); Mean Corpuscular Volume 85.9 fl (80-94); Mean Platelet Volume 8.1 fl (7.4-10.4); Monocytes # 1.2 K/mm3 (0.1-1.0); Monocytes % 5.9 % (1.7-9.3); Neutrophils # 17.6 K/mm3 (1.8-7.8); Neutrophils % 85.9 % (37.0-80.0); Platelet Count 273 K/mm3 (142-424); Red Blood Count 4.18 M/mm3 (4.60-6.20); Red Cell Distribution Width 16.9 % (11.5-17.5); White Blood Count 20.5 K/mm3 (4.8-10.8)
[2024-01-14 07:20] LABS: MANUAL DIFFERENTIAL MANUAL DIFFERENTIAL (MANUAL DIFF)
[2024-01-14 07:21] LABS: Blood Urea Nitrogen 21 mg/dl (9-20); Calcium 8.1 mg/dl (8.4-10.2); Chloride 84 mmol/L (98-107); Creatinine Clearance Estimated 70 mL/min (50-200); Estimated Glomerular Filt Rate 66 ml/min (>60); GFR (African American) 80 ML/MIN (>60); Glucose 138 mg/dl (74-100); Potassium 3.1 mmoL/L (3.5-5.1); Sodium 134 mmol/L (136-145)
[2024-01-14 07:53] LABS: Anion Gap 7.1 mEq/L (5-15); Carbon Dioxide 46 mmol/L (22.0-30.0)
[2024-01-14] MEDS: MILK OF MAGNESIA 30ML UDC 30 ML PO (10:02)
[2024-01-14] MEDS: HEPARIN SODIUM 5,000 UNIT/ML VIAL 5000 UNIT SQ ×2 (10:02→20:11)
[2024-01-14] MEDS: LEVOTHYROXINE 150MCG (0.15MG)TAB 150 MCG PO (10:02)
[2024-01-14] MEDS: POTASSIUM CHLORIDE 20MEQ TAB 20 MEQ PO ×2 (10:03→20:10)
[2024-01-14] MEDS: RANOLAZINE 500MG ER TABLET 500 MG PO ×2 (10:03→20:10)
[2024-01-14] MEDS: PANTOPRAZOLE 40MG TABLET 40 MG PO (10:03)
[2024-01-14] MEDS: SPIRONOLACTONE 25MG TABLET 50 MG PO (10:03)
--- NOTE | 2024-01-14 10:28 | HMH.OTEV ---
OT Inpatient Evaluation Rehab OT IP Evaluation Start: 01/14/24 09:23 Freq: ONCE Status: Active Protocol: Document 01/14/24 10:22 [facility] (Rec: 01/14/24 10:[address] [facility] [id number]) Rehab OT IP Assessment Subjective History Pt oriented x 3 on arrival. Pt agreeable to engage in therapy evaluation. Pt admitted on 01/13/24 heart failure. History and Physical report: Mr. Wu is a 68-year-old male who arrived at our ER via EMS. He has a history of HFpEF and COPD along with chronic respiratory failure on CPAP at home, pickwickian syndrome, morbid obesity. Presented via EMS to the ER because of respiratory distress. Reports concern for swelling. Patient reports having been referred to hospice 6 months ago by his primary care however he has refused and states he has been doing well and stayed at the hospital for the past 6 m he has been having increased swelling and shortness of breath over the past week. States his legs have gotten more swollen and he said swelling up into his groin and lower abdomen. He is up approximately 50 pounds from his dry weight of 300 pounds. Nuys any fever, chill, chest pain. Does report a productive cough for the past week. No vomiting or diarrhea . Does report he has been having some blood in his stool however and this is chronic for him. Able to perform basic ADLs at home. Medicine consulted for admission due to increased oxygen requirement and concern for CHF exacerbation along with volume overload. Chest imaging showing significant edema and effusions. White count elevated at 29,000 . Elevated bicarb of 47 showing chronic CO2 retention. On evaluation, patient is frustrated with goals of care discussion. Does not want to talk about intubation. States he does not want to be on a ventilator however. Tolerating 5 L nasal cannula oxygen. Initiated on Bumex drip. Subjective I am not stupid! Prior to being in the hospital , pt lived at home with his girlfriend. Pt claims prior to being in the hospital, he was independent with all ADLs such as dressing, bathing, and feeding. However, he was dependent upon girlfriend for completion of all IADLs. Pt used a rolling walker during functional transfers. Pt was on supplemental oxygen at home . Objective Patient Orientation Person,Place,Birthday Right Upper Extremity Gross ROM WFL Left Upper Extremity Gross ROM WFL Bed Mobility bed mobility-scooting,bed mobility - supine/sit Assist Level Moderate x 2 (50% assist) Transfer Training Sit/Stand/Step Transfer Assist Level Minimal x 2 (25% assist) Chair Transfer Ability Minimal x 2 (25% assist) Chair Transfer Technique Stand Step Pivot Chair Transfer Assistive Devices Rolling Walker Upper Body Dressing Ability Moderate Assistance Performing Toilet Hygiene Ability Unable/dependent Rehab OT IP prob,goals,plan Problems Date of Evaluation: 01/14/24 OT IP Problems Bed Mobility,Transfers,Balance ,Self care,Safety Rehab Potential Rehab Potential Good Equipment Needs Assistive Devices Rolling / Wheeled Walker Plan OT intervention Plan Bed Mobility,Transfers,Balance ,Self care,Safety,Therapeutic Exercise OT Plan Frequency Daily Duration LOS Discharge Goals Bed Mobility Ability Assistance x1 Sit to Stand Chair Transfer Ability Minimal x 1 (25% assist) Chair Transfer Ability Minimal x 1 (25% assist) Chair Transfer Technique Sit to/from Ambulatory Chair Transfer Assistive Devices Rolling Walker Lower Body Dressing Ability Minimal Assistance Upper Body Dressing Ability Minimal Assistance Bathing Ability Moderate Assistance Performing Toilet Hygiene Ability Moderate Assistance Overall Commode/Toilet Transfer Ability Minimal Assistance Commode/Toilet Transfer Technique Sit to/from Ambulatory Commode/Toilet Transfer Assistive Grab Bars Devices Oral Care Assist Contact Guard Decrease in Endurance Yes Discharge Plan OT Discharge Plan Pt will continue to be seen for OT services while at [facility]. Pt would benefit most from short term rehab at [facility] following hospital stay for continued skilled therapy. However, if pt is reluctant, pt could return home with girlfriend and / assistance . If he does return home therapist recommends OT evaluation. Continued skilled therapy is important in order for patient to improve strength, safety, endurance, ADL independence, and functional transfers to reach [facility]. Eval Complexity Eval Charge Codes 06948 - Moderate Complexity PHYSICIAN CERTIFICATION: I certify the specified therapy services for Rohan Wu are required, authorized, and reviewed every 30 days.
[2024-01-14 10:31] LABS: POC Glucose,Bedside 126 (70-110)
--- NOTE | 2024-01-14 10:41 | EXP.CARD.PN ---
Subjective Subjective Date: 01/14/24 Time: 08:30 Principal diagnosis: HFpEF Interval history: This is a 68-year-old gentleman who presented to the emergency department complaints of shortness of breath, lower extremity edema and a 50 pound weight gain. He is currently being treated for an acute exacerbation of HFpEF. He is being diuresed with IV Bumex. He is tolerating this well. He denies any chest pain or pressure this morning. He states that he is still having shortness of breath but this has improved since admission. He states that he is feeling a little better than yesterday. He still has bilateral lower extremity edema. He denies any fever, chills, nausea, vomiting or diarrhea. He still has associated orthopnea with his shortness. Exam Data for Last 24 hours Vital signs and Labs for Last 24 Hours: Temp Pulse Resp BP Pulse Ox O2 Del Method O2 Flow Rate 98.1 F 89 22 123/62 91 L CPAP 5 01/14/24 08:00 01/14/24 08:00 01/14/24 08:00 01/14/24 08:00 01/14/24 08:00 01/14/24 10:20 01/14/24 09:00 FiO2 40 01/14/24 06:37 Laboratory Results - last 24 hr 01/13/24 10:59: POC Glucose 139 H 01/13/24 17:01: POC Glucose 137 H 01/13/24 21:05: POC Glucose 221 H 01/14/24 06:09: POC Glucose 201 H 01/14/24 06:51: WBC 20.5 H* D, RBC 4.18 L, Hgb 10.2 L, Hct 35.9 L, MCV 85.9, MCH 24.4 L, MCHC 28.4 L, RDW 16.9, Plt Count 273, MPV 8.1, Neut % (Auto) 85.9 H, Lymph % (Auto) 5.9 L, [place] % (Auto) 5.9, Eos % (Auto) 2.0, Baso % (Auto) 0.3, Neut # (Auto) 17.6 H, Lymph # (Auto) 1.2, [place] # (Auto) 1.2 H, Eos # (Auto) 0.4, Baso # (Auto) 0.1, Sodium 134 L, Potassium 3.1 L, Chloride 84 L, Carbon Dioxide 46 H*, Anion Gap 7.1, BUN 21 H, Creatinine 1.10, Estimated Creat Clear 70, Estimated GFR 66, Est GFR ( Amer) 80, Glucose 138 H, Calcium 8.1 L 01/14/24 10:24: POC Glucose 126 H I & O for Last 24 hours: Intake & Output 01/11/24 01/12/24 01/13/24 01/14/24 23:59 23:59 23:59 23:59 Intake Total 1255.333 / 1280.333 385 / 385 Output Total 2550 / 3550 2250 / 2250 Balance -1294.667 / -2269.667 -1865 / -1865 Weight 353 lb 13.471 oz 354 lb 8.053 oz 354 lb 8.053 oz Microbiology Reports for the Last 24 Hours: Microbiology 01/12/24 22:50 Sputum - Expectorated Sputum Gram Stain - Final 01/12/24 22:50 Sputum - Expectorated Sputum Sputum Culture - Preliminary 01/13/24 01:45 Blood Blood Culture - Preliminary NO GROWTH AFTER 24 HOURS 01/13/24 01:35 Blood Blood Culture - Preliminary NO GROWTH AFTER 24 HOURS Constitutional Constitutional: no acute distress and morbidly obese *Routine HEENT Exam Head: Present normocephalic and atraumatic ENT: Present mucous membranes moist *Routine Neck Exam Neck: Present supple, full ROM and normal carotid upstroke; Absent JVD, carotid bruit or lymphadenopathy *Routine Respiratory Exam Respiratory: Present CTA bilaterally, normal respiratory effort, able to speak in complete sentences and symmetric chest movement *Routine Cardiovascular Exam Cardiovascular: Present RRR, Normal S1 and Normal S2; Absent murmur or gallop *Routine Abdominal Exam Abdominal: Present soft and normoactive bowel sounds; Absent tenderness, distended or organomegaly *Routine Extremities Exam Extremities: Present edema (Gross bilateral lower extremity edema), full ROM, pulses intact and normal capillary refill; Absent cyanosis or clubbing *Routine Skin Exam Skin: Present intact and warm; Absent erythema *Routine Neurological Exam Neurological: Present alert, oriented X3 and CN II-XII intact; Absent sensory deficit or motor deficit Routine Psychiatric Exam Psychiatric: Present normal affect Progress Note: A&P Assessment and plan (1) Acute heart failure with preserved ejection fraction (HFpEF): Status: Acute (2) Acute on chronic respiratory failure with hypoxia and hypercapnia: Status: Acute (3) Pleural effusion, bilateral: Status: Acute (4) Volume overload: Status: Acute (5) Bleeding per rectum: Status: Acute (6) Leukocytosis: Status: Acute (7) Morbid obesity: Status: Acute (8) Acute exacerbation of chronic obstructive pulmonary disease: Status: Acute (9) Acute on chronic respiratory acidosis: Status: Acute (10) Pickwickian syndrome: Status: Acute (11) Shortness of Breath: Status: Acute (12) Lower extremity edema: Status: Acute (13) OSMANI (acute kidney injury): Status: Acute (14) Hypokalemia: Status: Acute Assessment and Plan Assessment and Plan for All Diagnoses:: Plan: 1. The patient was admitted to the hospital with acute HFpEF. He is being diuresed with IV Bumex. He has a -2319 fluid balance overnight. Will continue Bumex drip at 0.5 mg/hr for continued diuresis. 2. Add spironolactone 50 mg p.o. daily for continued diuresis and hypokalemia. 3. Preliminary echocardiogram shows preserved ejection fraction. Awaiting official read. 4. The patient denies any chest pain or pressure. No plans for invasive left cardiac catheterization at this time. Consider ischemic workup on an outpatient basis once he is discharged from the hospital. 5. His blood pressure is well-controlled. 6. His LDL goal is less than 100. His LDL is less than 30 in July 2023. He is on a statin. 7. Start irbesartan 75 mg p.o. daily for HFrEF. 8. Will hold off on a beta-chicho at this time due to HFpEF, and studies show HFpEF symptoms can be worsened by beta-blockers. 9. Consider Jardiance or Farxiga once he is euvolemic for HFpEF. 10. Start acetazolamide 500 mg p.o. dailysince his bicarb is elevated. 11. Further recommendations will be made pending the patient's response to treatment. Thank you for the opportunity to help participate in the care of this patient. All recommendations and orders are per Dr. Mccallum.
[2024-01-14 12:11] LABS: Eosinophils % 3 % (0-3); Hypochromasia 1+; Lymphocytes % 7 % (10-50); Monocytes % 2 % (2-9); Neutrophils % 88 % (42-76); Platelet Estimate Normal; Total Cells Counted 100
[2024-01-14] MEDS: acetaZOLAMIDE 250 MG TABLET 500 MG PO (12:56)
--- NOTE | 2024-01-14 13:55 | EXP.PN ---
Subjective *Date: 01/14/24 *Time: 13:55 Interval history: Patient is resting comfortably in bed without acute concerns this morning. He states his breathing is better this morning after diuresis overnight. He states his legs continue to be swollen but better. He also states he is having some bloody drainage from the rectum, and states he has never had this before. Denies abdominal pain, chest pain, urinary symptoms. Exam Data for Last 24 hours Vital signs and Labs for Last 24 Hours: Temp Pulse Resp BP Pulse Ox O2 Del Method O2 Flow Rate 97.8 F 84 22 116/76 97 Nasal Cannula 5 01/14/24 12:00 01/14/24 12:00 01/14/24 12:00 01/14/24 12:00 01/14/24 12:00 01/14/24 13:09 01/14/24 13:09 FiO2 40 01/14/24 06:37 Laboratory Results - last 24 hr 01/13/24 17:01: POC Glucose 137 H 01/13/24 21:05: POC Glucose 221 H 01/14/24 06:09: POC Glucose 201 H 01/14/24 06:51: WBC 20.5 H* D, RBC 4.18 L, Hgb 10.2 L, Hct 35.9 L, MCV 85.9, MCH 24.4 L, MCHC 28.4 L, RDW 16.9, Plt Count 273, MPV 8.1, Neut % (Auto) 85.9 H, Lymph % (Auto) 5.9 L, [place] % (Auto) 5.9, Eos % (Auto) 2.0, Baso % (Auto) 0.3, Neut # (Auto) 17.6 H, Lymph # (Auto) 1.2, [place] # (Auto) 1.2 H, Eos # (Auto) 0.4, Baso # (Auto) 0.1, Total Counted 100, Neutrophils % (Manual) 88 H, Lymphocytes % (Manual) 7 L, Monocytes % (Manual) 2, Eosinophils % (Manual) 3, Platelet Estimate Normal, Hypochromasia 1+, Sodium 134 L, Potassium 3.1 L, Chloride 84 L, Carbon Dioxide 46 H*, Anion Gap 7.1, BUN 21 H, Creatinine 1.10, Estimated Creat Clear 70, Estimated GFR 66, Est GFR ( Amer) 80, Glucose 138 H, Calcium 8.1 L 01/14/24 10:24: POC Glucose 126 H I & O for Last 24 hours: Intake & Output 01/11/24 01/12/24 01/13/24 01/14/24 23:59 23:59 23:59 23:59 Intake Total 1255.333 / 1280.333 385 / 385 Output Total 2550 / 3550 2250 / 2250 Balance -1294.667 / -2269.667 -1865 / -1865 Weight 160.5 kg 160.8 kg 160.8 kg Microbiology Reports for the Last 24 Hours: Microbiology 01/12/24 22:50 Sputum - Expectorated Sputum Gram Stain - Final 01/12/24 22:50 Sputum - Expectorated Sputum Sputum Culture - Preliminary 01/13/24 01:45 Blood Blood Culture - Preliminary NO GROWTH AFTER 24 HOURS 01/13/24 01:35 Blood Blood Culture - Preliminary NO GROWTH AFTER 24 HOURS
[2024-01-14] MEDS: BUMETANIDE 10 MG in 0.9 % SODIUM CHLORIDE 60 ML 5 MG IV (14:15)
--- NOTE | 2024-01-14 14:29 | HMH.PTEV ---
Physical Therapy Evaluation Rehab PT IP Evaluation Start: 01/14/24 09:23 Freq: ONCE Status: Active Protocol: Document 01/14/24 14:23 [place] (Rec: 01/14/24 14:29 [place] [id number]) Subjective/History History History Per H&P: Mr. Wu is a 68- year-old male who arrived at our ER via EMS. He has a history of HFpEF and COPD along with chronic respiratory failure on CPAP at home, pickwickian syndrome, morbid obesity. Presented via EMS to the ER because of respiratory distress. Reports concern for swelling. Patient reports having been referred to hospice 6 months ago by his primary care however he has refused and states he has been doing well and stayed at the hospital for the past 6 m he has been having increased swelling and shortness of breath over the past week. States his legs have gotten more swollen and he said swelling up into his groin and lower abdomen. He is up approximately 50 pounds from his dry weight of 300 pounds. Nuys any fever, chill, chest pain. Does report a productive cough for the past week. No vomiting or diarrhea . Does report he has been having some blood in his stool however and this is chronic for him. Able to perform basic ADLs at home. Medicine consulted for admission due to increased oxygen requirement and concern for CHF exacerbation along with volume overload. Chest imaging showing significant edema and effusions. Subjective Subjective Prior to being in the hospital , pt lived at home with his girlfriend. Pt claims prior to being in the hospital, he was independent with all ADLs such as dressing, bathing, and feeding. However, he was dependent upon girlfriend for completion of all IADLs. Pt used a rolling walker during functional transfers. Pt was on supplemental oxygen at home . New diagnosis of cancer in past 12 No months? Rehab PT IP Eval Objective Appearance Patient Behavior Appropriate,Cooperative Patient Orientation Person,Place Difficulty following instructions none Speech Pattern Clear Ambulation Patient Able to Ambulate No Balance Sitting Balance Steady, safe Transfers Sit to Stand Bed Transfer Ability Minimal x 2 (25% assist) Rehab PT IP prob,goals,plan Problems Date of Evaluation: 01/14/24 PT IP Problems Bed Mobility,Transfers,Gait, Balance,Self care,Safety Rehab Potential Rehab Potential Good Equipment Needs Assistive Devices Rolling / Wheeled Walker Plan PT Intervention Plan Bed Mobility,Transfers,Gait, Balance,Self care,Safety, Therapeutic Exercise Other Intervention Plan 1-2 times PT Plan Frequency Daily Duration LOS Discharge Goals Sit to Stand Chair Transfer Ability Contact Guard/Hand Hold Discharge Plan PT Discharge Plan Initial physical therapy evaluation performed. Patient presents below baseline at this time in functional mobility, transfers, and strength. Pt not safe to return home at this time d/t current level of functional mobility. PT recommending short-term rehabilitation stay upon d/c from [facility]. Pt would benefit from skilled PT while at [facility] to prevent further functional decline and maximize safety with mobility. Eval Complexity Eval Charge Codes 32076 - Moderate Complexity PHYSICIAN CERTIFICATION: I certify the specified therapy services for Rohan Wu are required, authorized, and reviewed every 30 days.
--- NOTE | 2024-01-14 15:13 | PC.NURSE ---
Aox 4, up assist times 2 with walker, 02-5L nc aso on cpap when needed, f/c in place, bumex gtt at 5 ml/hr, fsbg achs, pt and ot following, some blood tinged drainage from rectum at times.
--- NOTE | 2024-01-14 15:30 | SW/DCPLANNER ---
Addendum entered by [facility] 01/27/24 11:32: Due to patient's insurance I am unable to set up home health services. At this time the following home health agencies are NOT in network w/ patient's insurance: [facility], [facility], [facility], [facility] or [facility]. I did speak w/ patient regarding outpatient rehab and he stated that he is not interested at this time. Patient is aware of all outpatient appointments. Addendum entered by [facility] 01/24/24 12:41: Sera w/ [facility] stated they can not accept patient due to insurance. Patient information/order has been faxed to [facility]. Addendum entered by [facility] 01/24/24 10:47: Patient information/order has been faxed to [facility] for expected discharge date of tomorrow. I will follow up once [facility] reviews referral. Addendum entered by [facility] 01/23/24 10:01: I did speak w/ [facility] [place]: this is not a home health services. I also spoke w/ patient this AM. Patient is still not interested in placement but is agreeable to home health services. Patient does not have a preference on home health agency. I will set up services at time of discharge. Per patient expected discharge date is tomorrow. I will continue to follow up w/ MD and patient. Addendum entered by [facility] 01/20/24 14:49: I spoke w/ this patient regarding discharge plans today. Patient is NOT interested in placement at this time. Patient is adamant to return home w/ [facility] services. I will continue to follow up w/ patient and family until medically stable for discharge. Discharge date is unknown at this time. Addendum entered by [facility] 01/15/24 09:54: I spoke w/ patient this AM regarding plans once medically stable for discharge and the need for placement. Patient is adamant that he is not going to placement and will be returning home at time of discharge. Patient repeatedly said he is able to walk, bathe himself and take care of himself. I will update MD and I will continue to follow up w/ this patient until medically stable for discharge. Discharge date is unknown at this time. Addendum entered by [facility] 01/14/24 15:32: Per Anamika patient is currently established w/ [facility]. Original Note: I attempted to speak w/ patient this afternoon regarding plans once medically stable for discharge. PT/OT evaluated patient and recommended SNF level of care. Patient was asleep w/ CPAP on and asked that I speak w/ his significant other regarding discharge plans. I called and spoke w/ significant other (Anamika). Anamika stated that patient will not be agreeable to placement and she plans to care for patient at home. I did explain to Anamika that patient was not able to ambulate today w/ therapy. I will follow up w/ luigi, Anamika and in AM regarding discharge plans. Discharge date is unknown at this time.
[2024-01-14 16:34] LABS: POC Glucose,Bedside 170 (70-110)
--- NOTE | 2024-01-14 19:10 | EXP.PN ---
Subjective *Date: 01/14/24 *Time: 19:26 Exam Data for Last 24 hours Vital signs and Labs for Last 24 Hours: Temp Pulse Resp BP Pulse Ox O2 Del Method O2 Flow Rate 98.4 F 87 21 98/55 L 95 BiPAP 5 01/14/24 16:00 01/14/24 18:33 01/14/24 16:00 01/14/24 16:00 01/14/24 18:33 01/14/24 18:33 01/14/24 13:09 FiO2 40 01/14/24 18:33 Laboratory Results - last 24 hr 01/13/24 21:05: POC Glucose 221 H 01/14/24 06:09: POC Glucose 201 H 01/14/24 06:51: WBC 20.5 H* D, RBC 4.18 L, Hgb 10.2 L, Hct 35.9 L, MCV 85.9, MCH 24.4 L, MCHC 28.4 L, RDW 16.9, Plt Count 273, MPV 8.1, Neut % (Auto) 85.9 H, Lymph % (Auto) 5.9 L, [place] % (Auto) 5.9, Eos % (Auto) 2.0, Baso % (Auto) 0.3, Neut # (Auto) 17.6 H, Lymph # (Auto) 1.2, [place] # (Auto) 1.2 H, Eos # (Auto) 0.4, Baso # (Auto) 0.1, Total Counted 100, Neutrophils % (Manual) 88 H, Lymphocytes % (Manual) 7 L, Monocytes % (Manual) 2, Eosinophils % (Manual) 3, Platelet Estimate Normal, Hypochromasia 1+, Sodium 134 L, Potassium 3.1 L, Chloride 84 L, Carbon Dioxide 46 H*, Anion Gap 7.1, BUN 21 H, Creatinine 1.10, Estimated Creat Clear 70, Estimated GFR 66, Est GFR ( Amer) 80, Glucose 138 H, Calcium 8.1 L 01/14/24 10:24: POC Glucose 126 H 01/14/24 16:27: POC Glucose 170 H I & O for Last 24 hours: Intake & Output 01/11/24 01/12/24 01/13/24 01/14/24 23:59 23:59 23:59 23:59 Intake Total 1255.333 / 2559.530 8525.833 / 1262.833 Output Total 2550 / 3550 4250 / 4250 Balance -1294.667 / -2269.667 -2987.167 / -2987.167 Weight 160.5 kg 160.8 kg 160.8 kg Microbiology Reports for the Last 24 Hours: Microbiology 01/12/24 22:50 Sputum - Expectorated Sputum Gram Stain - Final 01/12/24 22:50 Sputum - Expectorated Sputum Sputum Culture - Preliminary 01/13/24 01:45 Blood Blood Culture - Preliminary NO GROWTH AFTER 24 HOURS 01/13/24 01:35 Blood Blood Culture - Preliminary NO GROWTH AFTER 24 HOURS Assessment and Plan *Assessment and plan (1) Acute on chronic respiratory failure with hypoxia and hypercapnia: Status: Acute Category: Medical Code(s): J96.21 - Acute and chronic respiratory failure with hypoxia; J96.22 - Acute and chronic respiratory failure with hypercapnia (2) Pneumonia: Status: Acute Category: Medical Code(s): J18.9 - Pneumonia, unspecified organism (3) Septic shock: Status: Acute Category: Medical Code(s): A41.9 - Sepsis, unspecified organism; R65.21 - Severe sepsis with septic shock (4) Acute exacerbation of CHF (congestive heart failure): Status: Acute Category: Medical Code(s): I50.9 - Heart failure, unspecified (5) OSMANI (acute kidney injury): Status: Acute Category: Medical Code(s): N17.9 - Acute kidney failure, unspecified (6) Acute metabolic encephalopathy: Status: Acute Category: Medical Code(s): G93.41 - Metabolic encephalopathy (7) Pickwickian syndrome: Status: Acute Category: Medical Code(s): E66.2 - Morbid (severe) obesity with alveolar hypoventilation (8) Morbid obesity: Status: Acute Category: Medical Code(s): E66.01 - Morbid (severe) obesity due to excess calories (9) Hypothyroid: Status: Acute Category: Medical Code(s): E03.9 - Hypothyroidism, unspecified (10) Heart failure with preserved ejection fraction: Status: Acute Category: Medical Code(s): I50.30 - Unspecified diastolic (congestive) heart failure Plan Mr. Wu is a morbidly obese 68-year-old male with history of heart failure with preserved ejection fraction, chronic respiratory failure on home BiPAP, chronically on 3 L oxygen, with CKD and recent admission for respiratory failure a month ago to [facility]. He presented via EMS for acute worsening and concern for sepsis with respiratory failure. Workup in the ER concerning for pneumonia, development of septic shock, and respiratory failure. Initiated on BiPAP. Discussed case with ER, request admission for ICU level of care and further management. Medicine agreed to admit. Received broad-spectrum antibiotics in the ER. Cultures obtained. Pulmonology consulted to assist with care including BiPAP management and critical care. Continues to show gradual improvement daily. Tolerating 3 L nasal cannula during the day. BiPAP at night. Awaiting placement for rehab. Continues to require inpatient management. Problems addressed as follows: Heart failure with preserved ejection fraction - Echocardiogram obtained showing preserved ejection fraction 60% with diastolic dysfunction. EKG shows old ID's - Fluid overload improving with dieuresis, cardiology consulted and recommended Bumex drip. - Continue Bumex drip. Making appropriate urine output. - Monitor renal function, electrolytes which are stable at this time with repleting. - Possible transition of Bumex drip tomorrow. Septic shock, resolved Acute on chronic hypoxemic respiratory failure with hypercapnia - improving Pickwickian syndrome Pneumonia Mixed respiratory acidosis, metabolic acidosis with concurrent metabolic alkalotic compensation. -continue to wean oxygen. Goal saturation greater 90%. Currently on 3 L. -Discussed case with pulmonology. Making adjustments to BiPAP. -Continue bilevel support at night or while asleep. -White cell count decreased to 20k from 29K, Repeat CBC, CMP, magnesium ordered for the morning. -Continue DuoNebs every 4 hours scheduled. Pulmicort every 12 hours scheduled. -Continue broad-spectrum antibiotics with vancomycin x 10 days, ceftriaxone, azithromycin -MRSA swab positive. BC NGTD 24 hours. -Sputum culture pending. #Rectal bleeding - Patient reports 2 episodes of painless rectal bleeding today. - Reports history of constipation but no hemorrhoids. - Hgb continues to be stable. - Will perform rectal exam and continue to monitor Hgb. - Miralax daily. No bowel movement in 3 days. Consider enema tomorrow. OSMANI -resolved. Creatinine appears at baseline. BUN 28, creatinine 1.2. Hypothyroid: TSH of 24 on admission. Continue oral levothyroxine at increased dose of 175 mcg daily Diabetes: A1c 6.8. Sliding scale insulin fingersticks every 6 hours given diabetes diagnosis and steroid use as above Metabolic alkalosis: Continue acetazolamide 250 mg twice daily Medical surrogate is his significant other Anamika Bowers. Full code Diabetic diet Heparin 5000 units 3 times daily
--- NOTE | 2024-01-14 19:45 | PC.NURSE ---
Educated patient about suppository glycerin, pt states I dont want that at night, I dont feel too good , documented patient refusal, Julia Qiu APRN aware that this may be needed to be ordered for morning per patient request.
[2024-01-14 19:47] LABS: Vancomycin,Trough 18.9 ug/mL (5.0-10.0)
[2024-01-14] MEDS: BISACODYL 5MG TABLET 10 MG PO (20:10)
[2024-01-14] MEDS: POLYETHYLENE GLYCOL 3350 17 GM PACKET PO (20:10)
[2024-01-14] MEDS: ATORVASTATIN 20MG TABLET 20 MG PO (20:10)
[2024-01-14 20:27] LABS: POC Glucose,Bedside 177 (70-110)
[2024-01-15] VITALS (16 sets, daily range): BP systolic 82–110; BP diastolic 56–72; PULSE 73–105; RESP 8–28; TEMP 36.8–38.4; O2SAT 97–100; BMI 47.0
[2024-01-15 00:09] LABS: Vancomycin,Peak 35.2 ug/ml (11-39)
[2024-01-15] MEDS: CEFTRIAXONE SODIUM 2 GM in 0.9 % SODIUM CHLORIDE 100 ML IV (01:15)
[2024-01-15] MEDS: AZITHROMYCIN 500 MG in 0.9 % SODIUM CHLORIDE 250 ML 250 MG IV (01:15)
--- NOTE | 2024-01-15 05:50 | PC.NURSE ---
Alert and oriented. On bipap throughout the night. No complaints of throughout the night. Kennedy in place and draining. Scrotum and penis red and edematous. Pt has not gotten up from chair this shift, states he knows there is no mess in his rectal area. Currently on 5L NC. ACHS FS. Antibiotics given as ordered. BLE 4+ pitting edema. Lung sounds wheezing noted. Call light in reach.
[2024-01-15 06:09] LABS: POC Glucose,Bedside 152 (70-110)
[2024-01-15 06:12] LABS: MANUAL DIFFERENTIAL MANUAL DIFFERENTIAL (MANUAL DIFF)
[2024-01-15 06:18] LABS: Basophils % 0.2 % (0.1-2.0); Eosinophils # 0.4 K/mm3 (0.0-0.4); Eosinophils % 1.9 % (0.1-12.0); Hematocrit 36.2 % (42.0-52.0); Hemoglobin 10.2 g/dL (14.1-18.0); Mean Corpuscular Hemoglobin 24.2 pg (27.0-31.2); Mean Corpuscular Volume 86.4 fl (80-94); Mean Platelet Volume 8.2 fl (7.4-10.4); Monocytes # 1.4 K/mm3 (0.1-1.0); Monocytes % 6.9 % (1.7-9.3); Platelet Count 284 K/mm3 (142-424); Red Blood Count 4.19 M/mm3 (4.60-6.20); Red Cell Distribution Width 16.8 % (11.5-17.5); White Blood Count 19.8 K/mm3 (4.8-10.8)
[2024-01-15] MEDS: IPRATROPIUM/ALBUTEROL 3 ML NEB IH ×4 (06:28→23:18)
[2024-01-15] MEDS: FLUTICASONE/UMECLIDIN/VILANTER 200/62.5/25MCG INHALER 1 PUFF IH (06:28)
[2024-01-15] MEDS: VANCOMYCIN HCL 2,000 MG in 0.9 % SODIUM CHLORIDE 250 ML 125 MG IV ×2 (06:47→19:21)
[2024-01-15] MEDS: LEVOTHYROXINE 150MCG (0.15MG)TAB 150 MCG PO (06:48)
[2024-01-15 07:17] LABS: Blood Urea Nitrogen 18 mg/dl (9-20); Calcium 8.3 mg/dl (8.4-10.2); Chloride 86 mmol/L (98-107); Creatinine Clearance Estimated 59 mL/min (50-200); Estimated Glomerular Filt Rate 55 ml/min (>60); GFR (African American) 66 ML/MIN (>60); Glucose 138 mg/dl (74-100); Potassium 3.1 mmoL/L (3.5-5.1); Sodium 133 mmol/L (136-145)
--- NOTE | 2024-01-15 08:07 | US_ITS ---
FINAL REPORT TECHNIQUE: Ultrasound images of the testicles were obtained bilaterally. Color Doppler images were obtained. CLINICAL HISTORY: Scrotal swelling FINDINGS: The testicles are normal in size and echotexture bilaterally. Arterial flow is identified bilaterally. There is abnormal scrotal wall thickening measuring 2 cm in thickness. No intratesticular masses are identified. There are small hydroceles bilaterally. IMPRESSION: No evidence of testicular mass or torsion. Abnormal scrotal wall thickening which may be due to cellulitis or edema. Reviewed, Interpreted and Dictated by Elliot Strange MD Transcribed by Keturah Ibarra Authenticated and [facility]
[2024-01-15 08:19] LABS: Magnesium 2.1 mg/dl (1.6-2.3)
--- NOTE | 2024-01-15 08:26 | EXP.PHA.CONS ---
Pharmacy Consult Date: 01/15/24 Time: 08:27 Referring provider: DR DRAPER Reason for Consult:: VANCOMYCIN PEAK AND TROUGH LEVELS OBTAINED. Allergies Allergy/AdvReac Type Severity Reaction Status Date / Time penciclovir Allergy Difficulty Verified 08/22/23 23:13 Breathing Penicillins Allergy Hives Verified 08/22/23 23:13 tramadol AdvReac Diarrhea Verified 08/22/23 23:13 Home Medications ?Medication ?Instructions ?Recorded ?Confirmed ?Type albuterol sulfate 90 mcg/actuation 2 puff inhalation Q4HP PRN 08/22/23 01/13/24 History aerosol inhaler Shortness Of Breath Or Wheezing atorvastatin 20 mg tablet 20 mg PO HS 08/22/23 01/13/24 History fluticasone fur. 200 mcg-umeclid 1 ea inhalation DAILY 08/22/23 01/13/24 History 62.5 mcg-vilant 25 mcg inhalat.powder (Trelegy Ellipta) furosemide 80 mg tablet 80 mg PO BIDL 08/22/23 01/13/24 History ipratropium 0.5 mg-albuterol 3 mg 3 ml inhalation QID 08/22/23 01/13/24 History (2.5 mg base)/3 mL nebulization soln levothyroxine 150 mcg tablet 150 mcg PO DAILY 08/22/23 01/13/24 History metolazone 5 mg tablet 5 mg PO DAILYP PRN Swelling 08/22/23 01/13/24 History ondansetron HCl 4 mg tablet 4 mg PO Q6HP PRN Nausea And 08/22/23 01/13/24 History Vomiting ranolazine 500 mg tablet,extended 500 mg PO BID 08/22/23 01/13/24 History release,12 hr tamsulosin 0.4 mg capsule 0.4 mg PO AM 01/13/24 01/13/24 History New Prescriptions to Start Prescriptions: Height: 1.85 m Weight: 160.8 kg Laboratory Results:: Laboratory Results - last 24 hr 01/14/24 06:51: Total Counted 100, Neutrophils % (Manual) 88 H, Lymphocytes % (Manual) 7 L, Monocytes % (Manual) 2, Eosinophils % (Manual) 3, Platelet Estimate Normal, Hypochromasia 1+ 01/14/24 10:24: POC Glucose 126 H 01/14/24 16:27: POC Glucose 170 H 01/14/24 18:12: Vancomycin Trough 18.9 H 01/14/24 20:13: POC Glucose 177 H 01/14/24 23:20: Vancomycin Peak 35.2 01/15/24 05:49: WBC 19.8 H, RBC 4.19 L, Hgb 10.2 L, Hct 36.2 L, MCV 86.4, MCH 24.2 L, MCHC 28.0 L, RDW 16.8, Plt Count 284, MPV 8.2, Neut % (Auto) 86.0 H, Lymph % (Auto) 5.0 L, [place] % (Auto) 6.9, Eos % (Auto) 1.9, Baso % (Auto) 0.2, Neut # (Auto) 17.0 H, Lymph # (Auto) 1.0, [place] # (Auto) 1.4 H, Eos # (Auto) 0.4, Baso # (Auto) 0.0, Sodium 133 L, Potassium 3.1 L, Chloride 86 L, BUN 18, Creatinine 1.30 H, Estimated Creat Clear 59, Estimated GFR 55 L, Est GFR ( Amer) 66, Glucose 138 H, Calcium 8.3 L, Magnesium 2.1 D 01/15/24 06:02: POC Glucose 152 H Medical History: Medical History (Updated 01/14/24 @ 10:53 by Amy Beckham APRN) Hypokalemia Lower extremity edema Shortness of Breath Acute heart failure with preserved ejection fraction (HFpEF) DEMETRIA (obstructive sleep apnea) On home oxygen therapy Tortuous aorta Aortic calcification Reduced ejection fraction concurrent with and due to acute on chronic heart failure History of gastrectomy Cataract (lens) fragments in eye following cataract surgery, bilateral Lymphedema Hyperlipidemia Hiatal hernia Chronic respiratory failure with hypoxia Prostate cancer BPH (benign prostatic hyperplasia) Cor pulmonale HTN (hypertension) Diabetes mellitus Atrial fibrillation CKD stage 3 secondary to diabetes Pneumonia COPD (chronic obstructive pulmonary disease) Congestive heart failure Assessment and Plan Assessment and plan all Dx Assessment and Plan for all problems:: VANCOMYCIN PEAK AND TROUGH LEVELS OBTAINED. VANCOMYCIN TROUGH: 18.9 MCG/ML (01/14/24 1812) VANCOMYCIN PEAK: 35.2 MCG/ML (01/14/24 23:20) RECOMMEND CONTINUING CURRENT REGIMEN OF VANCOMYCIN 2000 MG Q12H.
[2024-01-15 08:29] LABS: Anion Gap 8.1 mEq/L (5-15); Carbon Dioxide 42 mmol/L (22.0-30.0)
[2024-01-15] MEDS: ACETAMINOPHEN 325MG TAB 650 MG PO ×2 (08:29→20:35)
[2024-01-15] MEDS: RANOLAZINE 500MG ER TABLET 500 MG PO ×2 (08:30→20:35)
[2024-01-15] MEDS: POTASSIUM CHLORIDE 20MEQ TAB 40 MEQ PO ×2 (08:30→20:35)
[2024-01-15] MEDS: PANTOPRAZOLE 40MG TABLET 40 MG PO (08:30)
[2024-01-15] MEDS: MILK OF MAGNESIA 30ML UDC 30 ML PO (08:31)
[2024-01-15] MEDS: HEPARIN SODIUM 5,000 UNIT/ML VIAL 5000 UNIT SQ ×2 (08:31→20:34)
[2024-01-15] MEDS: acetaZOLAMIDE 250 MG TABLET 500 MG PO (08:31)
[2024-01-15] MEDS: BISACODYL 5MG TABLET 10 MG PO (08:33)
[2024-01-15] MEDS: BUMETANIDE 10 MG in 0.9 % SODIUM CHLORIDE 60 ML 5 MG IV (09:08)
[2024-01-15 10:53] LABS: POC Glucose,Bedside 161 (70-110)
[2024-01-15 11:14] LABS: Eosinophils % 1 % (0-3); Hypochromasia 2+; Lymphocytes % 10 % (10-50); Monocytes % 8 % (2-9); Neutrophils % 81 % (42-76); Total Cells Counted 100
[2024-01-15 11:15] LABS: Anisocytosis 1+; Microcytosis 1+
[2024-01-15 11:26] LABS: Platelet Estimate Normal
--- NOTE | 2024-01-15 11:46 | PC.NURSE ---
pt disconnected CPAP tubing. pt placed on 5L NC and call placed to respiratory to have tubing evaluated. pt verbalized understanding
--- NOTE | 2024-01-15 12:10 | EXP.CARD.PN ---
Subjective Subjective Date: 01/15/24 Time: 08:30 Principal diagnosis: HFpEF Interval history: This is a 68-year-old gentleman who presented to the emergency department complaints of shortness of breath, lower extremity edema and a 50 pound weight gain. The patient is being diuresed with IV Bumex drip for acute on chronic HFpEF. Today he states that he is still having shortness of breath which has improved overall from admission. This morning he is on a BiPAP machine which he was not on yesterday. He states he feels a little more short of breath today. He denies any chest pain or pressure this morning. He still has associated orthopnea and PND with his shortness of breath. He still has bilateral lower extremity edema. He denies any fever, chills, nausea, vomiting or diarrhea. Exam Data for Last 24 hours Vital signs and Labs for Last 24 Hours: Temp Pulse Resp BP Pulse Ox O2 Del Method O2 Flow Rate 98.2 F 78 19 105/60 L 100 BiPAP 5 01/15/24 11:47 01/15/24 11:47 01/15/24 11:47 01/15/24 11:47 01/15/24 11:47 01/15/24 11:47 01/15/24 09:00 FiO2 40 01/15/24 06:28 Laboratory Results - last 24 hr 01/14/24 06:51: Total Counted 100, Neutrophils % (Manual) 88 H, Lymphocytes % (Manual) 7 L, Monocytes % (Manual) 2, Eosinophils % (Manual) 3, Platelet Estimate Normal, Hypochromasia 1+ 01/14/24 16:27: POC Glucose 170 H 01/14/24 18:12: Vancomycin Trough 18.9 H 01/14/24 20:13: POC Glucose 177 H 01/14/24 23:20: Vancomycin Peak 35.2 01/15/24 05:49: WBC 19.8 H, RBC 4.19 L, Hgb 10.2 L, Hct 36.2 L, MCV 86.4, MCH 24.2 L, MCHC 28.0 L, RDW 16.8, Plt Count 284, MPV 8.2, Neut % (Auto) 86.0 H, Lymph % (Auto) 5.0 L, [place] % (Auto) 6.9, Eos % (Auto) 1.9, Baso % (Auto) 0.2, Neut # (Auto) 17.0 H, Lymph # (Auto) 1.0, [place] # (Auto) 1.4 H, Eos # (Auto) 0.4, Baso # (Auto) 0.0, Total Counted 100, Neutrophils % (Manual) 81 H, Lymphocytes % (Manual) 10, Monocytes % (Manual) 8, Eosinophils % (Manual) 1, Platelet Estimate Normal, RBC Morphology Not Reportable, Hypochromasia 2+, Anisocytosis 1+, Microcytosis 1+, Sodium 133 L, Potassium 3.1 L, Chloride 86 L, Carbon Dioxide 42 H*, Anion Gap 8.1, BUN 18, Creatinine 1.30 H, Estimated Creat Clear 59, Estimated GFR 55 L, Est GFR ( Amer) 66, Glucose 138 H, Calcium 8.3 L, Magnesium 2.1 D 01/15/24 06:02: POC Glucose 152 H 01/15/24 10:45: POC Glucose 161 H I & O for Last 24 hours: Intake & Output 01/12/24 01/13/24 01/14/24 01/15/24 23:59 23:59 23:59 23:59 Intake Total 1255.333 / 5482.229 2230.833 / 1262.833 972.417 / 972.417 Output Total 2550 / 3550 5750 / 6200 2250 / 2250 Balance -1294.667 / -2269.667 -4487.167 / -4937.167 -1277.583 / -1277.583 Weight 353 lb 13.471 oz 354 lb 8.053 oz 354 lb 8.053 oz 354 lb 8.053 oz Microbiology Reports for the Last 24 Hours: Microbiology 01/12/24 22:50 Sputum - Expectorated Sputum Gram Stain - Final 01/12/24 22:50 Sputum - Expectorated Sputum Sputum Culture - Preliminary Gram Positive Cocci 01/13/24 01:45 Blood Blood Culture - Preliminary NO GROWTH AFTER 48 HOURS 01/13/24 01:35 Blood Blood Culture - Preliminary NO GROWTH AFTER 48 HOURS Constitutional Constitutional: no acute distress and morbidly obese *Routine HEENT Exam Head: Present normocephalic and atraumatic ENT: Present mucous membranes moist *Routine Neck Exam Neck: Present supple, full ROM and normal carotid upstroke; Absent JVD, carotid bruit or lymphadenopathy *Routine Respiratory Exam Respiratory: Present CTA bilaterally, normal respiratory effort, able to speak in complete sentences and symmetric chest movement *Routine Cardiovascular Exam Cardiovascular: Present RRR, Normal S1 and Normal S2; Absent murmur or gallop *Routine Abdominal Exam Abdominal: Present soft and normoactive bowel sounds; Absent tenderness, distended or organomegaly *Routine Extremities Exam Extremities: Present edema (Gross bilateral lower extremity edema), full ROM, pulses intact and normal capillary refill; Absent cyanosis or clubbing *Routine Skin Exam Skin: Present intact and warm; Absent erythema *Routine Neurological Exam Neurological: Present alert, oriented X3 and CN II-XII intact; Absent sensory deficit or motor deficit Routine Psychiatric Exam Psychiatric: Present normal affect Progress Note: A&P Assessment and plan (1) Heart failure with preserved ejection fraction: Status: Acute (2) Acute on chronic respiratory failure with hypoxia and hypercapnia: Status: Acute (3) Pneumonia: Status: Acute (4) Septic shock: Status: Acute (5) OSMANI (acute kidney injury): Status: Acute (6) Acute metabolic encephalopathy: Status: Acute (7) Pickwickian syndrome: Status: Acute (8) Morbid obesity: Status: Acute (9) Hypothyroid: Status: Acute (10) Hypokalemia: Status: Acute (11) Lower extremity edema: Status: Acute (12) Shortness of Breath: Status: Acute (13) Pleural effusion, bilateral: Status: Acute (14) Bleeding per rectum: Status: Acute (15) Volume overload: Status: Acute (16) Leukocytosis: Status: Acute Assessment and Plan Assessment and Plan for All Diagnoses:: Plan: 1. The patient was admitted to the hospital with acute on chronic HFpEF. He is being diuresed with IV Bumex drip. He has a -2934 fluid balance overnight. Continue aggressive diuresis with Bumex drip and spironolactone. 2. The patient remains hypokalemic today. He is getting potassium replaced per the hospitalist. Will defer. 3. The patient is also being treated for pneumonia. He is getting IV antibiotics. His white count remains elevated today. Will defer to the hospitalist. 4. Echocardiogram shows an ejection fraction of 60%. Study was limited due to body habitus. 5. The patient denies any chest pain or pressure. No plans for invasive left cardiac catheterization at this time. Consider ischemic workup on an outpatient basis once he is discharged from the hospital. 6. His blood pressure is well-controlled, it is on the low side of normal, but stable. 7. His LDL goal is less than 100. His LDL is less than 30 in July 2023. He is on a statin. 8. Continue irbesartan for HFpEF. 9. Will hold off on a beta-chicho at this time due to HFpEF, and studies show HFpEF symptoms can be worsened by beta-blockers. 10. Consider Jardiance or Farxiga once he is euvolemic for HFpEF. 11. The patient's bicarb did slightly improved today. Continue acetazolamide. 12. Further recommendations will be made pending the patient's response to treatment. Thank you for the opportunity to help participate in the care of this patient. All recommendations and orders are per Dr. Mccallum.
--- NOTE | 2024-01-15 15:46 | PC.NURSE ---
myself and the nurse asked the patient multiple times if he would like to be cleaned up. pt was resting in bed with head covered and nodded no each time, stating i'm alright . questioned the pt about being continent of stool, and he said yes and i haven't went .
[2024-01-15 16:26] LABS: POC Glucose,Bedside 171 (70-110)
--- NOTE | 2024-01-15 16:35 | EXP.PN ---
Subjective *Date: 01/15/24 *Time: 16:35 Interval history: Patient was sitting in bedside chair with BiPAP this morning sleeping comfortably. He states he feels little bit better than this morning in regards to his respiratory status. He complains of scrotal swelling ongoing for several days. Denies chest pain, shortness of breath. Exam Data for Last 24 hours Vital signs and Labs for Last 24 Hours: Temp Pulse Resp BP Pulse Ox O2 Del Method O2 Flow Rate 98.7 F 84 20 94/56 L 99 BiPAP 5 01/15/24 15:40 01/15/24 15:40 01/15/24 15:40 01/15/24 15:40 01/15/24 15:40 01/15/24 15:40 01/15/24 13:00 FiO2 40 01/15/24 13:06 Laboratory Results - last 24 hr 01/14/24 18:12: Vancomycin Trough 18.9 H 01/14/24 20:13: POC Glucose 177 H 01/14/24 23:20: Vancomycin Peak 35.2 01/15/24 05:49: WBC 19.8 H, RBC 4.19 L, Hgb 10.2 L, Hct 36.2 L, MCV 86.4, MCH 24.2 L, MCHC 28.0 L, RDW 16.8, Plt Count 284, MPV 8.2, Neut % (Auto) 86.0 H, Lymph % (Auto) 5.0 L, [place] % (Auto) 6.9, Eos % (Auto) 1.9, Baso % (Auto) 0.2, Neut # (Auto) 17.0 H, Lymph # (Auto) 1.0, [place] # (Auto) 1.4 H, Eos # (Auto) 0.4, Baso # (Auto) 0.0, Total Counted 100, Neutrophils % (Manual) 81 H, Lymphocytes % (Manual) 10, Monocytes % (Manual) 8, Eosinophils % (Manual) 1, Platelet Estimate Normal, RBC Morphology Not Reportable, Hypochromasia 2+, Anisocytosis 1+, Microcytosis 1+, Sodium 133 L, Potassium 3.1 L, Chloride 86 L, Carbon Dioxide 42 H*, Anion Gap 8.1, BUN 18, Creatinine 1.30 H, Estimated Creat Clear 59, Estimated GFR 55 L, Est GFR ( Amer) 66, Glucose 138 H, Calcium 8.3 L, Magnesium 2.1 D 01/15/24 06:02: POC Glucose 152 H 01/15/24 10:45: POC Glucose 161 H 01/15/24 16:19: POC Glucose 171 H I & O for Last 24 hours: Intake & Output 01/12/24 01/13/24 01/14/24 01/15/24 23:59 23:59 23:59 23:59 Intake Total 1255.333 / 2462.742 4752.833 / 2476.088 6385.417 / 1172.417 Output Total 2550 / 3550 5750 / 6200 3750 / 3750 Balance -1294.667 / -2269.667 -4487.167 / -4937.167 -2577.583 / -2577.583 Weight 160.5 kg 160.8 kg 160.8 kg 160.8 kg Microbiology Reports for the Last 24 Hours: Microbiology 01/12/24 22:50 Sputum - Expectorated Sputum Gram Stain - Final 01/12/24 22:50 Sputum - Expectorated Sputum Sputum Culture - Preliminary Gram Positive Cocci 01/13/24 01:45 Blood Blood Culture - Preliminary NO GROWTH AFTER 48 HOURS 01/13/24 01:35 Blood Blood Culture - Preliminary NO GROWTH AFTER 48 HOURS Constitutional Constitutional: no acute distress *Routine HEENT Exam Head: Present normocephalic Eye: Present EOMI and PERRL ENT: Present mucous membranes moist *Routine Neck Exam Neck: Present supple; Absent lymphadenopathy *Routine Respiratory Exam Respiratory: Present CTA bilaterally; Absent wheezes or crackles *Routine Cardiovascular Exam Cardiovascular: Present RRR *Routine Abdominal Exam Abdominal: Present soft and normoactive bowel sounds; Absent tenderness *Routine Exam Patient deferred: scrotal exam (Diffuse swelling of the scrotum with tenderness.) *Routine Extremities Exam Extremities: Present edema; Absent cyanosis or clubbing Comments: Chronic venous stasis skin discoloration changes in lower extremities. 1+ pitting edema bilateral lower extremities. *Routine Skin Exam Skin: Present warm; Absent rash *Routine Neurological Exam Neurological: Present alert and oriented X3 Assessment and Plan *Assessment and plan (1) Acute on chronic respiratory failure with hypoxia and hypercapnia: Status: Acute Category: Medical Code(s): J96.21 - Acute and chronic respiratory failure with hypoxia; J96.22 - Acute and chronic respiratory failure with hypercapnia (2) Pneumonia: Status: Acute Category: Medical Code(s): J18.9 - Pneumonia, unspecified organism (3) Septic shock: Status: Acute Category: Medical Code(s): A41.9 - Sepsis, unspecified organism; R65.21 - Severe sepsis with septic shock (4) Acute exacerbation of CHF (congestive heart failure): Status: Acute Category: Medical Code(s): I50.9 - Heart failure, unspecified (5) OSMANI (acute kidney injury): Status: Acute Category: Medical Code(s): N17.9 - Acute kidney failure, unspecified (6) Acute metabolic encephalopathy: Status: Acute Category: Medical Code(s): G93.41 - Metabolic encephalopathy (7) Pickwickian syndrome: Status: Acute Category: Medical Code(s): E66.2 - Morbid (severe) obesity with alveolar hypoventilation (8) Morbid obesity: Status: Acute Category: Medical Code(s): E66.01 - Morbid (severe) obesity due to excess calories (9) Hypothyroid: Status: Acute Category: Medical Code(s): E03.9 - Hypothyroidism, unspecified (10) Heart failure with preserved ejection fraction: Status: Acute Category: Medical Code(s): I50.30 - Unspecified diastolic (congestive) heart failure Plan Mr. Wu is a morbidly obese 68-year-old male with history of heart failure with preserved ejection fraction, chronic respiratory failure on home BiPAP, chronically on 3 L oxygen, with CKD and recent admission for respiratory failure a month ago to [facility]. He presented via EMS for acute worsening and concern for sepsis with respiratory failure. Workup in the ER concerning for pneumonia, development of septic shock, and respiratory failure. Initiated on BiPAP. Discussed case with ER, request admission for ICU level of care and further management. Medicine agreed to admit. Received broad-spectrum antibiotics in the ER. Cultures obtained. Pulmonology consulted to assist with care including BiPAP management and critical care. Continues to show gradual improvement daily. Tolerating 3 L nasal cannula during the day. BiPAP at night. Awaiting placement for rehab. Continues to require inpatient management. Problems addressed as follows: Heart failure with preserved ejection fraction - Echocardiogram obtained showing preserved ejection fraction 60% with diastolic dysfunction. EKG shows old IA's - Fluid overload improving with dieuresis, cardiology consulted and recommended Bumex drip. - Continue Bumex drip. Making appropriate urine output. -3700 net output in the past 24 hours. ? However, patient continues to be fluid overloaded on exam. Continue Bumex drip. - Monitor renal function, electrolytes which are stable at this time with repleting. #Scrotal edema ? Significant scrotal edema, with tenderness and erythema ongoing since HFrEF exacerbation for about a week. ? US scrotum obtained does not show acute process, shows abnormal scrotal wall thickening likely secondary to volume overload. Less likely be infectious, but patient is already on broad-spectrum antibiotics for pneumonia. ? Continue diuresis as above and follow scrotal edema. Septic shock, resolved Acute on chronic hypoxemic respiratory failure with hypercapnia - improving Pickwickian syndrome Pneumonia Mixed respiratory acidosis, metabolic acidosis with concurrent metabolic alkalotic compensation. -continue to wean oxygen. Goal saturation greater 90%. Currently on 3 L. -Discussed case with pulmonology. Making adjustments to BiPAP. -Continue bilevel support at night or while asleep. -WBC downtrending, repeat CBC, CMP, magnesium ordered for the morning. -Continue DuoNebs every 4 hours scheduled. Pulmicort every 12 hours scheduled. -Continue broad-spectrum antibiotics with vancomycin x 10 days, ceftriaxone, azithromycin - BC NGTD 48 hours. -Sputum culture pending. #Rectal bleeding - Patient reports 2 episodes of painless rectal bleeding today. - Reports history of constipation but no hemorrhoids. - Hgb continues to be stable. - Will perform rectal exam and continue to monitor Hgb. - Miralax daily. OSMANI -resolved. Creatinine appears at baseline. BUN 28, creatinine 1.2. Hypothyroid: TSH of 24 on admission. Continue oral levothyroxine at increased dose of 175 mcg daily Diabetes: A1c 6.8. Sliding scale insulin fingersticks every 6 hours given diabetes diagnosis and steroid use as above Metabolic alkalosis: Continue acetazolamide 250 mg twice daily Medical surrogate is his significant other Anamika Bowers. Full code Diabetic diet Heparin 5000 units 3 times daily
--- NOTE | 2024-01-15 18:07 | PC.NURSE ---
Alert and oriented. On bipap throughout the day and when not using, pt is on 5L NC. No complaints of throughout the day. Kennedy in place and draining. Scrotum and penis red and edematous. ultrasound completed today. Pt was moved from chair to bed this morning and tolerated well. while transferring, pt had a large bowel movement. scant blood was noted, MD aware. questioned pt about being continent of stool and he states that he is. Currently on 5L NC. ACHS FS. BLE 4+ pitting edema. Lung sounds wheezing noted. pt has refused nurse and tech checking bottom and cleaning pt, stating that he knows that he hasnt messed down there. pt has covered face with blankets majority of the shift and will only stick an arm out when needed for iv use, vitals, finger stick and so on. Call light in reach. bed in low and locked position.
[2024-01-15] MEDS: ONDANSETRON 4MG/2ML VIAL 4 MG IV (18:27)
[2024-01-15] MEDS: ATORVASTATIN 20MG TABLET 20 MG PO (20:34)
[2024-01-15] MEDS: TAMSULOSIN 0.4MG CAPSULE 0.4 MG PO (20:35)
[2024-01-15 20:51] LABS: POC Glucose,Bedside 161 (70-110)
[2024-01-16] VITALS (23 sets, daily range): BP systolic 79–100; BP diastolic 43–73; PULSE 77–107; RESP 18–30; TEMP 36.5–37.7; O2SAT 88–100; BMI 46.9
[2024-01-16] MEDS: ACETAMINOPHEN 325MG TAB 650 MG PO ×2 (01:00→09:27)
[2024-01-16] MEDS: CEFTRIAXONE SODIUM 2 GM in 0.9 % SODIUM CHLORIDE 100 ML IV (01:29)
--- NOTE | 2024-01-16 01:37 | PC.NURSE ---
Entered patient's room around 01:00 to check on the patient and start an antibiotic. IV in the right wrist was found to have infiltrated and was burning to the patient during flushing; no blood was able to be returned. A new IV was inserted by Keturah MATAMOROS into the right antecubital at around 01:26. Ceftriaxone was able to start infusing at 01:29.
[2024-01-16] MEDS: AZITHROMYCIN 500 MG in 0.9 % SODIUM CHLORIDE 250 ML 250 MG IV (02:11)
[2024-01-16] MEDS: BUMETANIDE 10 MG in 0.9 % SODIUM CHLORIDE 60 ML 5 MG IV (02:47)
--- NOTE | 2024-01-16 05:17 | PC.NURSE ---
Patient is alert and oriented x4. Patient was resting in bed during the beginning of the shift, but requested to be assisted into the chair for the night. He stated that the chair was more comfortable for him. Patient needed heavy assistance to get out of bed; SRNA staff recommended using the mechanical lift to place the patient into the chair from the bed. Patient tolerated the lift system well and was able to ease into the chair safely. Patient had a diarrheal episode while being lifted to the chair; a foul odor and blood was noticed with the stool. Patient's bottom and genitalia were also assessed while the patient was getting cleaned. Moderate, edematous swelling and redness of the penis and scrotum were noted. Redness was also observed on the patient's bottom and around the rectum; an open area was noted behind the patient's scrotum. Patient has rough, scaly-like skin on his bilateral shins. Significant pitting edema (+4) was noted in his bilateral lower extremities. Patient's lung sounds were clear upon auscultation with scattered expiratory wheezing throughout. Patient's bowel sounds were very active. Patient's heart rhythm/rate is being monitored by telemetry. Patient has remained on the CPAP per request throughout the night. His oxygen saturations have remained within the upper 90s. Kennedy catheter is in place. Patient has remained on a Bumex drip through the shift, running at 5 mL/hr. Patient's blood pressure has been slightly hypotensive this shift. Patient's temperature spiked a couple times this shift; patient complained of feeling cold and then feeling hot. Patient's skin was hot to touch. Patient was treated with Tylenol per JUN accordingly. Patient's temperature decreased after each administration. Patient also received his scheduled medications and IV antibiotics per JUN. Patient has not had any further complaints thus far. He is observed to have eyes closed, respirations even, and no apparent distress at this time. Patient remains up to chair. Call light within reach.
[2024-01-16] MEDS: FLUTICASONE/UMECLIDIN/VILANTER 200/62.5/25MCG INHALER 1 PUFF IH (06:01)
[2024-01-16] MEDS: IPRATROPIUM/ALBUTEROL 3 ML NEB IH ×3 (06:01→18:16)
[2024-01-16 06:21] LABS: POC Glucose,Bedside 177 (70-110)
[2024-01-16] MEDS: LEVOTHYROXINE 150MCG (0.15MG)TAB 150 MCG PO (06:31)
[2024-01-16] MEDS: VANCOMYCIN HCL 2,000 MG in 0.9 % SODIUM CHLORIDE 250 ML 125 MG IV (06:31)
[2024-01-16 07:13] LABS: MANUAL DIFFERENTIAL MANUAL DIFFERENTIAL (MANUAL DIFF)
[2024-01-16 07:24] LABS: Basophils # 0.1 K/mm3 (0-0.2); Basophils % 0.3 % (0.1-2.0); Eosinophils # 0.2 K/mm3 (0.0-0.4); Eosinophils % 0.8 % (0.1-12.0); Hematocrit 35.3 % (42.0-52.0); Hemoglobin 10.3 g/dL (14.1-18.0); Lymphocytes % 3.8 % (10-50); Mean Corpuscular HGB Conc 29.3 g/dL (31.8-35.4); Mean Corpuscular Hemoglobin 24.6 pg (27.0-31.2); Mean Corpuscular Volume 83.8 fl (80-94); Mean Platelet Volume 9.3 fl (7.4-10.4); Monocytes # 1.6 K/mm3 (0.1-1.0); Monocytes % 5.9 % (1.7-9.3); Neutrophils # 23.7 K/mm3 (1.8-7.8); Neutrophils % 89.1 % (37.0-80.0); Platelet Count 315 K/mm3 (142-424); Red Blood Count 4.21 M/mm3 (4.60-6.20); Red Cell Distribution Width 17.3 % (11.5-17.5); White Blood Count 26.6 K/mm3 (4.8-10.8)
[2024-01-16 07:36] LABS: Blood Urea Nitrogen 20 mg/dl (9-20); Calcium 8.5 mg/dl (8.4-10.2); Chloride 86 mmol/L (98-107); Creatinine Clearance Estimated 51 mL/min (50-200); Estimated Glomerular Filt Rate 46 ml/min (>60); GFR (African American) 56 ML/MIN (>60); Glucose 128 mg/dl (74-100); Sodium 131 mmol/L (136-145)
[2024-01-16 07:43] LABS: Carbon Dioxide 40 mmol/L (22.0-30.0)
[2024-01-16] MEDS: HEPARIN SODIUM 5,000 UNIT/ML VIAL 5000 UNIT SQ ×2 (08:18→21:24)
[2024-01-16] MEDS: PANTOPRAZOLE 40MG TABLET 40 MG PO (08:19)
[2024-01-16] MEDS: acetaZOLAMIDE 250 MG TABLET 500 MG PO (08:19)
[2024-01-16] MEDS: POTASSIUM CHLORIDE 20MEQ TAB 40 MEQ PO ×3 (08:19→21:25)
[2024-01-16] MEDS: RANOLAZINE 500MG ER TABLET 500 MG PO ×2 (08:19→21:00)
[2024-01-16] MEDS: SPIRONOLACTONE 25MG TABLET 50 MG PO (08:19)
--- NOTE | 2024-01-16 08:19 | XR_ITS ---
FINAL REPORT CLINICAL HISTORY: sepsis workup, sob COMPARISON: 01/12/2024 FINDINGS: The heart size is mildly enlarged. The mediastinum is normal. There is a patchy right lower lobe airspace opacity. The opacity at the right base has increased from the previous exam. There are small to moderate pleural effusions. There is no pneumothorax. There is no osseous abnormality. IMPRESSION: Right lower lobe opacity, increased at the base. Small to moderate pleural effusions. Reviewed, Interpreted and Dictated by Elliot Strange MD Transcribed by Roberta Payan Authenticated and [facility]
[2024-01-16 08:56] LABS: Procalcitonin 0.358 ng/mL (0.0-2.0)
[2024-01-16] MEDS: MEROPENEM 1 GM in 0.9 % SODIUM CHLORIDE 100 ML IV ×2 (09:01→17:19)
[2024-01-16 09:29] LABS: Hypochromasia 1+; Lymphocytes % 11 % (10-50); Monocytes % 3 % (2-9); Neutrophils % 86 % (42-76); Platelet Estimate Normal; Total Cells Counted 100
--- NOTE | 2024-01-16 10:27 | EXP.PHA.PN ---
Subjective *Date: 01/16/24 *Time: 10:27 Medical Exam Vital signs and Labs for Last 24 Hours: Vital Signs Temp Pulse Pulse Resp BP BP Pulse Ox 01/16/24 09:00 01/16/24 08:00 80 01/16/24 08:00 01/16/24 08:00 99.8 F H 83 20 83/60 L 100 01/16/24 06:58 01/16/24 06:01 78 01/16/24 06:01 80 01/16/24 06:01 98 01/16/24 06:01 01/16/24 05:00 01/16/24 04:00 80 01/16/24 04:00 99.0 F 83 18 90/53 L 97 01/16/24 03:00 01/16/24 02:00 01/16/24 01:00 01/16/24 00:00 84 01/16/24 00:00 97.7 F 85 20 92/59 L 99 01/15/24 23:18 82 01/15/24 23:18 85 01/15/24 23:00 01/15/24 22:00 01/15/24 21:00 01/15/24 20:00 90 20 98 01/15/24 20:00 101.2 F H 90 20 98/56 L 98 01/15/24 19:50 79 01/15/24 18:53 01/15/24 18:40 97 01/15/24 18:33 01/15/24 18:33 99 H 01/15/24 18:33 105 H 01/15/24 17:00 01/15/24 16:00 80 01/15/24 15:40 98.7 F 84 20 94/56 L 99 01/15/24 15:00 01/15/24 13:06 77 01/15/24 13:06 80 01/15/24 13:06 01/15/24 13:00 01/15/24 12:00 80 01/15/24 11:47 98.2 F 78 19 105/60 L 100 01/15/24 11:00 O2 Del Method O2 Flow Rate FiO2 01/16/24 09:00 CPAP 01/16/24 08:00 01/16/24 08:00 CPAP 01/16/24 08:00 01/16/24 06:58 Nasal Cannula 5 01/16/24 06:01 01/16/24 06:01 01/16/24 06:01 BiPAP 40 01/16/24 06:01 40 01/16/24 05:00 CPAP 01/16/24 04:00 01/16/24 04:00 BiPAP 01/16/24 03:00 CPAP 01/16/24 02:00 40 01/16/24 01:00 CPAP 01/16/24 00:00 01/16/24 00:00 BiPAP 01/15/24 23:18 01/15/24 23:18 01/15/24 23:00 CPAP 01/15/24 22:00 40 01/15/24 21:00 CPAP 01/15/24 20:00 CPAP 01/15/24 20:00 BiPAP 01/15/24 19:50 01/15/24 18:53 CPAP 01/15/24 18:40 BiPAP 01/15/24 18:33 40 01/15/24 18:33 01/15/24 18:33 01/15/24 17:00 CPAP 01/15/24 16:00 01/15/24 15:40 BiPAP 01/15/24 15:00 CPAP 01/15/24 13:06 01/15/24 13:06 01/15/24 13:06 40 01/15/24 13:00 Nasal Cannula 5 01/15/24 12:00 01/15/24 11:47 BiPAP 01/15/24 11:00 CPAP Intake and Output 01/15/24 01/16/24 01/16/24 23:59 07:59 15:59 Intake Total 901.25 / 961.25 60 / 961.25 Output Total 1250 / 5200 400 / 1000 600 / 1000 Balance -1250 / -3214.583 501.25 / -38.75 -540 / -38.75 Intake: Intake, Oral Amount 120 / 180 60 / 180 Intake, Total IV Amount 88.25 / 88.25 Infusion Intake 693 / 693 Azithromycin 500 mg In 0.9 % 249 / 249 Sodium Chloride 250 ml @ 250 mls/hr IV Q24H [facility] Rx#:[id number] Bumetanide 10 mg In 0.9 % 96 / 96 Sodium Chloride 60 ml @ 5 mls/ hr IV .Q20H [facility] Rx#:[id number] Ceftriaxone Sodium 2 gm In 0.9 100 / 100 % Sodium Chloride 100 ml @ 200 mls/hr IV Q24H [facility] Rx#:[id number] Vancomycin HCl 2,000 mg In 0.9 248 / 248 % Sodium Chloride 250 ml @ 125 mls/hr IV Q12H [facility] Rx#:[id number] Output: Output, Urine Amount 1250 / 5000 200 / 800 600 / 800 Output, Urine Amount (Catheter) 200 / 200 Kennedy 200 / 200 Other: Number of Voids 0 Number of Unmeasured Voids 0 0 Weight 160.5 kg Patient Weight 01/16/24 23:59 Weight 160.5 kg Laboratory Results - last 24 hr 01/15/24 05:49: Total Counted 100, Neutrophils % (Manual) 81 H, Lymphocytes % (Manual) 10, Monocytes % (Manual) 8, Eosinophils % (Manual) 1, Platelet Estimate Normal, RBC Morphology Not Reportable, Hypochromasia 2+, Anisocytosis 1+, Microcytosis 1+ 01/15/24 10:45: POC Glucose 161 H 01/15/24 16:19: POC Glucose 171 H 01/15/24 20:42: POC Glucose 161 H 01/16/24 06:13: POC Glucose 177 H 01/16/24 06:27: Procalcitonin 0.358 01/16/24 06:28: WBC 26.6 H* D, RBC 4.21 L, Hgb 10.3 L, Hct 35.3 L, MCV 83.8, MCH 24.6 L, MCHC 29.3 L, RDW 17.3, Plt Count 315, MPV 9.3, Neut % (Auto) 89.1 H, Lymph % (Auto) 3.8 L, [place] % (Auto) 5.9, Eos % (Auto) 0.8, Baso % (Auto) 0.3, Neut # (Auto) 23.7 H, Lymph # (Auto) 1.0, [place] # (Auto) 1.6 H, Eos # (Auto) 0.2, Baso # (Auto) 0.1, Total Counted 100, Neutrophils % (Manual) 86 H, Lymphocytes % (Manual) 11, Monocytes % (Manual) 3, Platelet Estimate Normal, Hypochromasia 1+, Sodium 131 L, Potassium 3.0 L, Chloride 86 L, Carbon Dioxide 40 H, Anion Gap 8.0, BUN 20, Creatinine 1.50 H, Estimated Creat Clear 51, Estimated GFR 46 L, Est GFR ( Amer) 56 L, Glucose 128 H, Calcium 8.5, Magnesium 2.0 I & O for Labs for Last 24 Hours: Intake & Output 01/13/24 01/14/24 01/15/24 01/16/24 23:59 23:59 23:59 23:59 Intake Total 1255.333 / 5468.212 7096.833 / 0238.240 7384.417 / 1985.417 961.25 / 961.25 Output Total 2550 / 3550 5750 / 6200 5000 / 5200 1000 / 1000 Balance -1294.667 / -2269.667 -4487.167 / -4937.167 -3827.583 / -3214.583 -38.75 / -38.75 Weight 160.8 kg 160.8 kg 160.8 kg 160.5 kg Microbiology Reports for the Last 24 Hours: Microbiology 01/12/24 22:50 Sputum - Expectorated Sputum Gram Stain - Final 01/12/24 22:50 Sputum - Expectorated Sputum Sputum Culture - Final Streptococcus pneumoniae The patient's infection will respond to the chosen ABx?: Yes Is the patient receiving the right drug, dose, and route?: Yes Could a more targeted ABx be ordered?: No (CULTURES STILL PENDING, WBC ELEVATED, TMAX 101.2 F OVERNIGHT.)
--- NOTE | 2024-01-16 11:02 | EXP.CARD.PN ---
Subjective Subjective Date: 01/16/24 Time: 09:30 Principal diagnosis: HFpEF Interval history: This is a 68-year-old gentleman who presented to the emergency department complaints of shortness of breath, lower extremity edema and a 50 pound weight gain. The patient remains on a Bumex drip. The patient did have a -3 L fluid balance overnight. He states that he is feeling much better today. His shortness of breath has improved. His lower extremity edema has improved as well. He denies any chest pain or pressure. He denies any fever, chills, nausea, vomiting or diarrhea. He continues to have orthopnea with his shortness of breath. He denies a cough. Exam Data for Last 24 hours Vital signs and Labs for Last 24 Hours: Temp Pulse Resp BP Pulse Ox O2 Del Method O2 Flow Rate 99.8 F H 83 20 83/60 L 100 CPAP 5 01/16/24 08:00 01/16/24 08:00 01/16/24 08:00 01/16/24 08:00 01/16/24 08:00 01/16/24 09:00 01/16/24 06:58 FiO2 40 01/16/24 06:01 Laboratory Results - last 24 hr 01/15/24 05:49: Total Counted 100, Neutrophils % (Manual) 81 H, Lymphocytes % (Manual) 10, Monocytes % (Manual) 8, Eosinophils % (Manual) 1, Platelet Estimate Normal, RBC Morphology Not Reportable, Hypochromasia 2+, Anisocytosis 1+, Microcytosis 1+ 01/15/24 16:19: POC Glucose 171 H 01/15/24 20:42: POC Glucose 161 H 01/16/24 06:13: POC Glucose 177 H 01/16/24 06:27: Procalcitonin 0.358 01/16/24 06:28: WBC 26.6 H* D, RBC 4.21 L, Hgb 10.3 L, Hct 35.3 L, MCV 83.8, MCH 24.6 L, MCHC 29.3 L, RDW 17.3, Plt Count 315, MPV 9.3, Neut % (Auto) 89.1 H, Lymph % (Auto) 3.8 L, [place] % (Auto) 5.9, Eos % (Auto) 0.8, Baso % (Auto) 0.3, Neut # (Auto) 23.7 H, Lymph # (Auto) 1.0, [place] # (Auto) 1.6 H, Eos # (Auto) 0.2, Baso # (Auto) 0.1, Total Counted 100, Neutrophils % (Manual) 86 H, Lymphocytes % (Manual) 11, Monocytes % (Manual) 3, Platelet Estimate Normal, Hypochromasia 1+, Sodium 131 L, Potassium 3.0 L, Chloride 86 L, Carbon Dioxide 40 H, Anion Gap 8.0, BUN 20, Creatinine 1.50 H, Estimated Creat Clear 51, Estimated GFR 46 L, Est GFR ( Amer) 56 L, Glucose 128 H, Calcium 8.5, Magnesium 2.0 I & O for Last 24 hours: Intake & Output 01/13/24 01/14/24 01/15/24 01/16/24 23:59 23:59 23:59 23:59 Intake Total 1255.333 / 6014.079 3037.833 / 7906.581 5616.417 / 1985.417 961.25 / 961.25 Output Total 2550 / 3550 5750 / 6200 5000 / 5200 1000 / 1000 Balance -1294.667 / -2269.667 -4487.167 / -4937.167 -3827.583 / -3214.583 -38.75 / -38.75 Weight 354 lb 8.053 oz 354 lb 8.053 oz 354 lb 8.053 oz 353 lb 13.471 oz Microbiology Reports for the Last 24 Hours: Microbiology 01/12/24 22:50 Sputum - Expectorated Sputum Gram Stain - Final 01/12/24 22:50 Sputum - Expectorated Sputum Sputum Culture - Final Streptococcus pneumoniae Constitutional Constitutional: no acute distress and morbidly obese *Routine HEENT Exam Head: Present normocephalic and atraumatic ENT: Present mucous membranes moist *Routine Neck Exam Neck: Present supple, full ROM and normal carotid upstroke; Absent JVD, carotid bruit or lymphadenopathy *Routine Respiratory Exam Respiratory: Present CTA bilaterally, normal respiratory effort, able to speak in complete sentences and symmetric chest movement *Routine Cardiovascular Exam Cardiovascular: Present RRR, Normal S1 and Normal S2; Absent murmur or gallop *Routine Abdominal Exam Abdominal: Present soft and normoactive bowel sounds; Absent tenderness, distended or organomegaly *Routine Extremities Exam Extremities: Present edema (Gross bilateral lower extremity edema), full ROM, pulses intact and normal capillary refill; Absent cyanosis or clubbing *Routine Skin Exam Skin: Present intact and warm; Absent erythema *Routine Neurological Exam Neurological: Present alert, oriented X3 and CN II-XII intact; Absent sensory deficit or motor deficit Routine Psychiatric Exam Psychiatric: Present normal affect Progress Note: A&P Assessment and plan (1) Heart failure with preserved ejection fraction: Status: Acute (2) Acute on chronic respiratory failure with hypoxia and hypercapnia: Status: Acute (3) Pneumonia: Status: Acute (4) Septic shock: Status: Acute (5) Pickwickian syndrome: Status: Acute (6) Morbid obesity: Status: Acute (7) Hypothyroid: Status: Acute (8) Lower extremity edema: Status: Acute (9) Hypokalemia: Status: Acute (10) Shortness of Breath: Status: Acute (11) Pleural effusion, bilateral: Status: Acute (12) Bleeding per rectum: Status: Acute (13) Volume overload: Status: Acute (14) Leukocytosis: Status: Acute Assessment and Plan Assessment and Plan for All Diagnoses:: Plan: 1. The patient was admitted to the hospital with acute on chronic HFpEF. He remains on a Bumex drip this morning. He had a -3 L fluid balance overnight. The patient has had a bump in his creatinine this morning up to 1.5. Stop Bumex drip and start Bumex 2mg PO daily for diuresis as he has had a bump in renal function today. 2. Continue spironolactone. 3. The patient remains hypokalemic today. He is getting potassium replaced per the hospitalist. Will defer. 4. The patient is currently being treated for pneumonia and sepsis. His white blood count did elevate this morning back up to 26.6. He is getting IV antibiotics. Will defer this to the hospitalist. 5. The patient denies any chest pain or pressure. No plans for invasive left cardiac catheterization at this time. Consider ischemic workup on an outpatient basis once he is discharged from the hospital. 6. His blood pressure was low this morning. Stop irbesartan. 7. His LDL goal is less than 100. His LDL is less than 30 in July 2023. He is on a statin. 8. Will hold off on a beta-chicho at this time due to low BP and HFpEF, and studies show HFpEF symptoms can be worsened by beta-blockers. 9. Start Jardiance 10 mg daily for HFpEF. 10. The patient's bicarb did slightly improve more today, down to 40. Continue acetazolamide today and then discontinue. 11. Further recommendations will be made pending the patient's response to treatment. Thank you for the opportunity to help participate in the care of this patient. All recommendations and orders are per Dr. Mccallum.
--- NOTE | 2024-01-16 11:18 | PC.NURSE ---
pt requested to move from chair to bed this morning. when moving the pt, a large bowel movement was noted in the recliner that was a water consistency and blood tinged. pt verbalized that he was unaware that he had a bowel movement. pt stood to be cleaned and a large wound was noted in the scrotal/ rectum area. pt verbalized that he was getting tired of standing so assessment of wound was minimal. area cleaned and bedding changed. when questioning the pt about the timeline of the wound, the pt stated that he had a wound in that area before, but he could not see the area to know if it had healed. scrotal area and penis still very swollen and red. MD aware of assessment and wound consult placed. pt aware and compliant with having wound care evaluation. MD wishes to be present for this consultation to gain better understanding of wound placement and severity.
[2024-01-16 11:19] LABS: POC Glucose,Bedside 158 (70-110)
--- NOTE | 2024-01-16 14:21 | P.PN_ITS ---
Subjective *Date: 01/16/24 *Time: 14:21 Interval history: Patient was resting comfortably in bedside chair with BiPAP and a blanket over his face. Patient states he feels little bit better today and breathing better, but continues to have scrotal swelling. Denies chest pain, shortness of breath. Exam Data for Last 24 hours Vital signs and Labs for Last 24 Hours: Temp Pulse Resp BP Pulse Ox O2 Del Method O2 Flow Rate 98.6 F 83 18 84/50 L 88 L CPAP 5 01/16/24 12:00 01/16/24 12:00 01/16/24 12:00 01/16/24 12:00 01/16/24 12:00 01/16/24 13:00 01/16/24 06:58 FiO2 40 01/16/24 06:01 Laboratory Results - last 24 hr 01/15/24 16:19: POC Glucose 171 H 01/15/24 20:42: POC Glucose 161 H 01/16/24 06:13: POC Glucose 177 H 01/16/24 06:27: Procalcitonin 0.358 01/16/24 06:28: WBC 26.6 H* D, RBC 4.21 L, Hgb 10.3 L, Hct 35.3 L, MCV 83.8, MCH 24.6 L, MCHC 29.3 L, RDW 17.3, Plt Count 315, MPV 9.3, Neut % (Auto) 89.1 H, Lymph % (Auto) 3.8 L, [place] % (Auto) 5.9, Eos % (Auto) 0.8, Baso % (Auto) 0.3, Neut # (Auto) 23.7 H, Lymph # (Auto) 1.0, [place] # (Auto) 1.6 H, Eos # (Auto) 0.2, Baso # (Auto) 0.1, Total Counted 100, Neutrophils % (Manual) 86 H, Lymphocytes % (Manual) 11, Monocytes % (Manual) 3, Platelet Estimate Normal, Hypochromasia 1+, Sodium 131 L, Potassium 3.0 L, Chloride 86 L, Carbon Dioxide 40 H, Anion Gap 8.0, BUN 20, Creatinine 1.50 H, Estimated Creat Clear 51, Estimated GFR 46 L, Est GFR ( Amer) 56 L, Glucose 128 H, Calcium 8.5, Magnesium 2.0 01/16/24 11:12: POC Glucose 158 H I & O for Last 24 hours: Intake & Output 01/13/24 01/14/24 01/15/24 01/16/24 23:59 23:59 23:59 23:59 Intake Total 1255.333 / 6282.289 4562.833 / 3945.299 3428.417 / 2989.785 9403.25 / 1321.25 Output Total 2550 / 3550 5750 / 6200 5000 / 5200 1000 / 1000 Balance -1294.667 / -2269.667 -4487.167 / -4937.167 -3827.583 / -3214.583 321.25 / 321.25 Weight 160.8 kg 160.8 kg 160.8 kg 160.5 kg Microbiology Reports for the Last 24 Hours: Microbiology 01/12/24 22:50 Sputum - Expectorated Sputum Gram Stain - Final 01/12/24 22:50 Sputum - Expectorated Sputum Sputum Culture - Final Streptococcus pneumoniae Constitutional Constitutional: no acute distress *Routine HEENT Exam Head: Present normocephalic Eye: Present EOMI and PERRL ENT: Present mucous membranes moist *Routine Neck Exam Neck: Present supple; Absent lymphadenopathy *Routine Respiratory Exam Respiratory: Present CTA bilaterally; Absent wheezes or crackles *Routine Cardiovascular Exam Cardiovascular: Present RRR *Routine Abdominal Exam Abdominal: Present soft and normoactive bowel sounds; Absent tenderness *Routine Exam Patient deferred: scrotal exam (Diffuse swelling of the scrotum with tenderness. Several areas of skin breakdown in soil covered areas over buttocks, scrotum.) *Routine Extremities Exam Extremities: Present edema; Absent cyanosis or clubbing Comments: Chronic venous stasis skin discoloration changes in lower extremities. 1+ pitting edema bilateral lower extremities. *Routine Skin Exam Skin: Present warm; Absent rash *Routine Neurological Exam Neurological: Present alert and oriented X3 Assessment and Plan *Assessment and plan (1) Acute on chronic respiratory failure with hypoxia and hypercapnia: Status: Acute Category: Medical Code(s): J96.21 - Acute and chronic respiratory failure with hypoxia; J96.22 - Acute and chronic respiratory failure with hypercapnia (2) Pneumonia: Status: Acute Category: Medical Code(s): J18.9 - Pneumonia, unspecified organism (3) Septic shock: Status: Acute Category: Medical Code(s): A41.9 - Sepsis, unspecified organism; R65.21 - Severe sepsis with septic shock (4) Acute exacerbation of CHF (congestive heart failure): Status: Acute Qualifiers: Heart failure type: diastolic Qualified Code(s): I50.33 - Acute on chronic diastolic (congestive) heart failure Category: Medical Code(s): I50.9 - Heart failure, unspecified (5) OSMANI (acute kidney injury): Status: Acute Category: Medical Code(s): N17.9 - Acute kidney failure, unspecified (6) Acute metabolic encephalopathy: Status: Acute Category: Medical Code(s): G93.41 - Metabolic encephalopathy (7) Pickwickian syndrome: Status: Acute Category: Medical Code(s): E66.2 - Morbid (severe) obesity with alveolar hypoventilation (8) Morbid obesity: Status: Acute Category: Medical Code(s): E66.01 - Morbid (severe) obesity due to excess calories (9) Hypothyroid: Status: Acute Category: Medical Code(s): E03.9 - Hypothyroidism, unspecified (10) Heart failure with preserved ejection fraction: Status: Acute Qualifiers: Heart failure chronicity: acute on chronic Qualified Code(s): I50.33 - Acute on chronic diastolic (congestive) heart failure Category: Medical Code(s): I50.30 - Unspecified diastolic (congestive) heart failure (11) Scrotal edema: Status: Acute Category: Medical Code(s): N50.89 - Other specified disorders of the male genital organs Plan Mr. Wu is a morbidly obese 68-year-old male with history of heart failure with preserved ejection fraction, chronic respiratory failure on home BiPAP, chronically on 3 L oxygen, with CKD and recent admission for respiratory failure a month ago to [place]. He presented via EMS for acute worsening and co ncern for sepsis with respiratory failure. Workup in the ER concerning for pneumonia, development of septic shock, and respiratory failure. Initiated on BiPAP. Discussed case with ER, request admission for ICU level of care and further management. Medicine agreed to admit. Received broad-spectrum antibiotics in the ER. Cultures obtained. Pulmonology consulted to assist with care including BiPAP management and critical care. Tolerating 3-5 L nasal cannula during the day. BiPAP at night. Continues to require inpatient management. Problems addressed as follows: #Acute hypoxic on chronic respiratory failure #HFpEF exacerbation #Bilateral pleural effusions - Echocardiogram obtained showing preserved ejection fraction 60% with diastolic dysfunction. EKG shows old IL's - Fluid overload improving with dieuresis, cardiology consulted and recommended Bumex drip. - Continue Bumex drip. Making appropriate urine output. -2200 net output in the past 24 hours. ? Patient states he feels better today. However, patient continues to be fluid overloaded on exam. Continue Bumex drip. - Monitor renal function, electrolytes and replete. ? Strict SEGUNDO's, bed elevation, fluid/water restriction. #Severe sepsis #Pneumonia ? CXR reveals increased right lower lobe opacity. WBC 20?26.6. Fevers overnight. Soft pressures, SBP less than 90. ? Follow-up repeat UA, urine culture, blood cultures. ? Initial respiratory culture revealed strep pneumonia sensitive to vancomycin, ceftriaxone. ? Started Levophed gtt given persistently soft SBP less than 90. ? Started meropenem. Continue vancomycin. Discontinued ceftriaxone, azithromycin. ? Pulmonology consulted, pending recommendations. ? Follow-up with chest, abdomen/pelvis CT to further evaluate for other sources of infection as current sepsis seems to be out of proportion with pneumonia, and given sensitivities to strep pneumonia. #Scrotal edema #Sacral ulcers, stage I ? Significant scrotal and penis edema, with tenderness and erythema ongoing since HFrEF exacerbation for about a week. ? US scrotum obtained does not show acute process, shows abnormal scrotal wall thickening likely secondary to volume overload. Less likely be infectious, but patient is already on broad-spectrum antibiotics for pneumonia. ? Evaluation of the sacrum, buttocks revealed contact dermatitis, skin breakdown with bleeding (previously reported by patient has rectal bleeding) from being soiled in stool. No purulent drainage noted. ? Wound care consulted, appreciate recommendations. Barrier cream applied. ? Continue diuresis as above and follow scrotal edema. ? Follow-up CT abdomen/pelvis as above. #OSMANI ? Creatinine 1.5, baseline 1.0. Likely secondary to aggressive diuresis given significant volume overload. ? Will continue to monitor and continue diuresis at this time. Hypothyroid: TSH of 24 on admission. Continue oral levothyroxine at increased dose of 175 mcg daily Diabetes: A1c 6.8. Sliding scale insulin fingersticks every 6 hours given diabetes diagnosis and steroid use as above Metabolic alkalosis: Continue acetazolamide 250 mg twice daily Medical surrogate is his significant other Anamika Bowers. Full code Diabetic diet Heparin 5000 units 3 times daily
--- NOTE | 2024-01-16 14:55 | [facility].PTWOUND ---
Rehab Inpt Wound Evaluation Rehab IP Wound Evaluation Start: 01/16/24 10:53 Freq: ONCE Status: Active Protocol: Document 01/16/24 14:45 MARINA (Rec: 01/16/24 14:54 PHOCIRA [id number]) Rehab PT Wound Assessment Subjective Subjective Per H&P: Mr. Wu is a 68- year-old male who arrived at our ER via EMS. He has a history of HFpEF and COPD along with chronic respiratory failure on CPAP at home, pickwickian syndrome, morbid obesity. Presented via EMS to the ER because of respiratory distress. Reports concern for swelling. Patient reports having been referred to hospice 6 months ago by his primary care however he has refused and states he has been doing well and stayed at the hospital for the past 6 m he has been having increased swelling and shortness of breath over the past week. States his legs have gotten more swollen and he said swelling up into his groin and lower abdomen. He is up approximately 50 pounds from his dry weight of 300 pounds. [place] any fever, chill, chest pain. Does report a productive cough for the past week. No vomiting or diarrhea . Does report he has been having some blood in his stool however and this is chronic for him. Able to perform basic ADLs at home. Medicine consulted for admission due to increased oxygen requirement and concern for CHF exacerbation along with volume overload. Chest imaging showing significant edema and effusions. Wound Posterior Scrotum Wound Type Maceration Is This a Chronic Wound No Wound Length (cm) 1.0 Wound Width (cm) 1.0 Wound Depth (cm) 0.1 Wound Bed Appearance Beefy Red Percentage Granulated (%) 100 Wound Margins Description Indistinct Surrounding Tissue Appearance Purple Wound Drainage Description Sanguineous Drainage Amount Moderate Primary Dressing Absorbant Pad Comment barrier cream, ABD pad Dressing Change Patient Tolerance Tolerated Well Plan/Recommendation Comment Nsg and MD present during wound evaluation. Wound appears to be edema, moisture, and pressure related with ronen-wound skin maceration and several small open areas with sanguineous drainage noted. Nsg to apply dressing above as needed, will follow for monitoring of wound healing. No plan for sharp selective debridement at this time. Eval Complexity Eval Charge Codes 13034 - High Complexity PHYSICIAN CERTIFICATION: I certify the specified therapy services for Rohan Bryce are required, authorized, and reviewed every 30 days.
--- NOTE | 2024-01-16 15:19 | CT_ITS ---
PROCEDURE INFORMATION: Exam: CT Chest Without Contrast; Diagnostic Exam date and time: 01/16/2024 4:10 PM Age: 68 years old Clinical indication: Other: Sepsis; Additional info: Severe sepsis with pneumonia TECHNIQUE: Imaging protocol: Diagnostic computed tomography of the chest without contrast. Radiation optimization: All CT scans at this facility use at least one of these dose optimization techniques: automated exposure control; mA and/or kV adjustment per patient size (includes targeted exams where dose is matched to clinical indication); or iterative reconstruction. COMPARISON: 1. CT CHEST WO CON 08/22/2023 12:11 PM 2. CR XR CHEST PORTABLE 01/16/2024 8:39 AM 3. CR XR CHEST PORTABLE 01/12/2024 10:50 PM FINDINGS: Lungs: There is a dense parenchymal consolidation in the right lower lobe concerning for infection. There is some consolidative change in the left lower lobe but to a lesser extent. Scattered areas of bronchial wall thickening which are likely chronic inflammatory. A few areas of subpleural reticulation are noted, nonspecific. Pleural spaces: Pleural surfaces are smooth, and there are no pleural effusions, pneumothoraces, or pleural plaques noted. Heart: The heart size is within normal limits, and the pericardium appears clear with no signs of pericardial effusion or thickening. Coronary arteries: There is mild coronary atherosclerotic disease/calcification although evaluation is limited secondary to the non gated nature of the study. Mediastinal space: The mediastinum appears unremarkable with no evidence of masses, lymphadenopathy, or mediastinal widening. Hilar structures including the major bronchi and vessels appear intact. Lymph nodes: Unremarkable. No enlarged lymph nodes. Vasculature: There is atherosclerotic disease of the visualized aorta and its major branch vessels. Intraperitoneal space: Please see the dedicated interpretation of abdomen and pelvis for findings in that region. Bones/joints: There is diffuse degenerative disease of the visualized osseous structures. There is exaggeration of the spinal curvature. Soft tissues: Unremarkable. Other findings: Motion artifact mildly limits evaluation. IMPRESSION: 1. There is a dense parenchymal consolidation in the right lower lobe concerning for infection. 2. Please see the dedicated interpretation of abdomen and pelvis for findings in that region.
--- NOTE | 2024-01-16 15:20 | CT_ITS ---
PROCEDURE INFORMATION: Exam: CT Abdomen And Pelvis Without Contrast Exam date and time: 01/16/2024 4:10 PM Age: 68 years old Clinical indication: Other: Sepsis; Additional info: Severe sepsis with pneumonia, scrotal edema TECHNIQUE: Imaging protocol: Computed tomography of the abdomen and pelvis without contrast. Radiation optimization: All CT scans at this facility use at least one of these dose optimization techniques: automated exposure control; mA and/or kV adjustment per patient size (includes targeted exams where dose is matched to clinical indication); or iterative reconstruction. COMPARISON: 1. CT ABDOMEN PELVIS WO CON 08/22/2023 12:11 PM 2. US TESTICULAR 01/15/2024 8:[address] CHEST WO CON 01/16/2024 4:10 PM FINDINGS: Limitations: The patient's body extends partially outside the CT gantry and a portion is not imaged. Tubes, catheters and devices: There are prostatic brachytherapy seeds. Liver: Normal. Gallbladder and biliary ducts: The gallbladder is moderately distended, consider right upper quadrant ultrasound if any concern for cholecystitis. Pancreas: Normal. Spleen: Normal. Adrenal glands: The adrenal glands appear normal. Kidneys and ureters: Nonobstructing left midpole intrarenal calculus. Stomach and bowel: There is large volume stool throughout the colon. Appendix: No evidence of appendicitis. Intraperitoneal space: Unremarkable. Vasculature: The abdominal aorta and its major branches appear normal without evidence of aneurysm or stenosis. There are pelvic phleboliths. Lymph nodes: No lymphadenopathy. Urinary bladder: There is a Kennedy catheter place within the urinary bladder. There is air within the urinary bladder, correlate with any recent instrumentation. There is mild bladder wall thickening, possibly due to under distention and a nonspecific finding. Reproductive: No acute process. Bones/joints: The visualized osseous structures of the abdomen and pelvis appear normal for patient age. Soft tissues: There is moderate soft tissue edema within the soft tissues overlying the penile shaft, these are incompletely imaged and more inferior fluid collection or air cannot be excluded. Other findings: Please see the dedicated interpretation of the thorax for findings in that region. IMPRESSION: 1. There is moderate soft tissue edema within the soft tissues overlying the penile shaft, these are incompletely imaged and more inferior fluid collection or air cannot be excluded. 2. The gallbladder is moderately distended, consider right upper quadrant ultrasound if any concern for cholecystitis. 3. Please see the dedicated interpretation of the thorax for findings in that region.
[2024-01-16] MEDS: NOREPINEPHRINE BITARTRATE/D5W 8 MG/250 ML PLAST..BAG 7.5 MG IV (17:00)
--- NOTE | 2024-01-16 17:08 | PC.NURSE ---
Levo started at this time due to sys being <90
[2024-01-16] MEDS: BUMETANIDE 1 MG TABLET 2 MG PO (17:19)
[2024-01-16 18:51] LABS: Hematocrit 39.4 % (42.0-52.0); Hemoglobin 11.1 g/dL (14.1-18.0)
[2024-01-16] MEDS: PHA TO NURSING INSTRUCTION 1 EACH NOTAPPLIC (19:00)
--- NOTE | 2024-01-16 19:32 | PC.NURSE ---
Went in to complete beginning shift assessment. Patient did not allow nurse to turn him in bed to fully assess skin. RN inquired on bowel movement, but patient denies having BM. Would not allow nurse to check. Patient is a/o x3.
--- NOTE | 2024-01-16 19:51 | PC.NURSE ---
Called lab at 1934 for Vanc trough eta, was told 2 minutes. Called back at current time and inquired, but was told 5 minutes. Awaiting result to hand Vanc dose
[2024-01-16 19:53] LABS: Vancomycin,Trough 28.4 ug/mL (5.0-10.0)
--- NOTE | 2024-01-16 19:58 | PC.NURSE ---
Critical Value for Vanc trough of 28.4 report to Ben with [facility]. Will hold current 2g dose that is due. Ben will look into another dose OR to recheck Vanc Trough later. Reported this critical value and change to billie Mejia as well.
[2024-01-16] MEDS: ATORVASTATIN 20MG TABLET 20 MG PO (21:25)
[2024-01-16] MEDS: TAMSULOSIN 0.4MG CAPSULE 0.4 MG PO (21:25)
--- NOTE | 2024-01-16 22:44 | PC.NURSE ---
Patient requested to get out of bed and into the recliner. Patient had weeping to scrotal and buttock wounds which required cleaning. Full assist with 5 staff members. Patient was cleaned and jagjit lift pad placed under patient. Jagjit lift used per protocol and patient placed in recliner. Patient voiced being more comfortable in this recliner. Bed was cleaned of all bodily fluids and redressed by Quincy and Pastora MARSHALL's. Patient dislodged both of his PIVs, so new 20g placed to right upper arm by documenting RN. Patient is now resting in the recliner. Voicing no needs or concerns. ICU care continued.
[2024-01-17] VITALS (42 sets, daily range): BP systolic 74–133; BP diastolic 50–77; PULSE 70–103; RESP 20–31; TEMP 36.4–36.9; O2SAT 87–100; BMI 46.9
[2024-01-17] MEDS: IPRATROPIUM/ALBUTEROL 3 ML NEB IH ×5 (00:17→23:50)
[2024-01-17] MEDS: MEROPENEM 1 GM in 0.9 % SODIUM CHLORIDE 100 ML IV ×3 (01:04→16:53)
[2024-01-17] MEDS: NOREPINEPHRINE BITARTRATE/D5W 8 MG/250 ML PLAST..BAG 30 MG IV (03:37)
[2024-01-17 05:25] LABS: POC Glucose,Bedside 158 (70-110)
--- NOTE | 2024-01-17 05:52 | PC.NURSE ---
Patient refused AM FSBS check
[2024-01-17 05:53] LABS: Basophils # 0.1 K/mm3 (0-0.2); Basophils % 0.2 % (0.1-2.0); Eosinophils # 0.2 K/mm3 (0.0-0.4); Eosinophils % 0.8 % (0.1-12.0); Hematocrit 37.6 % (42.0-52.0); Hemoglobin 10.5 g/dL (14.1-18.0); Lymphocytes # 1.3 K/mm3 (0.7-4.5); Lymphocytes % 4.5 % (10-50); Mean Corpuscular HGB Conc 28.1 g/dL (31.8-35.4); Mean Corpuscular Hemoglobin 24.1 pg (27.0-31.2); Mean Corpuscular Volume 85.7 fl (80-94); Mean Platelet Volume 8.6 fl (7.4-10.4); Monocytes # 1.3 K/mm3 (0.1-1.0); Monocytes % 4.5 % (1.7-9.3); Neutrophils # 25.8 K/mm3 (1.8-7.8); Neutrophils % 89.9 % (37.0-80.0); Platelet Count 343 K/mm3 (142-424); Red Blood Count 4.38 M/mm3 (4.60-6.20); Red Cell Distribution Width 16.9 % (11.5-17.5); White Blood Count 28.8 K/mm3 (4.8-10.8)
[2024-01-17 05:56] LABS: MANUAL DIFFERENTIAL MANUAL DIFFERENTIAL (MANUAL DIFF)
--- NOTE | 2024-01-17 05:59 | PC.NURSE ---
Patient has odor coming from him that smells of stool. Patient denies having used the restroom on himself and refused to let RN check him at this time.
[2024-01-17 06:01] LABS: Alanine Aminotransferase 16 U/L (12-78); Albumin Level 2.8 g/dl (3.5-5.0); Albumin/Globulin Ratio 0.8 (1.1-1.8); Alkaline Phosphatase 112 U/L (38-126); Aspartate Amino Transferase 18 U/L (17-59); Bilirubin,Total 0.5 mg/dl (0.2-1.3); Blood Urea Nitrogen 20 mg/dl (9-20); Calcium 8.6 mg/dl (8.4-10.2); Chloride 89 mmol/L (98-107); Creatinine Clearance Estimated 51 mL/min (50-200); Estimated Glomerular Filt Rate 46 ml/min (>60); GFR (African American) 56 ML/MIN (>60); Globulin 3.5 g/dL (1.3-3.2); Glucose 162 mg/dl (74-100); Magnesium 2.1 mg/dl (1.6-2.3); Potassium 3.3 mmoL/L (3.5-5.1); Sodium 131 mmol/L (136-145); Total Protein,Serum 6.3 g/dl (6.3-8.2)
--- NOTE | 2024-01-17 06:02 | PC.NURSE ---
Patient requested to get into the recliner earlier in the shift. With full assist x5 staff members and the farzana lift patient was placed in the recliner after being cleaned of excrement and wound drainage. Patient has remained in the recliner throughout shift and has slept with NAD. BiPAP remains on per settings and patient tolerates well. Norepinephrine remains on per MAR and is infusing through a PIV without s/sx of infiltration. More than adequate urinary output via acuña catheter. Patient's scrotum remains swollen with erythematous rash present and escoriation. Weeping is noted from this area. Patient has refused to allow nurse to check him for a bowel movement at current time.
[2024-01-17 06:08] LABS: Anion Gap 10.3 mEq/L (5-15); Carbon Dioxide 35 mmol/L (22.0-30.0); Vancomycin,Random 19.1 ug/ml
[2024-01-17 06:13] LABS: Erythrocyte Sedimentation Rate 52 mm/hr (0-20)
[2024-01-17 06:30] LABS: C-Reactive Protein 294.2 mg/L (0-4)
--- NOTE | 2024-01-17 06:43 | PC.NURSE ---
Pt refused to let this SRNA check him for a bowel movement even though his room smells of it. SRNA tried mulitiple times to encourage him to let us change him and he still is refusing.
[2024-01-17] MEDS: AZITHROMYCIN 250MG TABLET 500 MG PO (08:56)
[2024-01-17] MEDS: SPIRONOLACTONE 25MG TABLET 50 MG PO (08:56)
[2024-01-17] MEDS: POTASSIUM CHLORIDE 20MEQ TAB 40 MEQ PO ×3 (08:56→20:32)
[2024-01-17] MEDS: LEVOTHYROXINE 150MCG (0.15MG)TAB 150 MCG PO (08:56)
[2024-01-17] MEDS: PANTOPRAZOLE 40MG TABLET 40 MG PO (08:56)
[2024-01-17] MEDS: RANOLAZINE 500MG ER TABLET 500 MG PO ×2 (08:56→20:31)
[2024-01-17] MEDS: BUMETANIDE 1 MG TABLET 2 MG PO ×2 (08:57→15:14)
[2024-01-17] MEDS: HEPARIN SODIUM 5,000 UNIT/ML VIAL 5000 UNIT SQ ×2 (08:57→20:31)
[2024-01-17 09:00] LABS: Eosinophils % 1 % (0-3); Lymphocytes % 6 % (10-50); Monocytes % 4 % (2-9); Neutrophils % 89 % (42-76); Platelet Estimate Normal; RBC Morphology Normal; Total Cells Counted 100
--- NOTE | 2024-01-17 09:46 | P.CONS_ITS ---
History of Present Illness History of present illness: Mr. Wu is a 68-year-old male greater than [id number] smoking history history of COPD, OHS on chronic BiPAP therapy, 5 L nasal cannula oxygen supplementation presented to the ER complaining of worsening respiratory distress bilateral lower extremity swelling and pulmonary was called for further evaluation and management as patient shock with worsening hemodynamics needing vasopressor support CT scan concerning for right lower lobe pneumonia. [facility] Disclaimer: The information contained in this section may have been updated after the patient was seen, as this information can be updated by other users. Medical History (Updated 01/16/24 @ 15:22 by Aleksandr Freeman MD) Hypokalemia Lower extremity edema Shortness of Breath Acute heart failure with preserved ejection fraction (HFpEF) DEMETRIA (obstructive sleep apnea) On home oxygen therapy Tortuous aorta Aortic calcification Reduced ejection fraction concurrent with and due to acute on chronic heart failure History of gastrectomy Cataract (lens) fragments in eye following cataract surgery, bilateral Lymphedema Hyperlipidemia Hiatal hernia Chronic respiratory failure with hypoxia Prostate cancer BPH (benign prostatic hyperplasia) Cor pulmonale HTN (hypertension) Diabetes mellitus Atrial fibrillation CKD stage 3 secondary to diabetes Pneumonia COPD (chronic obstructive pulmonary disease) Congestive heart failure Surgical History Hx of tonsillectomy H/O hernia repair Family History Other Family history of arthritis Family history of cancer Family history of diabetes mellitus type II Family history of heart disease Family history of hypertension Social History Smoking Status: Current some day smoker alcohol intake: never current occupational status: retired and disabled Travel in the last 8 weeks: None household members: significant other Review of Systems Review of Systems Review of systems:: pertinent systems reviewed and negative unless documented below Constitutional Constitutional: Reports system reviewed and no additional complaints, except as documented, Reports fatigue and Reports snoring Eyes Eyes: Reports system reviewed and no additional complaints, except as documented ENT Ears, Nose, Mouth, and Throat: Reports system reviewed and no additional complaints, except as documented *Cardiovascular Cardiovascular: Reports system reviewed and no additional complaints, except as documented, Denies chest pain, Reports dyspnea, Reports dyspnea on exertion, Reports edema, Reports leg edema, Reports leg ulcers, Reports orthopnea, Reports paroxysmal nocturnal dyspnea and Reports pedal edema *Respiratory Respiratory: Reports system reviewed and no additional complaints, except as documented, Denies change in phlegm color, Reports chest congestion, Reports dyspnea, Reports dyspnea on exertion, Denies excessive phlegm production and Reports snoring *Gastrointestinal Gastrointestinal: Reports system reviewed and no additional complaints, except as documented *Genitourinary Genitourinary: Reports system reviewed and no additional complaints, except as documented *Musculoskeletal Musculoskeletal: Reports system reviewed and no additional complaints, except as documented Integumentary/Breasts Skin/Breast: Reports system reviewed and no additional complaints, except as documented *Neurologic Neurologic: Reports system reviewed and no additional complaints, except as documented and Reports as per HPI Psychiatric Psychiatric: Reports system reviewed and no additional complaints, except as documented Endocrine Endocrine: Reports system reviewed and no additional complaints, except as documented and Reports fatigue Hematologic/Lymphatic Hematologic/Lymphatic: Reports system reviewed and no additional complaints, except as documented Allergic/Immunologic Allergic/Immunologic: Reports system reviewed and no additional complaints, except as documented Pulmonology Exam Inpatient Vital signs and Labs for Last 24 Hours: Temp Pulse Resp BP Pulse Ox O2 Del Method O2 Flow Rate 98.4 F 88 24 86/56 L 95 Nasal Cannula 5 01/17/24 08:00 01/17/24 09:00 01/17/24 09:00 01/17/24 09:00 01/17/24 09:00 01/17/24 09:05 01/17/24 09:05 FiO2 40 01/17/24 06:20 Laboratory Results - last 24 hr 01/16/24 11:12: POC Glucose 158 H 01/16/24 18:18: Vancomycin Trough 28.4 H 01/16/24 18:28: Hgb 11.1 L, Hct 39.4 L 01/16/24 21:27: POC Glucose 158 H 01/17/24 05:32: WBC 28.8 H*, RBC 4.38 L, Hgb 10.5 L, Hct 37.6 L, MCV 85.7, MCH 24.1 L, MCHC 28.1 L, RDW 16.9, Plt Count 343, MPV 8.6, Neut % (Auto) 89.9 H, L ymph % (Auto) 4.5 L, Swisher % (Auto) 4.5, Eos % (Auto) 0.8, Baso % (Auto) 0.2, N eut # (Auto) 25.8 H, Lymph # (Auto) 1.3, Swisher # (Auto) 1.3 H, Eos # (Auto) 0.2, Baso # (Auto) 0.1, Total Counted 100, Neutrophils % (Manual) 89 H, Lymphocytes % (Manual) 6 L, Monocytes % (Manual) 4, Eosinophils % (Manual) 1, Platelet Estimate Normal, RBC Morphology Normal, ESR 52 H, Sodium 131 L, Potassium 3.3 L, Chloride 89 L, Carbon Dioxide 35 H, Anion Gap 10.3, BUN 20, Creatinine 1.50 H, Estimated Creat Clear 51, Estimated GFR 46 L, Est GFR ( Amer) 56 L, G lucose 162 H D, Lactate 1.0, Calcium 8.6, Magnesium 2.1, Total Bilirubin 0.5, AST 18, ALT 16, Alkaline Phosphatase 112, C-Reactive Protein 294.2 H, Total Protein 6.3, Albumin 2.8 L, Globulin 3.5 H, Albumin/Globulin Ratio 0.8 L, Random Vancomycin 19.1 I & O for Labs for Last 24 Hours: Intake & Output 01/14/24 01/15/24 01/16/24 01/17/24 23:59 23:59 23:59 23:59 Intake Total 1262.833 / 6263.176 2219.417 / 0747.464 6218.626 / 2363.626 344.658 / 344.658 Output Total 5750 / 6200 5000 / 5200 3050 / 3250 1100 / 1100 Balance -4487.167 / -4937.167 -3827.583 / -3214.583 -691.374 / -886.374 -755.342 / -755.342 Weight 354 lb 8.053 oz 354 lb 8.053 oz 353 lb 13.471 oz 353 lb 13.471 oz Microbiology Reports for the Last 24 Hours: Microbiology 01/16/24 09:05 Blood Blood Culture - Preliminary NO GROWTH AFTER 24 HOURS 01/16/24 09:00 Blood Blood Culture - Preliminary NO GROWTH AFTER 24 HOURS 01/13/24 01:45 Blood Blood Culture - Preliminary NO GROWTH AFTER 4 DAYS 01/13/24 01:35 Blood Blood Culture - Preliminary NO GROWTH AFTER 4 DAYS 01/12/24 22:50 Sputum - Expectorated Sputum Gram Stain - Final 01/12/24 22:50 Sputum - Expectorated Sputum Sputum Culture - Final Streptococcus pneumoniae Constitutional: Present severe distress Head: Present normocephalic and atraumatic ENT: Present normal exam, normal oropharynx and mucous membranes moist Neck: Present normal inspection and full ROM Respiratory: Present prolonged expiratory phase, respiratory distress, rhonchi, diminished air movement and able to speak in complete sentences; Absent wheezes Cardiac: Present S1/S2 and Tachycardia; Absent Regular Rhythm GI: Present soft and distention; Absent tenderness or guarding Skin: Present wounds, rash and cracked; Absent intact, cyanosis or jaundice Neuro: Present alert and awake; Absent oriented x 3 Extremities: Present normal inspection and edema; Absent clubbing or cyanosis Psychiatric: Present normal affect and cooperative Meds Home Medications and Allergies Home Medications ?Medication ?Instructions ?Recorded ?Confirmed ?Type albuterol sulfate 90 mcg/actuation 2 puff inhalation Q4HP PRN 08/22/23 01/13/24 History aerosol inhaler Shortness Of Breath Or Wheezing atorvastatin 20 mg tablet 20 mg PO HS 08/22/23 01/13/24 History fluticasone fur. 200 mcg-umeclid 1 ea inhalation DAILY 08/22/23 01/13/24 History 62.5 mcg-vilant 25 mcg inhalat.powder (Trelegy Ellipta) furosemide 80 mg tablet 80 mg PO BIDL 08/22/23 01/13/24 History ipratropium 0.5 mg-albuterol 3 mg 3 ml inhalation QID 08/22/23 01/13/24 History (2.5 mg base)/3 mL nebulization soln levothyroxine 150 mcg tablet 150 mcg PO DAILY 08/22/23 01/13/24 History metolazone 5 mg tablet 5 mg PO DAILYP PRN Swelling 08/22/23 01/13/24 History ondansetron HCl 4 mg tablet 4 mg PO Q6HP PRN Nausea And 08/22/23 01/13/24 History Vomiting ranolazine 500 mg tablet,extended 500 mg PO BID 08/22/23 01/13/24 History release,12 hr tamsulosin 0.4 mg capsule 0.4 mg PO AM 01/13/24 01/13/24 History New Prescriptions to Start Prescriptions: Allergies Allergy/AdvReac Type Severity Reaction Status Date / Time penciclovir Allergy Difficulty Verified 08/22/23 23:13 Breathing Penicillins Allergy Hives Verified 08/22/23 23:13 tramadol AdvReac Diarrhea Verified 08/22/23 23:13 Results Laboratory Findings 01/17/24 05:32 01/17/24 05:32 Abnormal lab findings: Abnormal Labs 01/12/24 01/12/24 01/13/24 22:26 23:36 01:45 WBC 28.4 H* RBC 4.21 L Hgb 10.2 L Hct 35.5 L MCH 24.1 L MCHC 28.6 L Neut % (Auto) 91.0 H Lymph % (Auto) 3.4 L Neut # (Auto) 25.9 H Swisher # (Auto) 1.4 H Neutrophils % (Manual) 87 H Lymphocytes % (Manual) 8 L ESR VBG pCO2 74.7 H VBG HCO3 42.5 H VBG Total CO2 44.8 H VBG Base Excess 17.3 H VBG Lactic Acid 3.3 H Sodium 132 L Potassium 3.4 L Chloride 85 L Carbon Dioxide 44 H* Anion Gap BUN 22 H Creatinine Estimated GFR Est GFR ( Amer) Glucose 135 H POC Glucose Calcium 8.1 L AST C-Reactive Protein NT-Pro-B Natriuret Pep 1260 H Albumin 3.3 L Globulin Albumin/Globulin Ratio 1.0 L Free T4 Index 3.1 L T3 Uptake 55 H Vancomycin Trough 01/13/24 01/13/24 01/13/24 05:01 06:52 10:59 WBC 29.5 H* RBC 4.40 L Hgb 10.4 L Hct 36.5 L MCH 23.7 L MCHC 28.5 L Neut % (Auto) 91.0 H Lymph % (Auto) 2.4 L Neut # (Auto) 26.8 H Swisher # (Auto) 1.5 H Neutrophils % (Manual) Lymphocytes % (Manual) ESR VBG pCO2 VBG HCO3 VBG Total CO2 VBG Base Excess VBG Lactic Acid Sodium 133 L Potassium Chloride 87 L Carbon Dioxide 47 H* Anion Gap 2.5 L BUN Creatinine Estimated GFR Est GFR ( Amer) Glucose 159 H POC Glucose 179 H 139 H Calcium 8.0 L AST 15 L C-Reactive Protein NT-Pro-B Natriuret Pep Albumin 3.1 L Globulin Albumin/Globulin Ratio 1.0 L Free T4 Index T3 Uptake Vancomycin Trough 01/13/24 01/13/24 01/14/24 17:01 21:05 06:09 WBC RBC Hgb Hct MCH MCHC Neut % (Auto) Lymph % (Auto) Neut # (Auto) Swisher # (Auto) Neutrophils % (Manual) Lymphocytes % (Manual) ESR VBG pCO2 VBG HCO3 VBG Total CO2 VBG Base Excess VBG Lactic Acid Sodium Potassium Chloride Carbon Dioxide Anion Gap BUN Creatinine Estimated GFR Est GFR ( Amer) Glucose POC Glucose 137 H 221 H 201 H Calcium AST C-Reactive Protein NT-Pro-B Natriuret Pep Albumin Globulin Albumin/Globulin Ratio Free T4 Index T3 Uptake Vancomycin Trough 01/14/24 01/14/24 01/14/24 06:51 10:24 16:27 WBC 20.5 H* D RBC 4.18 L Hgb 10.2 L Hct 35.9 L MCH 24.4 L MCHC 28.4 L Neut % (Auto) 85.9 H Lymph % (Auto) 5.9 L Neut # (Auto) 17.6 H Swisher # (Auto) 1.2 H Neutrophils % (Manual) 88 H Lymphocytes % (Manual) 7 L ESR VBG pCO2 VBG HCO3 VBG Total CO2 VBG Base Excess VBG Lactic Acid Sodium 134 L Potassium 3.1 L Chloride 84 L Carbon Dioxide 46 H* Anion Gap BUN 21 H Creatinine Estimated GFR Est GFR ( Amer) Glucose 138 H POC Glucose 126 H 170 H Calcium 8.1 L AST C-Reactive Protein NT-Pro-B Natriuret Pep Albumin Globulin Albumin/Globulin Ratio Free T4 Index T3 Uptake Vancomycin Trough 01/14/24 01/14/24 01/15/24 18:12 20:13 05:49 WBC 19.8 H RBC 4.19 L Hgb 10.2 L Hct 36.2 L MCH 24.2 L MCHC 28.0 L Neut % (Auto) 86.0 H Lymph % (Auto) 5.0 L Neut # (Auto) 17.0 H Swisher # (Auto) 1.4 H Neutrophils % (Manual) 81 H Lymphocytes % (Manual) ESR VBG pCO2 VBG HCO3 VBG Total CO2 VBG Base Excess VBG Lactic Acid Sodium 133 L Potassium 3.1 L Chloride 86 L Carbon Dioxide 42 H* Anion Gap BUN Creatinine 1.30 H Estimated GFR 55 L Est GFR ( Amer) Glucose 138 H POC Glucose 177 H Calcium 8.3 L AST C-Reactive Protein NT-Pro-B Natriuret Pep Albumin Globulin Albumin/Globulin Ratio Free T4 Index T3 Uptake Vancomycin Trough 18.9 H 01/15/24 01/15/24 01/15/24 06:02 10:45 16:19 WBC RBC Hgb Hct MCH MCHC Neut % (Auto) Lymph % (Auto) Neut # (Auto) Swisher # (Auto) Neutrophils % (Manual) Lymphocytes % (Manual) ESR VBG pCO2 VBG HCO3 VBG Total CO2 VBG Base Excess VBG Lactic Acid Sodium Potassium Chloride Carbon Dioxide Anion Gap BUN Creatinine Estimated GFR Est GFR ( Amer) Glucose POC Glucose 152 H 161 H 171 H Calcium AST C-Reactive Protein NT-Pro-B Natriuret Pep Albumin Globulin Albumin/Globulin Ratio Free T4 Index T3 Uptake Vancomycin Trough 01/15/24 01/16/24 01/16/24 20:42 06:13 06:28 WBC 26.6 H* D RBC 4.21 L Hgb 10.3 L Hct 35.3 L MCH 24.6 L MCHC 29.3 L Neut % (Auto) 89.1 H Lymph % (Auto) 3.8 L Neut # (Auto) 23.7 H Swisher # (Auto) 1.6 H Neutrophils % (Manual) 86 H Lymphocytes % (Manual) ESR VBG pCO2 VBG HCO3 VBG Total CO2 VBG Base Excess VBG Lactic Acid Sodium 131 L Potassium 3.0 L Chloride 86 L Carbon Dioxide 40 H Anion Gap BUN Creatinine 1.50 H Estimated GFR 46 L Est GFR ( Amer) 56 L Glucose 128 H POC Glucose 161 H 177 H Calcium AST C-Reactive Protein NT-Pro-B Natriuret Pep Albumin Globulin Albumin/Globulin Ratio Free T4 Index T3 Uptake Vancomycin Trough 01/16/24 01/16/24 01/16/24 11:12 18:18 18:28 WBC RBC Hgb 11.1 L Hct 39.4 L MCH MCHC Neut % (Auto) Lymph % (Auto) Neut # (Auto) Swisher # (Auto) Neutrophils % (Manual) Lymphocytes % (Manual) ESR VBG pCO2 VBG HCO3 VBG Total CO2 VBG Base Excess VBG Lactic Acid Sodium Potassium Chloride Carbon Dioxide Anion Gap BUN Creatinine Estimated GFR Est GFR ( Amer) Glucose POC Glucose 158 H Calcium AST C-Reactive Protein NT-Pro-B Natriuret Pep Albumin Globulin Albumin/Globulin Ratio Free T4 Index T3 Uptake Vancomycin Trough 28.4 H 01/16/24 01/17/24 21:27 05:32 WBC 28.8 H* RBC 4.38 L Hgb 10.5 L Hct 37.6 L MCH 24.1 L MCHC 28.1 L Neut % (Auto) 89.9 H Lymph % (Auto) 4.5 L Neut # (Auto) 25.8 H Swisher # (Auto) 1.3 H Neutrophils % (Manual) 89 H Lymphocytes % (Manual) 6 L ESR 52 H VBG pCO2 VBG HCO3 VBG Total CO2 VBG Base Excess VBG Lactic Acid Sodium 131 L Potassium 3.3 L Chloride 89 L Carbon Dioxide 35 H Anion Gap BUN Creatinine 1.50 H Estimated GFR 46 L Est GFR ( Amer) 56 L Glucose 162 H D POC Glucose 158 H Calcium AST C-Reactive Protein 294.2 H NT-Pro-B Natriuret Pep Albumin 2.8 L Globulin 3.5 H Albumin/Globulin Ratio 0.8 L Free T4 Index T3 Uptake Vancomycin Trough Assessment and Plan *Assessment and plan (1) Pneumonia: Status: Acute Category: Medical Code(s): J18.9 - Pneumonia, unspecified organism (2) Pickwickian syndrome: Status: Acute Category: Medical Code(s): E66.2 - Morbid (severe) obesity with alveolar hypoventilation Plan Mr. Wu is a 68-year-old male greater than [id number] smoking history history of COPD, OHS on chronic BiPAP therapy, 5 L nasal cannula oxygen supplementation presented to the ER complaining of worsening respiratory distress bilateral lower extremity swelling and pulmonary was called for further evaluation and management as patient shock with worsening hemodynamics needing vasopressor support CT scan concerning for right lower lobe pneumonia. Febrile upon admission to 101.2. Neutrophilic predominant leukocytosis. CT chest 01/16/24 - right lower lobe dense consolidative/atelectatic changes. Partially present on her CT from July 2023 slightly worsening. Very small bilateral pleural effusions not likely contributing to patient's current respiratory distress. the previous noted left lower lobe dense consolidative changes almost resolved. Significantly lower lung volumes likely from body habitus. Blood gas upon admission from 01/12/2024 chronic hypercarbic respiratory failure. Sputum cultures on this admission grew strep pneumonia Currently receiving vancomycin meropenem and azithromycin. Oxygen requirement stable since admission at 4 to 5 L nasal cannula. The CT scan does not appear to be the source of patient's new shock needing vasopressors given his stable ox requirements. Other possible etiology including cellulitis/bacteremia/cholecystitis. Pending right upper quadrant ultrasound and repeat blood cultures. Currently receiving vancomycin meropenem and azithromycin pending repeat cultures. Plan: -Continue vancomycin, meropenem and azithromycin given possible abdominal etiology along with other possible infectious etiologies pending RUQ U/S, repeat blood sputum cultures and nasal MRSA PCR -Trelegy 100 inhaler along with DuoNebs every 6 hours on a scheduled basis -Continue BiPAP therapy while asleep for OHS -Lower extremity venous Doppler # Thank you for involving pulmonary in this patient care. Will continue to follow.
[2024-01-17 11:17] LABS: POC Glucose,Bedside 176 (70-110)
[2024-01-17 11:18] LABS: Appearance,Urine CLEAR (Clear); Bilirubin,Urine Negative (Negative); Blood, Urine 3+ (Negative); Color,Urine YELLOW (Yellow); Glucose,Urine (UA) Negative (Negative); Ketones,Urine Negative (Negative); Leukocyte Esterase,Urine TRACE (Negative); Nitrate,Urine Negative (Negative); Protein,Urine TRACE (Negative); Specific Gravity, Urine 1.015 (1.005-1.030); Urobilinogen,Urine 0.2 EU/dl (0.2)
[2024-01-17 11:20] LABS: Microscopic, Urine URINE MICROSCOPIC (MICROSCOPIC)
[2024-01-17 11:41] LABS: RBC,Urine 50-100 #/hpf (0-3); WBC,Urine Occasional #/hpf (0-3)
--- NOTE | 2024-01-17 11:56 | P.PN_ITS ---
Subjective Subjective Date: 01/17/24 Time: 09:00 Principal diagnosis: HFpEF, pna Interval history: Is a 68-year-old gentleman who presented to the emergency department shortness of breath and lower extremity edema as well as a 50 pound weight gain. The patient is being treated for an acute exacerbation of his chronic HFpEF. He was also diagnosed with pneumonia. The patient was diuresed on a Bumex drip and switched over to oral Bumex yesterday. The patient continues to diurese. This morning he is on BiPAP. He is still complaining of shortness of breath but states overall it has improved. His lower extremity edema has significantly improved as well. He is still edematous but it is much better than it was. He still has orthopnea associated with his shortness of breath. He denies any fever, chills, nausea or vomiting. He is complaining of having a little bit of diarrhea this morning and overnight. The patient does have worsening of his white blood cell count and pneumonia. Pulmonology has been consulted. Exam Data for Last 24 hours Vital signs and Labs for Last 24 Hours: Temp Pulse Resp BP Pulse Ox O2 Del Method O2 Flow Rate 98.4 F 80 22 111/59 L 97 BiPAP 5 01/17/24 08:00 01/17/24 11:00 01/17/24 11:00 01/17/24 11:00 01/17/24 11:00 01/17/24 11:00 01/17/24 09:05 FiO2 30 01/17/24 11:00 Laboratory Results - last 24 hr 01/16/24 18:18: Vancomycin Trough 28.4 H 01/16/24 18:28: Hgb 11.1 L, Hct 39.4 L 01/16/24 21:27: POC Glucose 158 H 01/17/24 05:32: WBC 28.8 H*, RBC 4.38 L, Hgb 10.5 L, Hct 37.6 L, MCV 85.7, MCH 24.1 L, MCHC 28.1 L, RDW 16.9, Plt Count 343, MPV 8.6, Neut % (Auto) 89.9 H, Lymph % (Auto) 4.5 L, [place] % (Auto) 4.5, Eos % (Auto) 0.8, Baso % (Auto) 0.2, Neut # (Auto) 25.8 H, Lymph # (Auto) 1.3, [place] # (Auto) 1.3 H, Eos # (Auto) 0.2, Baso # (Auto) 0.1, Total Counted 100, Neutrophils % (Manual) 89 H, Lymphocytes % (Manual) 6 L, Monocytes % (Manual) 4, Eosinophils % (Manual) 1, Platelet Estimate Normal, RBC Morphology Normal, ESR 52 H, Sodium 131 L, Potassium 3.3 L, Chloride 89 L, Carbon Dioxide 35 H, Anion Gap 10.3, BUN 20, Creatinine 1.50 H, Estimated Creat Clear 51, Estimated GFR 46 L, Est GFR ( Amer) 56 L, Glucose 162 H D, Lactate 1.0, Calcium 8.6, Magnesium 2.1, Total Bilirubin 0.5, AST 18, ALT 16, Alkaline Phosphatase 112, C-Reactive Protein 294.2 H, Total Protein 6.3, Albumin 2.8 L, Globulin 3.5 H, Albumin/Globulin Ratio 0.8 L, Random Vancomycin 19.1 01/17/24 10:45: POC Glucose 176 H 01/17/24 10:48: Urine Color Yellow, Urine Appearance Clear, Urine pH 8.0, Ur Specific [place] 1.015, Urine Protein Trace, Urine Glucose (UA) Negative, Urine Ketones Negative, Urine Blood 3+ A, Urine Nitrate Negative, Urine Bilirubin Negative, Urine Urobilinogen 0.2, Ur Leukocyte Esterase Trace, Urine RBC 50-100, Urine WBC Occasional, Ur Squamous Epith Cells None, Urine Bacteria None I & O for Last 24 hours: Intake & Output 01/14/24 01/15/24 01/16/24 01/17/24 23:59 23:59 23:59 23:59 Intake Total 1262.833 / 4704.733 5177.417 / 9308.056 0777.626 / 2363.626 535.220 / 535.220 Output Total 5750 / 6200 5000 / 5200 3050 / 3250 1100 / 1100 Balance -4487.167 / -4937.167 -3827.583 / -3214.583 -691.374 / -886.374 -564.780 / -564.780 Weight 354 lb 8.053 oz 354 lb 8.053 oz 353 lb 13.471 oz 353 lb 13.471 oz Microbiology Reports for the Last 24 Hours: Microbiology 01/16/24 09:05 Blood Blood Culture - Preliminary NO GROWTH AFTER 24 HOURS 01/16/24 09:00 Blood Blood Culture - Preliminary NO GROWTH AFTER 24 HOURS 01/13/24 01:45 Blood Blood Culture - Preliminary NO GROWTH AFTER 4 DAYS 01/13/24 01:35 Blood Blood Culture - Preliminary NO GROWTH AFTER 4 DAYS 01/12/24 22:50 Sputum - Expectorated Sputum Gram Stain - Final 01/12/24 22:50 Sputum - Expectorated Sputum Sputum Culture - Final Streptococcus pneumoniae Constitutional Constitutional: no acute distress and morbidly obese *Routine HEENT Exam Head: Present normocephalic and atraumatic ENT: Present mucous membranes moist *Routine Neck Exam Neck: Present supple, full ROM and normal carotid upstroke; Absent JVD, carotid bruit or lymphadenopathy *Routine Respiratory Exam Respiratory: Present decreased breath sounds, wheezes and symmetric chest movement *Routine Cardiovascular Exam Cardiovascular: Present RRR, Normal S1 and Normal S2; Absent murmur or gallop *Routine Abdominal Exam Abdominal: Present soft and normoactive bowel sounds; Absent tenderness, dis tended or organomegaly *Routine Extremities Exam Extremities: Present edema (Gross bilateral lower extremity edema), full ROM, pulses intact and normal capillary refill; Absent cyanosis or clubbing *Routine Skin Exam Skin: Present intact and warm; Absent erythema *Routine Neurological Exam Neurological: Present alert, oriented X3 and CN II-XII intact; Absent sensory deficit or motor deficit Routine Psychiatric Exam Psychiatric: Present normal affect Progress Note: A&P Assessment and plan (1) Acute heart failure with preserved ejection fraction (HFpEF): Status: Acute (2) Acute on chronic respiratory failure with hypoxia and hypercapnia: Status: Acute (3) Pneumonia: Status: Acute (4) Septic shock: Status: Acute (5) OSMANI (acute kidney injury): Status: Acute (6) Pickwickian syndrome: Status: Acute (7) Morbid obesity: Status: Acute (8) Hypothyroid: Status: Acute (9) Scrotal edema: Status: Acute (10) Hypokalemia: Status: Acute (11) Lower extremity edema: Status: Acute (12) Shortness of Breath: Status: Acute (13) Volume overload: Status: Acute (14) Leukocytosis: Status: Acute (15) Morbid obesity: Status: Acute (16) Bleeding per rectum: Status: Acute (17) Pleural effusion, bilateral: Status: Acute Assessment and Plan Assessment and Plan for All Diagnoses:: Plan: 1. The patient was admitted to the hospital with acute on chronic HFpEF. The patient was diuresed on Bumex drip but it was stopped yesterday and he was converted over to oral Bumex. He still has an negative fluid balance overnight. Continue Bumex 2 mg p.o. twice daily for continued diuresis. 2. Continue spironolactone for continued diuresis. 3. The patient remains hypokalemic today. He is getting potassium replaced per the hospitalist. Will defer. 4. The patient is currently being treated for pneumonia and sepsis. Continues to elevate. Chest x-ray and CT chest showed worsening of his right lower lobe pneumonia. He is on IV antibiotics. Will defer this to the hospitalist. Pulmonology has also been consulted. 5. The patient denies any chest pain or pressure. No plans for invasive left cardiac catheterization at this time. Consider ischemic workup on an outpatient basis once he is discharged from the hospital. 6. His blood pressure remains marginal this morning. He was started on a Levophed drip yesterday for hypotension. Continue to hold irbesartan. 7. His LDL goal is less than 100. His LDL is less than 30 in July 2023. He is on a statin. 8. Will hold off on a beta-chicho at this time due to low BP and HFpEF, and studies show HFpEF symptoms can be worsened by beta-blockers. 9. Continue Jardiance for HFpEF. 10. The patient's bicarb did slightly improve more today, down to 35. Acetazolamide has been discontinued. 11. Further recommendations will be made pending the patient's response to treatment. Thank you for the opportunity to help participate in the care of this patient. All recommendations and orders are per Dr. Mccallum.
[2024-01-17] MEDS: FLUTICASONE/UMECLIDIN/VILANTER 200/62.5/25MCG INHALER 1 PUFF IH (13:23)
--- NOTE | 2024-01-17 15:05 | CA_ITS ---
FINAL REPORT TECHNIQUE: Bilateral lower extremity venous duplex was performed with augmentation and compression. CLINICAL HISTORY: Anasarca, heart failure COMPARISON: None FINDINGS: Proper flow is seen throughout the deep venous systems bilaterally. There is no evidence of deep venous thrombosis. IMPRESSION: No evidence of deep venous thrombosis. Reviewed, Interpreted and Dictated by Elliot Strange MD Transcribed by Ann Rogers Authenticated and [facility]
[2024-01-17 15:43] LABS: Vancomycin,Random 14.5 ug/ml
[2024-01-17 17:08] LABS: POC Glucose,Bedside 124 (70-110)
--- NOTE | 2024-01-17 17:30 | PC.NURSE ---
Patient able to transfer from chair to bed this afternoon with max assist and use of walker. VS stable and levo drip off since 1230. Lung sounds diminished. Patient tolerating bipap well while napping.
--- NOTE | 2024-01-17 17:47 | P.PN_ITS ---
Subjective *Date: 01/17/24 *Time: 17:47 Interval history: Patient was sitting in chair this morning with BiPAP overnight and blanket over his face. Continues to be very pleasant. No acute concerns today. Scrotum, penis continues to be swollen. Denies chest pain, shortness of breath. Exam Data for Last 24 hours Vital signs and Labs for Last 24 Hours: Temp Pulse Resp BP Pulse Ox O2 Del Method O2 Flow Rate 98.4 F 76 20 133/65 99 BiPAP 5 01/17/24 08:00 01/17/24 17:00 01/17/24 17:00 01/17/24 17:00 01/17/24 17:00 01/17/24 17:00 01/17/24 17:00 FiO2 30 01/17/24 16:00 Laboratory Results - last 24 hr 01/16/24 18:18: Vancomycin Trough 28.4 H 01/16/24 18:28: Hgb 11.1 L, Hct 39.4 L 01/16/24 21:27: POC Glucose 158 H 01/17/24 05:32: WBC 28.8 H*, RBC 4.38 L, Hgb 10.5 L, Hct 37.6 L, MCV 85.7, MCH 24.1 L, MCHC 28.1 L, RDW 16.9, Plt Count 343, MPV 8.6, Neut % (Auto) 89.9 H, Lymph % (Auto) 4.5 L, [place] % (Auto) 4.5, Eos % (Auto) 0.8, Baso % (Auto) 0.2, Neut # (Auto) 25.8 H, Lymph # (Auto) 1.3, [place] # (Auto) 1.3 H, Eos # (Auto) 0.2, Baso # (Auto) 0.1, Total Counted 100, Neutrophils % (Manual) 89 H, Lymphocytes % (Manual) 6 L, Monocytes % (Manual) 4, Eosinophils % (Manual) 1, Platelet Estimate Normal, RBC Morphology Normal, ESR 52 H, Sodium 131 L, Potassium 3.3 L, Chloride 89 L, Carbon Dioxide 35 H, Anion Gap 10.3, BUN 20, Creatinine 1.50 H, Estimated Creat Clear 51, Estimated GFR 46 L, Est GFR ( Amer) 56 L, Glucose 162 H D, Lactate 1.0, Calcium 8.6, Magnesium 2.1, Total Bilirubin 0.5, AST 18, ALT 16, Alkaline Phosphatase 112, C-Reactive Protein 294.2 H, Total Protein 6.3, Albumin 2.8 L, Globulin 3.5 H, Albumin/Globulin Ratio 0.8 L, Random Vancomycin 19.1 01/17/24 10:45: POC Glucose 176 H 01/17/24 10:48: Urine Color Yellow, Urine Appearance Clear, Urine pH 8.0, Ur Specific [place] 1.015, Urine Protein Trace, Urine Glucose (UA) Negative, Urine Ketones Negative, Urine Blood 3+ A, Urine Nitrate Negative, Urine Bilirubin Negative, Urine Urobilinogen 0.2, Ur Leukocyte Esterase Trace, Urine RBC 50-100, Urine WBC Occasional, Ur Squamous Epith Cells None, Urine Bacteria None 01/17/24 15:05: Random Vancomycin 14.5 01/17/24 17:00: POC Glucose 124 H I & O for Last 24 hours: Intake & Output 01/14/24 01/15/24 01/16/24 01/17/24 23:59 23:59 23:59 23:59 Intake Total 1262.833 / 3068.034 7239.417 / 9691.657 3662.626 / 2363.626 808.283 / 808.283 Output Total 5750 / 6200 5000 / 5200 3050 / 3250 2550 / 2550 Balance -4487.167 / -4937.167 -3827.583 / -3214.583 -691.374 / -886.374 - 1741.717 / -1741.717 Weight 160.8 kg 160.8 kg 160.5 kg 160.5 kg Microbiology Reports for the Last 24 Hours: Microbiology 01/16/24 09:05 Blood Blood Culture - Preliminary NO GROWTH AFTER 24 HOURS 01/16/24 09:00 Blood Blood Culture - Preliminary NO GROWTH AFTER 24 HOURS 01/13/24 01:45 Blood Blood Culture - Preliminary NO GROWTH AFTER 4 DAYS 01/13/24 01:35 Blood Blood Culture - Preliminary NO GROWTH AFTER 4 DAYS Constitutional Constitutional: no acute distress *Routine HEENT Exam Head: Present normocephalic Eye: Present EOMI and PERRL ENT: Present mucous membranes moist *Routine Neck Exam Neck: Present supple; Absent lymphadenopathy *Routine Respiratory Exam Respiratory: Present CTA bilaterally; Absent wheezes or crackles *Routine Cardiovascular Exam Cardiovascular: Present RRR *Routine Abdominal Exam Abdominal: Present soft and normoactive bowel sounds; Absent tenderness *Routine Exam Patient deferred: scrotal exam (Diffuse swelling of the scrotum without tenderness. ) *Routine Extremities Exam Extremities: Present edema; Absent cyanosis or clubbing Comments: Chronic venous stasis skin discoloration changes in lower extremities. Trace pitting edema bilateral lower extremities. *Routine Skin Exam Skin: Present warm; Absent rash *Routine Neurological Exam Neurological: Present alert and oriented X3 Assessment and Plan *Assessment and plan (1) Acute on chronic respiratory failure with hypoxia and hypercapnia: Status: Acute Category: Medical Code(s): J96.21 - Acute and chronic respiratory failure with hypoxia; J96.22 - Acute and chronic respiratory failure with hypercapnia (2) Pneumonia: Status: Acute Category: Medical Code(s): J18.9 - Pneumonia, unspecified organism (3) Septic shock: Status: Acute Category: Medical Code(s): A41.9 - Sepsis, unspecified organism; R65.21 - Severe sepsis with septic shock (4) Acute exacerbation of CHF (congestive heart failure): Status: Acute Qualifiers: Heart failure type: diastolic Qualified Code(s): I50.33 - Acute on chronic diastolic (congestive) heart failure Category: Medical Code(s): I50.9 - Heart failure, unspecified (5) OSMANI (acute kidney injury): Status: Acute Category: Medical Code(s): N17.9 - Acute kidney failure, unspecified (6) Acute metabolic encephalopathy: Status: Acute Category: Medical Code(s): G93.41 - Metabolic encephalopathy (7) Pickwickian syndrome: Status: Acute Category: Medical Code(s): E66.2 - Morbid (severe) obesity with alveolar hypoventilation (8) Morbid obesity: Status: Acute Category: Medical Code(s): E66.01 - Morbid (severe) obesity due to excess calories (9) Hypothyroid: Status: Acute Category: Medical Code(s): E03.9 - Hypothyroidism, unspecified (10) Heart failure with preserved ejection fraction: Status: Acute Qualifiers: Heart failure chronicity: acute on chronic Qualified Code(s): I50.33 - Acute on chronic diastolic (congestive) heart failure Category: Medical Code(s): I50.30 - Unspecified diastolic (congestive) heart failure (11) Scrotal edema: Status: Acute Category: Medical Code(s): N50.89 - Other specified disorders of the male genital organs Plan Mr. Wu is a morbidly obese 68-year-old male with history of heart failure with preserved ejection fraction, chronic respiratory failure on home BiPAP, chronically on 3 L oxygen, with CKD and recent admission for respiratory failure a month ago to [place]. He presented via EMS for acute worsening and concern for sepsis with respiratory failure. Workup in the ER concerning for pneumonia, development of septic shock, and respiratory failure. Initiated on BiPAP. Discussed case with ER, request admission for ICU level of care and further management. Medicine agreed to admit. Received broad-spectrum antibiot ics in the ER. Cultures obtained. Pulmonology consulted to assist with care including BiPAP management and critical care. Tolerating 3-5 L nasal cannula during the day. BiPAP at night. Continues to require inpatient management. Problems addressed as follows: #Severe sepsis #Pneumonia ? Patient is about the same as yesterday. However, white count uptrending from 27-28.8. No fevers overnight ? Repeat blood cultures NGTD 24 hours. Follow-up urine cultures. ? Initial respiratory culture revealed strep pneumonia sensitive to vancomycin, ceftriaxone. ?Continue vancomycin, meropenem given persistent leukocytosis. Given patient's complex comorbidities, it could take 1-2 more days for leukocytosis to improve. ? Weaned off Levophed drip today. ? Pulmonology consulted, pending recommendations. ? CT chest reveals dense parenchymal consolidation in the right lower lobe concerning for infection. CT abdomen/pelvis shows gallbladder that is moderately distended, moderate soft tissue edema in the penile shaft. #Acute hypoxic on chronic respiratory failure #HFpEF exacerbation #Bilateral pleural effusions - Echocardiogram obtained showing preserved ejection fraction 60% with diastolic dysfunction. EKG shows old OK's - Fluid overload improving with dieuresis, cardiology consulted. Weaned off Bumex drip. ? P.o. Bumex 2 mg twice daily as patient is more euvolemic. Making appropriate urine output. - Monitor renal function, electrolytes and replete. ? Strict SEGUNDO's, bed elevation, fluid/water restriction. #Scrotal, penile edema ? Significant scrotal and penis edema, with tenderness and erythema ongoing since HFrEF exacerbation for about a week. ? US scrotum obtained does not show acute process, shows abnormal scrotal wall thickening likely secondary to volume overload. Less likely be infectious, but patient is already on broad-spectrum antibiotics for pneumonia. ? Evaluation of the sacrum on 01/16/2024, buttocks revealed contact dermatitis, skin breakdown with bleeding (previously reported by patient has rectal bleeding) from being soiled in stool. No purulent drainage noted. ? Wound care consulted, appreciate recommendations. Barrier cream applied. ? Continue diuresis as above and follow scrotal edema. ? CT abdomen/pelvis shows moderate soft tissue edema in the penile shaft. ? While penile, scrotal edema and engorgement is likely secondary to fluid overload it is quite significant. Spoke with general surgery and they agree that it is more than expected. Plan to reach out to urology for consultation versus transfer. Patient continues to make urine through [place]. No tenderness, necrosis noted. #OSMANI ? Creatinine 1.5, baseline 1.0. Likely secondary to aggressive diuresis given significant volume overload. ? Will continue to monitor and continue diuresis at this time. Hypothyroid: TSH of 24 on admission. Continue oral levothyroxine at increased dose of 175 mcg daily Diabetes: A1c 6.8. Sliding scale insulin fingersticks every 6 hours given diabetes diagnosis and steroid use as above Metabolic alkalosis: Continue acetazolamide 250 mg twice daily Medical surrogate is his significant other Anamika Bowers. Full code Diabetic diet Heparin 5000 units 3 times daily
[2024-01-17] MEDS: VANCOMYCIN HCL 2,500 MG in 0.9 % SODIUM CHLORIDE 250 ML 125 MG IV (18:11)
[2024-01-17 20:13] LABS: POC Glucose,Bedside 132 (70-110)
[2024-01-17] MEDS: TAMSULOSIN 0.4MG CAPSULE 0.4 MG PO (20:31)
[2024-01-17] MEDS: ATORVASTATIN 20MG TABLET 20 MG PO (20:31)
[2024-01-17] MEDS: NOREPINEPHRINE BITARTRATE/D5W 8 MG/250 ML PLAST..BAG 15 MG IV ×2 (21:06→21:20)
--- NOTE | 2024-01-17 21:10 | PC.NURSE ---
Addendum entered by Kenan Guevara RN 01/17/24 21:42: Also discussed need for central line for continued vasopressor and vanco administration. deferred by attending Original Note: Notified Dr. Mejia at this time that patient is hypotensive with MAP<65/Systolic <90. Norepi started back per order. Verbal order to wean off Norepi. Give oral Midodrine 5mg now and then BID there after.
[2024-01-17] MEDS: MIDODRINE HCL 5 MG TABLET PO (21:25)
[2024-01-18] VITALS (28 sets, daily range): BP systolic 83–151; BP diastolic 48–80; PULSE 60–94; RESP 20–26; TEMP 36.5–37.2; O2SAT 89–100; BMI 48.3
[2024-01-18] MEDS: MEROPENEM 1 GM in 0.9 % SODIUM CHLORIDE 100 ML IV ×3 (01:00→16:08)
[2024-01-18 06:11] LABS: Basophils # 0.1 K/mm3 (0-0.2); Basophils % 0.3 % (0.1-2.0); Eosinophils # 0.5 K/mm3 (0.0-0.4); Eosinophils % 2.1 % (0.1-12.0); Hematocrit 34.4 % (42.0-52.0); Hemoglobin 9.7 g/dL (14.1-18.0); Lymphocytes # 1.7 K/mm3 (0.7-4.5); Lymphocytes % 7.1 % (10-50); Mean Corpuscular HGB Conc 28.1 g/dL (31.8-35.4); Mean Corpuscular Hemoglobin 23.9 pg (27.0-31.2); Monocytes # 1.2 K/mm3 (0.1-1.0); Monocytes % 5.1 % (1.7-9.3); Neutrophils # 20.4 K/mm3 (1.8-7.8); Neutrophils % 85.4 % (37.0-80.0); Platelet Count 335 K/mm3 (142-424); Red Blood Count 4.05 M/mm3 (4.60-6.20); Red Cell Distribution Width 17.1 % (11.5-17.5); White Blood Count 23.9 K/mm3 (4.8-10.8)
[2024-01-18 06:15] LABS: MANUAL DIFFERENTIAL MANUAL DIFFERENTIAL (MANUAL DIFF)
[2024-01-18] MEDS: LEVOTHYROXINE 150MCG (0.15MG)TAB 150 MCG PO (06:15)
[2024-01-18 06:20] LABS: Alanine Aminotransferase 18 U/L (12-78); Albumin Level 2.7 g/dl (3.5-5.0); Alkaline Phosphatase 98 U/L (38-126); Anion Gap 3.5 mEq/L (5-15); Aspartate Amino Transferase 26 U/L (17-59); Bilirubin,Total 0.4 mg/dl (0.2-1.3); Blood Urea Nitrogen 23 mg/dl (9-20); Calcium 8.3 mg/dl (8.4-10.2); Carbon Dioxide 40 mmol/L (22.0-30.0); Chloride 90 mmol/L (98-107); Creatinine Clearance Estimated 55 mL/min (50-200); Estimated Glomerular Filt Rate 50 ml/min (>60); GFR (African American) 61 ML/MIN (>60); Globulin 2.8 g/dL (1.3-3.2); Glucose 148 mg/dl (74-100); Potassium 3.5 mmoL/L (3.5-5.1); Sodium 130 mmol/L (136-145); Total Protein,Serum 5.5 g/dl (6.3-8.2)
[2024-01-18] MEDS: IPRATROPIUM/ALBUTEROL 3 ML NEB IH ×4 (06:31→23:45)
[2024-01-18] MEDS: FLUTICASONE/UMECLIDIN/VILANTER 200/62.5/25MCG INHALER 1 PUFF IH (06:31)
[2024-01-18 08:09] LABS: Anisocytosis 1+; Eosinophils % 1 % (0-3); Hypochromasia 3+; Lymphocytes % 9 % (10-50); Monocytes % 2 % (2-9); Neutrophils % 88 % (42-76); Platelet Estimate Normal; Target Cells 1+; Total Cells Counted 100
[2024-01-18] MEDS: BUMETANIDE 1 MG TABLET 2 MG PO ×2 (08:43→15:53)
[2024-01-18] MEDS: IRBESARTAN 75MG TABLET 75 MG PO (08:43)
[2024-01-18] MEDS: PANTOPRAZOLE 40MG TABLET 40 MG PO (08:43)
[2024-01-18] MEDS: SPIRONOLACTONE 25MG TABLET 50 MG PO (08:44)
[2024-01-18] MEDS: POLYETHYLENE GLYCOL 3350 17 GM PACKET PO (08:44)
[2024-01-18] MEDS: HEPARIN SODIUM 5,000 UNIT/ML VIAL 5000 UNIT SQ ×2 (08:44→20:19)
[2024-01-18] MEDS: AZITHROMYCIN 250MG TABLET 500 MG PO (08:44)
[2024-01-18] MEDS: RANOLAZINE 500MG ER TABLET 500 MG PO ×2 (08:44→20:19)
[2024-01-18] MEDS: MIDODRINE HCL 5 MG TABLET PO (08:44)
[2024-01-18] MEDS: POTASSIUM CHLORIDE 20MEQ TAB 40 MEQ PO ×3 (08:45→20:19)
[2024-01-18] MEDS: ACETAMINOPHEN 325MG TAB 650 MG PO ×2 (09:41→20:57)
[2024-01-18] MEDS: BUMETANIDE 1MG/4ML VIAL 1 MG IV (11:16)
--- NOTE | 2024-01-18 15:45 | EXP.PN ---
Subjective *Date: 01/18/24 *Time: 15:55 Interval history: Patient is a little upset this morning that his swelling has worsened today. He also states his suprapubic area has become more swollen because of it. Otherwise feels well. Denies chest pain, shortness of breath. Exam Data for Last 24 hours Vital signs and Labs for Last 24 Hours: Temp Pulse Resp BP Pulse Ox O2 Del Method O2 Flow Rate 98.4 F 60 21 114/61 93 L Nasal Cannula 3 01/18/24 12:00 01/18/24 14:00 01/18/24 14:00 01/18/24 14:00 01/18/24 14:00 01/18/24 14:00 01/18/24 14:00 FiO2 30 01/18/24 12:00 Laboratory Results - last 24 hr 01/17/24 15:05: Random Vancomycin 14.5 01/17/24 17:00: POC Glucose 124 H 01/17/24 20:02: POC Glucose 132 H 01/18/24 05:57: WBC 23.9 H*, RBC 4.05 L, Hgb 9.7 L, Hct 34.4 L, MCV 85.0, MCH 23.9 L, MCHC 28.1 L, RDW 17.1, Plt Count 335, MPV 8.0, Neut % (Auto) 85.4 H, Lymph % (Auto) 7.1 L, [place] % (Auto) 5.1, Eos % (Auto) 2.1, Baso % (Auto) 0.3, Neut # (Auto) 20.4 H, Lymph # (Auto) 1.7, [place] # (Auto) 1.2 H, Eos # (Auto) 0.5 H, Baso # (Auto) 0.1, Total Counted 100, Neutrophils % (Manual) 88 H, Lymphocytes % (Manual) 9 L, Monocytes % (Manual) 2, Eosinophils % (Manual) 1, Platelet Estimate Normal, Hypochromasia 3+, Anisocytosis 1+, Target Cells 1+, Sodium 130 L, Potassium 3.5, Chloride 90 L, Carbon Dioxide 40 H, Anion Gap 3.5 L, BUN 23 H, Creatinine 1.40 H, Estimated Creat Clear 55, Estimated GFR 50 L, Est GFR ( Amer) 61, Glucose 148 H, Calcium 8.3 L, Total Bilirubin 0.4, AST 26 D, ALT 18, Alkaline Phosphatase 98, Total Protein 5.5 L, Albumin 2.7 L, Globulin 2.8, Albumin/Globulin Ratio 1.0 L I & O for Last 24 hours: Intake & Output 01/15/24 01/16/24 01/17/24 01/18/24 23:59 23:59 23:59 23:59 Intake Total 1172.417 / 7594.046 2678.626 / 2363.626 1558.283 / 5420.437 9425 / 1165 Output Total 5000 / 5200 3050 / 3250 3850 / 4050 500 / 500 Balance -3827.583 / -3214.583 -691.374 / -886.374 -2291.717 / -2391.717 665 / 665 Weight 160.8 kg 160.5 kg 160.5 kg 161.6 kg Microbiology Reports for the Last 24 Hours: Microbiology 01/16/24 09:05 Blood Blood Culture - Preliminary NO GROWTH AFTER 48 HOURS 01/16/24 09:00 Blood Blood Culture - Preliminary NO GROWTH AFTER 48 HOURS 01/16/24 09:09 Urine,[place] Urine Culture - Final 01/18/24 01:59 Sputum - Expectorated Sputum Gram Stain - Final 01/13/24 01:45 Blood Blood Culture - Final NO GROWTH AFTER 5 DAYS 01/13/24 01:35 Blood Blood Culture - Final NO GROWTH AFTER 5 DAYS Constitutional Constitutional: no acute distress *Routine HEENT Exam Head: Present normocephalic Eye: Present EOMI and PERRL ENT: Present mucous membranes moist *Routine Neck Exam Neck: Present supple; Absent lymphadenopathy *Routine Respiratory Exam Respiratory: Present CTA bilaterally; Absent wheezes or crackles *Routine Cardiovascular Exam Cardiovascular: Present RRR *Routine Abdominal Exam Abdominal: Present soft and normoactive bowel sounds; Absent tenderness *Routine Exam Patient deferred: scrotal exam (Diffuse swelling of the scrotum without tenderness. ) *Routine Extremities Exam Extremities: Present edema; Absent cyanosis or clubbing Comments: Chronic venous stasis skin discoloration changes in lower extremities. 1+ pitting edema bilateral lower extremities. *Routine Skin Exam Skin: Present warm; Absent rash *Routine Neurological Exam Neurological: Present alert and oriented X3 Assessment and Plan *Assessment and plan (1) Acute on chronic respiratory failure with hypoxia and hypercapnia: Status: Acute Category: Medical Code(s): J96.21 - Acute and chronic respiratory failure with hypoxia; J96.22 - Acute and chronic respiratory failure with hypercapnia (2) Pneumonia: Status: Acute Category: Medical Code(s): J18.9 - Pneumonia, unspecified organism (3) Septic shock: Status: Acute Category: Medical Code(s): A41.9 - Sepsis, unspecified organism; R65.21 - Severe sepsis with septic shock (4) Acute exacerbation of CHF (congestive heart failure): Status: Acute Qualifiers: Heart failure type: diastolic Qualified Code(s): I50.33 - Acute on chronic diastolic (congestive) heart failure Category: Medical Code(s): I50.9 - Heart failure, unspecified (5) OSMANI (acute kidney injury): Status: Acute Category: Medical Code(s): N17.9 - Acute kidney failure, unspecified (6) Acute metabolic encephalopathy: Status: Acute Category: Medical Code(s): G93.41 - Metabolic encephalopathy (7) Pickwickian syndrome: Status: Acute Category: Medical Code(s): E66.2 - Morbid (severe) obesity with alveolar hypoventilation (8) Morbid obesity: Status: Acute Category: Medical Code(s): E66.01 - Morbid (severe) obesity due to excess calories (9) Hypothyroid: Status: Acute Category: Medical Code(s): E03.9 - Hypothyroidism, unspecified (10) Heart failure with preserved ejection fraction: Status: Acute Qualifiers: Heart failure chronicity: acute on chronic Qualified Code(s): I50.33 - Acute on chronic diastolic (congestive) heart failure Category: Medical Code(s): I50.30 - Unspecified diastolic (congestive) heart failure (11) Scrotal edema: Status: Acute Category: Medical Code(s): N50.89 - Other specified disorders of the male genital organs Plan Mr. Wu is a morbidly obese 68-year-old male with history of heart failure with preserved ejection fraction, chronic respiratory failure on home BiPAP, chronically on 3 L oxygen, with CKD and recent admission for respiratory failure a month ago to [place]. He presented via EMS for acute worsening and concern for sepsis with respiratory failure. Workup in the ER concerning for pneumonia, development of septic shock, and respiratory failure. Initiated on BiPAP. Discussed case with ER, request admission for ICU level of care and further management. Medicine agreed to admit. Received broad-spectrum antibiotics in the ER. Cultures obtained. Pulmonology consulted to assist with care including BiPAP management and critical care. Tolerating 3-5 L nasal cannula during the day. BiPAP at night. Continues to require inpatient management. Problems addressed as follows: #Severe sepsis #Pneumonia ? White count improving from 28-23 today. No fevers overnight. Weaned off Levophed on 01/17/2024 ? Repeat blood cultures NGTD 48 hours. Repeat urine, sputum cultures did not reveal growth as well. ? Initial respiratory culture revealed strep pneumonia sensitive to vancomycin, ceftriaxone. ? Continue vancomycin, meropenem given persistent but improving leukocytosis. ? Pulmonology consulted, pending recommendations. ? CT chest reveals dense parenchymal consolidation in the right lower lobe concerning for infection. CT abdomen/pelvis shows gallbladder that is moderately distended, moderate soft tissue edema in the penile shaft. #Distended gallbladder ? Noted on CT abdomen/pelvis. However, patient has no RUQ pain, and tolerating diet. But given that patient has sepsis with unclear source, and out of proportion to pneumonia, will obtain RUQ ultrasound. ? Follow-up RUQ ultrasound. #Acute hypoxic on chronic respiratory failure #HFpEF exacerbation #Bilateral pleural effusions #Obesity hypoventilation syndrome - Echocardiogram obtained showing preserved ejection fraction 60% with diastolic dysfunction. EKG shows old RI's - Fluid overload improving with dieuresis, cardiology consulted. Weaned off Bumex drip. ? Patient more fluid overloaded today after transitioning to p.o. Bumex 2 mg twice daily. ? Given additional IV Bumex 1 mg today with improvement in fluid status. If patient continues to be fluid overloaded in the mornings, consider increasing morning Bumex dose. - Monitor renal function, electrolytes and replete. ? Strict SEGUNDO's, bed elevation, fluid/water restriction. ? Continue BiPAP nightly. #Scrotal, penile, suprapubic edema ? Significant scrotal and penis edema, without tenderness ongoing since HFrEF exacerbation. ? US scrotum obtained does not show acute process, shows abnormal scrotal wall thickening likely secondary to volume overload. Less likely be infectious, but patient is already on broad-spectrum antibiotics for pneumonia. ? Evaluation of the sacrum on 01/16/2024, buttocks revealed contact dermatitis, skin breakdown with bleeding (previously reported by patient has rectal bleeding) from being soiled in stool. No purulent drainage noted. ? Wound care consulted, appreciate recommendations. Barrier cream applied. ? Continue diuresis as above and follow scrotal edema. ? CT abdomen/pelvis shows moderate soft tissue edema in the penile shaft which likely represents fluid overload. Patient has no tenderness over the penis, but does endorse tenderness over the suprapubic region with swelling. ? While penile, scrotal edema and engorgement is likely secondary to fluid overload it is quite significant. Spoke with general surgery and they agree that it is more than expected. Plan to reach out to urology for consultation versus transfer. Patient continues to make urine through [place]. No tenderness, necrosis noted. #OSMANI ? Improving creatinine to 1.4, baseline 1.0. Likely secondary to prerenal third spacing and aggressive diuresis given significant volume overload. ? Will continue to monitor and continue diuresis at this time. Hypothyroid: TSH of 24 on admission. Continue oral levothyroxine at increased dose of 175 mcg daily Diabetes: A1c 6.8. Sliding scale insulin fingersticks every 6 hours given diabetes diagnosis and steroid use as above Metabolic alkalosis: Continue acetazolamide 250 mg twice daily Medical surrogate is his significant other Anamika Bowers. Full code Diabetic diet Heparin 5000 units 3 times daily
[2024-01-18] MEDS: OXYCODONE 5MG W/APAP 325MG TABLET 1 EACH PO ×2 (15:53→22:36)
[2024-01-18] MEDS: VANCOMYCIN HCL 2,500 MG in 0.9 % SODIUM CHLORIDE 250 ML 125 MG IV (17:37)
--- NOTE | 2024-01-18 18:39 | PC.NURSE ---
Pt is A&O x4. Has been on 3L NC while awake, eating meals. Has been on Bipap when napping this shift. His appetite is good today. Has c/o discomfort to BLE and back. PRN medication administered in addition to repositioning and other interventions. F/C draining to bedside with 600 ml total urine output. Pt encouraged to get up to chair and turn when in bed. Pt has bloody drainage from bottom. Erythema and edema noted to BLE. Call light within reach.
[2024-01-18] MEDS: ATORVASTATIN 20MG TABLET 20 MG PO (20:19)
[2024-01-18] MEDS: TAMSULOSIN 0.4MG CAPSULE 0.4 MG PO (20:19)
[2024-01-19] VITALS (17 sets, daily range): BP systolic 90–114; BP diastolic 51–69; PULSE 62–90; RESP 17–26; TEMP 36.2–37; O2SAT 92–100; BMI 48.2
[2024-01-19] MEDS: MEROPENEM 1 GM in 0.9 % SODIUM CHLORIDE 100 ML IV ×3 (01:20→16:04)
[2024-01-19 03:38] LABS: POC Glucose,Bedside 132 (70-110)
[2024-01-19 03:38] LABS: POC Glucose,Bedside 165 (70-110)
[2024-01-19] MEDS: IPRATROPIUM/ALBUTEROL 3 ML NEB IH ×4 (06:18→23:48)
[2024-01-19] MEDS: FLUTICASONE/UMECLIDIN/VILANTER 200/62.5/25MCG INHALER 1 PUFF IH (06:18)
[2024-01-19] MEDS: LEVOTHYROXINE 150MCG (0.15MG)TAB 150 MCG PO (06:59)
[2024-01-19] MEDS: OXYCODONE 5MG W/APAP 325MG TABLET 1 EACH PO ×3 (07:04→20:42)
[2024-01-19 07:11] LABS: Basophils # 0.1 K/mm3 (0-0.2); Basophils % 0.7 % (0.1-2.0); Eosinophils # 0.5 K/mm3 (0.0-0.4); Eosinophils % 2.9 % (0.1-12.0); Hematocrit 34.8 % (42.0-52.0); Hemoglobin 9.7 g/dL (14.1-18.0); Lymphocytes # 1.5 K/mm3 (0.7-4.5); Lymphocytes % 8.9 % (10-50); Mean Corpuscular Hemoglobin 23.8 pg (27.0-31.2); Mean Corpuscular Volume 85.2 fl (80-94); Monocytes % 6.2 % (1.7-9.3); Neutrophils # 13.3 K/mm3 (1.8-7.8); Neutrophils % 81.3 % (37.0-80.0); Platelet Count 344 K/mm3 (142-424); Red Blood Count 4.09 M/mm3 (4.60-6.20); Red Cell Distribution Width 17.2 % (11.5-17.5); White Blood Count 16.3 K/mm3 (4.8-10.8)
[2024-01-19 07:15] LABS: Albumin Level 2.8 g/dl (3.5-5.0); Chloride 93 mmol/L (98-107); Potassium 4.4 mmoL/L (3.5-5.1); Sodium 131 mmol/L (136-145)
[2024-01-19 07:17] LABS: MANUAL DIFFERENTIAL MANUAL DIFFERENTIAL (MANUAL DIFF)
[2024-01-19 07:18] LABS: Alanine Aminotransferase 25 U/L (12-78); Alkaline Phosphatase 88 U/L (38-126); Anion Gap 4.4 mEq/L (5-15); Aspartate Amino Transferase 33 U/L (17-59); Bilirubin,Total 0.3 mg/dl (0.2-1.3); Blood Urea Nitrogen 27 mg/dl (9-20); Calcium 8.2 mg/dl (8.4-10.2); Carbon Dioxide 38 mmol/L (22.0-30.0); Creatinine Clearance Estimated 55 mL/min (50-200); Estimated Glomerular Filt Rate 50 ml/min (>60); GFR (African American) 61 ML/MIN (>60); Globulin 2.9 g/dL (1.3-3.2); Glucose 132 mg/dl (74-100); Total Protein,Serum 5.7 g/dl (6.3-8.2)
[2024-01-19 07:26] LABS: POC Glucose,Bedside 150 (70-110)
[2024-01-19 07:26] LABS: POC Glucose,Bedside 141 (70-110)
[2024-01-19 08:20] LABS: Procalcitonin 0.195 ng/mL (0.0-2.0)
--- NOTE | 2024-01-19 08:42 | EXP.PHA.PN ---
Subjective *Date: 01/19/24 *Time: 08:42 Medical Exam Vital signs and Labs for Last 24 Hours: Vital Signs Temp Pulse Pulse Resp BP Pulse Ox O2 Del Method 01/19/24 08:00 Nasal Cannula 01/19/24 06:23 Nasal Cannula 01/19/24 06:19 72 01/19/24 06:19 69 01/19/24 06:19 98 Nasal Cannula 01/19/24 06:00 71 24 114/53 L 96 Nasal Cannula 01/19/24 05:00 Nasal Cannula 01/19/24 04:00 97.7 F 01/19/24 04:00 BiPAP 01/19/24 04:00 70 01/19/24 04:00 69 23 97/51 L 95 BiPAP 01/19/24 03:00 BiPAP 01/19/24 02:00 62 18 104/56 L 96 BiPAP 01/19/24 01:00 BiPAP 01/19/24 00:11 01/19/24 00:10 80 01/19/24 00:10 79 01/19/24 00:00 98.1 F 01/19/24 00:00 70 01/19/24 00:00 68 20 90/51 L 96 BiPAP 01/18/24 23:00 BiPAP 01/18/24 22:00 68 22 95/48 L 96 BiPAP 01/18/24 21:00 Nasal Cannula, BiPAP 01/18/24 20:00 98.3 F 01/18/24 20:00 70 01/18/24 20:00 69 23 112/63 96 BiPAP 01/18/24 20:00 Nasal Cannula 01/18/24 19:10 01/18/24 19:09 67 01/18/24 19:09 65 01/18/24 18:38 Room Air, Nasal Cannula, BiPAP 01/18/24 18:00 71 22 116/62 99 BiPAP 01/18/24 17:00 BiPAP 01/18/24 16:00 70 01/18/24 16:00 Nasal Cannula 01/18/24 16:00 68 24 111/59 L 99 Nasal Cannula 01/18/24 15:00 Nasal Cannula 01/18/24 14:00 60 21 114/61 93 L Nasal Cannula 01/18/24 13:00 Nasal Cannula 01/18/24 12:00 70 01/18/24 12:00 98.4 F 71 24 100/50 L 98 BiPAP 01/18/24 11:30 66 01/18/24 11:30 64 01/18/24 11:30 01/18/24 11:00 BiPAP 01/18/24 10:00 72 22 128/68 96 BiPAP 01/18/24 08:51 Nasal Cannula O2 Flow Rate FiO2 01/19/24 08:00 3 01/19/24 06:23 3 01/19/24 06:19 01/19/24 06:19 01/19/24 06:19 3 01/19/24 06:00 3 01/19/24 05:00 3 01/19/24 04:00 01/19/24 04:00 01/19/24 04:00 01/19/24 04:00 01/19/24 03:00 01/19/24 02:00 01/19/24 01:00 01/19/24 00:11 30 01/19/24 00:10 01/19/24 00:10 01/19/24 00:00 01/19/24 00:00 01/19/24 00:00 01/18/24 23:00 01/18/24 22:00 01/18/24 21:00 01/18/24 20:00 01/18/24 20:00 01/18/24 20:00 01/18/24 20:00 3 01/18/24 19:10 30 01/18/24 19:09 01/18/24 19:09 01/18/24 18:38 01/18/24 18:00 30 01/18/24 17:00 01/18/24 16:00 01/18/24 16:00 3 01/18/24 16:00 3 01/18/24 15:00 3 01/18/24 14:00 3 01/18/24 13:00 3 01/18/24 12:00 01/18/24 12:00 30 01/18/24 11:30 01/18/24 11:30 01/18/24 11:30 30 01/18/24 11:00 01/18/24 10:00 30 01/18/24 08:51 3 Intake and Output 01/18/24 01/19/24 01/19/24 23:59 07:59 15:59 Intake Total 120 / 1285 340 / 340 Output Total 400 / 1000 1900 / 1900 Balance -280 / 285 -1560 / -1560 Intake: Intake, Oral Amount 120 / 950 240 / 240 Intake, Total IV Amount 100 / 100 Meropenem 1 gm In 0.9 % Sodium 100 / 100 Chloride 100 ml @ 100 mls/hr IV Q8H [facility] Rx#:[id number] Output: Output, Urine Amount 1900 / 1900 Output, Urine Amount (Catheter) 400 / 1000 Kennedy 400 / 1000 Other: Number of Unmeasured Voids 0 0 Weight 161.6 kg Patient Weight 01/19/24 23:59 Weight 161.6 kg Laboratory Results - last 24 hr 01/18/24 11:12: POC Glucose 132 H 01/18/24 15:55: POC Glucose 165 H 01/18/24 19:57: POC Glucose 150 H 01/19/24 05:37: POC Glucose 141 H 01/19/24 06:51: WBC 16.3 H D, RBC 4.09 L, Hgb 9.7 L, Hct 34.8 L, MCV 85.2, MCH 23.8 L, MCHC 28.0 L, RDW 17.2, Plt Count 344, MPV 8.0, Neut % (Auto) 81.3 H, Lymph % (Auto) 8.9 L, Rich % (Auto) 6.2, Eos % (Auto) 2.9, Baso % (Auto) 0.7, Neut # (Auto) 13.3 H, Lymph # (Auto) 1.5, Rich # (Auto) 1.0, Eos # (Auto) 0.5 H, Baso # (Auto) 0.1, Sodium 131 L, Potassium 4.4 D, Chloride 93 L, Carbon Dioxide 38 H, Anion Gap 4.4 L, BUN 27 H, Creatinine 1.40 H, Estimated Creat Clear 55, Estimated GFR 50 L, Est GFR ( Amer) 61, Glucose 132 H, Calcium 8.2 L, Total Bilirubin 0.3, AST 33 D, ALT 25 D, Alkaline Phosphatase 88, Total Protein 5.7 L, Albumin 2.8 L, Globulin 2.9, Albumin/Globulin Ratio 1.0 L, Procalcitonin 0.195 I & O for Labs for Last 24 Hours: Intake & Output 01/16/24 01/17/24 01/18/24 01/19/24 23:59 23:59 23:59 23:59 Intake Total 2358.626 / 2363.626 1558.283 / 9723.482 4312 / 1285 340 / 340 Output Total 3050 / 3250 3850 / 4050 1000 / 1000 1900 / 1900 Balance -691.374 / -886.374 -2291.717 / -2391.717 285 / 285 -1560 / -1560 Weight 160.5 kg 160.5 kg 161.6 kg 161.6 kg Microbiology Reports for the Last 24 Hours: Microbiology 01/17/24 15:19 Nose - Nasal MRSA Culture - Final 01/16/24 09:05 Blood Blood Culture - Preliminary NO GROWTH AFTER 48 HOURS 01/16/24 09:00 Blood Blood Culture - Preliminary NO GROWTH AFTER 48 HOURS 01/16/24 09:09 Urine,[place] Urine Culture - Final The patient's infection will respond to the chosen ABx?: Yes (SPUTUM PENDING, URINE AND BLOOD CX NO GROWTH, AFEBRILE OVER 24 HR) Is the patient receiving the right drug, dose, and route?: Yes Could a more targeted ABx be ordered?: No How long ABx needed (days)?: 7
[2024-01-19] MEDS: POLYETHYLENE GLYCOL 3350 17 GM PACKET PO (08:59)
[2024-01-19] MEDS: PANTOPRAZOLE 40MG TABLET 40 MG PO (09:00)
[2024-01-19] MEDS: SPIRONOLACTONE 25MG TABLET 50 MG PO (09:00)
[2024-01-19] MEDS: AZITHROMYCIN 250MG TABLET 500 MG PO (09:00)
[2024-01-19] MEDS: BUMETANIDE 1 MG TABLET 2 MG PO ×2 (09:00→16:04)
[2024-01-19] MEDS: POTASSIUM CHLORIDE 20MEQ TAB 40 MEQ PO ×3 (09:00→20:32)
[2024-01-19] MEDS: RANOLAZINE 500MG ER TABLET 500 MG PO ×2 (09:00→20:33)
[2024-01-19] MEDS: HEPARIN SODIUM 5,000 UNIT/ML VIAL 5000 UNIT SQ ×2 (09:01→20:33)
[2024-01-19 09:36] LABS: Eosinophils % 2 % (0-3); Hypochromasia 3+; Lymphocytes % 9 % (10-50); Monocytes % 2 % (2-9); Neutrophils % 87 % (42-76); Total Cells Counted 100
[2024-01-19 09:37] LABS: Anisocytosis 1+; Platelet Estimate Normal
[2024-01-19 11:58] LABS: POC Glucose,Bedside 175 (70-110)
--- NOTE | 2024-01-19 15:57 | EXP.PN ---
Subjective *Date: 01/19/24 *Time: 16:06 Interval history: Patient was sitting in bed comfortably this morning without acute distress. He states his swelling has gone down a little compared to yesterday, but inquires whether his penile swelling has improved which it has indeed. Denies chest pain, shortness of breath. Exam Data for Last 24 hours Vital signs and Labs for Last 24 Hours: Temp Pulse Resp BP Pulse Ox O2 Del Method O2 Flow Rate 98.6 F 81 24 112/55 L 92 L Nasal Cannula 2 01/19/24 08:00 01/19/24 14:00 01/19/24 14:00 01/19/24 14:00 01/19/24 14:00 01/19/24 15:00 01/19/24 15:00 FiO2 30 01/19/24 00:11 Laboratory Results - last 24 hr 01/18/24 11:12: POC Glucose 132 H 01/18/24 15:55: POC Glucose 165 H 01/18/24 19:57: POC Glucose 150 H 01/19/24 05:37: POC Glucose 141 H 01/19/24 06:51: WBC 16.3 H D, RBC 4.09 L, Hgb 9.7 L, Hct 34.8 L, MCV 85.2, MCH 23.8 L, MCHC 28.0 L, RDW 17.2, Plt Count 344, MPV 8.0, Neut % (Auto) 81.3 H, Lymph % (Auto) 8.9 L, [place] % (Auto) 6.2, Eos % (Auto) 2.9, Baso % (Auto) 0.7, Neut # (Auto) 13.3 H, Lymph # (Auto) 1.5, [place] # (Auto) 1.0, Eos # (Auto) 0.5 H, Baso # (Auto) 0.1, Total Counted 100, Neutrophils % (Manual) 87 H, Lymphocytes % (Manual) 9 L, Monocytes % (Manual) 2, Eosinophils % (Manual) 2, Platelet Estimate Normal, Hypochromasia 3+, Anisocytosis 1+, Sodium 131 L, Potassium 4.4 D, Chloride 93 L, Carbon Dioxide 38 H, Anion Gap 4.4 L, BUN 27 H, Creatinine 1.40 H, Estimated Creat Clear 55, Estimated GFR 50 L, Est GFR ( Amer) 61, Glucose 132 H, Calcium 8.2 L, Total Bilirubin 0.3, AST 33 D, ALT 25 D, Alkaline Phosphatase 88, Total Protein 5.7 L, Albumin 2.8 L, Globulin 2.9, Albumin/Globulin Ratio 1.0 L, Procalcitonin 0.195 01/19/24 11:22: POC Glucose 175 H I & O for Last 24 hours: Intake & Output 01/16/24 01/17/24 01/18/24 01/19/24 23:59 23:59 23:59 23:59 Intake Total 2358.626 / 2363.626 1558.283 / 5153.508 4250 / 1285 1280 / 1280 Output Total 3050 / 3250 3850 / 4050 1000 / 1000 3000 / 3000 Balance -691.374 / -886.374 -2291.717 / -2391.717 285 / 285 -1720 / -1720 Weight 160.5 kg 160.5 kg 161.6 kg 161.6 kg Microbiology Reports for the Last 24 Hours: Microbiology 01/18/24 01:59 Sputum - Expectorated Sputum Gram Stain - Final 01/18/24 01:59 Sputum - Expectorated Sputum Sputum Culture - Preliminary 01/17/24 15:19 Nose - Nasal MRSA Culture - Final Constitutional Constitutional: no acute distress *Routine HEENT Exam Head: Present normocephalic Eye: Present EOMI and PERRL ENT: Present mucous membranes moist *Routine Neck Exam Neck: Present supple; Absent lymphadenopathy *Routine Respiratory Exam Respiratory: Present CTA bilaterally; Absent wheezes or crackles *Routine Cardiovascular Exam Cardiovascular: Present RRR *Routine Abdominal Exam Abdominal: Present soft and normoactive bowel sounds; Absent tenderness *Routine Exam Patient deferred: scrotal exam (Diffuse swelling of the scrotum without tenderness. ) *Routine Extremities Exam Extremities: Present edema; Absent cyanosis or clubbing Comments: Chronic venous stasis skin discoloration changes in lower extremities. 1+ pitting edema bilateral lower extremities. *Routine Skin Exam Skin: Present warm; Absent rash *Routine Neurological Exam Neurological: Present alert and oriented X3 Assessment and Plan *Assessment and plan (1) Acute on chronic respiratory failure with hypoxia and hypercapnia: Status: Acute Category: Medical Code(s): J96.21 - Acute and chronic respiratory failure with hypoxia; J96.22 - Acute and chronic respiratory failure with hypercapnia (2) Pneumonia: Status: Acute Category: Medical Code(s): J18.9 - Pneumonia, unspecified organism (3) Septic shock: Status: Acute Category: Medical Code(s): A41.9 - Sepsis, unspecified organism; R65.21 - Severe sepsis with septic shock (4) Acute exacerbation of CHF (congestive heart failure): Status: Acute Qualifiers: Heart failure type: diastolic Qualified Code(s): I50.33 - Acute on chronic diastolic (congestive) heart failure Category: Medical Code(s): I50.9 - Heart failure, unspecified (5) OSMANI (acute kidney injury): Status: Acute Category: Medical Code(s): N17.9 - Acute kidney failure, unspecified (6) Acute metabolic encephalopathy: Status: Acute Category: Medical Code(s): G93.41 - Metabolic encephalopathy (7) Pickwickian syndrome: Status: Acute Category: Medical Code(s): E66.2 - Morbid (severe) obesity with alveolar hypoventilation (8) Morbid obesity: Status: Acute Category: Medical Code(s): E66.01 - Morbid (severe) obesity due to excess calories (9) Hypothyroid: Status: Acute Category: Medical Code(s): E03.9 - Hypothyroidism, unspecified (10) Heart failure with preserved ejection fraction: Status: Acute Qualifiers: Heart failure chronicity: acute on chronic Qualified Code(s): I50.33 - Acute on chronic diastolic (congestive) heart failure Category: Medical Code(s): I50.30 - Unspecified diastolic (congestive) heart failure (11) Scrotal edema: Status: Acute Category: Medical Code(s): N50.89 - Other specified disorders of the male genital organs Plan Mr. Wu is a morbidly obese 68-year-old male with history of heart failure with preserved ejection fraction, chronic respiratory failure on home BiPAP, chronically on 3 L oxygen, with CKD and recent admission for respiratory failure a month ago to [place]. He presented via EMS for acute worsening and concern for sepsis with respiratory failure. Workup in the ER concerning for pneumonia, development of septic shock, and respiratory failure. Initiated on BiPAP. Discussed case with ER, request admission for ICU level of care and further management. Medicine agreed to admit. Received broad-spectrum antibiotics in the ER. Cultures obtained. Pulmonology consulted to assist with care including BiPAP management and critical care. Tolerating 3-5 L nasal cannula during the day. BiPAP at night. Continues to require inpatient management. Problems addressed as follows: #Sepsis #Pneumonia ? White continues to improve 16.3. No fevers overnight. Weaned off Levophed on 01/17/2024 ? Repeat blood cultures NGTD 48 hours. Repeat urine, sputum cultures did not reveal growth as well. ? Initial respiratory culture revealed strep pneumonia sensitive to vancomycin, ceftriaxone. ? Continue vancomycin, meropenem given persistent but improving leukocytosis. ? Pulmonology consulted, appreciate recommendations. ? CT chest reveals dense parenchymal consolidation in the right lower lobe concerning for infection. CT abdomen/pelvis shows gallbladder that is moderately distended, moderate soft tissue edema in the penile shaft. #Acute hypoxic on chronic respiratory failure #HFpEF exacerbation #Bilateral pleural effusions #Obesity hypoventilation syndrome - Echocardiogram obtained showing preserved ejection fraction 60% with diastolic dysfunction. EKG shows old SC's - Fluid overload improving with dieuresis, cardiology consulted. Weaned off Bumex drip. ? Patient continues to have a net negative fluid balance, but still has significant fluid overload with significant suprapubic, penile edema currently dependent on Kennedy catheter but improved. Fluid overload is also hindering patient's ability to work with physical therapy, or ambulate. ? Patient did well with an additional IV Bumex 1 mg yesterday. As such we will increase dose of morning's Bumex to 3 mg. ? Bumex 3 mg in the morning, 2 mg in the afternoon starting tomorrow. - Monitor renal function, electrolytes and replete. ? Strict SEGUNDO's, bed elevation, fluid/water restriction. ? Continue BiPAP nightly. #Distended gallbladder ? Noted on CT abdomen/pelvis. However, patient has no RUQ pain, and tolerating diet. But given that patient has sepsis with unclear source, and out of proportion to pneumonia, will obtain RUQ ultrasound. ? Follow-up RUQ ultrasound. #Scrotal, penile, suprapubic edema #Sacral contact dermatitis, skin breakdown ? Significant scrotal and penis edema continues to improve, without tenderness ongoing since HFrEF exacerbation. ? US scrotum obtained does not show acute process, shows abnormal scrotal wall thickening likely secondary to volume overload. Less likely be infectious, but patient is already on broad-spectrum antibiotics for pneumonia. ? CT abdomen/pelvis shows moderate soft tissue edema in the penile shaft which likely represents fluid overload. Patient has no tenderness over the penis, but does endorse tenderness over the suprapubic region with edema. ? Evaluation of the sacrum on 01/16/2024, buttocks revealed contact dermatitis, skin breakdown with bleeding (previously reported by patient has rectal bleeding) from being soiled in stool. No purulent drainage noted. ? Wound care consulted, appreciate recommendations. Barrier cream applied. ? Continue diuresis as above and follow scrotal edema. - No tenderness, necrosis noted. #OSMANI ? Improving and plateauing creatinine to 1.4, baseline 1.0. Likely secondary to prerenal third spacing and aggressive diuresis given significant volume overload. ? Will continue to monitor and continue diuresis at this time. Hypothyroid: TSH of 24 on admission. Continue oral levothyroxine at increased dose of 175 mcg daily Diabetes: A1c 6.8. Sliding scale insulin fingersticks every 6 hours given diabetes diagnosis and steroid use as above Metabolic alkalosis: Continue acetazolamide 250 mg twice daily Medical surrogate is his significant other Anamika Bowers. Full code Diabetic diet Heparin 5000 units 3 times daily
[2024-01-19] MEDS: BUMETANIDE 1 MG TABLET PO (16:04)
[2024-01-19 16:46] LABS: POC Glucose,Bedside 123 (70-110)
[2024-01-19 18:20] LABS: Vancomycin,Trough 20.4 ug/mL (5.0-10.0)
[2024-01-19] MEDS: PHA TO NURSING INSTRUCTION 1 EACH NOTAPPLIC (18:30)
--- NOTE | 2024-01-19 18:31 | PC.NURSE ---
Pt has c/o less discomfort today. Continues to have 3+ edema and erythema to BLE. Pressure area with serous drainage to bottom continues. F/C draining to bedside with total urine output of 775. Pt has had a bath and shaved. Has had company today. New IV placed to RFA #20. Pt has declined to sit up in chair today. Call light within reach.
[2024-01-19] MEDS: VANCOMYCIN HCL 2,500 MG in 0.9 % SODIUM CHLORIDE 250 ML 125 MG IV (20:32)
[2024-01-19] MEDS: TAMSULOSIN 0.4MG CAPSULE 0.4 MG PO (20:33)
[2024-01-19] MEDS: ATORVASTATIN 20MG TABLET 20 MG PO (20:33)
[2024-01-19 20:52] LABS: POC Glucose,Bedside 186 (70-110)
[2024-01-20] VITALS (14 sets, daily range): BP systolic 87–110; BP diastolic 49–60; PULSE 70–86; RESP 17–26; TEMP 36.6–37.1; O2SAT 90–97; BMI 48.2
[2024-01-20] MEDS: MEROPENEM 1 GM in 0.9 % SODIUM CHLORIDE 100 ML IV ×3 (00:35→17:40)
[2024-01-20] MEDS: ONDANSETRON 4MG/2ML VIAL 4 MG IV ×2 (03:34→19:13)
[2024-01-20] MEDS: FLUTICASONE/UMECLIDIN/VILANTER 200/62.5/25MCG INHALER 1 PUFF IH (06:19)
[2024-01-20] MEDS: IPRATROPIUM/ALBUTEROL 3 ML NEB IH ×4 (06:19→23:03)
[2024-01-20 06:39] LABS: Chloride 92 mmol/L (98-107); Potassium 4.5 mmoL/L (3.5-5.1); Sodium 130 mmol/L (136-145)
[2024-01-20 06:42] LABS: Anion Gap 3.5 mEq/L (5-15); Blood Urea Nitrogen 20 mg/dl (9-20); Calcium 8.4 mg/dl (8.4-10.2); Carbon Dioxide 39 mmol/L (22.0-30.0); Creatinine Clearance Estimated 59 mL/min (50-200); Estimated Glomerular Filt Rate 55 ml/min (>60); GFR (African American) 66 ML/MIN (>60); Glucose 141 mg/dl (74-100)
[2024-01-20] MEDS: LEVOTHYROXINE 150MCG (0.15MG)TAB 150 MCG PO (06:42)
--- NOTE | 2024-01-20 07:00 | US_ITS ---
FINAL REPORT TECHNIQUE: Multiple transverse and longitudinal images CLINICAL HISTORY: Sepsis, gallbladder distention on CT abdomen COMPARISON: CT abdomen pelvis 01/16/2024 FINDINGS: The gallbladder is unremarkable without evidence of wall thickening, distention or stone disease. No biliary ductal dilatation is appreciated. No fluid collections are seen. Limited portions of the liver demonstrate fatty infiltration. Limited portions of the right kidney are unremarkable. IMPRESSION: No evidence of acute gallbladder disease or cholelithiasis. Fatty liver Reviewed, Interpreted and Dictated by Dewayne Oscar MD Transcribed by Ann Rogers Authenticated and [facility]
[2024-01-20 07:01] LABS: Basophils # 0.1 K/mm3 (0-0.2); Basophils % 0.9 % (0.1-2.0); Eosinophils # 0.5 K/mm3 (0.0-0.4); Hematocrit 36.2 % (42.0-52.0); Hemoglobin 10.4 g/dL (14.1-18.0); Lymphocytes # 1.4 K/mm3 (0.7-4.5); Lymphocytes % 8.6 % (10-50); Mean Corpuscular HGB Conc 28.7 g/dL (31.8-35.4); Mean Corpuscular Volume 83.5 fl (80-94); Monocytes # 0.7 K/mm3 (0.1-1.0); Monocytes % 4.5 % (1.7-9.3); Neutrophils # 13.2 K/mm3 (1.8-7.8); Neutrophils % 82.9 % (37.0-80.0); Platelet Count 393 K/mm3 (142-424); Red Blood Count 4.33 M/mm3 (4.60-6.20); Red Cell Distribution Width 17.5 % (11.5-17.5); White Blood Count 15.9 K/mm3 (4.8-10.8)
[2024-01-20 07:17] LABS: MANUAL DIFFERENTIAL MANUAL DIFFERENTIAL (MANUAL DIFF)
[2024-01-20 07:44] LABS: Magnesium 2.2 mg/dl (1.6-2.3)
--- NOTE | 2024-01-20 09:04 | EXP.PHA.PN ---
Subjective *Date: 01/20/24 *Time: 09:04 Medical Exam Vital signs and Labs for Last 24 Hours: Vital Signs Temp Pulse Pulse Resp BP Pulse Ox O2 Del Method 01/20/24 06:32 Nasal Cannula 01/20/24 06:32 97 BiPAP 01/20/24 06:32 79 01/20/24 06:32 79 01/20/24 06:30 01/20/24 05:00 Nasal Cannula 01/20/24 04:00 70 01/20/24 04:00 98.2 F 76 20 110/60 92 L Nasal Cannula 01/20/24 03:00 BiPAP 01/20/24 01:00 BiPAP 01/20/24 00:18 75 01/20/24 00:18 77 01/20/24 00:17 Nasal Cannula 01/20/24 00:00 70 01/20/24 00:00 98 F 78 20 100/53 L 95 Nasal Cannula 01/19/24 23:00 BiPAP 01/19/24 21:00 Nasal Cannula 01/19/24 20:00 80 01/19/24 20:00 98.1 F 78 18 99/56 L 94 L Nasal Cannula 01/19/24 19:10 01/19/24 19:10 71 01/19/24 19:09 74 01/19/24 18:37 BiPAP 01/19/24 18:00 78 22 106/60 L 98 BiPAP 01/19/24 17:00 Nasal Cannula 01/19/24 16:00 90 01/19/24 16:00 97.2 F L 73 17 113/69 99 BiPAP 01/19/24 16:00 BiPAP 01/19/24 15:00 Nasal Cannula 01/19/24 14:00 81 24 112/55 L 92 L Nasal Cannula 01/19/24 13:00 Nasal Cannula 01/19/24 12:00 80 01/19/24 12:00 97.8 F 77 24 97/53 L 93 L Nasal Cannula 01/19/24 11:14 72 01/19/24 11:14 70 01/19/24 11:14 100 Nasal Cannula 01/19/24 11:00 Nasal Cannula 01/19/24 10:00 74 26 H 100/57 L 97 Nasal Cannula O2 Flow Rate FiO2 01/20/24 06:32 2 01/20/24 06:32 30 01/20/24 06:32 01/20/24 06:32 01/20/24 06:30 30 01/20/24 05:00 2 01/20/24 04:00 01/20/24 04:00 2 01/20/24 03:00 01/20/24 01:00 01/20/24 00:18 01/20/24 00:18 01/20/24 00:17 2 01/20/24 00:00 01/20/24 00:00 3 01/19/24 23:00 01/19/24 21:00 3 01/19/24 20:00 01/19/24 20:00 2 01/19/24 19:10 30 01/19/24 19:10 01/19/24 19:09 01/19/24 18:37 01/19/24 18:00 01/19/24 17:00 2 01/19/24 16:00 01/19/24 16:00 01/19/24 16:00 01/19/24 15:00 2 01/19/24 14:00 2 01/19/24 13:00 2 01/19/24 12:00 01/19/24 12:00 2 01/19/24 11:14 01/19/24 11:14 01/19/24 11:14 3 01/19/24 11:00 2 01/19/24 10:00 2 Intake and Output 01/19/24 01/20/24 01/20/24 23:59 07:59 15:59 Output Total 1275 / 5775 1900 / 1900 Balance -1275 / -4495 -1900 / -1900 Output: Output, Urine Amount 900 / 5400 1900 / 1900 Output, Urine Amount (Catheter) 375 / 375 Kennedy 375 / 375 Other: Number of Unmeasured Voids 0 Weight 161.6 kg Patient Weight 01/20/24 23:59 Weight 161.6 kg Laboratory Results - last 24 hr 01/19/24 06:51: Total Counted 100, Neutrophils % (Manual) 87 H, Lymphocytes % (Manual) 9 L, Monocytes % (Manual) 2, Eosinophils % (Manual) 2, Platelet Estimate Normal, Hypochromasia 3+, Anisocytosis 1+ 01/19/24 11:22: POC Glucose 175 H 01/19/24 16:06: POC Glucose 123 H 01/19/24 17:30: Vancomycin Trough 20.4 H 01/19/24 20:40: POC Glucose 186 H 01/20/24 05:53: WBC 15.9 H, RBC 4.33 L, Hgb 10.4 L, Hct 36.2 L, MCV 83.5, MCH 24.0 L, MCHC 28.7 L, RDW 17.5, Plt Count 393, MPV 9.0, Neut % (Auto) 82.9 H, Lymph % (Auto) 8.6 L, [place] % (Auto) 4.5, Eos % (Auto) 3.0, Baso % (Auto) 0.9, Neut # (Auto) 13.2 H, Lymph # (Auto) 1.4, [place] # (Auto) 0.7, Eos # (Auto) 0.5 H, Baso # (Auto) 0.1, Sodium 130 L, Potassium 4.5, Chloride 92 L, Carbon Dioxide 39 H, Anion Gap 3.5 L, BUN 20 D, Creatinine 1.30 H, Estimated Creat Clear 59, Estimated GFR 55 L, Est GFR ( Amer) 66, Glucose 141 H, Calcium 8.4, Magnesium 2.2 I & O for Labs for Last 24 Hours: Intake & Output 01/17/24 01/18/24 01/19/24 01/20/24 23:59 23:59 23:59 23:59 Intake Total 1558.283 / 4486.039 3499 / 1285 1280 / 1280 Output Total 3850 / 4050 1000 / 1000 5775 / 5775 1900 / 1900 Balance -2291.717 / -2391.717 285 / 285 -4495 / -4495 -1900 / -1900 Weight 160.5 kg 161.6 kg 161.6 kg 161.6 kg Microbiology Reports for the Last 24 Hours: Microbiology 01/18/24 01:59 Sputum - Expectorated Sputum Gram Stain - Final 01/18/24 01:59 Sputum - Expectorated Sputum Sputum Culture - Final 01/17/24 15:19 Nose - Nasal MRSA Culture - Final The patient's infection will respond to the chosen ABx?: Yes (BLOOD AND URINE CX = NO GROWTH, SPUTUM PENDING. AFEBRILE OVER 24 HR) Is the patient receiving the right drug, dose, and route?: Yes Could a more targeted ABx be ordered?: No
[2024-01-20 09:08] LABS: Lymphocytes % 7 % (10-50); Monocytes % 4 % (2-9); Neutrophils % 88 % (42-76); Platelet Estimate Normal; RBC Morphology Normal; Total Cells Counted 100
--- NOTE | 2024-01-20 09:42 | EXP.PHA.CONS ---
Pharmacy Consult Date: 01/20/24 Time: 09:43 Referring provider: DR DRAPER Reason for Consult:: VANCOMYCIN TROUGH LEVEL OBTAINED Allergies Allergy/AdvReac Type Severity Reaction Status Date / Time penciclovir Allergy Difficulty Verified 08/22/23 23:13 Breathing Penicillins Allergy Hives Verified 08/22/23 23:13 tramadol AdvReac Diarrhea Verified 08/22/23 23:13 Home Medications ?Medication ?Instructions ?Recorded ?Confirmed ?Type albuterol sulfate 90 mcg/actuation 2 puff inhalation Q4HP PRN 08/22/23 01/13/24 History aerosol inhaler Shortness Of Breath Or Wheezing atorvastatin 20 mg tablet 20 mg PO HS 08/22/23 01/13/24 History fluticasone fur. 200 mcg-umeclid 1 ea inhalation DAILY 08/22/23 01/13/24 History 62.5 mcg-vilant 25 mcg inhalat.powder (Trelegy Ellipta) furosemide 80 mg tablet 80 mg PO BIDL 08/22/23 01/13/24 History ipratropium 0.5 mg-albuterol 3 mg 3 ml inhalation QID 08/22/23 01/13/24 History (2.5 mg base)/3 mL nebulization soln levothyroxine 150 mcg tablet 150 mcg PO DAILY 08/22/23 01/13/24 History metolazone 5 mg tablet 5 mg PO DAILYP PRN Swelling 08/22/23 01/13/24 History ondansetron HCl 4 mg tablet 4 mg PO Q6HP PRN Nausea And 08/22/23 01/13/24 History Vomiting ranolazine 500 mg tablet,extended 500 mg PO BID 08/22/23 01/13/24 History release,12 hr tamsulosin 0.4 mg capsule 0.4 mg PO AM 01/13/24 01/13/24 History New Prescriptions to Start Prescriptions: Height: 1.83 m Weight: 161.6 kg Laboratory Results:: Laboratory Results - last 24 hr 01/19/24 11:22: POC Glucose 175 H 01/19/24 16:06: POC Glucose 123 H 01/19/24 17:30: Vancomycin Trough 20.4 H 01/19/24 20:40: POC Glucose 186 H 01/20/24 05:53: WBC 15.9 H, RBC 4.33 L, Hgb 10.4 L, Hct 36.2 L, MCV 83.5, MCH 24.0 L, MCHC 28.7 L, RDW 17.5, Plt Count 393, MPV 9.0, Neut % (Auto) 82.9 H, Lymph % (Auto) 8.6 L, [place] % (Auto) 4.5, Eos % (Auto) 3.0, Baso % (Auto) 0.9, Neut # (Auto) 13.2 H, Lymph # (Auto) 1.4, [place] # (Auto) 0.7, Eos # (Auto) 0.5 H, Baso # (Auto) 0.1, Total Counted 100, Neutrophils % (Manual) 88 H, Lymphocytes % (Manual) 7 L, Monocytes % (Manual) 4, Basophils % (Manual) 1.0, Platelet Estimate Normal, RBC Morphology Normal, Sodium 130 L, Potassium 4.5, Chloride 92 L, Carbon Dioxide 39 H, Anion Gap 3.5 L, BUN 20 D, Creatinine 1.30 H, Estimated Creat Clear 59, Estimated GFR 55 L, Est GFR ( Amer) 66, Glucose 141 H, Calcium 8.4, Magnesium 2.2 Medical History: Medical History (Updated 01/16/24 @ 15:22 by Aleksandr Freeman MD) Hypokalemia Lower extremity edema Shortness of Breath Acute heart failure with preserved ejection fraction (HFpEF) DEMETRIA (obstructive sleep apnea) On home oxygen therapy Tortuous aorta Aortic calcification Reduced ejection fraction concurrent with and due to acute on chronic heart failure History of gastrectomy Cataract (lens) fragments in eye following cataract surgery, bilateral Lymphedema Hyperlipidemia Hiatal hernia Chronic respiratory failure with hypoxia Prostate cancer BPH (benign prostatic hyperplasia) Cor pulmonale HTN (hypertension) Diabetes mellitus Atrial fibrillation CKD stage 3 secondary to diabetes Pneumonia COPD (chronic obstructive pulmonary disease) Congestive heart failure Assessment and Plan Assessment and plan all Dx Assessment and Plan for all problems:: Pharmacokinetic dosing service Weight: 161.6 Kilograms Vancomycin single level analysis: Current dose being given: 2500 mg Current dosing interval: 24 hrs Current infusion time (hrs): 2 Single level Trough Data: Trough level obtained: 20.4 mcg/ml Timing of trough - # of hrs before next dose: 0.5 Hrs Desired peak: 35 mcg/ml Desired trough: 12.5 mcg/ml Estimated PK Parameters: New rate constant (liz): 0.031 hr-1 Half-life: 22.36 Hours Vd from levels: 113.12 Liters (0.7 L/kg) CLvanco=?? 3.507 L/hr Estimated New Dose and Interval Recommended dose: 2712.0 mg Recommended interval: 35.2 Hrs Patient response: Patient is responding to treatment [yes/no] wbc decreasing, S/SX reduced [yes/no] Renal function is stable/unstable Recommendations: Give Vancomycin 2750 mg q 36 hrs. Infuse over 2 hrs Expected Cpeak: 35.1 mcg/mL Expected Ctrough: 12.2 mcg/mL AUC 0-24 /JAMIN Data: JAMIN 0.5 mcg/mL:?? AUC/JAMIN:? 1045.5 JAMIN 1.0 mcg/mL:?? AUC/JAMIN:? 522.8 Thank you for the consult
[2024-01-20] MEDS: PANTOPRAZOLE 40MG TABLET 40 MG PO (09:55)
[2024-01-20] MEDS: RANOLAZINE 500MG ER TABLET 500 MG PO ×2 (09:55→20:38)
[2024-01-20] MEDS: IRBESARTAN 75MG TABLET 75 MG PO (09:55)
[2024-01-20] MEDS: POTASSIUM CHLORIDE 20MEQ TAB 40 MEQ PO ×3 (09:55→20:37)
[2024-01-20] MEDS: AZITHROMYCIN 250MG TABLET 500 MG PO (09:56)
[2024-01-20] MEDS: HEPARIN SODIUM 5,000 UNIT/ML VIAL 5000 UNIT SQ ×2 (09:56→20:37)
[2024-01-20] MEDS: SPIRONOLACTONE 25MG TABLET 50 MG PO (09:56)
[2024-01-20] MEDS: BUMETANIDE 1 MG TABLET 2 MG PO ×2 (10:06→17:39)
--- NOTE | 2024-01-20 10:10 | P.PN_ITS ---
Subjective *Date: 01/20/24 *Time: 13:08 Interval history: No acute respiratory events over the weekend for Pulmonology Exam Inpatient Vital signs and Labs for Last 24 Hours: Temp Pulse Resp BP Pulse Ox O2 Del Method O2 Flow Rate 98.3 F 86 18 104/57 L 97 CPAP 2 01/20/24 08:00 01/20/24 08:00 01/20/24 08:00 01/20/24 08:00 01/20/24 08:00 01/20/24 08:00 01/20/24 06:32 FiO2 30 01/20/24 06:32 Laboratory Results - last 24 hr 01/19/24 11:22: POC Glucose 175 H 01/19/24 16:06: POC Glucose 123 H 01/19/24 17:30: Vancomycin Trough 20.4 H 01/19/24 20:40: POC Glucose 186 H 01/20/24 05:53: WBC 15.9 H, RBC 4.33 L, Hgb 10.4 L, Hct 36.2 L, MCV 83.5, MCH 24.0 L, MCHC 28.7 L, RDW 17.5, Plt Count 393, MPV 9.0, Neut % (Auto) 82.9 H, Lymph % (Auto) 8.6 L, [place] % (Auto) 4.5, Eos % (Auto) 3.0, Baso % (Auto) 0.9, Neut # (Auto) 13.2 H, Lymph # (Auto) 1.4, [place] # (Auto) 0.7, Eos # (Auto) 0.5 H, Baso # (Auto) 0.1, Total Counted 100, Neutrophils % (Manual) 88 H, Lymphocytes % (Manual) 7 L, Monocytes % (Manual) 4, Basophils % (Manual) 1.0, Platelet Estimate Normal, RBC Morphology Normal, Sodium 130 L, Potassium 4.5, Chloride 92 L, Carbon Dioxide 39 H, Anion Gap 3.5 L, BUN 20 D, Creatinine 1.30 H, Estimated Creat Clear 59, Estimated GFR 55 L, Est GFR ( Amer) 66, Glucose 141 H, Calcium 8.4, Magnesium 2.2 Temp Pulse Resp BP Pulse Ox O2 Del Method O2 Flow Rate 98.4 F 88 24 86/56 L 95 Nasal Cannula 5 01/17/24 08:00 01/17/24 09:00 01/17/24 09:00 01/17/24 09:00 01/17/24 09:00 01/17/24 09:05 01/17/24 09:05 FiO2 40 01/17/24 06:20 Laboratory Results - last 24 hr 01/16/24 11:12: POC Glucose 158 H 01/16/24 18:18: Vancomycin Trough 28.4 H 01/16/24 18:28: Hgb 11.1 L, Hct 39.4 L 01/16/24 21:27: POC Glucose 158 H 01/17/24 05:32: WBC 28.8 H*, RBC 4.38 L, Hgb 10.5 L, Hct 37.6 L, MCV 85.7, MCH 24.1 L, MCHC 28.1 L, RDW 16.9, Plt Count 343, MPV 8.6, Neut % (Auto) 89.9 H, Lymph % (Auto) 4.5 L, [place] % (Auto) 4.5, Eos % (Auto) 0.8, Baso % (Auto) 0.2, Neut # (Auto) 25.8 H, Lymph # (Auto) 1.3, [place] # (Auto) 1.3 H, Eos # (Auto) 0.2, Baso # (Auto) 0.1, Total Counted 100, Neutrophils % (Manual) 89 H, Lymphocytes % (Manual) 6 L, Monocytes % (Manual) 4, Eosinophils % (Manual) 1, Platelet Estimate Normal, RBC Morphology Normal, ESR 52 H, Sodium 131 L, Potassium 3.3 L, Chloride 89 L, Carbon Dioxide 35 H, Anion Gap 10.3, BUN 20, Creatinine 1.50 H, Estimated Creat Clear 51, Estimated GFR 46 L, Est GFR ( Amer) 56 L, Glucose 162 H D, Lactate 1.0, Calcium 8.6, Magnesium 2.1, Total Bilirubin 0.5, AST 18, ALT 16, Alkaline Phosphatase 112, C-Reactive Protein 294.2 H, Total Protein 6.3, Albumin 2.8 L, Globulin 3.5 H, Albumin/Globulin Ratio 0.8 L, Random Vancomycin 19.1 I & O for Labs for Last 24 Hours: Intake & Output 01/17/24 01/18/24 01/19/24 01/20/24 23:59 23:59 23:59 23:59 Intake Total 1558.283 / 0120.644 3074 / 1285 1280 / 1280 0 / 0 Output Total 3850 / 4050 1000 / 1000 5775 / 5775 1900 / 1900 Balance -2291.717 / -2391.717 285 / 285 -4495 / -4495 -1900 / -1900 Weight 353 lb 13.471 oz 356 lb 4.272 oz 356 lb 4.272 oz 356 lb 4.272 oz Intake & Output 01/14/24 01/15/24 01/16/24 01/17/24 23:59 23:59 23:59 23:59 Intake Total 1262.833 / 4933.478 1229.417 / 0744.748 8958.626 / 2363.626 344.658 / 344.658 Output Total 5750 / 6200 5000 / 5200 3050 / 3250 1100 / 1100 Balance -4487.167 / -4937.167 -3827.583 / -3214.583 -691.374 / -886.374 -755.342 / -755.342 Weight 354 lb 8.053 oz 354 lb 8.053 oz 353 lb 13.471 oz 353 lb 13.471 oz Microbiology Reports for the Last 24 Hours: Microbiology 01/16/24 09:05 Blood Blood Culture - Preliminary NO GROWTH AFTER 4 DAYS 01/16/24 09:00 Blood Blood Culture - Preliminary NO GROWTH AFTER 4 DAYS 01/18/24 01:59 Sputum - Expectorated Sputum Gram Stain - Final 01/18/24 01:59 Sputum - Expectorated Sputum Sputum Culture - Final 01/17/24 15:19 Nose - Nasal MRSA Culture - Final Microbiology 01/16/24 09:05 Blood Blood Culture - Preliminary NO GROWTH AFTER 24 HOURS 01/16/24 09:00 Blood Blood Culture - Preliminary NO GROWTH AFTER 24 HOURS 01/13/24 01:45 Blood Blood Culture - Preliminary NO GROWTH AFTER 4 DAYS 01/13/24 01:35 Blood Blood Culture - Preliminary NO GROWTH AFTER 4 DAYS 01/12/24 22:50 Sputum - Expectorated Sputum Gram Stain - Final 01/12/24 22:50 Sputum - Expectorated Sputum Sputum Culture - Final Streptococcus pneumoniae Constitutional: Present severe distress Head: Present normocephalic and atraumatic ENT: Present normal exam, normal oropharynx and mucous membranes moist Neck: Present normal inspection and full ROM Respiratory: Present prolonged expiratory phase, respiratory distress, rhonchi, diminished air movement and able to speak in complete sentences; Absent wheezes Cardiac: Present S1/S2 and Tachycardia; Absent Regular Rhythm GI: Present soft and distention; Absent tenderness or guarding Skin: Present wounds, rash and cracked; Absent intact, cyanosis or jaundice Neuro: Present alert and awake; Absent oriented x 3 Extremities: Present normal inspection and edema; Absent clubbing or cyanosis Psychiatric: Present normal affect and cooperative Assessment and Plan *Assessment and plan (1) Pneumonia: Status: Acute Category: Medical Code(s): J18.9 - Pneumonia, unspecified organism (2) Pickwickian syndrome: Status: Acute Category: Medical Code(s): E66.2 - Morbid (severe) obesity with alveolar hypoventilation Plan Mr. Wu is a 68-year-old male greater than [id number] smoking history history of COPD, OHS on chronic BiPAP therapy, 5 L nasal cannula oxygen supplementation presented to the ER complaining of worsening respiratory distress bilateral lower extremity swelling and pulmonary was called for further evaluation and management as patient shock with worsening hemodynamics needing vasopressor support CT scan concerning for right lower lobe pneumonia. Febrile upon admission to 101.2. Neutrophilic predominant leukocytosis. CT chest 01/16/24 - right lower lobe dense consolidative/atelectatic changes. Partially present on her CT from July 2023 slightly worsening. Very small bilateral pleural effusions not likely contributing to patient's current respiratory distress. the previous noted left lower lobe dense consolidative changes almost resolved. Significantly lower lung volumes likely from body habitus. Blood gas upon admission from 01/12/2024 chronic hypercarbic respiratory failure. Sputum cultures on this admission grew strep pneumonia Currently receiving vancomycin meropenem and azithromycin. Oxygen requirement stable since admission at 4 to 5 L nasal cannula. The CT scan does not appear to be the source of patient's new shock needing vasopressors given his stable ox requirements. Other possible etiology including cellulitis/bacteremia/cholecystitis. Pending right upper quadrant ultrasound and repeat blood cultures. Currently receiving vancomycin meropenem and azithromycin pending repeat cultures. Interval update: Nasal MRSA PCR negative. Sputum no growth. Improving hemodynamics over the weekend. Off pressors. Will discontinue vancomycin today. Sputum culture and blood cultures no growth. Lower extremity venous Doppler negative for DVT. Plan: -Discontinue vancomycin. Continue meropenem pending clinical improvement. -Trelegy 100 inhaler along with DuoNebs every 6 hours on a scheduled basis -Continue BiPAP therapy while asleep for OHS at 16/8 # Thank you for involving pulmonary in this patient care. Will continue to follow.
[2024-01-20 12:14] LABS: POC Glucose,Bedside 150 (70-110)
[2024-01-20 12:14] LABS: POC Glucose,Bedside 142 (70-110)
--- NOTE | 2024-01-20 12:16 | PC.NURSE ---
RESP CARE NOTE: Bipap settings changed per Dr Tirado, IPAP [id number], EPAP 8 cmH2O, Rate 22, FIO2 at 30%. Will continue to monitor patient.
[2024-01-20] MEDS: BUMETANIDE 1 MG TABLET PO (14:04)
[2024-01-20 17:17] LABS: POC Glucose,Bedside 139 (70-110)
--- NOTE | 2024-01-20 18:16 | PC.NURSE ---
Pt A&Ox4. edema and errythema noted to BLE. Pressure area on bottom seen by wound care, they suggested ABD pad with barrier cream. Pt participated with physical therapy today and ambulated in room with assistance x2. Pt sat up in chair for lunch until dinner time. Pt has had 1500 ml of urine out so far this shift. Pt wore BiPap while napping this morning but has been on 3L NC throughout the shift while awake. Pt states he is feeling better today than yesterday. No complaints at this time.
[2024-01-20] MEDS: TAMSULOSIN 0.4MG CAPSULE 0.4 MG PO (20:38)
[2024-01-20] MEDS: ATORVASTATIN 20MG TABLET 20 MG PO (20:38)
[2024-01-20] MEDS: OXYCODONE 5MG W/APAP 325MG TABLET 2 EACH PO (20:38)
--- NOTE | 2024-01-20 21:36 | EXP.PN ---
Subjective *Date: 01/20/24 *Time: 17:00 Interval history: Patient in great spirits today, because he feels he is getting much better in regards to swelling and ability to ambulate more. Penile and pelvic swelling also improving. Exam Data for Last 24 hours Vital signs and Labs for Last 24 Hours: Temp Pulse Resp BP Pulse Ox O2 Del Method O2 Flow Rate 98.1 F 73 23 90/57 L 95 BiPAP 3 01/20/24 20:00 01/20/24 20:00 01/20/24 20:00 01/20/24 20:00 01/20/24 20:21 01/20/24 20:21 01/20/24 20:00 FiO2 30 01/20/24 20:21 Laboratory Results - last 24 hr 01/20/24 05:36: POC Glucose 142 H 01/20/24 05:53: WBC 15.9 H, RBC 4.33 L, Hgb 10.4 L, Hct 36.2 L, MCV 83.5, MCH 24.0 L, MCHC 28.7 L, RDW 17.5, Plt Count 393, MPV 9.0, Neut % (Auto) 82.9 H, Lymph % (Auto) 8.6 L, [place] % (Auto) 4.5, Eos % (Auto) 3.0, Baso % (Auto) 0.9, Neut # (Auto) 13.2 H, Lymph # (Auto) 1.4, [place] # (Auto) 0.7, Eos # (Auto) 0.5 H, Baso # (Auto) 0.1, Total Counted 100, Neutrophils % (Manual) 88 H, Lymphocytes % (Manual) 7 L, Monocytes % (Manual) 4, Basophils % (Manual) 1.0, Platelet Estimate Normal, RBC Morphology Normal, Sodium 130 L, Potassium 4.5, Chloride 92 L, Carbon Dioxide 39 H, Anion Gap 3.5 L, BUN 20 D, Creatinine 1.30 H, Estimated Creat Clear 59, Estimated GFR 55 L, Est GFR ( Amer) 66, Glucose 141 H, Calcium 8.4, Magnesium 2.2 01/20/24 11:44: POC Glucose 150 H 01/20/24 17:07: POC Glucose 139 H I & O for Last 24 hours: Intake & Output 01/17/24 01/18/24 01/19/2401/19/24 23:59 23:59 23:59 23:59 Intake Total 1558.283 / 5420.014 9157 / 1285 1280 / 1280 940 / 940 Output Total 3850 / 4050 1000 / 1000 5775 / 5775 5800 / 5800 Balance -2291.717 / -2391.717 285 / 285 -4495 / -4495 -4860 / -4860 Weight 160.5 kg 161.6 kg 161.6 kg 161.6 kg Microbiology Reports for the Last 24 Hours: Microbiology 01/16/24 09:05 Blood Blood Culture - Preliminary NO GROWTH AFTER 4 DAYS 01/16/24 09:00 Blood Blood Culture - Preliminary NO GROWTH AFTER 4 DAYS 01/18/24 01:59 Sputum - Expectorated Sputum Gram Stain - Final 01/18/24 01:59 Sputum - Expectorated Sputum Sputum Culture - Final Constitutional Constitutional: no acute distress *Routine HEENT Exam Head: Present normocephalic Eye: Present EOMI and PERRL ENT: Present mucous membranes moist *Routine Neck Exam Neck: Present supple; Absent lymphadenopathy *Routine Respiratory Exam Respiratory: Present CTA bilaterally; Absent wheezes or crackles *Routine Cardiovascular Exam Cardiovascular: Present RRR *Routine Abdominal Exam Abdominal: Present soft and normoactive bowel sounds; Absent tenderness *Routine Exam Patient deferred: scrotal exam (Diffuse swelling of the penis without tenderness, skin breakdown, or necrosis.) *Routine Extremities Exam Extremities: Present edema; Absent cyanosis or clubbing Comments: Chronic venous stasis skin changes in lower extremities. Trace pitting edema bilateral lower extremities. *Routine Skin Exam Skin: Present warm; Absent rash *Routine Neurological Exam Neurological: Present alert and oriented X3 Assessment and Plan *Assessment and plan (1) Acute on chronic respiratory failure with hypoxia and hypercapnia: Status: Acute Category: Medical Code(s): J96.21 - Acute and chronic respiratory failure with hypoxia; J96.22 - Acute and chronic respiratory failure with hypercapnia (2) Pneumonia: Status: Acute Category: Medical Code(s): J18.9 - Pneumonia, unspecified organism (3) Septic shock: Status: Acute Category: Medical Code(s): A41.9 - Sepsis, unspecified organism; R65.21 - Severe sepsis with septic shock (4) Acute exacerbation of CHF (congestive heart failure): Status: Acute Qualifiers: Heart failure type: diastolic Qualified Code(s): I50.33 - Acute on chronic diastolic (congestive) heart failure Category: Medical Code(s): I50.9 - Heart failure, unspecified (5) OSMANI (acute kidney injury): Status: Acute Category: Medical Code(s): N17.9 - Acute kidney failure, unspecified (6) Acute metabolic encephalopathy: Status: Acute Category: Medical Code(s): G93.41 - Metabolic encephalopathy (7) Pickwickian syndrome: Status: Acute Category: Medical Code(s): E66.2 - Morbid (severe) obesity with alveolar hypoventilation (8) Morbid obesity: Status: Acute Category: Medical Code(s): E66.01 - Morbid (severe) obesity due to excess calories (9) Hypothyroid: Status: Acute Category: Medical Code(s): E03.9 - Hypothyroidism, unspecified (10) Heart failure with preserved ejection fraction: Status: Acute Qualifiers: Heart failure chronicity: acute on chronic Qualified Code(s): I50.33 - Acute on chronic diastolic (congestive) heart failure Category: Medical Code(s): I50.30 - Unspecified diastolic (congestive) heart failure (11) Scrotal edema: Status: Acute Category: Medical Code(s): N50.89 - Other specified disorders of the male genital organs Plan Mr. Wu is a morbidly obese 68-year-old male with history of heart failure with preserved ejection fraction, chronic respiratory failure on home BiPAP, chronically on 3 L oxygen, with CKD and recent admission for respiratory failure a month ago to [place]. He presented via EMS for acute worsening and concern for sepsis with respiratory failure. Workup in the ER concerning for pneumonia, development of septic shock, and respiratory failure. Initiated on BiPAP. Discussed case with ER, request admission for ICU level of care and further management. Medicine agreed to admit. Received broad-spectrum antibiotics in the ER. Cultures obtained. Pulmonology consulted to assist with care including BiPAP management and critical care. Tolerating 3-5 L nasal cannula during the day. BiPAP at night. Continues to require inpatient management. Problems addressed as follows: #Sepsis #Pneumonia ? CT chest revealed dense parenchymal consolidation in the right lower lobe concerning for infection. CT abdomen/pelvis shows gallbladder that is moderately distended, moderate soft tissue edema in the penile shaft. ? White continues to improve 15.9. No fevers overnight. Weaned off Levophed on 01/17/2024 ? Repeat blood cultures NGTD 48 hours. Repeat urine, sputum cultures did not reveal growth as well. ? Initial respiratory culture revealed strep pneumonia sensitive to vancomycin, ceftriaxone. ? Continue meropenem given persistent but improving leukocytosis. Vanc discontined 01/19 with negative MRSA PCR. ? Pulmonology consulted, appreciate recommendations. #Acute hypoxic on chronic respiratory failure #HFpEF exacerbation #Bilateral pleural effusions #Obesity hypoventilation syndrome - Echocardiogram obtained showing preserved ejection fraction 60% with diastolic dysfunction. EKG shows old MD's - Fluid overload improving with dieuresis, cardiology consulted. Weaned off Bumex drip. ? Bumex 3 mg in the morning, 2 mg in the afternoon starting tomorrow. This regimen has worked very well for patient, improving penile edema and abilty to ambulate. Renal function also improving. - Continues to have negative net output daily. -20L total. - Monitor renal function, electrolytes and replete. Electrolyte replacement protocol. ? Strict SEGUNDO's, bed elevation, fluid/water restriction. ? Continue BiPAP nightly. #Distended gallbladder ? Noted on CT abdomen/pelvis. However, patient has no RUQ pain, and tolerating diet. But given that patient has sepsis with unclear source, and out of proportion to pneumonia, will obtain RUQ ultrasound. ? RUQ not conerning, but did show fatty liver. #Scrotal, penile, suprapubic edema #Sacral contact dermatitis, skin breakdown ? Significant scrotal and penis edema continues to improve, without tenderness ongoing since HFrEF exacerbation. ? US scrotum obtained does not show acute process, shows abnormal scrotal wall thickening likely secondary to volume overload. Less likely be infectious, but patient is already on broad-spectrum antibiotics for pneumonia. ? CT abdomen/pelvis shows moderate soft tissue edema in the penile shaft which likely represents fluid overload. Patient has no tenderness over the penis, tenderness over the suprapubic region with edema improving with dieuresis. ? Evaluation of the sacrum on 01/16/2024, buttocks revealed contact dermatitis, skin breakdown with bleeding (previously reported by patient has rectal bleeding) from being soiled in stool. No purulent drainage noted. ? Wound care consulted, appreciate recommendations. Barrier cream applied. ? Continue diuresis as above and follow scrotal edema. - No tenderness, necrosis noted. #OSMANI ? Improving and plateauing creatinine to 1.3, baseline 1.0. Likely secondary to cardiorenal third spacing. ? Will continue to monitor and continue diuresis at this time. Hypothyroid: TSH of 24 on admission. Continue oral levothyroxine at increased dose of 175 mcg daily. Repeat on 01/12 2.54. Diabetes: A1c 6.8. Sliding scale insulin fingersticks every 6 hours given diabetes diagnosis and steroid use as above Metabolic alkalosis: Continue acetazolamide 250 mg twice daily Medical surrogate is his significant other Anamika Bowers. Full code Diabetic diet Heparin 5000 units 3 times daily
[2024-01-21] VITALS (12 sets, daily range): BP systolic 87–98; BP diastolic 48–63; PULSE 70–98; RESP 18–30; TEMP 36.5–36.9; O2SAT 89–96; BMI 48.2
[2024-01-21] MEDS: MEROPENEM 1 GM in 0.9 % SODIUM CHLORIDE 100 ML IV ×3 (00:21→16:49)
--- NOTE | 2024-01-21 04:20 | PC.NURSE ---
Patient rested well throughout this shift. No acute changes. Medicated per JUN. He has worn his BiPAP and NC without issues. Patient's wounds to his buttocks are unchanged, but continue to require frequent changes to maintain dryness. Adequate urinary output via acuña catheter. VSS with soft blood pressures which seem to be his normal during nighttime hours. NAD otherwise.
[2024-01-21 06:22] LABS: Magnesium 2.2 mg/dl (1.6-2.3)
[2024-01-21] MEDS: FLUTICASONE/UMECLIDIN/VILANTER 200/62.5/25MCG INHALER 1 PUFF IH (06:24)
[2024-01-21] MEDS: IPRATROPIUM/ALBUTEROL 3 ML NEB IH ×4 (06:24→23:48)
[2024-01-21 06:30] LABS: Basophils # 0.1 K/mm3 (0-0.2); Basophils % 0.8 % (0.1-2.0); Eosinophils # 0.4 K/mm3 (0.0-0.4); Eosinophils % 2.8 % (0.1-12.0); Lymphocytes # 1.3 K/mm3 (0.7-4.5); Lymphocytes % 8.5 % (10-50); Mean Corpuscular HGB Conc 29.4 g/dL (31.8-35.4); Mean Corpuscular Hemoglobin 24.5 pg (27.0-31.2); Mean Corpuscular Volume 83.6 fl (80-94); Mean Platelet Volume 8.7 fl (7.4-10.4); Monocytes # 0.9 K/mm3 (0.1-1.0); Monocytes % 5.8 % (1.7-9.3); Neutrophils # 12.8 K/mm3 (1.8-7.8); Platelet Count 371 K/mm3 (142-424); Red Blood Count 4.07 M/mm3 (4.60-6.20); Red Cell Distribution Width 17.7 % (11.5-17.5); White Blood Count 15.6 K/mm3 (4.8-10.8)
[2024-01-21 06:32] LABS: MANUAL DIFFERENTIAL MANUAL DIFFERENTIAL (MANUAL DIFF)
[2024-01-21 06:39] LABS: Anion Gap 5.2 mEq/L (5-15); Blood Urea Nitrogen 21 mg/dl (9-20); Calcium 8.2 mg/dl (8.4-10.2); Carbon Dioxide 38 mmol/L (22.0-30.0); Chloride 92 mmol/L (98-107); Creatinine Clearance Estimated 55 mL/min (50-200); Estimated Glomerular Filt Rate 50 ml/min (>60); GFR (African American) 61 ML/MIN (>60); Glucose 109 mg/dl (74-100); Potassium 5.2 mmoL/L (3.5-5.1); Sodium 130 mmol/L (136-145)
[2024-01-21] MEDS: LEVOTHYROXINE 150MCG (0.15MG)TAB 150 MCG PO (06:40)
[2024-01-21] MEDS: SPIRONOLACTONE 25MG TABLET 50 MG PO (09:19)
[2024-01-21] MEDS: POTASSIUM CHLORIDE 20MEQ TAB 40 MEQ PO ×2 (09:19→20:40)
[2024-01-21] MEDS: AZITHROMYCIN 250MG TABLET 500 MG PO (09:20)
[2024-01-21] MEDS: RANOLAZINE 500MG ER TABLET 500 MG PO ×2 (09:20→20:40)
[2024-01-21] MEDS: PANTOPRAZOLE 40MG TABLET 40 MG PO (09:20)
[2024-01-21] MEDS: BUMETANIDE 1 MG TABLET 2 MG PO ×2 (09:21→16:49)
[2024-01-21] MEDS: HEPARIN SODIUM 5,000 UNIT/ML VIAL 5000 UNIT SQ ×2 (09:22→20:39)
[2024-01-21] MEDS: IRBESARTAN 75MG TABLET 75 MG PO (09:39)
--- NOTE | 2024-01-21 10:16 | XR_ITS ---
FINAL REPORT CLINICAL HISTORY: Right lower lobe opacity, shortness of breath COMPARISON: 12/1923 FINDINGS: Improved right basilar opacity from the prior study may be due to improved pneumonia or improved atelectasis. Mild atelectasis at the bilateral lung bases. Minimal left pleural effusion. There is no evidence of pneumothorax. Mediastinum is unremarkable. Heart size is mildly enlarged. IMPRESSION: Atelectasis without definite pneumonia. Reviewed, Interpreted and Dictated by Dewayne Oscar MD Transcribed by Ann Rogers Authenticated and [facility]
--- NOTE | 2024-01-21 10:16 | EXP.PULM.PN ---
Subjective *Date: 01/21/24 *Time: 12:08 Interval history: No acute respiratory events overnight. Patient denies any new respiratory complaints. Pulmonology Exam Inpatient Vital signs and Labs for Last 24 Hours: Temp Pulse Resp BP Pulse Ox O2 Del Method O2 Flow Rate 97.7 F 98 H 24 85/44 L 94 L Nasal Cannula 2 01/21/24 08:00 01/21/24 08:00 01/21/24 08:00 01/21/24 08:00 01/21/24 08:00 01/21/24 08:11 01/21/24 08:11 FiO2 30 01/21/24 04:00 Laboratory Results - last 24 hr 01/20/24 05:36: POC Glucose 142 H 01/20/24 11:44: POC Glucose 150 H 01/20/24 17:07: POC Glucose 139 H 01/21/24 05:30: WBC 15.6 H, RBC 4.07 L, Hgb 10.0 L, Hct 34.0 L, MCV 83.6, MCH 24.5 L, MCHC 29.4 L, RDW 17.7 H, Plt Count 371, MPV 8.7, Neut % (Auto) 82.0 H, Lymph % (Auto) 8.5 L, [place] % (Auto) 5.8, Eos % (Auto) 2.8, Baso % (Auto) 0.8, Neut # (Auto) 12.8 H, Lymph # (Auto) 1.3, [place] # (Auto) 0.9, Eos # (Auto) 0.4, Baso # (Auto) 0.1, Sodium 130 L, Potassium 5.2 H, Chloride 92 L, Carbon Dioxide 38 H, Anion Gap 5.2, BUN 21 H, Creatinine 1.40 H, Estimated Creat Clear 55, Estimated GFR 50 L, Est GFR ( Amer) 61, Glucose 109 H D, Calcium 8.2 L, Magnesium 2.2 Temp Pulse Resp BP Pulse Ox O2 Del Method O2 Flow Rate 98.4 F 88 24 86/56 L 95 Nasal Cannula 5 01/17/24 08:00 01/17/24 09:00 01/17/24 09:00 01/17/24 09:00 01/17/24 09:00 01/17/24 09:05 01/17/24 09:05 FiO2 40 01/17/24 06:20 Laboratory Results - last 24 hr 01/16/24 11:12: POC Glucose 158 H 01/16/24 18:18: Vancomycin Trough 28.4 H 01/16/24 18:28: Hgb 11.1 L, Hct 39.4 L 01/16/24 21:27: POC Glucose 158 H 01/17/24 05:32: WBC 28.8 H*, RBC 4.38 L, Hgb 10.5 L, Hct 37.6 L, MCV 85.7, MCH 24.1 L, MCHC 28.1 L, RDW 16.9, Plt Count 343, MPV 8.6, Neut % (Auto) 89.9 H, Lymph % (Auto) 4.5 L, [place] % (Auto) 4.5, Eos % (Auto) 0.8, Baso % (Auto) 0.2, Neut # (Auto) 25.8 H, Lymph # (Auto) 1.3, [place] # (Auto) 1.3 H, Eos # (Auto) 0.2, Baso # (Auto) 0.1, Total Counted 100, Neutrophils % (Manual) 89 H, Lymphocytes % (Manual) 6 L, Monocytes % (Manual) 4, Eosinophils % (Manual) 1, Platelet Estimate Normal, RBC Morphology Normal, ESR 52 H, Sodium 131 L, Potassium 3.3 L, Chloride 89 L, Carbon Dioxide 35 H, Anion Gap 10.3, BUN 20, Creatinine 1.50 H, Estimated Creat Clear 51, Estimated GFR 46 L, Est GFR ( Amer) 56 L, Glucose 162 H D, Lactate 1.0, Calcium 8.6, Magnesium 2.1, Total Bilirubin 0.5, AST 18, ALT 16, Alkaline Phosphatase 112, C-Reactive Protein 294.2 H, Total Protein 6.3, Albumin 2.8 L, Globulin 3.5 H, Albumin/Globulin Ratio 0.8 L, Random Vancomycin 19.1 I & O for Labs for Last 24 Hours: Intake & Output 01/18/24 01/19/24 01/20/24 01/21/24 23:59 23:59 23:59 23:59 Intake Total 1285 / 1285 1280 / 1280 940 / 1140 600 / 600 Output Total 1000 / 1000 5775 / 5775 5800 / 6400 1600 / 1600 Balance 285 / 285 -4495 / -4495 -4860 / -5260 -1000 / -1000 Weight 356 lb 4.272 oz 356 lb 4.272 oz 356 lb 4.272 oz 356 lb 4.272 oz Intake & Output 01/14/24 01/15/24 01/16/24 01/17/24 23:59 23:59 23:59 23:59 Intake Total 1262.833 / 3463.455 1808.417 / 3088.084 8135.626 / 2363.626 344.658 / 344.658 Output Total 5750 / 6200 5000 / 5200 3050 / 3250 1100 / 1100 Balance -4487.167 / -4937.167 -3827.583 / -3214.583 -691.374 / -886.374 -755.342 / -755.342 Weight 354 lb 8.053 oz 354 lb 8.053 oz 353 lb 13.471 oz 353 lb 13.471 oz Microbiology Reports for the Last 24 Hours: Microbiology 01/16/24 09:05 Blood Blood Culture - Final NO GROWTH AFTER 5 DAYS 01/16/24 09:00 Blood Blood Culture - Final NO GROWTH AFTER 5 DAYS 01/18/24 01:59 Sputum - Expectorated Sputum Gram Stain - Final 01/18/24 01:59 Sputum - Expectorated Sputum Sputum Culture - Final Microbiology 01/16/24 09:05 Blood Blood Culture - Preliminary NO GROWTH AFTER 24 HOURS 01/16/24 09:00 Blood Blood Culture - Preliminary NO GROWTH AFTER 24 HOURS 01/13/24 01:45 Blood Blood Culture - Preliminary NO GROWTH AFTER 4 DAYS 01/13/24 01:35 Blood Blood Culture - Preliminary NO GROWTH AFTER 4 DAYS 01/12/24 22:50 Sputum - Expectorated Sputum Gram Stain - Final 01/12/24 22:50 Sputum - Expectorated Sputum Sputum Culture - Final Streptococcus pneumoniae Constitutional: Present severe distress Head: Present normocephalic and atraumatic ENT: Present normal exam, normal oropharynx and mucous membranes moist Neck: Present normal inspection and full ROM Respiratory: Present rhonchi and able to speak in complete sentences; Absent respiratory distress or wheezes Cardiac: Present S1/S2 and Tachycardia; Absent Regular Rhythm GI: Present soft and distention; Absent tenderness or guarding Skin: Present wounds, rash and cracked; Absent intact, cyanosis or jaundice Neuro: Present alert and awake; Absent oriented x 3 Extremities: Present edema; Absent normal inspection, clubbing or cyanosis Psychiatric: Present normal affect and cooperative Assessment and Plan *Assessment and plan (1) Pneumonia: Status: Acute Category: Medical Code(s): J18.9 - Pneumonia, unspecified organism (2) Pickwickian syndrome: Status: Acute Category: Medical Code(s): E66.2 - Morbid (severe) obesity with alveolar hypoventilation Plan Mr. Wu is a 68-year-old male greater than [id number] smoking history history of COPD, OHS on chronic BiPAP therapy, 5 L nasal cannula oxygen supplementation presented to the ER complaining of worsening respiratory distress bilateral lower extremity swelling and pulmonary was called for further evaluation and management as patient shock with worsening hemodynamics needing vasopressor support CT scan concerning for right lower lobe pneumonia. Febrile upon admission to 101.2. Neutrophilic predominant leukocytosis. CT chest 01/16/24 - right lower lobe dense consolidative/atelectatic changes. Partially present on her CT from July 2023 slightly worsening. Very small bilateral pleural effusions not likely contributing to patient's current respiratory distress. the previous noted left lower lobe dense consolidative changes almost resolved. Significantly lower lung volumes likely from body habitus. Blood gas upon admission from 01/12/2024 chronic hypercarbic respiratory failure. Sputum cultures on this admission grew strep pneumonia Currently receiving vancomycin meropenem and azithromycin. Oxygen requirement stable since admission at 4 to 5 L nasal cannula. The CT scan does not appear to be the source of patient's new shock needing vasopressors given his stable ox requirements. Other possible etiology including cellulitis/bacteremia/cholecystitis. Pending right upper quadrant ultrasound and repeat blood cultures. Lower extremity venous Doppler negative for DVT. Interval update: Nasal MRSA PCR negative. Sputum no growth. Improving hemodynamics over the weekend. Off pressors. Vancomycin was discontinued 01/21/2024. Continue to receive meropenem. Plan: -Antibiotics can be weaned to clindamycin from pulmonary standpoint tot he concerning RLL pneumonia to complete a total of 10-day course. -Trelegy 100 inhaler along with DuoNebs every 6 hours on a scheduled basis -Continue BiPAP therapy while asleep for OHS at 16/8 # Thank you for involving pulmonary in this patient care. Will continue to follow.
[2024-01-21 11:00] LABS: Eosinophils % 3 % (0-3); Hypochromasia 1+; Lymphocytes % 16 % (10-50); Monocytes % 7 % (2-9); Neutrophils % 74 % (42-76); Platelet Estimate Normal; Total Cells Counted 100
[2024-01-21 11:16] LABS: POC Glucose,Bedside 132 (70-110)
[2024-01-21 15:47] LABS: POC Glucose,Bedside 130 (70-110)
--- NOTE | 2024-01-21 17:43 | PC.NURSE ---
PT IS RESTING IN BED. ALERT AND ORIENTED X4. PT REFUSED TO GET OOB TO CHAIR THIS SHIFT. PT STATES THE RECLINER IS VERY UNCOMFORTABLE. O2 SATURATION HAS MAINTAINED 93-97% ON 3 L NC. BP HAS BEEN SOFT T/O THE SHIFT. LUNG SOUNDS DIMINISHED WITH SCATTERED WHEEZES. ABDOMEN SOFT/LARGE WITH HYPOACTIVE BOWEL SOUNDS. REFUSED MIRALAX THIS MORNING. OPEN WOUNDS NOTED TO BUTTOCKS. CLEAN DRESSINGS APPLIED THIS SHIFT. PENILE AND SCROTAL REDNESS/SWELLING NOTED. BATH AND LINEN CHANGE THIS SHIFT. PT HAS DIURESED WELL. WILL CONTINUE TO MONITOR.
[2024-01-21 20:00] LABS: POC Glucose,Bedside 156 (70-110)
--- NOTE | 2024-01-21 20:21 | EXP.ACUTE.PN ---
Subjective *Date: 01/21/24 *Time: 13:47 Medical Exam Vital signs and Labs for Last 24 Hours: Vital Signs Temp Pulse Pulse Resp BP Pulse Ox O2 Del Method 01/21/24 19:01 89 L Room Air 01/21/24 19:00 Nasal Cannula, BiPAP 01/21/24 18:57 89 01/21/24 18:57 83 01/21/24 18:28 Nasal Cannula 01/21/24 17:00 Nasal Cannula 01/21/24 16:00 97.7 F 74 18 93/51 L 93 L Nasal Cannula 01/21/24 16:00 Nasal Cannula 01/21/24 16:00 70 01/21/24 14:50 Nasal Cannula 01/21/24 12:58 Nasal Cannula 01/21/24 12:00 98.4 F 80 24 96/48 L 96 Room Air 01/21/24 12:00 80 01/21/24 11:09 86 01/21/24 11:09 90 01/21/24 11:00 Nasal Cannula 01/21/24 08:11 Nasal Cannula 01/21/24 08:00 Nasal Cannula 01/21/24 08:00 97.7 F 98 H 24 98/50 L 94 L Nasal Cannula 01/21/24 08:00 70 01/21/24 08:00 Nasal Cannula 01/21/24 06:25 77 01/21/24 06:25 73 01/21/24 06:25 90 L Nasal Cannula 01/21/24 04:00 70 01/21/24 04:00 76 20 93/50 L 95 BiPAP 01/21/24 03:45 01/21/24 00:00 80 01/21/24 00:00 97.7 F 74 18 93/58 L 95 BiPAP 01/20/24 23:04 74 01/20/24 23:04 76 O2 Flow Rate FiO2 01/21/24 19:01 01/21/24 19:00 3 32 01/21/24 18:57 01/21/24 18:57 01/21/24 18:28 3 01/21/24 17:00 3 01/21/24 16:00 3 01/21/24 16:00 3 01/21/24 16:00 01/21/24 14:50 2 01/21/24 12:58 01/21/24 12:00 01/21/24 12:00 01/21/24 11:09 01/21/24 11:09 01/21/24 11:00 01/21/24 08:11 2 01/21/24 08:00 01/21/24 08:00 3 01/21/24 08:00 01/21/24 08:00 2 01/21/24 06:25 01/21/24 06:25 01/21/24 06:25 3 01/21/24 04:00 01/21/24 04:00 30 01/21/24 03:45 30 01/21/24 00:00 01/21/24 00:00 30 01/20/24 23:04 01/20/24 23:04 Intake and Output 01/21/24 01/21/24 01/21/24 07:59 15:59 23:59 Intake Total 300 / 1695 900 / 1695 495 / 1695 Output Total 900 / 2950 2050 / 2950 Balance -600 / -1255 -1150 / -1255 495 / -1255 Intake: Intake, Oral Amount 100 / 1300 900 / 1300 300 / 1300 Intake, Total IV Amount 200 / 395 195 / 395 Meropenem 1 gm In 0.9 % Sodium 200 / 395 195 / 395 Chloride 100 ml @ 100 mls/hr IV Q8H [facility] Rx#:[id number] Output: Output, Urine Amount 0 / 2050 Output, Urine Amount (Catheter) 900 / 900 Kennedy 900 / 900 Other: Weight 161.6 kg Patient Weight 01/21/24 23:59 Weight 161.6 kg Laboratory Results - last 24 hr 01/21/24 05:30: WBC 15.6 H, RBC 4.07 L, Hgb 10.0 L, Hct 34.0 L, MCV 83.6, MCH 24.5 L, MCHC 29.4 L, RDW 17.7 H, Plt Count 371, MPV 8.7, Neut % (Auto) 82.0 H, Lymph % (Auto) 8.5 L, [place] % (Auto) 5.8, Eos % (Auto) 2.8, Baso % (Auto) 0.8, Neut # (Auto) 12.8 H, Lymph # (Auto) 1.3, [place] # (Auto) 0.9, Eos # (Auto) 0.4, Baso # (Auto) 0.1, Total Counted 100, Neutrophils % (Manual) 74, Lymphocytes % (Manual) 16, Monocytes % (Manual) 7, Eosinophils % (Manual) 3, Platelet Estimate Normal, Hypochromasia 1+, Sodium 130 L, Potassium 5.2 H, Chloride 92 L, Carbon Dioxide 38 H, Anion Gap 5.2, BUN 21 H, Creatinine 1.40 H, Estimated Creat Clear 55, Estimated GFR 50 L, Est GFR ( Amer) 61, Glucose 109 H D, Calcium 8.2 L, Magnesium 2.2 01/21/24 11:09: POC Glucose 132 H 01/21/24 15:34: POC Glucose 130 H 01/21/24 19:51: POC Glucose 156 H I & O for Labs for Last 24 Hours: Intake & Output 01/18/24 01/19/24 01/20/24 01/21/24 23:59 23:59 23:59 23:59 Intake Total 1285 / 1285 1280 / 1280 940 / 1140 1695 / 1695 Output Total 1000 / 1000 5775 / 5775 5800 / 6400 2950 / 2950 Balance 285 / 285 -4495 / -4495 -4860 / -5260 -1255 / -1255 Weight 161.6 kg 161.6 kg 161.6 kg 161.6 kg Microbiology Reports for the Last 24 Hours: Microbiology 01/16/24 09:05 Blood Blood Culture - Final NO GROWTH AFTER 5 DAYS 01/16/24 09:00 Blood Blood Culture - Final NO GROWTH AFTER 5 DAYS Assessment and Plan *Assessment and plan (1) Acute on chronic respiratory failure with hypoxia and hypercapnia: Status: Acute Category: Medical Code(s): J96.21 - Acute and chronic respiratory failure with hypoxia; J96.22 - Acute and chronic respiratory failure with hypercapnia (2) Pneumonia: Status: Acute Category: Medical Code(s): J18.9 - Pneumonia, unspecified organism (3) Septic shock: Status: Acute Category: Medical Code(s): A41.9 - Sepsis, unspecified organism; R65.21 - Severe sepsis with septic shock (4) Acute exacerbation of CHF (congestive heart failure): Status: Acute Qualifiers: Heart failure type: diastolic Qualified Code(s): I50.33 - Acute on chronic diastolic (congestive) heart failure Category: Medical Code(s): I50.9 - Heart failure, unspecified (5) OSMANI (acute kidney injury): Status: Acute Category: Medical Code(s): N17.9 - Acute kidney failure, unspecified (6) Acute metabolic encephalopathy: Status: Acute Category: Medical Code(s): G93.41 - Metabolic encephalopathy (7) Pickwickian syndrome: Status: Acute Category: Medical Code(s): E66.2 - Morbid (severe) obesity with alveolar hypoventilation (8) Morbid obesity: Status: Acute Category: Medical Code(s): E66.01 - Morbid (severe) obesity due to excess calories (9) Hypothyroid: Status: Acute Category: Medical Code(s): E03.9 - Hypothyroidism, unspecified (10) Heart failure with preserved ejection fraction: Status: Acute Qualifiers: Heart failure chronicity: acute on chronic Qualified Code(s): I50.33 - Acute on chronic diastolic (congestive) heart failure Category: Medical Code(s): I50.30 - Unspecified diastolic (congestive) heart failure (11) Scrotal edema: Status: Acute Category: Medical Code(s): N50.89 - Other specified disorders of the male genital organs Plan Mr. Wu is a morbidly obese 68-year-old male with history of heart failure with preserved ejection fraction, chronic respiratory failure on home BiPAP, chronically on 3 L oxygen, with CKD and recent admission for respiratory failure a month ago to [facility]. He presented via EMS for acute worsening and concern for sepsis with respiratory failure. Workup in the ER concerning for pneumonia, development of septic shock, and respiratory failure. Initiated on BiPAP. Discussed case with ER, request admission for ICU level of care and further management. Medicine agreed to admit. Received broad-spectrum antibiotics in the ER. Cultures obtained. Pulmonology consulted to assist with care including BiPAP management and critical care. Tolerating 3-5 L nasal cannula during the day. BiPAP at night. Continues to require inpatient management. Patient would benefit from rehab for placement. Refuses placement. Is adamant he will go home. Therapy working with him daily. Anticipate discharge in the coming days given his improving clinical status. I risk for readmission. Case management assisting with care daily. Problems addressed as follows: #Sepsis #Pneumonia ? Will complete 7 days total of meropenem. - Discussed case with pulmonology today, recommend weaning clindamycin for his right lower lobe pneumonia to complete total of 10 days. Continue Trelegy 100 inhaler along with DuoNebs every 6 hours on a scheduled basis. - Continue BiPAP therapy while asleep for OHS at 16/8. Goal sats greater 90% during the day, room air if tolerated, has been tolerating 1 to 2 L intermittently along with brief periods of room air. ? Repeat blood cultures NGTD 48 hours. Repeat urine, sputum cultures did not reveal growth as well. ? Initial respiratory culture revealed strep pneumonia sensitive to vancomycin, ceftriaxone. ?White cell count stable at 15. Repeat CBC, CMP, magnesium ordered for the morning. #Acute hypoxic on chronic respiratory failure #HFpEF exacerbation #Bilateral pleural effusions #Obesity hypoventilation syndrome - Echocardiogram obtained showing preserved ejection fraction 60% with diastolic dysfunction. EKG shows old NY's - Fluid overload improving with dieuresis, cardiology consulted. ? Transition to Bumex 2 mg twice daily orally. continues to have negative net output daily. -24L total - Monitor renal function, electrolytes and replete. Electrolyte replacement protocol. Creatinine 1.4, BUN 21, potassium 5.2, magnesium 2.2. Holding on replacement today. Repeat CBC, CMP, magnesium ordered for the morning. ? Strict SEGUNDO's, bed elevation, fluid/water restriction. ? Continue BiPAP nightly. #Distended gallbladder ? Noted on CT abdomen/pelvis. However, patient has no RUQ pain, and tolerating diet. But given that patient has sepsis with unclear source, and out of proportion to pneumonia - RUQ ultrasound with no acute findings. Shows fatty liver. No stones or sludge per my review #Scrotal, penile, suprapubic edema #Sacral contact dermatitis, skin breakdown ? Significant scrotal and penis edema continues to improve, without tenderness ongoing since HFrEF exacerbation. ? Evaluation of the sacrum on 01/16/2024, buttocks revealed contact dermatitis, skin breakdown with bleeding (previously reported by patient has rectal bleeding) from being soiled in stool. No purulent drainage noted. ? Wound care consulted, appreciate recommendations. Barrier cream applied. ? Continue diuresis as above and follow scrotal edema. - No tenderness, necrosis noted. #OSMANI ?Stable with slight bump in creatinine from baseline. Baseline 1.0, 1.4 today. ? Will continue to monitor and continue diuresis at this time. Hypothyroid: TSH of 24 on admission. Continue oral levothyroxine at increased dose of 175 mcg daily. Repeat on 01/12 2.54. Diabetes: A1c 6.8. Sliding scale insulin fingersticks every 6 hours given diabetes diagnosis and steroid use as above Metabolic alkalosis: Continue acetazolamide 250 mg twice daily Medical surrogate is his significant other Anamika Bowers. Full code Diabetic diet Heparin 5000 units 3 times daily
[2024-01-21] MEDS: ATORVASTATIN 20MG TABLET 20 MG PO (20:39)
[2024-01-21] MEDS: TAMSULOSIN 0.4MG CAPSULE 0.4 MG PO (20:40)
[2024-01-21] MEDS: ONDANSETRON 4MG/2ML VIAL 4 MG IV (20:40)
[2024-01-21 20:42] LABS: POC Glucose,Bedside 145 (70-110)
[2024-01-22] VITALS (17 sets, daily range): BP systolic 90–149; BP diastolic 51–96; PULSE 66–83; RESP 17–28; TEMP 36.4–36.7; O2SAT 90–97; BMI 48.1
[2024-01-22] MEDS: MEROPENEM 1 GM in 0.9 % SODIUM CHLORIDE 100 ML IV ×2 (00:08→08:31)
--- NOTE | 2024-01-22 05:13 | PC.NURSE ---
Pt currently resting and has remained a&ox4. He has alternated between 2.5 L nasal cannula and BiPAP throughout the night. He complained of nausea once this shift and was treated per JUN. Pt has been diuresing well through Kennedy catheter. No complaints at this time, call light within reach.
[2024-01-22] MEDS: LEVOTHYROXINE 150MCG (0.15MG)TAB 150 MCG PO (06:02)
[2024-01-22 06:11] LABS: POC Glucose,Bedside 115 (70-110)
[2024-01-22] MEDS: IPRATROPIUM/ALBUTEROL 3 ML NEB IH ×4 (06:14→23:00)
[2024-01-22] MEDS: FLUTICASONE/UMECLIDIN/VILANTER 200/62.5/25MCG INHALER 1 PUFF IH (06:14)
[2024-01-22 07:00] LABS: Blood Urea Nitrogen 26 mg/dl (9-20); Calcium 8.4 mg/dl (8.4-10.2); Chloride 89 mmol/L (98-107); Creatinine Clearance Estimated 51 mL/min (50-200); Estimated Glomerular Filt Rate 46 ml/min (>60); GFR (African American) 56 ML/MIN (>60); Glucose 106 mg/dl (74-100); Potassium 5.1 mmoL/L (3.5-5.1); Sodium 125 mmol/L (136-145)
[2024-01-22 07:07] LABS: Anion Gap 5.1 mEq/L (5-15); Carbon Dioxide 36 mmol/L (22.0-30.0)
[2024-01-22 07:11] LABS: Basophils # 0.1 K/mm3 (0-0.2); Basophils % 0.7 % (0.1-2.0); Eosinophils # 0.5 K/mm3 (0.0-0.4); Eosinophils % 2.8 % (0.1-12.0); Hematocrit 36.1 % (42.0-52.0); Hemoglobin 10.5 g/dL (14.1-18.0); Lymphocytes # 1.5 K/mm3 (0.7-4.5); Lymphocytes % 8.1 % (10-50); Mean Corpuscular HGB Conc 29.2 g/dL (31.8-35.4); Mean Corpuscular Hemoglobin 24.7 pg (27.0-31.2); Mean Corpuscular Volume 84.6 fl (80-94); Mean Platelet Volume 7.5 fl (7.4-10.4); Monocytes # 1.1 K/mm3 (0.1-1.0); Monocytes % 5.6 % (1.7-9.3); Neutrophils # 15.6 K/mm3 (1.8-7.8); Neutrophils % 82.8 % (37.0-80.0); Platelet Count 413 K/mm3 (142-424); Red Blood Count 4.27 M/mm3 (4.60-6.20); Red Cell Distribution Width 17.2 % (11.5-17.5); White Blood Count 18.9 K/mm3 (4.8-10.8)
[2024-01-22 07:14] LABS: MANUAL DIFFERENTIAL MANUAL DIFFERENTIAL (MANUAL DIFF)
--- NOTE | 2024-01-22 07:48 | EXP.ACUTE.PN ---
Subjective *Date: 01/22/24 *Time: 15:45 Interval history: Patient remained stable on 2 to 3 L oxygen at rest. Continues to diurese well. -24 L since admission. Still having swelling in his scrotum. Tolerating p.o. intake. Complaining about chair at bedside, does not think it is big enough. Informed him we do not have a bigger chair. States he is feeling better than he has in quite some time. No fever overnight. No nausea or vomiting Medical Exam Vital signs and Labs for Last 24 Hours: Vital Signs Temp Pulse Pulse Resp BP Pulse Ox O2 Del Method 01/22/24 06:39 Nasal Cannula 01/22/24 06:19 93 L Nasal Cannula 01/22/24 06:15 72 01/22/24 06:15 78 01/22/24 05:00 Nasal Cannula 01/22/24 04:00 80 01/22/24 04:00 97.6 F 66 20 149/96 H 94 L Nasal Cannula 01/22/24 03:00 BiPAP 01/22/24 01:00 Nasal Cannula 01/22/24 00:06 01/22/24 00:04 83 01/22/24 00:03 81 01/22/24 00:00 97.5 F L 74 20 114/62 94 L Nasal Cannula 01/21/24 23:00 BiPAP 01/21/24 21:04 01/21/24 21:00 BiPAP 01/21/24 20:00 Nasal Cannula 01/21/24 20:00 97.8 F 80 20 87/63 L 90 L Nasal Cannula 01/21/24 19:01 89 L Room Air 01/21/24 19:00 Nasal Cannula, BiPAP 01/21/24 18:57 89 01/21/24 18:57 83 01/21/24 18:28 Nasal Cannula 01/21/24 17:00 Nasal Cannula 01/21/24 16:00 97.7 F 74 18 93/51 L 93 L Nasal Cannula 01/21/24 16:00 Nasal Cannula 01/21/24 16:00 70 01/21/24 14:50 Nasal Cannula 01/21/24 12:58 Nasal Cannula 01/21/24 12:00 98.4 F 80 24 96/48 L 96 Room Air 01/21/24 12:00 80 01/21/24 11:09 86 01/21/24 11:09 90 01/21/24 11:00 Nasal Cannula 01/21/24 08:11 Nasal Cannula 01/21/24 08:00 Nasal Cannula 01/21/24 08:00 97.7 F 98 H 24 98/50 L 94 L Nasal Cannula 01/21/24 08:00 70 01/21/24 08:00 Nasal Cannula O2 Flow Rate FiO2 01/22/24 06:39 2.5 01/22/24 06:19 4 01/22/24 06:15 01/22/24 06:15 01/22/24 05:00 2.5 01/22/24 04:00 01/22/24 04:00 3 01/22/24 03:00 01/22/24 01:00 2.5 01/22/24 00:06 30 01/22/24 00:04 01/22/24 00:03 01/22/24 00:00 3 01/21/24 23:00 01/21/24 21:04 30 01/21/24 21:00 01/21/24 20:00 2.5 01/21/24 20:00 3 01/21/24 19:01 01/21/24 19:00 3 32 01/21/24 18:57 01/21/24 18:57 01/21/24 18:28 3 01/21/24 17:00 3 01/21/24 16:00 3 01/21/24 16:00 3 01/21/24 16:00 01/21/24 14:50 2 01/21/24 12:58 01/21/24 12:00 01/21/24 12:00 01/21/24 11:09 01/21/24 11:09 01/21/24 11:00 01/21/24 08:11 2 01/21/24 08:00 01/21/24 08:00 3 01/21/24 08:00 01/21/24 08:00 2 Intake and Output 01/21/24 01/21/24 01/22/24 15:59 23:59 07:59 Intake Total 900 / 2445 795 / 2445 750 / 750 Output Total 2050 / 4650 1700 / 4650 350 / 350 Balance -1150 / -2205 -905 / -2205 400 / 400 Intake: Intake, Oral Amount 900 / 1950 600 / 1950 650 / 650 Intake, Total IV Amount 195 / 495 100 / 100 Meropenem 1 gm In 0.9 % Sodium 195 / 495 100 / 100 Chloride 100 ml @ 100 mls/hr IV Q8H [facility] Rx#:[id number] Output: Output, Urine Amount 0 / 3750 1700 / 3750 350 / 350 Other: Number of Unmeasured Voids 0 Weight 161.2 kg Patient Weight 01/22/24 23:59 Weight 161.2 kg Laboratory Results - last 24 hr 01/21/24 05:30: Total Counted 100, Neutrophils % (Manual) 74, Lymphocytes % (Manual) 16, Monocytes % (Manual) 7, Eosinophils % (Manual) 3, Platelet Estimate Normal, Hypochromasia 1+ 01/21/24 11:09: POC Glucose 132 H 01/21/24 15:34: POC Glucose 130 H 01/21/24 19:51: POC Glucose 156 H 01/21/24 20:08: POC Glucose 145 H 01/22/24 06:04: POC Glucose 115 H 01/22/24 06:08: WBC 18.9 H, RBC 4.27 L, Hgb 10.5 L, Hct 36.1 L, MCV 84.6, MCH 24.7 L, MCHC 29.2 L, RDW 17.2, Plt Count 413, MPV 7.5, Neut % (Auto) 82.8 H, Lymph % (Auto) 8.1 L, [place] % (Auto) 5.6, Eos % (Auto) 2.8, Baso % (Auto) 0.7, Neut # (Auto) 15.6 H, Lymph # (Auto) 1.5, [place] # (Auto) 1.1 H, Eos # (Auto) 0.5 H, Baso # (Auto) 0.1, Sodium 125 L, Potassium 5.1, Chloride 89 L, Carbon Dioxide 36 H, Anion Gap 5.1, BUN 26 H, Creatinine 1.50 H, Estimated Creat Clear 51, Estimated GFR 46 L, Est GFR ( Amer) 56 L, Glucose 106 H, Calcium 8.4 I & O for Labs for Last 24 Hours: Intake & Output 01/19/24 01/20/24 01/21/24 01/22/24 23:59 23:59 23:59 23:59 Intake Total 1280 / 1280 940 / 1140 1995 / 2445 750 / 750 Output Total 5775 / 5775 5800 / 6400 4650 / 4650 350 / 350 Balance -4495 / -4495 -4860 / -5260 -2655 / -2205 400 / 400 Weight 161.6 kg 161.6 kg 161.6 kg 161.2 kg Microbiology Reports for the Last 24 Hours: Microbiology 01/16/24 09:05 Blood Blood Culture - Final NO GROWTH AFTER 5 DAYS 01/16/24 09:00 Blood Blood Culture - Final NO GROWTH AFTER 5 DAYS Constitutional: Present no acute distress, morbidly obese, chronically ill appearing and cooperative Head: Present atraumatic and normocephalic ENT: Present normal exam Comment:: Cushingoid face, buffalo hump, prominent neck Comment:: prominent neck. Unable to assess landmarks due to obesity Respiratory: Present prolonged expiratory phase, rhonchi, crackles (Left lung field, intervally improving), distant breath sounds and diminished air movement; Absent wheezes Cardiac: Present Reg Rate and Rhythm GI: Present soft, distention and normal bowel sounds; Absent tenderness Extremities: Present normal inspection, full ROM and edema (2+ tense edema in lower extremities to thighs); Absent tenderness Comment:: Chronic lymphedema, chronic stasis dermatitis Skin: Present intact; Absent erythema Neuro: Present Grossly Intact, alert, awake, oriented x 3 and moves all extremities Assessment and Plan *Assessment and plan (1) Acute on chronic respiratory failure with hypoxia and hypercapnia: Status: Acute Category: Medical Code(s): J96.21 - Acute and chronic respiratory failure with hypoxia; J96.22 - Acute and chronic respiratory failure with hypercapnia (2) Pneumonia: Status: Acute Category: Medical Code(s): J18.9 - Pneumonia, unspecified organism (3) Septic shock: Status: Acute Category: Medical Code(s): A41.9 - Sepsis, unspecified organism; R65.21 - Severe sepsis with septic shock (4) Acute exacerbation of CHF (congestive heart failure): Status: Acute Qualifiers: Heart failure type: diastolic Qualified Code(s): I50.33 - Acute on chronic diastolic (congestive) heart failure Category: Medical Code(s): I50.9 - Heart failure, unspecified (5) OSMANI (acute kidney injury): Status: Acute Category: Medical Code(s): N17.9 - Acute kidney failure, unspecified (6) Acute metabolic encephalopathy: Status: Acute Category: Medical Code(s): G93.41 - Metabolic encephalopathy (7) Pickwickian syndrome: Status: Acute Category: Medical Code(s): E66.2 - Morbid (severe) obesity with alveolar hypoventilation (8) Morbid obesity: Status: Acute Category: Medical Code(s): E66.01 - Morbid (severe) obesity due to excess calories (9) Hypothyroid: Status: Acute Category: Medical Code(s): E03.9 - Hypothyroidism, unspecified (10) Heart failure with preserved ejection fraction: Status: Acute Qualifiers: Heart failure chronicity: acute on chronic Qualified Code(s): I50.33 - Acute on chronic diastolic (congestive) heart failure Category: Medical Code(s): I50.30 - Unspecified diastolic (congestive) heart failure (11) Scrotal edema: Status: Acute Category: Medical Code(s): N50.89 - Other specified disorders of the male genital organs Plan Mr. Wu is a morbidly obese 68-year-old male with history of heart failure with preserved ejection fraction, chronic respiratory failure on home BiPAP, chronically on 3 L oxygen, with CKD and recent admission for respiratory failure a month ago to [place]. He presented via EMS for acute worsening and concern for sepsis with respiratory failure. Workup in the ER concerning for pneumonia, development of septic shock, and respiratory failure. Initiated on BiPAP. Discussed case with ER, request admission for ICU level of care and further management. Medicine agreed to admit. Received broad-spectrum antibiotics in the ER. Cultures obtained. Pulmonology consulted to assist with care including BiPAP management and critical care. Tolerating 2-3L nasal cannula during the day. BiPAP at night. Continues to require inpatient management. Patient would benefit from rehab for placement. Refuses placement. Is adamant he will go home. Therapy working with him daily. Anticipate discharge in the coming days given his improving clinical status. High risk for readmission. Case management assisting with care daily. Problems addressed as follows: #Sepsis #Pneumonia ? Discussed case with pulmonology, recommend transition to clindamycin to complete 10-day course of antibiotics for his pneumonia and also coverage for his scrotal lesion. Continue Trelegy 100 inhaler along with DuoNebs every 6 hours scheduled. Continue BiPAP at night for sleep apnea for OHS at 16/8. -Completed 7 days of meropenem. - Goal sats greater 90% during the day, room air if tolerated, has been tolerating 1 to 2 L intermittently along with brief periods of room air. ? Initial respiratory culture revealed strep pneumonia sensitive to vancomycin, ceftriaxone. ?White cell count with slight bump to 18. No fever or new symptoms. Repeat CBC, CMP, magnesium ordered for the morning. #Acute hypoxic on chronic respiratory failure #HFpEF exacerbation #Bilateral pleural effusions #Obesity hypoventilation syndrome - Echocardiogram obtained showing preserved ejection fraction 60% with diastolic dysfunction. EKG shows old TX's - Fluid overload improving with dieuresis, cardiology consulted. ? Bumex 2 mg twice daily orally. continues to have negative net output daily. -24L total -Kidney function with BUN 26, creatinine 1.5. Sodium low at 125. Will replace with oral sodium chloride 500 mg twice daily. Potassium 5.2. No indication for replacement today. Monitor with BMP, CBC, magnesium in the morning ? Strict SEGUNDO's, bed elevation, fluid/water restriction. ? Continue BiPAP nightly. #Distended gallbladder ? Noted on CT abdomen/pelvis. However, patient has no RUQ pain, and tolerating diet. But given that patient has sepsis with unclear source, and out of proportion to pneumonia - RUQ ultrasound with no acute findings. Shows fatty liver. No stones or sludge per my review #Scrotal, penile, suprapubic edema #Sacral contact dermatitis, skin breakdown ? Significant scrotal and penis edema continues to improve, without tenderness ongoing since HFrEF exacerbation. -Kennedy remains in place due to concern for urinary obstruction. Reevaluate daily ? Evaluation of the sacrum on 01/16/2024, buttocks revealed contact dermatitis, skin breakdown with bleeding (previously reported by patient has rectal bleeding) from being soiled in stool. No purulent drainage noted. ? Wound care consulted, appreciate recommendations. Barrier cream applied. ? Continue diuresis as above and follow scrotal edema. - No tenderness, necrosis noted. #OSMANI ?Stable with slight bump in creatinine from baseline. Baseline 1.0, 1.5 today. ? Will continue to monitor and continue diuresis at this time. Hypothyroid: TSH of 24 on admission. Continue oral levothyroxine at increased dose of 175 mcg daily. Repeat on 01/12 2.54. Diabetes: A1c 6.8. Sliding scale insulin fingersticks every 6 hours given diabetes diagnosis and steroid use as above. Morning glucose 106 Metabolic alkalosis: Continue acetazolamide 250 mg twice daily Medical surrogate is his significant other Anamika Bowers. Full code Diabetic diet Heparin 5000 units 3 times daily
[2024-01-22 07:51] LABS: Magnesium 2.2 mg/dl (1.6-2.3)
[2024-01-22] MEDS: POLYETHYLENE GLYCOL 3350 17 GM PACKET PO (08:30)
[2024-01-22] MEDS: SODIUM CHLORIDE 1,000MG TABLET 500 MG PO (08:32)
[2024-01-22] MEDS: RANOLAZINE 500MG ER TABLET 500 MG PO ×2 (08:33→20:33)
[2024-01-22] MEDS: AZITHROMYCIN 250MG TABLET 500 MG PO (08:33)
[2024-01-22] MEDS: BUMETANIDE 1 MG TABLET 2 MG PO ×2 (08:33→16:35)
[2024-01-22] MEDS: SPIRONOLACTONE 25MG TABLET 50 MG PO (08:35)
[2024-01-22] MEDS: PANTOPRAZOLE 40MG TABLET 40 MG PO (08:35)
[2024-01-22] MEDS: IRBESARTAN 75MG TABLET 37.5 MG PO (08:36)
[2024-01-22] MEDS: HEPARIN SODIUM 5,000 UNIT/ML VIAL 5000 UNIT SQ ×2 (08:36→20:32)
--- NOTE | 2024-01-22 09:56 | EXP.PULM.PN ---
Subjective *Date: 01/22/24 *Time: 12:05 Interval history: No acute respiratory vents overnight. Patient denies any new respiratory complaints Pulmonology Exam Inpatient Vital signs and Labs for Last 24 Hours: Temp Pulse Resp BP Pulse Ox O2 Del Method O2 Flow Rate 97.9 F 71 18 90/68 L 90 L Nasal Cannula 2.5 01/22/24 08:00 01/22/24 08:00 01/22/24 08:00 01/22/24 08:00 01/22/24 08:00 01/22/24 06:39 01/22/24 06:39 FiO2 30 01/22/24 00:06 Laboratory Results - last 24 hr 01/21/24 05:30: Total Counted 100, Neutrophils % (Manual) 74, Lymphocytes % (Manual) 16, Monocytes % (Manual) 7, Eosinophils % (Manual) 3, Platelet Estimate Normal, Hypochromasia 1+ 01/21/24 11:09: POC Glucose 132 H 01/21/24 15:34: POC Glucose 130 H 01/21/24 19:51: POC Glucose 156 H 01/21/24 20:08: POC Glucose 145 H 01/22/24 06:04: POC Glucose 115 H 01/22/24 06:08: WBC 18.9 H, RBC 4.27 L, Hgb 10.5 L, Hct 36.1 L, MCV 84.6, MCH 24.7 L, MCHC 29.2 L, RDW 17.2, Plt Count 413, MPV 7.5, Neut % (Auto) 82.8 H, Lymph % (Auto) 8.1 L, [place] % (Auto) 5.6, Eos % (Auto) 2.8, Baso % (Auto) 0.7, Neut # (Auto) 15.6 H, Lymph # (Auto) 1.5, [place] # (Auto) 1.1 H, Eos # (Auto) 0.5 H, Baso # (Auto) 0.1, Sodium 125 L, Potassium 5.1, Chloride 89 L, Carbon Dioxide 36 H, Anion Gap 5.1, BUN 26 H, Creatinine 1.50 H, Estimated Creat Clear 51, Estimated GFR 46 L, Est GFR ( Amer) 56 L, Glucose 106 H, Calcium 8.4, Magnesium 2.2 Temp Pulse Resp BP Pulse Ox O2 Del Method O2 Flow Rate 98.4 F 88 24 86/56 L 95 Nasal Cannula 5 01/17/24 08:00 01/17/24 09:00 01/17/24 09:00 01/17/24 09:00 01/17/24 09:00 01/17/24 09:05 01/17/24 09:05 FiO2 40 01/17/24 06:20 Laboratory Results - last 24 hr 01/16/24 11:12: POC Glucose 158 H 01/16/24 18:18: Vancomycin Trough 28.4 H 01/16/24 18:28: Hgb 11.1 L, Hct 39.4 L 01/16/24 21:27: POC Glucose 158 H 01/17/24 05:32: WBC 28.8 H*, RBC 4.38 L, Hgb 10.5 L, Hct 37.6 L, MCV 85.7, MCH 24.1 L, MCHC 28.1 L, RDW 16.9, Plt Count 343, MPV 8.6, Neut % (Auto) 89.9 H, Lymph % (Auto) 4.5 L, [place] % (Auto) 4.5, Eos % (Auto) 0.8, Baso % (Auto) 0.2, Neut # (Auto) 25.8 H, Lymph # (Auto) 1.3, [place] # (Auto) 1.3 H, Eos # (Auto) 0.2, Baso # (Auto) 0.1, Total Counted 100, Neutrophils % (Manual) 89 H, Lymphocytes % (Manual) 6 L, Monocytes % (Manual) 4, Eosinophils % (Manual) 1, Platelet Estimate Normal, RBC Morphology Normal, ESR 52 H, Sodium 131 L, Potassium 3.3 L, Chloride 89 L, Carbon Dioxide 35 H, Anion Gap 10.3, BUN 20, Creatinine 1.50 H, Estimated Creat Clear 51, Estimated GFR 46 L, Est GFR ( Amer) 56 L, Glucose 162 H D, Lactate 1.0, Calcium 8.6, Magnesium 2.1, Total Bilirubin 0.5, AST 18, ALT 16, Alkaline Phosphatase 112, C-Reactive Protein 294.2 H, Total Protein 6.3, Albumin 2.8 L, Globulin 3.5 H, Albumin/Globulin Ratio 0.8 L, Random Vancomycin 19.1 I & O for Labs for Last 24 Hours: Intake & Output 01/19/24 01/20/24 01/21/24 01/22/24 23:59 23:59 23:59 23:59 Intake Total 1280 / 1280 940 / 1140 1995 / 2445 1230 / 1230 Output Total 5775 / 5775 5800 / 6400 4650 / 4650 350 / 350 Balance -4495 / -4495 -4860 / -5260 -2655 / -2205 880 / 880 Weight 356 lb 4.272 oz 356 lb 4.272 oz 356 lb 4.272 oz 355 lb 6.162 oz Intake & Output 01/14/24 01/15/24 01/16/24 01/17/24 23:59 23:59 23:59 23:59 Intake Total 1262.833 / 2997.713 1686.417 / 3609.021 6084.626 / 2363.626 344.658 / 344.658 Output Total 5750 / 6200 5000 / 5200 3050 / 3250 1100 / 1100 Balance -4487.167 / -4937.167 -3827.583 / -3214.583 -691.374 / -886.374 -755.342 / -755.342 Weight 354 lb 8.053 oz 354 lb 8.053 oz 353 lb 13.471 oz 353 lb 13.471 oz Microbiology Reports for the Last 24 Hours: Microbiology 01/16/24 09:05 Blood Blood Culture - Final NO GROWTH AFTER 5 DAYS 01/16/24 09:00 Blood Blood Culture - Final NO GROWTH AFTER 5 DAYS Microbiology 01/16/24 09:05 Blood Blood Culture - Preliminary NO GROWTH AFTER 24 HOURS 01/16/24 09:00 Blood Blood Culture - Preliminary NO GROWTH AFTER 24 HOURS 01/13/24 01:45 Blood Blood Culture - Preliminary NO GROWTH AFTER 4 DAYS 01/13/24 01:35 Blood Blood Culture - Preliminary NO GROWTH AFTER 4 DAYS 01/12/24 22:50 Sputum - Expectorated Sputum Gram Stain - Final 01/12/24 22:50 Sputum - Expectorated Sputum Sputum Culture - Final Streptococcus pneumoniae Constitutional: Present severe distress Head: Present normocephalic and atraumatic ENT: Present normal exam, normal oropharynx and mucous membranes moist Neck: Present normal inspection and full ROM Respiratory: Present rhonchi, normal respiratory effort and able to speak in complete sentences; Absent respiratory distress or wheezes Cardiac: Present S1/S2 and Tachycardia; Absent Regular Rhythm GI: Present soft and distention; Absent tenderness or guarding Skin: Present wounds, rash and cracked; Absent intact, cyanosis or jaundice Neuro: Present alert and awake; Absent oriented x 3 Extremities: Present edema; Absent normal inspection, clubbing or cyanosis Psychiatric: Present normal affect and cooperative Assessment and Plan *Assessment and plan (1) Pneumonia: Status: Acute Category: Medical Code(s): J18.9 - Pneumonia, unspecified organism (2) Pickwickian syndrome: Status: Acute Category: Medical Code(s): E66.2 - Morbid (severe) obesity with alveolar hypoventilation Plan Mr. Wu is a 68-year-old male greater than [id number] smoking history history of COPD, OHS on chronic BiPAP therapy, 5 L nasal cannula oxygen supplementation presented to the ER complaining of worsening respiratory distress bilateral lower extremity swelling and pulmonary was called for further evaluation and management as patient shock with worsening hemodynamics needing vasopressor support CT scan concerning for right lower lobe pneumonia. Febrile upon admission to 101.2. Neutrophilic predominant leukocytosis. CT chest 01/16/24 - right lower lobe dense consolidative/atelectatic changes. Partially present on her CT from July 2023 slightly worsening. Very small bilateral pleural effusions not likely contributing to patient's current respiratory distress. the previous noted left lower lobe dense consolidative changes almost resolved. Significantly lower lung volumes likely from body habitus. Blood gas upon admission from 01/12/2024 chronic hypercarbic respiratory failure. Sputum cultures on this admission grew strep pneumonia Currently receiving vancomycin meropenem and azithromycin. Oxygen requirement stable since admission at 4 to 5 [address] nasal cannula. The CT scan does not appear to be the source of patient's new shock needing vasopressors given his stable ox requirements. Other possible etiology including cellulitis/bacteremia/cholecystitis. Pending right upper quadrant ultrasound and repeat blood cultures. Lower extremity venous Doppler negative for DVT. Nasal MRSA PCR negative. Sputum no growth. Interval update:. Worsening leukocytosis. Antibiotics Changed to clindamycin. Will closely monitor. Stable oxygen requirements. Chest x-ray stable with no acute infiltrates. Left pleural effusion noted Plan: -Continue clindamycin for 2 out of 10 days from pulmonary standpoint for the concerning right lower lobe pneumonia. -Trelegy 100 inhaler along with DuoNebs every 6 hours on a scheduled basis -Continue BiPAP therapy while asleep for OHS at 12/12 # Thank you for involving pulmonary in this patient care. Will continue to follow.
[2024-01-22] MEDS: MINERAL OIL ENEMA 133ML 133 ML RC (13:00)
[2024-01-22 13:51] LABS: Eosinophils % 6 % (0-3); Lymphocytes % 16 % (10-50); Monocytes % 5 % (2-9); Neutrophils % 73 % (42-76); Total Cells Counted 100
[2024-01-22 13:52] LABS: Hypochromasia 1+; Ovalocytes 1+; Platelet Estimate Slight Increase
[2024-01-22] MEDS: CLINDAMYCIN PHOSPHATE/D5W 900 MG/50 ML PIGGYBACK 100 MG IV (16:35)
--- NOTE | 2024-01-22 18:23 | PC.NURSE ---
AOX4, SAT UP TO CHAIR FOR A FEW HOURS THIS MORNING. HAS TOLERATED 2.5LNC WHILE AWAKE BUT WAS SWITCHED TO BIPAP FOR NAPS. TOLERATING PO INTAKE WELL. 2420 EMPTIED FROM [facility] THIS EVENING. NO COMPLAINTS VOICED TO STAFF.
[2024-01-22] MEDS: ATORVASTATIN 20MG TABLET 20 MG PO (20:32)
[2024-01-22] MEDS: TAMSULOSIN 0.4MG CAPSULE 0.4 MG PO (20:33)
[2024-01-22 21:21] LABS: POC Glucose,Bedside 144 (70-110)
[2024-01-23] VITALS (11 sets, daily range): BP systolic 72–118; BP diastolic 40–83; PULSE 60–95; RESP 17–26; TEMP 36.6–37.2; O2SAT 2–99; BMI 48.2
[2024-01-23] MEDS: CLINDAMYCIN PHOSPHATE/D5W 900 MG/50 ML PIGGYBACK 100 MG IV ×3 (01:20→18:13)
[2024-01-23] MEDS: OXYCODONE 5MG W/APAP 325MG TABLET 1 EACH PO (02:08)
[2024-01-23 02:37] LABS: POC Glucose,Bedside 126 (70-110)
[2024-01-23 02:37] LABS: POC Glucose,Bedside 147 (70-110)
--- NOTE | 2024-01-23 05:05 | PC.NURSE ---
68 yo male pt A/O X 3. He continues to alternate with using 02 per Nc and use of CPAP. He reports generally not feeling well this shift but denies specific complaints. He did report some generalized pain/discomfort and was medicated with pain meds which allowed pt to rest for a couple of hours. F/c remains patent to D. FSBS was 144 at 9pm and did not require insulin coverage. He reports no BM for the past 3 or 4 days.
[2024-01-23] MEDS: IPRATROPIUM/ALBUTEROL 3 ML NEB IH ×4 (05:14→23:07)
[2024-01-23] MEDS: FLUTICASONE/UMECLIDIN/VILANTER 200/62.5/25MCG INHALER 1 PUFF IH (05:14)
[2024-01-23 06:10] LABS: POC Glucose,Bedside 133 (70-110)
[2024-01-23] MEDS: LEVOTHYROXINE 150MCG (0.15MG)TAB 150 MCG PO (06:22)
[2024-01-23 07:05] LABS: Basophils # 0.2 K/mm3 (0-0.2); Basophils % 0.9 % (0.1-2.0); Eosinophils # 0.6 K/mm3 (0.0-0.4); Eosinophils % 3.1 % (0.1-12.0); Hematocrit 34.3 % (42.0-52.0); Hemoglobin 10.2 g/dL (14.1-18.0); Lymphocytes # 1.5 K/mm3 (0.7-4.5); Lymphocytes % 8.4 % (10-50); Mean Corpuscular HGB Conc 29.7 g/dL (31.8-35.4); Mean Corpuscular Hemoglobin 24.4 pg (27.0-31.2); Mean Corpuscular Volume 82.4 fl (80-94); Mean Platelet Volume 8.5 fl (7.4-10.4); Monocytes # 0.8 K/mm3 (0.1-1.0); Monocytes % 4.3 % (1.7-9.3); Neutrophils # 15.3 K/mm3 (1.8-7.8); Neutrophils % 83.4 % (37.0-80.0); Platelet Count 399 K/mm3 (142-424); Red Blood Count 4.16 M/mm3 (4.60-6.20); White Blood Count 18.4 K/mm3 (4.8-10.8)
[2024-01-23 07:24] LABS: Blood Urea Nitrogen 27 mg/dl (9-20); Calcium 8.5 mg/dl (8.4-10.2); Chloride 86 mmol/L (98-107); Creatinine Clearance Estimated 48 mL/min (50-200); Estimated Glomerular Filt Rate 43 ml/min (>60); GFR (African American) 52 ML/MIN (>60); Glucose 116 mg/dl (74-100); Potassium 4.3 mmoL/L (3.5-5.1); Sodium 126 mmol/L (136-145)
[2024-01-23 07:27] LABS: MANUAL DIFFERENTIAL MANUAL DIFFERENTIAL (MANUAL DIFF)
[2024-01-23 07:31] LABS: Anion Gap 7.3 mEq/L (5-15); Carbon Dioxide 37 mmol/L (22.0-30.0)
[2024-01-23 07:41] LABS: Magnesium 2.2 mg/dl (1.6-2.3)
[2024-01-23] MEDS: HEPARIN SODIUM 5,000 UNIT/ML VIAL 5000 UNIT SQ ×2 (09:32→20:08)
[2024-01-23] MEDS: PANTOPRAZOLE 40MG TABLET 40 MG PO (09:33)
[2024-01-23] MEDS: RANOLAZINE 500MG ER TABLET 500 MG PO ×2 (09:34→20:08)
[2024-01-23] MEDS: POLYETHYLENE GLYCOL 3350 17 GM PACKET PO (09:34)
[2024-01-23] MEDS: SODIUM CHLORIDE 1,000MG TABLET 500 MG PO ×2 (09:35→20:09)
[2024-01-23 10:13] LABS: Hypochromasia 1+; Lymphocytes % 17 % (10-50); Monocytes % 1 % (2-9); Neutrophils % 82 % (42-76); Platelet Estimate Normal; Total Cells Counted 100
[2024-01-23] MEDS: BUMETANIDE 1 MG TABLET 2 MG PO (10:13)
[2024-01-23] MEDS: SPIRONOLACTONE 25MG TABLET 25 MG PO (10:13)
[2024-01-23 12:14] LABS: POC Glucose,Bedside 144 (70-110)
--- NOTE | 2024-01-23 12:15 | P.PN_ITS ---
Subjective *Date: 01/23/24 *Time: 13:18 Interval history: Patient remained stable on 2 to 3 L oxygen at rest. Continues to diurese well. -27 L since admission. Still having swelling in his penis/scrotum. Tolerating p.o. intake. Aside from swelling in his groin, states he feels pretty good. No nausea or vomiting. Tolerating p.o. intake. Medical Exam Vital signs and Labs for Last 24 Hours: Vital Signs Temp Pulse Pulse Resp BP Pulse Ox O2 Del Method 01/23/24 11:06 72 01/23/24 11:06 71 01/23/24 11:06 91 L Nasal Cannula 01/23/24 11:00 Nasal Cannula 01/23/24 09:00 Nasal Cannula 01/23/24 08:00 99.0 F 74 18 72/40 L 94 L Nasal Cannula 01/23/24 08:00 2 L Nasal Cannula 01/23/24 06:50 CPAP 01/23/24 05:16 72 01/23/24 05:16 70 01/23/24 05:16 97 BiPAP 01/23/24 05:16 01/23/24 05:00 CPAP 01/23/24 04:00 60 01/23/24 04:00 99.0 F 72 20 78/54 L 93 L Nasal Cannula 01/23/24 03:00 Nasal Cannula 01/23/24 01:00 Nasal Cannula 01/23/24 00:00 70 01/23/24 00:00 98.5 F 95 H 20 118/62 96 BiPAP 01/22/24 23:00 Nasal Cannula 01/22/24 23:00 75 01/22/24 23:00 76 01/22/24 22:51 01/22/24 21:00 Nasal Cannula 01/22/24 20:00 70 01/22/24 20:00 97 BiPAP 01/22/24 20:00 97.6 F 72 18 121/54 L 97 BiPAP 01/22/24 19:00 BiPAP 01/22/24 18:21 95 BiPAP 01/22/24 18:16 74 01/22/24 18:16 75 01/22/24 18:16 01/22/24 17:00 BiPAP 01/22/24 16:00 80 01/22/24 16:00 97.9 F 79 17 92/51 L 94 L CPAP 01/22/24 15:00 BiPAP 01/22/24 14:05 01/22/24 13:00 Nasal Cannula 01/22/24 12:55 82 01/22/24 12:55 80 O2 Flow Rate FiO2 01/23/24 11:06 01/23/24 11:06 01/23/24 11:06 3 01/23/24 11:00 01/23/24 09:00 01/23/24 08:00 01/23/24 08:00 01/23/24 06:50 01/23/24 05:16 01/23/24 05:16 01/23/24 05:16 30 01/23/24 05:16 30 01/23/24 05:00 01/23/24 04:00 01/23/24 04:00 3 01/23/24 03:00 2 01/23/24 01:00 2 01/23/24 00:00 01/23/24 00:00 01/22/24 23:00 2 01/22/24 23:00 01/22/24 23:00 01/22/24 22:51 30 01/22/24 21:00 2 01/22/24 20:00 01/22/24 20:00 01/22/24 20:00 01/22/24 19:00 01/22/24 18:21 30 01/22/24 18:16 01/22/24 18:16 01/22/24 18:16 30 01/22/24 17:00 01/22/24 16:00 01/22/24 16:00 01/22/24 15:00 01/22/24 14:05 30 01/22/24 13:00 2.5 01/22/24 12:55 01/22/24 12:55 Intake and Output 01/22/24 01/23/24 01/23/24 23:59 07:59 15:59 Intake Total 0 / 0 Output Total 2420 / 3520 750 / 750 0 / 750 Balance -2420 / -2290 -750 / -750 0 / -750 Intake: Intake, Oral Amount 0 / 0 Output: Output, Urine Amount 2420 / 3520 750 / 750 0 / 750 Other: Number of Voids 0 Weight 161.4 kg Patient Weight 09/26/24 23:59 Weight 161.4 kg Laboratory Results - last 24 hr 01/22/24 06:08: Total Counted 100, Neutrophils % (Manual) 73, Lymphocytes % (Manual) 16, Monocytes % (Manual) 5, Eosinophils % (Manual) 6 H, Platelet Estimate Slight increase, Hypochromasia 1+, Ovalocytes 1+ 01/22/24 11:48: POC Glucose 126 H 01/22/24 16:27: POC Glucose 147 H 01/22/24 20:31: POC Glucose 144 H 01/23/24 05:34: POC Glucose 133 H 01/23/24 06:25: WBC 18.4 H, RBC 4.16 L, Hgb 10.2 L, Hct 34.3 L, MCV 82.4, MCH 24.4 L, MCHC 29.7 L, RDW 18.0 H, Plt Count 399, MPV 8.5, Neut % (Auto) 83.4 H, Lymph % (Auto) 8.4 L, [place] % (Auto) 4.3, Eos % (Auto) 3.1, Baso % (Auto) 0.9, Neut # (Auto) 15.3 H, Lymph # (Auto) 1.5, [place] # (Auto) 0.8, Eos # (Auto) 0.6 H, Baso # (Auto) 0.2, Total Counted 100, Neutrophils % (Manual) 82 H, Lymphocytes % (Manual) 17, Monocytes % (Manual) 1 L, Platelet Estimate Normal, Hypochromasia 1+, Sodium 126 L, Potassium 4.3, Chloride 86 L, Carbon Dioxide 37 H, Anion Gap 7.3, BUN 27 H, Creatinine 1.60 H, Estimated Creat Clear 48, Estimated GFR 43 L, Est GFR ( Amer) 52 L, Glucose 116 H, Calcium 8.5, Magnesium 2.2 01/23/24 12:03: POC Glucose 144 H I & O for Labs for Last 24 Hours: Intake & Output 01/20/24 01/21/24 01/22/24 01/23/24 23:59 23:59 23:59 23:59 Intake Total 940 / 1140 1995 / 2445 1230 / 1230 0 / 0 Output Total 5800 / 6400 4650 / 4650 2770 / 3520 750 / 750 Balance -4860 / -1090 -2655 / -2205 -1540 / -2290 -750 / -750 Weight 161.6 kg 161.6 kg 161.2 kg 161.4 kg Constitutional: Present no acute distress, morbidly obese, chronically ill appearing and cooperative Head: Present atraumatic and normocephalic ENT: Present normal exam Comment:: Cushingoid face, buffalo hump, prominent neck Comment:: prominent neck. Unable to assess landmarks due to obesity Respiratory: Present prolonged expiratory phase, rhonchi, crackles (Left lung field, intervally improving), distant breath sounds and diminished air movement; Absent wheezes Cardiac: Present Reg Rate and Rhythm GI: Present soft, distention and normal bowel sounds; Absent tenderness Comment:: Penis severely swollen with 3+ edema in penis and suprapubic region. Catheter still in place Extremities: Present normal inspection and full ROM; Absent tenderness or edema Comment:: Chronic stasis dermatitis Skin: Present intact; Absent erythema Neuro: Present Grossly Intact, alert, awake, oriented x 3 and moves all extremities Assessment and Plan *Assessment and plan (1) Acute on chronic respiratory failure with hypoxia and hypercapnia: Status: Acute Category: Medical Code(s): J96.21 - Acute and chronic respiratory failure with hypoxia; J96.22 - Acute and chronic respiratory failure with hypercapnia (2) Pneumonia: Status: Acute Category: Medical Code(s): J18.9 - Pneumonia, unspecified organism (3) Hyponatremia: Status: Acute Category: Medical Code(s): E87.1 - Hypo-osmolality and hyponatremia (4) Penile edema: Status: Acute Category: Medical Code(s): N48.89 - Other specified disorders of penis (5) Acute exacerbation of CHF (congestive heart failure): Status: Acute Qualifiers: Heart failure type: diastolic Qualified Code(s): I50.33 - Acute on chronic diastolic (congestive) heart failure Category: Medical Code(s): I50.9 - Heart failure, unspecified (6) OSMANI (acute kidney injury): Status: Acute Category: Medical Code(s): N17.9 - Acute kidney failure, unspecified (7) Acute metabolic encephalopathy: Status: Acute Category: Medical Code(s): G93.41 - Metabolic encephalopathy (8) Pickwickian syndrome: Status: Acute Category: Medical Code(s): E66.2 - Morbid (severe) obesity with alveolar hypoventilation (9) Septic shock: Status: Acute Category: Medical Code(s): A41.9 - Sepsis, unspecified organism; R65.21 - Severe sepsis with septic shock (10) Morbid obesity: Status: Acute Category: Medical Code(s): E66.01 - Morbid (severe) obesity due to excess calories (11) Hypothyroid: Status: Acute Category: Medical Code(s): E03.9 - Hypothyroidism, unspecified (12) Heart failure with preserved ejection fraction: Status: Acute Qualifiers: Heart failure chronicity: acute on chronic Qualified Code(s): I50.33 - Acute on chronic diastolic (congestive) heart failure Category: Medical Code(s): I50.30 - Unspecified diastolic (congestive) heart failure (13) Scrotal edema: Status: Acute Category: Medical Code(s): N50.89 - Other specified disorders of the male genital organs Plan Mr. Wu is a morbidly obese 68-year-old male with history of heart failure with preserved ejection fraction, chronic respiratory failure on home BiPAP, chronically on 3 L oxygen, with CKD and recent admission for respiratory failure a month ago to [place]. He presented via EMS for acute worsening and concern for sepsis with respiratory failure. Workup in the ER concerning for pneumonia, development of septic shock, and respiratory failure. Initiated on BiPAP. Discussed case with ER, request admission for ICU level of care and further management. Medicine agreed to admit. Received broad-spectrum antibio tics in the ER. Cultures obtained. Pulmonology consulted to assist with care including BiPAP management and critical care. Tolerating 2-3L nasal cannula during the day. BiPAP at night. Continues to require inpatient management. Patient would benefit from rehab for placement. Refuses placement. Is adamant he will go home. Therapy working with him daily. Anticipate discharge tomorrow. High risk for readmission. Case management assisting with care daily. Problems addressed as follows: #Sepsis #Pneumonia ? Discussed case with pulmonology, recommend completing 10 days of antibiotics, clindamycin to complete course. - Continue Trelegy 100 inhaler along with DuoNebs every 6 hours scheduled. Continue BiPAP at night for sleep apnea for OHS at 16/8. - Goal sats greater 90% during the day, room air if tolerated, has been tolerating 1 to 2 L intermittently along with brief periods of room air. ? Initial respiratory culture revealed strep pneumonia sensitive to vancomycin, ceftriaxone. ?White cell count stable 18. No fever or new symptoms. Repeat CBC, CMP, magnesium ordered for the morning. #Acute hypoxic on chronic respiratory failure #HFpEF exacerbation #Bilateral pleural effusions #Obesity hypoventilation syndrome - Echocardiogram obtained showing preserved ejection fraction 60% with diastolic dysfunction. EKG shows old FL's - Fluid overload improving with dieuresis, cardiology consulted. ? Bumex 2 mg daily. Patient becoming euvolemic. -27 L since admission. - Kidney function with BUN 27, creatinine 1.6. Sodium essentially the same as yesterday at 126. Continue oral sodium chloride 500 mg twice daily. Potassium 4.3, magnesium 2.2. Holding replacement today. Monitor with BMP, CBC, magnesium in the morning ? Strict SEGUNDO's, bed elevation, fluid/water restriction. ? Continue BiPAP nightly. #Distended gallbladder ? Noted on CT abdomen/pelvis. However, patient has no RUQ pain, and tolerating diet. But given that patient has sepsis with unclear source, and out of proportion to pneumonia - RUQ ultrasound with no acute findings. Shows fatty liver. No stones or sludge per my review #Scrotal, penile, suprapubic edema #Sacral contact dermatitis, skin breakdown ? Significant scrotal and penis edema continues to improve, without tenderness ongoing since HFrEF exacerbation. -Remove Kennedy today, monitor for spontaneous voiding. Discussed case informally with urology, recommend treating underlying cause which is his heart failure. Elevate scrotum and penis if at all possible by having patient lay flat. If unable to void independently, replace Kennedy and have outpatient follow-up ? Wound care consulted, appreciate recommendations. Barrier cream applied. ? Continue diuresis as above and follow scrotal edema. - No tenderness, necrosis noted. #OSMANI ? Acceptable bump in creatinine. Creatinine essentially stable at 1.6 today. Will continue to monitor and continue diuresis at this time. Hypothyroid: TSH of 24 on admission. Continue oral levothyroxine at increased dose of 175 mcg daily. Repeat on 01/12 2.54. Diabetes: A1c 6.8. Sliding scale insulin fingersticks every 6 hours given diabetes diagnosis and steroid use as above. Morning glucose 106 Metabolic alkalosis: Continue acetazolamide 250 mg twice daily Medical surrogate is his significant other Anamika Bowers. Full code Diabetic diet Heparin 5000 units 3 times daily
[2024-01-23] MEDS: BISACODYL 10MG SUPP 10 MG RC (14:28)
[2024-01-23 17:42] LABS: POC Glucose,Bedside 145 (70-110)
--- NOTE | 2024-01-23 17:51 | PC.NURSE ---
patient refused to have acuña removed. MD notified, patient stated he wanted to wait until the morning to have it removed.
[2024-01-23] MEDS: TAMSULOSIN 0.4MG CAPSULE 0.4 MG PO (20:08)
[2024-01-23] MEDS: ATORVASTATIN 20MG TABLET 20 MG PO (20:08)
[2024-01-23 20:09] LABS: POC Glucose,Bedside 169 (70-110)
[2024-01-23] MEDS: MINERAL OIL ENEMA 133ML 133 ML RC (20:09)
--- NOTE | 2024-01-23 21:35 | EXP.EVENT.NO ---
Patient with CHF exacerbation and scrotal edema on chronic oxygen presents with recurrent hypotension. Patient's blood pressure 80/46. Patient's BP normal at beginning of shift. Will administer midodrine 5 mg x 1, and IV albumin 25 g x 1. Patient also had 5-6 beat run nonsustained V. tach. Patient is sleeping currently and asymptomatic at this time.
[2024-01-23] MEDS: MIDODRINE HCL 5 MG TABLET PO (21:53)
[2024-01-23] MEDS: ALBUMIN HUMAN 12.5 GM/50 ML BAG IV ×2 (22:20→22:34)
[2024-01-24] VITALS (11 sets, daily range): BP systolic 72–110; BP diastolic 43–58; PULSE 60–78; RESP 16–27; TEMP 36.6–36.9; O2SAT 94–97; BMI 47.2
[2024-01-24] MEDS: CLINDAMYCIN PHOSPHATE/D5W 900 MG/50 ML PIGGYBACK 100 MG IV ×3 (00:09→18:42)
--- NOTE | 2024-01-24 00:38 | PC.NURSE ---
Dr Linder notified of BP 72/51. To order another 5 mg midodrine po.
[2024-01-24] MEDS: MIDODRINE HCL 5 MG TABLET PO ×2 (00:45→08:34)
--- NOTE | 2024-01-24 04:28 | PC.NURSE ---
Resting in bed. BPs remain low. BP this AM at 4 AM is 72/47, HR 71. Dr Linder notified. No new orders at this time.
--- NOTE | 2024-01-24 04:31 | PC.NURSE ---
Manual BP 110/58
--- NOTE | 2024-01-24 04:48 | PC.NURSE ---
Generalized edema. Abdomen round, firm, edematous. Bowel sounds present. Penis and scrotum very swollen/edematous, red, raw areas present om scrotum and penis/periarea. Barrier cream applied. Kennedy cath to be removed this AM. Most likely urethra will occlude due to edema. Has used BIPAP all evening and this AM. BPs remain low dispite Midodrine x 2 doses and Albumin 25GM IV. 1st degree AVB/BBB on tele.
[2024-01-24] MEDS: LEVOTHYROXINE 150MCG (0.15MG)TAB 150 MCG PO (06:16)
[2024-01-24 06:18] LABS: Basophils # 0.1 K/mm3 (0-0.2); Basophils % 0.7 % (0.1-2.0); Eosinophils # 0.5 K/mm3 (0.0-0.4); Hematocrit 34.1 % (42.0-52.0); Lymphocytes # 1.3 K/mm3 (0.7-4.5); Lymphocytes % 10.3 % (10-50); Mean Corpuscular HGB Conc 29.2 g/dL (31.8-35.4); Mean Corpuscular Volume 82.3 fl (80-94); Mean Platelet Volume 8.3 fl (7.4-10.4); Monocytes # 0.6 K/mm3 (0.1-1.0); Monocytes % 4.6 % (1.7-9.3); Neutrophils # 10.4 K/mm3 (1.8-7.8); Neutrophils % 80.4 % (37.0-80.0); Platelet Count 407 K/mm3 (142-424); Red Blood Count 4.15 M/mm3 (4.60-6.20); Red Cell Distribution Width 18.2 % (11.5-17.5)
[2024-01-24] MEDS: FLUTICASONE/UMECLIDIN/VILANTER 200/62.5/25MCG INHALER 1 PUFF IH (06:25)
[2024-01-24] MEDS: IPRATROPIUM/ALBUTEROL 3 ML NEB IH ×2 (06:25→11:17)
--- NOTE | 2024-01-24 06:26 | PC.NURSE ---
pulled iv to RAC out by accident. New IV site RFA #20 x 1 stick, flushed well and saline locked.
[2024-01-24 06:29] LABS: Alanine Aminotransferase 17 U/L (12-78); Alkaline Phosphatase 69 U/L (38-126); Aspartate Amino Transferase 25 U/L (17-59); Bilirubin,Total 0.4 mg/dl (0.2-1.3); Blood Urea Nitrogen 25 mg/dl (9-20); Calcium 8.2 mg/dl (8.4-10.2); Chloride 87 mmol/L (98-107); Creatinine Clearance Estimated 51 mL/min (50-200); Estimated Glomerular Filt Rate 46 ml/min (>60); GFR (African American) 56 ML/MIN (>60); Globulin 2.9 g/dL (1.3-3.2); Glucose 87 mg/dl (74-100); Potassium 4.3 mmoL/L (3.5-5.1); Sodium 127 mmol/L (136-145); Total Protein,Serum 5.9 g/dl (6.3-8.2)
[2024-01-24 06:34] LABS: Magnesium 2.1 mg/dl (1.6-2.3)
[2024-01-24 06:36] LABS: Anion Gap 6.3 mEq/L (5-15); Carbon Dioxide 38 mmol/L (22.0-30.0)
[2024-01-24] MEDS: ALBUMIN HUMAN 12.5 GM/50 ML BAG IV ×2 (08:34→09:46)
[2024-01-24] MEDS: HEPARIN SODIUM 5,000 UNIT/ML VIAL 5000 UNIT SQ ×2 (08:35→20:02)
[2024-01-24] MEDS: PANTOPRAZOLE 40MG TABLET 40 MG PO (08:35)
[2024-01-24] MEDS: POLYETHYLENE GLYCOL 3350 17 GM PACKET PO (08:35)
[2024-01-24] MEDS: SODIUM CHLORIDE 1,000MG TABLET 500 MG PO ×2 (08:36→20:02)
[2024-01-24] MEDS: SENNOSIDES 8.6MG/DOCUSATE 50MG TABLET 2 TAB PO ×2 (08:38→20:02)
--- NOTE | 2024-01-24 09:38 | EXP.ACUTE.PN ---
Subjective *Date: 01/24/24 *Time: 10:44 Interval history: Overall feeling better. Catheter removed this morning, has voided independently once. Still has significant penile swelling. Afebrile overnight. Concern for blood pressures being low on automated cuff. Manuals improved. Asymptomatic however. Tolerating 2 L nasal cannula oxygen. No nausea or vomiting. Still no bowel movement yet. Medical Exam Vital signs and Labs for Last 24 Hours: Vital Signs Temp Pulse Pulse Resp BP Pulse Ox O2 Del Method 01/24/24 08:00 98.5 F 68 20 86/43 L 96 CPAP 01/24/24 06:27 Nasal Cannula 01/24/24 05:00 Room Air, Nasal Cannula 01/24/24 04:00 97.9 F 68 16 110/58 L 97 BiPAP 01/24/24 04:00 77 01/24/24 03:00 BiPAP 01/24/24 02:11 01/24/24 01:00 BiPAP 01/24/24 00:00 97.8 F 75 18 72/51 L 94 L Nasal Cannula 01/24/24 00:00 71 01/23/24 23:08 73 01/23/24 23:08 76 01/23/24 23:00 Room Air 01/23/24 21:59 01/23/24 21:00 Room Air 01/23/24 20:00 99 BiPAP 01/23/24 20:00 80 01/23/24 20:00 97.8 F 70 20 80/46 L 99 BiPAP 01/23/24 19:00 CPAP 01/23/24 18:51 72 01/23/24 18:51 74 01/23/24 18:51 96 BiPAP 01/23/24 18:51 01/23/24 17:00 Nasal Cannula 01/23/24 16:00 98.8 F 80 17 115/83 90 L CPAP 01/23/24 15:00 Nasal Cannula 01/23/24 13:00 Nasal Cannula 01/23/24 12:00 98.9 F 73 18 74/41 L 97 Nasal Cannula 01/23/24 11:06 72 01/23/24 11:06 71 01/23/24 11:06 91 L Nasal Cannula 01/23/24 11:00 Nasal Cannula O2 Flow Rate FiO2 01/24/24 08:00 01/24/24 06:27 2 01/24/24 05:00 01/24/24 04:00 01/24/24 04:00 01/24/24 03:00 30 01/24/24 02:11 30 01/24/24 01:00 30 01/24/24 00:00 2 01/24/24 00:00 01/23/24 23:08 01/23/24 23:08 01/23/24 23:00 01/23/24 21:59 30 01/23/24 21:00 01/23/24 20:00 30 01/23/24 20:00 01/23/24 20:00 01/23/24 19:00 01/23/24 18:51 01/23/24 18:51 01/23/24 18:51 30 01/23/24 18:51 30 01/23/24 17:00 01/23/24 16:00 01/23/24 15:00 3 01/23/24 13:00 01/23/24 12:00 01/23/24 11:06 01/23/24 11:06 01/23/24 11:06 3 01/23/24 11:00 Intake and Output 01/23/24 01/24/24 01/24/24 23:59 07:59 15:59 Intake Total 360 / 990 470 / 810 340 / 810 Output Total 0 / 3400 1500 / 1500 Balance 360 / -2410 -1030 / -690 340 / -690 Intake: Intake, Oral Amount 360 / 840 320 / 660 340 / 660 Intake, Oral Supplement Amount 0 / 0 Intake, Total IV Amount 150 / 150 Albumin Human 12.5 gm In 50 ml 50 / 50 @ 100 mls/hr IV ONCE ONE Rx#: [id number] Albumin Human 12.5 gm In 50 ml 50 / 50 @ 100 mls/hr IV ONCE ONE Rx#: [id number] Clindamycin Phosphate/D5w 900 50 / 50 mg In 50 ml @ 100 mls/hr IV Q8H [facility] Rx#:[id number] Output: Output, Urine Amount 0 / 3400 1500 / 1500 Other: Number of Voids 0 Number of Unmeasured Voids 0 Weight 158 kg Patient Weight 01/24/24 23:59 Weight 158 kg Laboratory Results - last 24 hr 01/23/24 06:25: Total Counted 100, Neutrophils % (Manual) 82 H, Lymphocytes % (Manual) 17, Monocytes % (Manual) 1 L, Platelet Estimate Normal, Hypochromasia 1+ 01/23/24 12:03: POC Glucose 144 H 01/23/24 17:34: POC Glucose 145 H 01/23/24 20:03: POC Glucose 169 H 01/24/24 05:48: WBC 13.0 H D, RBC 4.15 L, Hgb 10.0 L, Hct 34.1 L, MCV 82.3, MCH 24.0 L, MCHC 29.2 L, RDW 18.2 H, Plt Count 407, MPV 8.3, Neut % (Auto) 80.4 H, Lymph % (Auto) 10.3, [place] % (Auto) 4.6, Eos % (Auto) 4.0, Baso % (Auto) 0.7, Neut # (Auto) 10.4 H, Lymph # (Auto) 1.3, [place] # (Auto) 0.6, Eos # (Auto) 0.5 H, Baso # (Auto) 0.1, Sodium 127 L, Potassium 4.3, Chloride 87 L, Carbon Dioxide 38 H, Anion Gap 6.3, BUN 25 H, Creatinine 1.50 H, Estimated Creat Clear 51, Estimated GFR 46 L, Est GFR ( Amer) 56 L, Glucose 87 D, Calcium 8.2 L, Magnesium 2.1, Total Bilirubin 0.4, AST 25, ALT 17, Alkaline Phosphatase 69, Total Protein 5.9 L, Albumin 3.0 L, Globulin 2.9, Albumin/Globulin Ratio 1.0 L I & O for Labs for Last 24 Hours: Intake & Output 01/21/24 01/22/24 01/23/24 01/24/24 23:59 23:59 23:59 23:59 Intake Total 1994 / 2444 1230 / 1230 720 / 990 810 / 810 Output Total 4650 / 4650 2770 / 3520 2400 / 3400 1500 / 1500 Balance -2655 / -2205 -1540 / -2290 -1680 / -2410 -690 / -690 Weight 161.6 kg 161.2 kg 161.4 kg 158 kg Constitutional: Present no acute distress, morbidly obese, chronically ill appearing and cooperative Head: Present atraumatic and normocephalic ENT: Present normal exam Comment:: Cushingoid face, buffalo hump, prominent neck Comment:: prominent neck. Unable to assess landmarks due to obesity Respiratory: Present prolonged expiratory phase, rhonchi, crackles (Left lung field, intervally improving), distant breath sounds and diminished air movement; Absent wheezes Cardiac: Present Reg Rate and Rhythm GI: Present soft, distention and normal bowel sounds; Absent tenderness Comment:: Penis severely swollen with 3+ edema in penis and suprapubic region. Catheter still in place Extremities: Present normal inspection and full ROM; Absent tenderness or edema Comment:: Chronic stasis dermatitis Skin: Present intact; Absent erythema Neuro: Present Grossly Intact, alert, awake, oriented x 3 and moves all extremities Assessment and Plan *Assessment and plan (1) Acute on chronic respiratory failure with hypoxia and hypercapnia: Status: Acute Category: Medical Code(s): J96.21 - Acute and chronic respiratory failure with hypoxia; J96.22 - Acute and chronic respiratory failure with hypercapnia (2) Pneumonia: Status: Acute Category: Medical Code(s): J18.9 - Pneumonia, unspecified organism (3) Hyponatremia: Status: Acute Category: Medical Code(s): E87.1 - Hypo-osmolality and hyponatremia (4) Penile edema: Status: Acute Category: Medical Code(s): N48.89 - Other specified disorders of penis (5) Acute exacerbation of CHF (congestive heart failure): Status: Acute Qualifiers: Heart failure type: diastolic Qualified Code(s): I50.33 - Acute on chronic diastolic (congestive) heart failure Category: Medical Code(s): I50.9 - Heart failure, unspecified (6) OSMANI (acute kidney injury): Status: Acute Category: Medical Code(s): N17.9 - Acute kidney failure, unspecified (7) Acute metabolic encephalopathy: Status: Acute Category: Medical Code(s): G93.41 - Metabolic encephalopathy (8) Pickwickian syndrome: Status: Acute Category: Medical Code(s): E66.2 - Morbid (severe) obesity with alveolar hypoventilation (9) Septic shock: Status: Acute Category: Medical Code(s): A41.9 - Sepsis, unspecified organism; R65.21 - Severe sepsis with septic shock (10) Morbid obesity: Status: Acute Category: Medical Code(s): E66.01 - Morbid (severe) obesity due to excess calories (11) Hypothyroid: Status: Acute Category: Medical Code(s): E03.9 - Hypothyroidism, unspecified (12) Heart failure with preserved ejection fraction: Status: Acute Qualifiers: Heart failure chronicity: acute on chronic Qualified Code(s): I50.33 - Acute on chronic diastolic (congestive) heart failure Category: Medical Code(s): I50.30 - Unspecified diastolic (congestive) heart failure (13) Scrotal edema: Status: Acute Category: Medical Code(s): N50.89 - Other specified disorders of the male genital organs Plan Mr. Wu is a morbidly obese 68-year-old male with history of heart failure with preserved ejection fraction, chronic respiratory failure on home BiPAP, chronically on 3 L oxygen, with CKD and recent admission for respiratory failure a month ago to [place]. He presented via EMS for acute worsening and concern for sepsis with respiratory failure. Workup in the ER concerning for pneumonia, development of septic shock, and respiratory failure. Initiated on BiPAP. Discussed case with ER, request admission for ICU level of care and further management. Medicine agreed to admit. Received broad-spectrum antibiotics in the ER. Cultures obtained. Pulmonology consulted to assist with care including BiPAP management and critical care. Tolerating 2-3L nasal cannula during the day. BiPAP at night. Continues to require inpatient management. Patient would benefit from rehab for placement. Refuses placement. Is adamant he will go home. Therapy working with him daily. Anticipate discharge tomorrow. High risk for readmission. Case management assisting with care daily. Problems addressed as follows: #Sepsis #Pneumonia ? Discussed case with pulmonology, recommend completing 10 days of antibiotics, clindamycin to complete course. - Continue Trelegy 100 inhaler along with DuoNebs every 6 hours scheduled. Continue BiPAP at night for sleep apnea for OHS at 16/8. - Goal sats greater 90% during the day, room air if tolerated, has been tolerating 1 to 2 L intermittently along with brief periods of room air. ? Initial respiratory culture revealed strep pneumonia sensitive to vancomycin, ceftriaxone. ?White cell count improved to 13. No fever or new symptoms. Repeat CBC, CMP, magnesium ordered for the morning. #Acute hypoxic on chronic respiratory failure #HFpEF exacerbation #Bilateral pleural effusions #Obesity hypoventilation syndrome - Echocardiogram obtained showing preserved ejection fraction 60% with diastolic dysfunction. EKG shows old ND's - Fluid overload improving with dieuresis, cardiology consulted. ? Bumex 2 mg daily. Patient becoming euvolemic. -28.5 L since admission. - Kidney function with BUN 25, creatinine 1.5. Sodium slightly improving, 127 today. Continue oral sodium chloride 500 mg twice daily. Potassium 4.3, magnesium 2.1. Holding replacement today. Monitor with BMP, CBC, magnesium in the morning ? Strict SEGUNDO's, bed elevation, fluid/water restriction. ? Continue BiPAP nightly or 1 asleep #Distended gallbladder ? Noted on CT abdomen/pelvis. However, patient has no RUQ pain, and tolerating diet. But given that patient has sepsis with unclear source, and out of proportion to pneumonia - RUQ ultrasound with no acute findings. Shows fatty liver. No stones or sludge per my review #Scrotal, penile, suprapubic edema #Sacral contact dermatitis, skin breakdown ? Significant scrotal and penis edema continues to improve, without tenderness ongoing since HFrEF exacerbation. - Remove Kennedy today, monitor for spontaneous voiding. Elevate scrotum and penis if at all possible by having patient lay flat. If unable to void independently, replace Kennedy and have outpatient follow-up ? Wound care consulted, appreciate recommendations. Barrier cream applied. ? Continue diuresis as above and follow scrotal edema. - No tenderness, necrosis noted. #OSMANI ? Acceptable bump in creatinine. Creatinine stable at 1.5. will continue to monitor and continue diuresis at this time. Hypothyroid: TSH of 24 on admission. Continue oral levothyroxine at increased dose of 175 mcg daily. Repeat on 01/12 2.54. Diabetes: A1c 6.8. Sliding scale insulin fingersticks every 6 hours given diabetes diagnosis and steroid use as above. Morning glucose 87 Metabolic alkalosis: Continue acetazolamide 250 mg twice daily Medical surrogate is his significant other Anamika Bowers. Full code Diabetic diet Heparin 5000 units 3 times daily
[2024-01-24] MEDS: RANOLAZINE 500MG ER TABLET 500 MG PO ×2 (10:43→20:02)
[2024-01-24] MEDS: BUMETANIDE 1 MG TABLET 2 MG PO (10:44)
[2024-01-24] MEDS: SPIRONOLACTONE 25MG TABLET 25 MG PO (10:44)
--- NOTE | 2024-01-24 11:22 | P.PN_ITS ---
Subjective *Date: 01/24/24 *Time: 11:22 Interval history: No acute respiratory vents overnight. Patient denies any new respiratory complaints. Continue to admit complaince with his BiPAP therapy while asleep Pulmonology Exam Inpatient Vital signs and Labs for Last 24 Hours: Temp Pulse Resp BP Pulse Ox O2 Del Method O2 Flow Rate 98.5 F 78 20 86/43 L 96 CPAP 2 01/24/24 08:00 01/24/24 11:17 01/24/24 08:00 01/24/24 08:00 01/24/24 08:00 01/24/24 08:00 01/24/24 06:27 FiO2 30 01/24/24 11:17 Laboratory Results - last 24 hr 01/23/24 12:03: POC Glucose 144 H 01/23/24 17:34: POC Glucose 145 H 01/23/24 20:03: POC Glucose 169 H 01/24/24 05:48: WBC 13.0 H D, RBC 4.15 L, Hgb 10.0 L, Hct 34.1 L, MCV 82.3, MCH 24.0 L, MCHC 29.2 L, RDW 18.2 H, Plt Count 407, MPV 8.3, Neut % (Auto) 80.4 H, Lymph % (Auto) 10.3, [place] % (Auto) 4.6, Eos % (Auto) 4.0, Baso % (Auto) 0.7, Neut # (Auto) 10.4 H, Lymph # (Auto) 1.3, [place] # (Auto) 0.6, Eos # (Auto) 0.5 H, Baso # (Auto) 0.1, Sodium 127 L, Potassium 4.3, Chloride 87 L, Carbon Dioxide 38 H, Anion Gap 6.3, BUN 25 H, Creatinine 1.50 H, Estimated Creat Clear 51, Estimated GFR 46 L, Est GFR ( Amer) 56 L, Glucose 87 D, Calcium 8.2 L, Magnesium 2.1, Total Bilirubin 0.4, AST 25, ALT 17, Alkaline Phosphatase 69, Total Protein 5.9 L, Albumin 3.0 L, Globulin 2.9, Albumin/Globulin Ratio 1.0 L Temp Pulse Resp BP Pulse Ox O2 Del Method O2 Flow Rate 98.4 F 88 24 86/56 L 95 Nasal Cannula 5 01/17/24 08:00 01/17/24 09:00 01/17/24 09:00 01/17/24 09:00 01/17/24 09:00 01/17/24 09:05 01/17/24 09:05 FiO2 40 01/17/24 06:20 Laboratory Results - last 24 hr 01/16/24 11:12: POC Glucose 158 H 01/16/24 18:18: Vancomycin Trough 28.4 H 01/16/24 18:28: Hgb 11.1 L, Hct 39.4 L 01/16/24 21:27: POC Glucose 158 H 01/17/24 05:32: WBC 28.8 H*, RBC 4.38 L, Hgb 10.5 L, Hct 37.6 L, MCV 85.7, MCH 24.1 L, MCHC 28.1 L, RDW 16.9, Plt Count 343, MPV 8.6, Neut % (Auto) 89.9 H, Lymph % (Auto) 4.5 L, [place] % (Auto) 4.5, Eos % (Auto) 0.8, Baso % (Auto) 0.2, Neut # (Auto) 25.8 H, Lymph # (Auto) 1.3, [place] # (Auto) 1.3 H, Eos # (Auto) 0.2, Baso # (Auto) 0.1, Total Counted 100, Neutrophils % (Manual) 89 H, Lymphocytes % (Manual) 6 L, Monocytes % (Manual) 4, Eosinophils % (Manual) 1, Platelet Estimate Normal, RBC Morphology Normal, ESR 52 H, Sodium 131 L, Potassium 3.3 L, Chloride 89 L, Carbon Dioxide 35 H, Anion Gap 10.3, BUN 20, Creatinine 1.50 H, Estimated Creat Clear 51, Estimated GFR 46 L, Est GFR ( Amer) 56 L, Glucose 162 H D, Lactate 1.0, Calcium 8.6, Magnesium 2.1, Total Bilirubin 0.5, AST 18, ALT 16, Alkaline Phosphatase 112, C-Reactive Protein 294.2 H, Total Protein 6.3, Albumin 2.8 L, Globulin 3.5 H, Albumin/Globulin Ratio 0.8 L, Random Vancomycin 19.1 I & O for Labs for Last 24 Hours: Intake & Output 01/21/24 01/22/24 01/23/24 09/27/24 23:59 23:59 23:59 23:59 Intake Total 1994 / 5 1230 / 1230 720 / 990 810 / 810 Output Total 4650 / 4650 2770 / 3520 2400 / 3400 1500 / 1500 Balance -2655 / -2205 -1540 / -2290 -1680 / -2410 -690 / -690 Weight 356 lb 4.272 oz 355 lb 6.162 oz 355 lb 13.217 oz 348 lb 5.286 oz Intake & Output 01/14/24 01/15/24 01/16/24 01/17/24 23:59 23:59 23:59 23:59 Intake Total 1262.833 / 1217.907 9747.417 / 7332.062 8414.626 / 2363.626 344.658 / 344.658 Output Total 5750 / 6200 5000 / 5200 3050 / 3250 1100 / 1100 Balance -4487.167 / -4937.167 -3827.583 / -3214.583 -691.374 / -886.374 -755.342 / -755.342 Weight 354 lb 8.053 oz 354 lb 8.053 oz 353 lb 13.471 oz 353 lb 13.471 oz Microbiology Reports for the Last 24 Hours: Microbiology 01/16/24 09:05 Blood Blood Culture - Preliminary NO GROWTH AFTER 24 HOURS 01/16/24 09:00 Blood Blood Culture - Preliminary NO GROWTH AFTER 24 HOURS 01/13/24 01:45 Blood Blood Culture - Preliminary NO GROWTH AFTER 4 DAYS 01/13/24 01:35 Blood Blood Culture - Preliminary NO GROWTH AFTER 4 DAYS 01/12/24 22:50 Sputum - Expectorated Sputum Gram Stain - Final 01/12/24 22:50 Sputum - Expectorated Sputum Sputum Culture - Final Streptococcus pneumoniae Constitutional: Present severe distress Head: Present normocephalic and atraumatic ENT: Present normal exam, normal oropharynx and mucous membranes moist Neck: Present normal inspection and full ROM Respiratory: Present rhonchi, normal respiratory effort and able to speak in complete sentences; Absent respiratory distress or wheezes Cardiac: Present S1/S2 and Tachycardia; Absent Regular Rhythm GI: Present soft and distention; Absent tenderness or guarding Skin: Present wounds, rash and cracked; Absent intact, cyanosis or jaundice Neuro: Present alert and awake; Absent oriented x 3 Extremities: Present edema; Absent normal inspection, clubbing or cyanosis Psychiatric: Present normal affect and cooperative Assessment and Plan *Assessment and plan (1) Pneumonia: Status: Acute Category: Medical Code(s): J18.9 - Pneumonia, unspecified organism (2) Pickwickian syndrome: Status: Acute Category: Medical Code(s): E66.2 - Morbid (severe) obesity with alveolar hypoventilation Plan Mr. Wu is a 68-year-old male greater than [id number] smoking history history of COPD, OHS on chronic BiPAP therapy, 5 L nasal cannula oxygen supplementation presented to the ER complaining of worsening respiratory distress bilateral lower extremity swelling and pulmonary was called for further evaluation and management as patient shock with worsening hemodynamics needing vasopressor support CT scan concerning for right lower lobe pneumonia. Febrile upon admission to 101.2. Neutrophilic predominant leukocytosis. CT chest 01/16/24 - right lower lobe dense consolidative/atelectatic changes. Partially present on her CT from July 2023 slightly worsening. Very small bilateral pleural effusions not likely contributing to patient's current respiratory distress. the previous noted left lower lobe dense consolidative changes almost resolved. Significantly lower lung volumes likely from body habitus. Blood gas upon admission from 01/12/2024 chronic hypercarbic respiratory failure. Sputum cultures on this admission grew strep pneumonia Currently receiving vancomycin meropenem and azithromycin. Oxygen requirement stable since admission at 4 to 5 L nasal cannula. The CT scan does not appear to be the source of patient's new shock needing vaso pressors given his stable ox requirements. Other possible etiology including cellulitis/bacteremia/cholecystitis. Pending right upper quadrant ultrasound and repeat blood cultures. Lower extremity venous Doppler negative for DVT. Nasal MRSA PCR negative. Sputum no growth. Interval update:. Worsening leukocytosis. Antibiotics Changed to clindamycin. Will closely monitor. Stable oxygen requirements. Chest x-ray stable with no acute infiltrates. Left pleural effusion noted Plan: -Continue clindamycin for 2 out of 10 days from pulmonary standpoint for the concerning right lower lobe pneumonia. -Trelegy 100 inhaler along with DuoNebs every 6 hours PRN -Continue BiPAP therapy while asleep for OHS at 16/8 # Thank you for involving pulmonary in this patient care. Will follow the patient in pulmonary clinic in 3 to 4 weeks post discharge.
--- NOTE | 2024-01-24 15:27 | DIET.NUTRFU ---
Patient has not had a BM since 01/17, multiple BM meds have been ordered over the 3 days. Anticipating discharge after BM. Miralax provided the last 3 days, senekot added today, suppository given 01/22, mineral oil enema 01/22. Continues diuretic tx for edema. Continues on diabetic/cardiac diet with good po intake.
[2024-01-24 16:47] LABS: POC Glucose,Bedside 103 (70-110)
--- NOTE | 2024-01-24 17:00 | PC.NURSE ---
per Dr. Torres, pt can come off telemetry and can be Q8 vitals
--- NOTE | 2024-01-24 17:29 | PC.NURSE ---
D/C acuña at 0745 this shift. pt has voided 750 mls since acuña removal along with 2 unmeasured voids. post residual bladder scan shows 79 mls remaining. notified. pt stated he felt shaky and dizzy after being pulled up in the bed, blood pressure 96/48, 69 HR, 94 % 3LNC, RR 22, MD notified. pt states he has calmed down and is now eating his dinner. still no BMs this shift. no further requests at this time, call light within reach.
--- NOTE | 2024-01-24 18:18 | PC.NURSE ---
pt had a large BM at 1800.
[2024-01-24 18:55] LABS: POC Glucose,Bedside 125 (70-110)
[2024-01-24 18:55] LABS: POC Glucose,Bedside 152 (70-110)
[2024-01-24] MEDS: TAMSULOSIN 0.4MG CAPSULE 0.4 MG PO (20:02)
[2024-01-24] MEDS: ATORVASTATIN 20MG TABLET 20 MG PO (20:03)
[2024-01-24 20:33] LABS: POC Glucose,Bedside 141 (70-110)
--- NOTE | 2024-01-24 21:04 | PC.NURSE ---
Manual BP 90/62
[2024-01-25] MEDS: CLINDAMYCIN PHOSPHATE/D5W 900 MG/50 ML PIGGYBACK 100 MG IV ×2 (00:34→08:10)
[2024-01-25] MEDS: ACETAMINOPHEN 325MG TAB 650 MG PO (00:41)
[2024-01-25 02:07] VITALS: RESP 22; RESP 26
--- NOTE | 2024-01-25 03:05 | PC.NURSE ---
Medicated with Tylenol 650 mg po for c/o Headache at 0040. Resting quietly in bed. No further c/o H/A. HOB elevated 40 degrees. Bipap in use. BPs remain low. Manual BPs better than Dinamap.
[2024-01-25 04:00] VITALS: BP 90/44; PULSE 70; RESP 16; TEMP 36.6; O2SAT 95; BMI 47.2
[2024-01-25 05:16] LABS: POC Glucose,Bedside 117 (70-110)
[2024-01-25] MEDS: LEVOTHYROXINE 150MCG (0.15MG)TAB 150 MCG PO (06:13)
[2024-01-25] MEDS: FLUTICASONE/UMECLIDIN/VILANTER 200/62.5/25MCG INHALER 1 PUFF IH (06:18)
[2024-01-25 06:19] VITALS: O2SAT 96
--- NOTE | 2024-01-25 07:28 | P.DS_ITS ---
General Admission date:: 01/13/24 Discharge date: 01/25/24 HPI HPI HPI: Mr. Wu is a 68-year-old male who arrived at our ER via EMS. He has a history of HFpEF and COPD along with chronic respiratory failure on CPAP at home, pickwickian syndrome, morbid obesity. Presented via EMS to the ER because of respiratory distress. Reports concern for swelling. Patient reports having been referred to hospice 6 months ago by his primary care however he has refused and states he has been doing well and stayed at the hospital for the past 6 m he has been having increased swelling and shortness of breath over the past week. States his legs have gotten more swollen and he said swelling up into his groin and lower abdomen. He is up approximately 50 pounds from his dry weight of 300 pounds. [place] any fever, chill, chest pain. Does report a productive cough for the past week. No vomiting or diarrhea. Does report he has been having some blood in his stool however and this is chronic for him. Able to perform basic ADLs at home. Medicine consulted for admission due to increased oxygen requirement and concern for CHF exacerbation along with volume overload. Chest imaging showing significant edema and effusions. White count elevated at 29,000. Elevated bicarb of 47 showing chronic CO2 retention. On evaluation, patient is frustrated with goals of care discussion. Does not want to talk about intubation. States he does not want to be on a ventilator however. Tolerating 5 L nasal cannula oxygen. Initiated on Bumex drip. Hospital Course Hospital Course Hospital Course: Mr. Wu is a morbidly obese 68-year-old male with history of heart failure with preserved ejection fraction, chronic respiratory failure on home BiPAP, chronically on 3 L oxygen, with CKD and recent admission for respiratory failure a month ago to [place]. He presented via EMS for acute worsening and concern for sepsis with respiratory failure. Workup in the ER concerning for pneumonia, development of septic shock, and respiratory failure. Initiated on BiPAP. Discussed case with ER, request admission for ICU level of care and further management. Medicine agreed to admit. Patient was initiated on broad- spectrum antibiotics and initiated on aggressive diuresis. Showed gradual response over the course of his hospitalization. Negative fluid status of at least 28 L since admission. Cardiology and pulmonology assisted with care. Showed significant improvement, able to wear 2 L nasal cannula oxygen during the day and BiPAP while asleep. Therapy evaluated, recommended placement the patient is adamant he will go home with home health. Stable to discharge home as he is voiding independently without catheter, and having bowel movements, and no longer having any acute inpatient needs. Problems addressed as follows: #Sepsis #Pneumonia ? Patient presented with severe shortness of breath. Chest imaging concerning for pneumonia as well as volume overload. Initiated on empiric antibiotics with meropenem. Necessitating BiPAP while sleeping and 3 to 4 L supplemental oxygen. Pulmonology was consulted along with cardiology. Patient was aggressively diuresed. Antibiotics gradually weaned to clindamycin to complete a 10-day course of antibiotics total. As he diuresed, his oxygen requirement improved. Continued BiPAP at night while asleep for OHS with settings of 16/8. Continue Trelegy inhaler along with DuoNebs as needed. Patient's white count has gra dually improved From a high of 28 down to 12 by day of discharge. Given his improvement, will continue supplemental oxygen during the day. Recommend 2 L. Continue BiPAP at night or while asleep. #Acute hypoxic on chronic respiratory failure #HFpEF exacerbation #Bilateral pleural effusions #Obesity hypoventilation syndrome - Echocardiogram obtained showing preserved ejection fraction 60% with diastolic dysfunction. EKG shows old CT's. Patient was severely volume overloaded. Aggressive diuresis was initiated. Had significant improvement to Bumex. Patient became euvolemic -28.5 L since admission. Continues to have some swelling in his genital region however overall his anasarca has drastically improved. Has developed some low sodium. Continuing oral sodium chloride 500 mg twice daily. Potassium magnesium normal. No need for replacement at this time. Will continue diuresis with Bumex 2 mg twice, Bronalin, and 50 mg daily. Continue ranolazine 500 mg to stay the and Lipitor 20 mg nightly. Holding on irbesartan given patient's low blood pressure and slight OSMANI that has been stable for 5 days prior to discharge. Reevaluate need for blood pressure meds/heart failure meds at follow-up. #Distended gallbladder ? Noted on CT abdomen/pelvis. However, patient has no RUQ pain, and tolerating diet. But given that patient has sepsis with unclear source, and out of proportion to pneumonia. RUQ ultrasound with no acute findings. Shows fatty liver. No stones or sludge per my review. Consider reevaluation as an outpatie nt if condition improves. Patient would be a very poor candidate for surgery, high risk for decompensation and complications. #Scrotal, penile, suprapubic edema #Sacral contact dermatitis, skin breakdown ? Significant scrotal and penis edema. Secondary to his anasarca. Had Kennedy catheter in place for 10 days. Removed over 24 hours prior to discharge. Patient able to void independently. Recommend laying flat once he gets home and elevating penis and scrotum if at all possible. If develops worsening urinary retention or obstruction, would necessitate replacement of Kennedy catheter. Recommend follow-up with urology as an outpatient given his BPH and to monitor for improvement. No signs of infection at this time. Scrotal wound healing. #OSMANI: Acceptable bump in creatinine. Creatinine stable at 1.5. Needs repeat CBC, CMP in 1 week to monitor kidney function and electrolytes Hypothyroid: TSH of 24 on admission. Continue oral levothyroxine at increased dose of 175 mcg daily. Repeat on 01/12 2.54. Diabetes: A1c 6.8. Resume home regimen at discharge. No indication for insulin after discharge. Glucose within normal range during admission Metabolic alkalosis: Treated during hospitalization with acetazolamide twice daily for a short period of time. Condition improved. No acetazolamide at discharge Total time spent on discharge 42 minutes in counseling, documentation, chart review, and direct care with patient. Exam Data for Last 24 hours Vital signs and Labs for Last 24 Hours: Temp Pulse Resp BP Pulse Ox O2 Del Method O2 Flow Rate 97.9 F 70 16 90/44 L 96 Nasal Cannula 2 01/25/24 04:00 01/25/24 04:00 01/25/24 04:00 01/25/24 04:00 01/25/24 06:19 01/25/24 06:30 01/25/24 06:30 FiO2 30 01/25/24 02:07 Laboratory Results - last 24 hr 01/24/24 05:07: POC Glucose 103 01/24/24 12:26: POC Glucose 125 H 01/24/24 16:40: POC Glucose 152 H 01/24/24 20:24: POC Glucose 141 H 01/25/24 05:07: POC Glucose 117 H I & O for Last 24 hours: Intake & Output 09/01/23/24 01/24/24 01/25/24 23:59 23:59 23:59 23:59 Intake Total 1230 / 1230 720 / 990 1830 / 2190 650 / 650 Output Total 2770 / 3520 2400 / 3400 2250 / 2250 0 / 0 Balance -1540 / -2290 -1680 / -2410 -420 / -60 650 / 650 Weight 161.2 kg 161.4 kg 158 kg 158.4 kg Constitutional Constitutional: no acute distress, morbidly obese, chronically ill appearing and cooperative *Routine HEENT Exam Head: Present normocephalic Eye: Present EOMI and PERRL ENT: Present mucous membranes moist Comments: Cushingoid facies *Routine Neck Exam Neck: Present supple; Absent lymphadenopathy Comments: Unable to distinguish landmarks due to girth of neck *Routine Respiratory Exam Respiratory: Present distant breath sounds; Absent wheezes or crackles *Routine Cardiovascular Exam Cardiovascular: Present RRR *Routine Abdominal Exam Abdominal: Present soft, normoactive bowel sounds and distended (Obese); Absent tenderness *Routine Rectal Exam Patient deferred: visual exam *Routine Exam Penile: Present swelling (Diffuse swelling of the penis without tenderness, skin breakdown, or necrosis. 3+ edema) *Routine Extremities Exam Extremities: Present edema; Absent cyanosis or clubbing Comments: Chronic venous stasis skin changes in lower extremities. Trace edema bilateral lower extremities. *Routine Skin Exam Skin: Present warm; Absent rash *Routine Neurological Exam Neurological: Present alert, oriented X3 and moving all extremities; Absent altered mental status Results Data Completed and Pending Labs on day of discharge: Labs from last 24 hours 01/25/24 01/24/24 01/24/24 05:07 20:24 16:40 POC Glucose 117 H 141 H 152 H 01/24/24 01/24/24 12:26 05:07 POC Glucose 125 H 103 DS: Diagnosis Discharge Diagnosis (1) Pneumonia: Status: Acute Code(s): J18.9 - Pneumonia, unspecified organism (2) Pickwickian syndrome: Status: Acute Code(s): E66.2 - Morbid (severe) obesity with alveolar hypoventilation Meds Home Medications and Allergies Home Medications ?Medication ?Instructions ?Recorded ?Confirmed ?Type albuterol sulfate 90 mcg/actuation 2 puff inhalation Q4HP PRN 08/22/23 01/13/24 History aerosol inhaler Shortness Of Breath Or Wheezing atorvastatin 20 mg tablet 20 mg PO HS 08/22/23 01/13/24 History fluticasone fur. 200 mcg-umeclid 1 ea inhalation DAILY 08/22/23 01/13/24 History 62.5 mcg-vilant 25 mcg inhalat.powder (Trelegy Ellipta) ipratropium 0.5 mg-albuterol 3 mg 3 ml inhalation QID 08/22/23 01/13/24 History (2.5 mg base)/3 mL nebulization soln levothyroxine 150 mcg tablet 150 mcg PO DAILY 08/22/23 01/13/24 History ondansetron HCl 4 mg tablet 4 mg PO Q6HP PRN Nausea And 08/22/23 01/13/24 History Vomiting ranolazine 500 mg tablet,extended 500 mg PO BID 08/22/23 01/13/24 History release,12 hr tamsulosin 0.4 mg capsule 0.4 mg PO AM 01/13/24 01/13/24 History sennosides 8.6 mg-docusate sodium 1 tab-cap PO BID PRN constipation 01/24/24 Rx 50 mg tablet (Stimulant Laxative 30 days #60 tabs Plus) spironolactone 25 mg tablet 50 mg (2 x 25 mg) PO DAILY 30 days 01/24/24 Rx #60 tabs bumetanide 1 mg tablet 2 mg (2 x 1 mg) PO BID 30 days 01/25/24 Rx #120 tabs sodium chloride 1,000 mg soluble 500 mg (1/2 x 1,000 mg) PO BID 30 01/25/24 Rx tablet days #30 tabs New Prescriptions to Start Prescriptions: josé manuelde Danielito Torres sennomartins-docusate sodium [Stimulant Laxative Plus] Danielito Torres sodium chloride Danielito Torres spironolactone Danielito Torres Allergies Allergy/AdvReac Type Severity Reaction Status Date / Time penciclovir Allergy Difficulty Verified 08/22/23 23:13 Breathing Penicillins Allergy Hives Verified 08/22/23 23:13 tramadol AdvReac Diarrhea Verified 08/22/23 23:13 Discharge Plan Disposition Patient Disposition: Home Health Service Condition: Fair Discharge Order Discharge Orders: Discharge Order (Routine); Ordered 01/25/24 Ordered By: Danielito Torres Follow up Plan Follow up with: Aleksandr Castro MD [Staff Physician] - Enter time for follow up (please call for appointment) Lauren Tirado MD [Physician] - 02/12/24 1:00 pm Wilfredo Alvarado MD [Primary Care Provider] - 02/07/24 2:30 pm Corey Mccallum MD [Staff Physician] - 02/04/24 2:15 pm (APPOINTMENT WITH ZAKI DURHAM ) Prescriptions/Medication Reconciliation: New sennosides-docusate sodium [Stimulant Laxative Plus] 8.6-50 mg Tablet 1 tab-cap PO BID PRN (Reason: constipation) 30 Days Qty: 60 0RF spironolactone 25 mg Tablet 50 mg PO DAILY 30 Days Qty: 60 0RF bumetanide 1 mg Tablet 2 mg PO BID 30 Days Qty: 120 0RF sodium chloride 1,000 mg Tablet,Soluble 500 mg PO BID 30 Days Qty: 30 0RF Continued atorvastatin 20 mg tablet 20 mg PO HS Patient Comments: TAKE 1 TABLET BY MOUTH EVERY DAY AT NIGHT ipratropium-albuterol 0.5 mg-3 mg(2.5 mg base)/3 mL solution for nebulization 3 ml INHALATION QID Patient Comments: INHALE 3 ML EVERY 4 HOURS NEEDED FOR WHEEZE ondansetron HCl 4 mg tablet 4 mg PO Q6HP PRN (Reason: Nausea And Vomiting) Patient Comments: TAKE 1 TABLET BY MOUTH EVERY 6 HOURS NEEDED FOR NAUSEA levothyroxine 150 mcg tablet 150 mcg PO DAILY Patient Comments: TAKE 1 TABLET BY MOUTH EVERY DAY albuterol sulfate 90 mcg/actuation HFA aerosol inhaler 2 puff INHALATION Q4HP PRN (Reason: Shortness Of Breath Or Wheezing) Patient Comments: INHALE 2 PUFFS BY MOUTH EVERY 4 HOURS NEEDED FOR WHEEZE ranolazine 500 mg tablet extended release 12 hr 500 mg PO BID Patient Comments: TAKE 1 TABLET BY MOUTH EVERY 12 HOURS Trelegy Ellipta 200-62.5-25 mcg blister with device 1 ea INHALATION DAILY tamsulosin 0.4 mg capsule 0.4 mg PO AM Discontinued metolazone 5 mg tablet 5 mg PO DAILYP PRN (Reason: Swelling) Patient Comments: TAKE 1 TABLET BY MOUTH DAILY NEEDED FOR OTHER (WEIGHT GAIN 5 POUNDS). furosemide 80 mg tablet 80 mg PO BIDL Patient Comments: TAKE 1 TABLET BY MOUTH TWICE DAILY DIURETIC. Other Ambulatory Orders: Basic Metabolic Panel (Routine) Timeframe: 1 Week Facility: [facility] - Location: Laboratory Ordered By: Danielito Torres Complete Blood Count Auto Diff (Routine) Timeframe: 1 Week Facility: [facility] - Location: Laboratory Ordered By: Danielito Torres Problem Reconciliation Problems Reviewed?: Yes Patient Discharge Instructions ACTIVITY: Continue current activity and Ambulate as tolerated DIET: continue same diet and advance to your usual diet Patient Instructions: Congestive Heart Failure (Alternative Therapy), Low Glycemic Index Diets (Alternative Therapy), Low-Carbohydrate Diet (Alternative Therapy), Carbohydrate-Counting Diet, DI for Heart Failure, DI for Obesity -- Adult, Catheter-Associated Urinary Tract Infection Print Language: Yoruba Providers Primary Care Provider: Wilfredo Alvarado Provider: Danielito Torres Attending Provider: Danielito Torres
[2024-01-25 07:52] VITALS: BP 95/42; PULSE 66; RESP 20; TEMP 37; O2SAT 96
[2024-01-25 08:01] LABS: Basophils # 0.1 K/mm3 (0-0.2); Basophils % 0.6 % (0.1-2.0); Eosinophils # 0.5 K/mm3 (0.0-0.4); Eosinophils % 4.4 % (0.1-12.0); Hematocrit 29.8 % (42.0-52.0); Hemoglobin 8.6 g/dL (14.1-18.0); Lymphocytes # 1.9 K/mm3 (0.7-4.5); Lymphocytes % 16.2 % (10-50); Mean Corpuscular HGB Conc 28.9 g/dL (31.8-35.4); Mean Corpuscular Hemoglobin 24.2 pg (27.0-31.2); Mean Corpuscular Volume 83.7 fl (80-94); Mean Platelet Volume 7.1 fl (7.4-10.4); Monocytes # 0.6 K/mm3 (0.1-1.0); Monocytes % 5.3 % (1.7-9.3); Neutrophils # 8.8 K/mm3 (1.8-7.8); Neutrophils % 73.6 % (37.0-80.0); Platelet Count 429 K/mm3 (142-424); Red Blood Count 3.57 M/mm3 (4.60-6.20); Red Cell Distribution Width 17.8 % (11.5-17.5)
[2024-01-25] MEDS: SODIUM CHLORIDE 1,000MG TABLET 500 MG PO (08:10)
[2024-01-25] MEDS: HEPARIN SODIUM 5,000 UNIT/ML VIAL 5000 UNIT SQ (08:10)
[2024-01-25] MEDS: SENNOSIDES 8.6MG/DOCUSATE 50MG TABLET 2 TAB PO (08:11)
[2024-01-25] MEDS: RANOLAZINE 500MG ER TABLET 500 MG PO (08:11)
[2024-01-25] MEDS: BUMETANIDE 1 MG TABLET 2 MG PO (08:11)
[2024-01-25] MEDS: PANTOPRAZOLE 40MG TABLET 40 MG PO (08:11)
[2024-01-25] MEDS: IRBESARTAN 75MG TABLET 37.5 MG PO (08:11)
[2024-01-25] MEDS: SPIRONOLACTONE 25MG TABLET 25 MG PO (08:11)
[2024-01-25 08:23] LABS: Alanine Aminotransferase 18 U/L (12-78); Albumin Level 2.9 g/dl (3.5-5.0); Alkaline Phosphatase 63 U/L (38-126); Anion Gap 3.1 mEq/L (5-15); Aspartate Amino Transferase 27 U/L (17-59); Bilirubin,Total 0.4 mg/dl (0.2-1.3); Blood Urea Nitrogen 27 mg/dl (9-20); Calcium 7.9 mg/dl (8.4-10.2); Carbon Dioxide 37 mmol/L (22.0-30.0); Chloride 90 mmol/L (98-107); Creatinine Clearance Estimated 59 mL/min (50-200); Estimated Glomerular Filt Rate 55 ml/min (>60); GFR (African American) 66 ML/MIN (>60); Globulin 2.8 g/dL (1.3-3.2); Glucose 102 mg/dl (74-100); Potassium 4.1 mmoL/L (3.5-5.1); Sodium 126 mmol/L (136-145); Total Protein,Serum 5.7 g/dl (6.3-8.2)
[2024-01-25 08:24] LABS: Magnesium 2.1 mg/dl (1.6-2.3)
== END 2024-01-25 10:40 | disposition home or self-care (01) | DRG 291 ==
LOC: ER 01-13 00:48 → 2ND 01-13 01:14
PROVIDERS: Nurse Practitioner Family; Physician Assistant; Student in an Organized Health Care Education/Training Program; Admitting Provider Internal Medicine Adolescent Medicine; Emergency Provider Emergency Medicine; PCP Family Medicine; Visit Provider Internal Medicine Adolescent Medicine
DX: I13.0 Hypertensive heart and chronic kidney disease with heart failure and stage 1 through stage 4 chronic kidney disease, or unspecified chronic kidney disease (principal); G93.41 Metabolic encephalopathy; I50.33 Acute on chronic diastolic (congestive) heart failure; J96.21 Acute and chronic respiratory failure with hypoxia; E66.2 Morbid (severe) obesity with alveolar hypoventilation; Z68.42 Body mass index [BMI] 45.0-49.9, adult; Z99.81 Dependence on supplemental oxygen; N18.30 Chronic kidney disease, stage 3 unspecified; E11.22 Type 2 diabetes mellitus with diabetic chronic kidney disease; I48.91 Unspecified atrial fibrillation; E87.6 Hypokalemia; Z79.899 Other long term (current) drug therapy
CPT/HCPCS: 36415; 51702; 71045; 71250; 74176; 76705; 76870; 80048; 80053; 80202; 81001; 81015; 82803; 82962; 83605; 83735; 83880; 84145; 84436; 84443; 84479; 84484; 85007; 85014; 85018; 85025; 85027; 85048; 85049; 85651; 86140; 87040; 87070; 87077; 87081; 87086; 87186; 87205; 87265; 87486; 87581; 87632; 87635; 93306; 93308; 93970; 94640; 94660; 94760; 94761; 97110; 97162; 97166; 97530; 99291; J0456; J0696; J1644; J1939; J2185; J2405; J3370; J7030; J7050; J7620; P9047

== ENCOUNTER 2024-05-14 11:17 | Emergency (ER) | payer MEDICARE, SELFPAY ==
[2024-05-14] VITALS (45 sets, daily range): BP systolic 0–228; BP diastolic 0–125; PULSE 0–114; RESP 0–115; TEMP -17.7–0; O2SAT 82–100; BMI 50.2
[2024-05-14] MEDS: EPINEPHrine 0.1 MG/ML 10ML SYRINGE (CRASH CART) 1 MG IV ×6 (11:05→11:30)
[2024-05-14] MEDS: CALCIUM CHLORIDE 1GM/10ML SYRINGE (CRASH CART) 1 GM IVP (11:06)
[2024-05-14] MEDS: SODIUM BICARB 8.4% 50ML SYRINGE (CRASH CART) 50 MEQ IV (11:07)
--- NOTE | 2024-05-14 11:14 | XR_ITS ---
FINAL REPORT CLINICAL HISTORY: ETT POST CODE COMPARISON: 01/21/2024 FINDINGS: There is dense consolidation in the right upper lobe compatible with pneumonia. There is a moderate size right pleural effusion. The left lung base is poorly visualized but grossly clear. Mediastinum is unremarkable. ET tube is in good position. Stable cardiomegaly IMPRESSION: ET tube in good position. Right upper lobe pneumonia with moderate right pleural effusion Reviewed, Interpreted and Dictated by Dewayne Oscar MD Transcribed by Ann Rogers Authenticated and [facility]
--- NOTE | 2024-05-14 11:15 | ECG_ITS ---
APPROVED REPORT Exam: Resting ECG HR:61 bpm ECG Measurements Heart Rate 61 AXES QRSd 190 QRS -74 QT 450 T -7 QTc 454 Conclusion REPERFUSION RHYTHM Electronically signed by : Chuck Rosa, 05/14/2024 16:11:44
[2024-05-14 11:58] LABS: Basophils # 0.1 K/mm3 (0-0.2); Basophils % 0.1 % (0.1-2.0); Eosinophils % 0.1 % (0.1-12.0); Hematocrit 37.3 % (42.0-52.0); Hemoglobin 11.1 g/dL (14.1-18.0); Lymphocytes # 3.2 K/mm3 (0.7-4.5); Lymphocytes % 4.9 % (10-50); Mean Corpuscular HGB Conc 29.8 g/dL (31.8-35.4); Mean Corpuscular Hemoglobin 25.1 pg (27.0-31.2); Mean Corpuscular Volume 84.4 fl (80-94); Mean Platelet Volume 9.5 fl (7.4-10.4); Monocytes # 2.7 K/mm3 (0.1-1.0); Monocytes % 4.2 % (1.7-9.3); Neutrophils # 55.5 K/mm3 (1.8-7.8); Neutrophils % 85.7 % (37.0-80.0); Platelet Count 306 K/mm3 (142-424); Red Blood Count 4.42 M/mm3 (4.60-6.20); Red Cell Distribution Width 16.2 % (11.5-17.5)
--- NOTE | 2024-05-14 11:58 | ED_ITS ---
Discharge Plan Disposition Patient Disposition: Date/Time: 05/14/24 15:27 Clinical Impressions Clinical Impression: Cardiopulmonary arrest Discharge ED Provider: Chuck Rosa General Adult HPI General Chief complaint: Cardiac Arrest/CPR Stated complaint: UNRESPONSIVE Time Seen by Provider: 05/14/24 11:38 Mode of Arrival: EMS Source of Information: EMS Limitations: Critical illness History of Present Illness HPI narrative: This is a 68-year-old male with a past medical history of heart failure with preserved ejection fraction, chronic respiratory failure on home BiPAP, chronically on 3 L oxygen, with CKD who presents as a code. EMS was called due to respiratory distress. On EMS arrival, the patient coded as they were picking of the patient. CPR initiated with an unknown initial rhythm. Reports V-fib en route at some point. Administered amiodarone and 6 doses of epinephrine. V-fib converted to PEA. Coding for approximately 20 minutes on arrival. Related Data Home Medications ?Medication ?Instructions ?Recorded ?Confirmed albuterol sulfate 90 mcg/actuation 2 puff inhalation Q4HP PRN 08/22/23 01/13/24 aerosol inhaler Shortness Of Breath Or Wheezing atorvastatin 20 mg tablet 20 mg PO HS 08/22/23 01/13/24 fluticasone fur. 200 mcg-umeclid 1 ea inhalation DAILY 08/22/23 01/13/24 62.5 mcg-vilant 25 mcg inhalat.powder (Trelegy Ellipta) ipratropium 0.5 mg-albuterol 3 mg 3 ml inhalation QID 08/22/23 01/13/24 (2.5 mg base)/3 mL nebulization soln levothyroxine 150 mcg tablet 150 mcg PO DAILY 08/22/23 01/13/24 ondansetron HCl 4 mg tablet 4 mg PO Q6HP PRN Nausea And 08/22/23 01/13/24 Vomiting ranolazine 500 mg tablet,extended 500 mg PO BID 08/22/23 01/13/24 release,12 hr tamsulosin 0.4 mg capsule 0.4 mg PO AM 01/13/24 01/13/24 Previous Rx's ?Medication ?Instructions ?Recorded sennosides 8.6 mg-docusate sodium 1 tab-cap PO BID PRN constipation 01/24/24 50 mg tablet (Stimulant Laxative 30 days #60 tabs Plus) spironolactone 25 mg tablet 50 mg (2 x 25 mg) PO DAILY 30 days 01/24/24 #60 tabs bumetanide 1 mg tablet 2 mg (2 x 1 mg) PO BID 30 days 01/25/24 #120 tabs sodium chloride 1,000 mg soluble 500 mg (1/2 x 1,000 mg) PO BID 30 01/25/24 tablet days #30 tabs Allergies Allergy/AdvReac Type Severity Reaction Status Date / Time penciclovir Allergy Difficulty Verified 08/22/23 23:13 Breathing Penicillins Allergy Hives Verified 08/22/23 23:13 tramadol AdvReac Diarrhea Verified 08/22/23 23:13 PFSH PFS Disclaimer: The information contained in this section may have been updated after the patient was seen, as this information can be updated by other users. Medical History (Updated 05/14/24 @ 14:21 by Chuck Rosa MD) Hyponatremia Hypokalemia Lower extremity edema Shortness of Breath Acute heart failure with preserved ejection fraction (HFpEF) DEMETRIA (obstructive sleep apnea) On home oxygen therapy Tortuous aorta Aortic calcification Reduced ejection fraction concurrent with and due to acute on chronic heart failure History of gastrectomy Cataract (lens) fragments in eye following cataract surgery, bilateral Lymphedema Hyperlipidemia Hiatal hernia Chronic respiratory failure with hypoxia Prostate cancer BPH (benign prostatic hyperplasia) Cor pulmonale HTN (hypertension) Diabetes mellitus Atrial fibrillation CKD stage 3 secondary to diabetes Pneumonia COPD (chronic obstructive pulmonary disease) Congestive heart failure Surgical History Hx of tonsillectomy H/O hernia repair Family History Other Family history of arthritis Family history of cancer Family history of diabetes mellitus type II Family history of heart disease Family history of hypertension Social History Smoking Status: Current every day smoker alcohol intake: never current occupational status: retired and disabled Travel in the last 8 weeks: None household members: significant other Have you lived/traveled outside US in past 30 days?: No Contact w/someone who lives/traveled outside US past 30 days?: No Exposure to someone with infectious disease in past 14 days?: No Do you have a fever (greater than 100.4 F or 38 C)?: No Have you tested positive for COVID-19: No Exposed to someone with COVID-19 in past 14 days?: No Do you have a sore throat?: No Do you have a cough?: No Do you have any weakness?: No Do you have any diarrhea?: No Are you experiencing any unusual bleeding?: No Do you have any muscle aches/pain?: No Do you have any abdominal pain?: No Are you experiencing loss of taste or smell?: No Other Medical History Have you received the Flu Vaccine for this season: No Have you received the Pneumonia Vaccine: No ROS Obtained: Yes unobtainable due to mental status and Yes unobtainable due to mental condition Physical Exam General General appearance: other Comment: Unresponsive, CPR in progress Head Head exam: atraumatic and normocephalic Eye Eye exam: Present normal appearance and PERRL ENT ENT exam: Present other (I gel in place) Neck Neck exam: Present normal inspection Chest Chest inspection: Present normal inspection Respiratory Respiratory exam: Present other (CPR ongoing) Cardiovascular Cardiovascular exam: Present other (CPR ongoing) Abdominal Exam Abdominal exam: Present soft exam: Present normal inspection Extremities Exam Extremities exam: Present normal inspection Neurological Exam Neurological exam: Present other (GCS 3) Skin Skin exam: Present dry Medical Decision Making Medical Records Medical records reviewed: Yes I reviewed the patient's medical records. Screening: Per USPSTF and CDC recommendations, given the prevalence of disease in our region, it is our hospital?s policy to screen for HIV and viral Hepatitis for all patients aged 18 and over and those with ongoing risk factors. MR Comment: Hospital medicine discharge summary from 01/25/2024 notable for patient's pat past medical history as noted above Jeremy Inquiry Pt receiving controlled substance: No Vital Signs: 05/14/24 10:59 05/14/24 11:00 05/14/24 11:06 Pulse Rate Respiratory Rate 18 24 51 H Blood Pressure 02 Sat by Pulse Oximetry 85 L Oxygen Delivery Method Ambu-Bag Fraction of Inspired Oxygen 100 05/14/24 11:09 05/14/24 11:15 05/14/24 11:20 Pulse Rate 103 H Respiratory Rate 43 H 16 Blood Pressure 117/87 152/125 H 76/20 L 02 Sat by Pulse Oximetry 82 L Oxygen Delivery Method Fraction of Inspired Oxygen 05/14/24 11:25 05/14/24 11:27 05/14/24 11:30 Pulse Rate 114 H 109 H 110 H Respiratory Rate 115 H 107 H 113 H Blood Pressure 97/47 L 112/58 L 02 Sat by Pulse Oximetry 98 100 88 L Oxygen Delivery Method Fraction of Inspired Oxygen 05/14/24 11:31 05/14/24 11:33 05/14/24 11:36 Pulse Rate 100 H 105 H 83 Respiratory Rate 40 H 16 26 H Blood Pressure 228/84 H 81/49 L 02 Sat by Pulse Oximetry 95 94 L 97 Oxygen Delivery Method Fraction of Inspired Oxygen 05/14/24 11:45 05/14/24 11:53 05/14/24 11:54 Pulse Rate 75 72 77 Respiratory Rate 26 H 22 26 H Blood Pressure 57/37 L 54/29 L 53/35 L 02 Sat by Pulse Oximetry 93 L 94 L 93 L Oxygen Delivery Method Fraction of Inspired Oxygen 05/14/24 11:56 05/14/24 11:58 05/14/24 12:15 Pulse Rate 73 75 82 Respiratory Rate 26 H 26 H 29 H Blood Pressure 52/32 L 57/38 L 70/43 L 02 Sat by Pulse Oximetry 94 L 94 L 97 Oxygen Delivery Method Mechanical Ventilation Fraction of Inspired Oxygen 05/14/24 12:17 05/14/24 12:19 05/14/24 12:21 Pulse Rate 83 82 83 Respiratory Rate 26 H 26 H 26 H Blood Pressure 68/43 L 78/47 L 66/46 L 02 Sat by Pulse Oximetry 96 96 97 Oxygen Delivery Method Mechanical Ventilation Mechanical Ventilation Mechanical Ventilation Fraction of Inspired Oxygen 05/14/24 12:23 05/14/24 12:25 05/14/24 12:28 Pulse Rate 82 82 83 Respiratory Rate 19 26 H 26 H Blood Pressure 69/43 L 59/42 L 77/53 L 02 Sat by Pulse Oximetry 97 97 98 Oxygen Delivery Method Mechanical Ventilation Mechanical Ventilation Mechanical Ventilation Fraction of Inspired Oxygen 05/14/24 12:29 05/14/24 12:31 05/14/24 12:36 Pulse Rate 83 83 83 Respiratory Rate 26 H 26 H 26 H Blood Pressure 72/42 L 72/37 L 60/43 L 02 Sat by Pulse Oximetry 98 97 97 Oxygen Delivery Method Mechanical Ventilation Mechanical Ventilation Mechanical Ventilation Fraction of Inspired Oxygen 05/14/24 12:38 05/14/24 12:40 05/14/24 12:42 Pulse Rate 77 86 82 Respiratory Rate 26 H 26 H 26 H Blood Pressure 64/44 L 62/42 L 75/44 L 02 Sat by Pulse Oximetry 98 99 99 Oxygen Delivery Method Mechanical Ventilation Mechanical Ventilation Mechanical Ventilation Fraction of Inspired Oxygen 05/14/24 12:44 05/14/24 12:46 05/14/24 12:48 Pulse Rate 83 83 83 Respiratory Rate 26 H 26 H 26 H Blood Pressure 68/43 L 54/37 L 66/41 L 02 Sat by Pulse Oximetry 99 98 98 Oxygen Delivery Method Mechanical Ventilation Mechanical Ventilation Mechanical Ventilation Fraction of Inspired Oxygen 05/14/24 12:50 05/14/24 12:52 05/14/24 12:54 Pulse Rate 85 83 87 Respiratory Rate 26 H 26 H 27 H Blood Pressure 69/45 L 69/46 L 48/31 L 02 Sat by Pulse Oximetry 97 99 98 Oxygen Delivery Method Mechanical Ventilation Mechanical Ventilation Mechanical Ventilation Fraction of Inspired Oxygen 05/14/24 12:56 05/14/24 12:57 05/14/24 13:00 Pulse Rate 84 85 89 Respiratory Rate 25 H 26 H 22 Blood Pressure 65/43 L 77/42 L 66/43 L 02 Sat by Pulse Oximetry 99 99 98 Oxygen Delivery Method Mechanical Ventilation Mechanical Ventilation Mechanical Ventilation Fraction of Inspired Oxygen 05/14/24 13:30 05/14/24 14:01 05/14/24 14:31 Pulse Rate 83 83 88 Respiratory Rate 26 H 27 H 28 H Blood Pressure 67/50 L 52/28 L 58/37 L 02 Sat by Pulse Oximetry 94 L 92 L 93 L Oxygen Delivery Method Mechanical Ventilation Mechanical Ventilation Mechanical Ventilation Fraction of Inspired Oxygen 05/14/24 15:01 05/14/24 15:26 Pulse Rate 85 Respiratory Rate 26 H 24 Blood Pressure 108/74 L 02 Sat by Pulse Oximetry 91 L Oxygen Delivery Method Mechanical Ventilation Fraction of Inspired Oxygen 100 Lab Data Lab Results 05/14/24 11:14: VBG pH 7.15 L, VBG pCO2 58.5 H, VBG pO2 142.7 H, VBG HCO3 19.7 L , VBG Total CO2 21.5 L, VBG O2 Saturation 97.9 H, VBG Base Excess -9.2 L, VBG Lactic Acid 13.3 H 05/14/24 11:17: WBC 64.7 H*, RBC 4.42 L, Hgb 11.1 L, Hct 37.3 L, MCV 84.4, MCH 25.1 L, MCHC 29.8 L, RDW 16.2, Plt Count 306, MPV 9.5, Neut % (Auto) 85.7 H, L ymph % (Auto) 4.9 L, [place] % (Auto) 4.2, Eos % (Auto) 0.1, Baso % (Auto) 0.1, N eut # (Auto) 55.5 H, Lymph # (Auto) 3.2, [place] # (Auto) 2.7 H, Eos # (Auto) 0.0, Baso # (Auto) 0.1, Total Counted 100, Neutrophils % (Manual) 82 H, Band Neutrophils % 8.0, Lymphocytes % (Manual) 5 L, Monocytes % (Manual) 1 L, M etamyelocytes % 2.0 H, Myelocytes % 2 H, Platelet Estimate Normal, Hypochromasia 1+, Poikilocytosis 1+, Ovalocytes 1+, Sodium 117 L, Potassium 3.8, Chloride 69 L , Carbon Dioxide 25, Anion Gap 26.8 H, BUN 17, Creatinine 1.60 H, Estimated GFR 43 L, Est GFR ( Amer) 52 L, Glucose 80, Calcium 9.3, Total Bilirubin 0.5, AST 198 H, ALT 141 H, Alkaline Phosphatase 80, Troponin I 0.03, NT-Pro-B Natriuret Pep 2990 H, Total Protein 6.0 L, Albumin 3.3 L, Globulin 2.7, Albumin/Globulin Ratio 1.2, Plasma/Serum Alcohol < 10 05/14/24 11:17 05/14/24 11:17 Orders (Tests/Meds): ED MEDICATIONS Discontinued Medications Generic Name Dose Route Start Last Admin Trade Name Freq PRN Reason Stop Dose Admin Cefepime HCl 2 gm/ Sodium 100 mls @ 200 mls/hr 05/14/24 11:45 05/14/24 13:50 Chloride IV 05/14/24 12:14 200 mls/hr ONCE ONE Administration Metronidazole 500 mg in 100 mls @ 100 mls/hr 05/14/24 11:45 05/14/24 15:28 Flagyl 500mg/100ml Ivpb IV 05/14/24 12:44 Not Given ONCE ONE Lactated Ringer's 1,000 mls @ 999 mls/hr 05/14/24 13:05 05/14/24 13:27 Lactated Ringer's 1000 Ml Bag IV 05/14/24 14:05 999 mls/hr .Q1H1M ONE Administration Vancomycin HCl 2,500 mg/ 500 mls @ 250 mls/hr 05/14/24 13:30 05/14/24 15:29 Sodium Chloride IV 05/14/24 15:29 Not Given ONCE ONE ORDERS Category Date Time Status Chest XR -- portable [XR chest portable] Stat Exams 05/14/24 11:14 Completed BNP [NT Pro Brain Natriuretic Pep.] Stat Lab 05/14/24 11:17 Completed Blood alcohol [Ethyl Alcohol] Stat Lab 05/14/24 11:17 Completed CBC w/Auto Diff [Complete Blood Count Auto Diff] Stat Lab 05/14/24 11:17 Completed CMP [Comprehensive Metabolic Panel] Stat Lab 05/14/24 11:17 Completed Troponin I Stat Lab 05/14/24 11:17 Completed VBG [Venous Blood Gas] Stat RT 05/14/24 11:14 Completed Medical Decision Narrative: This is a 68-year-old male with a past medical history of heart failure with preserved ejection fraction, chronic respiratory failure on home BiPAP, chronically on 3 L oxygen, with CKD who presents as a code. History is provided by EMS. Patient coding for approximately 20 minutes on arrival with 2 defibrillations, amnio, and 6 doses of epi administered. On arrival, CPR was resumed and the patient was noted to be in PEA. Initial rhythm unknown however he did have an episode of V-fib in route. Patient was intubated and ACLS was continued. Ultimately obtained ROSC after about 15 minutes. Placed on norepinephrine however patient coded shortly after again. ACLS was resumed for another approximately 10 minutes with rhythm of PEA and no rhythm change. Discussed prognosis and situation with patient's girlfriend and stepdaughter who presented to the emergency department. He had children however there is no way to contact them and he had no relationship with him. They stated that patient would not want these extreme measures and recommended ceasing efforts at this time. I returned to bedside and efforts were ceased however patient had a pulse. Discussed with them again who was agreeable with continuing supportive management and treatment however if patient were to code again, efforts would not be resumed. Patient was DNR. Workup included chest x-ray, CBC, CMP, VBG, blood cultures, troponin, EKG. EKG was independently interpreted by me immediately after ROSC was obtained revealing no STEMI. Chest x-ray was obtained and independently interpreted by me, revealing of adequately placed ET tube and a right sided lobar pneumonia. Initiated broad- spectrum antibiotics for sepsis. Most likely etiology of patient's code is respiratory/sepsis. Laboratory workup revealed a white blood cell count of 64.7, severe metabolic acidosis with a venous pH of 7.15, lactate of 13, creatinine of 1.6 from a baseline of 1.3, anion gap of 26. Patient remained minimally responsive off sedation. Requiring significant hemodynamic support with norepinephrine infusion. Consulted hospital medicine for evaluation who after discussing prognosis with family wish to pursue terminal extubation and comfort care. Patient ultimately terminally extubated in the emergency department. Time of 1527. Procedures Intubation Time out performed: No sedative: none Laryngoscope: other (videoassisted hyperangulated S4) ET Tube Size: 8 ET Tube Uncuffed: No Tube Secured Depth (cm): 24 Tube Secured Location: other (gums) Tube Placement Confirmation: visualized tube passing through cords, equal breath sounds bilaterally and confirmation by capnometry Patient Tolerated Procedure: well Intubation Complications: none Additional Comments: during ACLS Critical Care Critical Care Time Critical Care Time: Yes Attestation: On 05/14/24, the high probability of a clinically significant, sudden or life threatening deterioration of the following system(s) required my full and direct attention, intervention and personal management. The time I documented below is in addition to time spent performing reported procedures but includes the following listed in this critical care notation. Total Time Total Critical Care Time: 60
--- NOTE | 2024-05-14 11:59 | PC.NURSE ---
RECEIVED CALL FROM [facility], [facility] WITH 68/M FULL ARREST. 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 PT RECEIVED 6 ROUNDS OF EPI, 2 DEFIBRILLATIONS FOR V-FIB, 150 OF AMIO. 1057 ARRIVES CPR IN PROGRESS 1059 PLACED ON ZOLL 1100 GLUCOSE 122 1101 PULSE CHECK, PEA 1103 PULSE CHECK, PEA 1105 PULSE CHECK, PEA, 18GA TO RIGHT AC, EPI GIVEN, ETT 8.0, 24 @ LIP 1106 CALCIUM GIVEN 1107 PULSE CHECK, PEA, BICARB GIVEN 1108 EPI GIVEN 1109 PULSE CHECK, PEA. 18GA LEFT ABDOMEN 1111 PULSE 99, ROSC 1115 LEVO @ 16MCG 1116 EKG 1119 NO PULSE, CPR RESUMED, PEA. EPI GIVEN 1121 PULSE CHECK, PEA 1122 LEVO INCREASED TO 25 MCG 1123 PULSE CHECK, PEA EPI GIVEN 1125 PULSE CHECK, PEA 1127 PULSE CHECK, PEA. EPI GIVEN 1128 18 GA RIGHT ABDOMEN 1129 PULSE CHECK, PEA 1130 EPI GIVEN 1131 PULSE CHECK, HR 160-170, ROSC 1145 FAMILY AT BEDSIDE 1155 LEVO TO 35MCG B/P 70/48
[2024-05-14 12:01] LABS: VBG Base Excess -9.2 mmol/L (-2.4-2.3); VBG HCO3 19.7 mmol/L (23-30); VBG Oxygen Saturation 97.9 % (50-70); VBG PCO2 58.5 mmol/L (35-51); VBG PO2 142.7 mmol/L (28-40); VBG Total CO2 21.5 mmol/L (23-27)
[2024-05-14 12:02] LABS: VBG PH 7.15 mmol/L (7.31-7.41)
[2024-05-14 12:03] LABS: Lactate Venous 13.3 mmol/L (0.4-2.0)
[2024-05-14 12:03] LABS: Albumin Level 3.3 g/dl (3.5-5.0)
[2024-05-14 12:04] LABS: Potassium 3.8 mmoL/L (3.5-5.1); Sodium 117 mmol/L (136-145)
[2024-05-14 12:06] LABS: Anion Gap 26.8 mEq/L (5-15); Blood Urea Nitrogen 17 mg/dl (9-20); Carbon Dioxide 25 mmol/L (22.0-30.0); Estimated Glomerular Filt Rate 43 ml/min (>60); GFR (African American) 52 ML/MIN (>60)
[2024-05-14 12:07] LABS: Albumin/Globulin Ratio 1.2 (1.1-1.8); Alkaline Phosphatase 80 U/L (38-126); Bilirubin,Total 0.5 mg/dl (0.2-1.3); Calcium 9.3 mg/dl (8.4-10.2); Globulin 2.7 g/dL (1.3-3.2); Glucose 80 mg/dl (74-100)
--- NOTE | 2024-05-14 12:08 | PC.NURSE ---
[facility], The voicemail answered and told me to leave a call back number that we would receive a call back within 20 mins.
[2024-05-14 12:09] LABS: MANUAL DIFFERENTIAL MANUAL DIFFERENTIAL (MANUAL DIFF); White Blood Count 64.7 K/mm3 (4.8-10.8)
[2024-05-14 12:18] LABS: NT Pro Brain Natriuretic Pep. 2990 pg/mL (0-125)
[2024-05-14 12:19] LABS: Troponin I 0.03 ng/ml (0.00-0.034)
--- NOTE | 2024-05-14 12:19 | PC.NURSE ---
[facility] called back regarding [facility]
--- NOTE | 2024-05-14 12:20 | ECG_ITS ---
APPROVED REPORT Exam: Resting ECG HR:83 bpm ECG Measurements Heart Rate 83 AXES SC 191 P 54 QRSd 138 QRS -69 QT 446 T 73 QTc 486 Conclusion SINUS RHYTHM LEFT AXIS DEVIATION [QRS AXIS < -30] INTRAVENTRICULAR CONDUCTION DELAY [130+ ms QRS DURATION] ABNORMAL ECG UNCONFIRMED REPORT Electronically signed by : Chuck Rosa, 05/14/2024 16:10:40
--- NOTE | 2024-05-14 12:21 | ECG_ITS ---
APPROVED REPORT Exam: Resting ECG HR:82 bpm ECG Measurements Heart Rate 82 AXES NJ 189 P 131 QRSd 138 QRS 247 QT 429 T 109 QTc 468 Conclusion SINUS RHYTHM ARM LEADS REVERSED [INVERTED P AND QRS IN I] NORMAL ECG UNCONFIRMED REPORT Electronically signed by : Chuck Rosa, 05/14/2024 16:10:56
[2024-05-14 12:43] LABS: Ethyl Alcohol < 10 mg/dl (0-10)
[2024-05-14 12:47] LABS: Chloride 69 mmol/L (98-107)
[2024-05-14 12:52] LABS: Aspartate Amino Transferase 198 U/L (17-59)
[2024-05-14 12:53] LABS: Alanine Aminotransferase 141 U/L (12-78)
[2024-05-14 13:06] LABS: Hypochromasia 1+; Lymphocytes % 5 % (10-50); Monocytes % 1 % (2-9); Myelocytes % 2 (0-1); Neutrophils % 82 % (42-76); Ovalocytes 1+; Platelet Estimate Normal; Poikilocytosis 1+; Total Cells Counted 100
[2024-05-14] MEDS: LACTATED RINGERS 1000ML 1,000 ML 999 ML IV (13:27)
[2024-05-14] MEDS: CEFEPIME HCL 2 GM in 0.9 % SODIUM CHLORIDE 100 ML IV (13:50)
--- NOTE | 2024-05-14 14:03 | PC.NURSE ---
HOSPITALIST SPEAKING WITH BLAYNE BURROWS S.Liya VIA TELEPHONE AT THIS TIME
--- NOTE | 2024-05-14 14:50 | PC.NURSE ---
DR WOOD AND DR GOLDSMITH AT BEDSIDE SPEAKING WITH FAMILY ABOUT POC
--- NOTE | 2024-05-14 15:09 | PC.NURSE ---
1508 LIVING WILL PRESENT, HEALTH SURROGATE (STORMY URBINA) AT BEDSIDE. ID VERIFIED BY MYSELF AT [facility]. 1513 ET TUBE REMOVED BY RESPIRATORY AND LEVO DRIP OFF AT THIS TIME
--- NOTE | 2024-05-14 15:22 | PC.NURSE ---
NO PALPABLE PULSE AT THIS TIME FAMILY AT BEDSIDE
--- NOTE | 2024-05-14 15:32 | PC.NURSE ---
1532 ELSA CONTACTED LACI JUAREZ
--- NOTE | 2024-05-14 15:41 | P.DN_ITS ---
Pronouncement Note Date and Time of Date of : 05/14/24 Time of : 15:27 PCOD Preliminary cause of : Cardiopulmonary arrest Summary Additional details: 68-year-old male, chronically ill in the setting of heart failure on BiPAP at home who presented via EMS in cardiopulmonary arrest, witnessed arrest by EMS. ACLS ensued for approximately 35 minutes considering EMS time as well with ROSC in the emergency department. Arrested again about 5 minutes later and coded for another 10 minutes. After discussion with girlfriend and stepdaughter while ACLS was ongoing, it was determined that continued resuscitative efforts would not be within the patient's wishes. ACLS was discontinued and the patient had a pulse. Supported hemodynamically with norepinephrine, fluids, and broad- spectrum antibiotics for presumed pneumonia on chest x-ray. After discussion with hospitalist and family, it was ultimately determined to terminally extubate the patient and pursue comfort care. Patient was terminally extubated the Emergency Department where he then at 1527. Additional Data Confirmation of : no pulse, no respirations, no heart sounds and pupils fixed and dilated Family: at bedside Attending physician: Chuck Rosa MD Was code activated?: No Autopsy should be considered if:: Unknown or unanticipated medical complications Cause is not known with certainty on clinical grounds Would allay concerns of the public/family regarding Unexplained/unexpected apparently natural and not subject to a forensic medical jurisdiction DOA Within 24 hours of admission Sustained or apparently sustained injury while in the hospital Result of high risk, infectious and contagious disease Obstetric and pediatric arising from environmental or occupational hazard Unexplained/unexpected from dental, medical, or surgical diagnostic procedures and/or therapies Would disclose a known or suspected illness which also may have a bearing on survivors or recipients of transplanted organs Autopsy requested?: No Refused by family workers compensation claims examiner notified?: Yes Advance directives: No
--- NOTE | 2024-05-14 15:43 | PC.NURSE ---
PROCESS CAMERA OPERATOR PAGED AT THIS TIME THROUGH DISPATCH
[2024-05-14 16:03] LABS: Reflex Lactic Add Lactic Reflex
--- NOTE | 2024-05-14 16:29 | PC.NURSE ---
RUBBER TRIMMER AT BEDSIDE TO COLLECT PT. ELSA INFORMED BY RASHID SHEIKH THAT PT WILL BE WITH RUBBER TRIMMER. IF ELSA NEEDS ANY OTHER INFORMATION THEY NEED TO CONTACT KOFI BENITO WITH [facility] OFFICE
[2024-05-14] MEDS: NOREPINEPHRINE BITARTRATE/D5W 8 MG/250 ML PLAST..BAG 15 MG IV (17:12)
== END 2024-05-14 16:45 | disposition expired ==
PROVIDERS: Emergency Provider Student in an Organized Health Care Education/Training Program; PCP Family Medicine
DX: I46.9 Cardiac arrest, cause unspecified (principal)
CPT/HCPCS: 71045; 80053; 80320; 82803; 83880; 84484; 85007; 85025; 85027; 92950; 93005; 94002; 96361; 96365; 96374; 96375; 99291; G0480; J0171; J7120